=== PATIENT | female | born 2000 | race Caucasian/White ===

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

== ENCOUNTER 2022-03-29 22:10 | Emergency (ER) | payer OTHER, SELFPAY ==
[2022-03-29 22:21] VITALS: BP 120/77; PULSE 93; RESP 15; TEMP 36.4; O2SAT 99; BMI 19.7
[2022-03-29 22:42] LABS: MANUAL DIFF FLAG NO
[2022-03-29 22:44] LABS: Basophils Percent Auto 0.7 % (0-2); Eosinophils Percent Auto 0.5 % (0-4); Hematocrit 30.4 % (37.0-47.0); Hemoglobin 9.6 g/dl (12.0-16.0); Imm Gran Abs Auto 0.02 X10*3/uL (0.00-0.03); Imm Gran Pct Auto 0.3 % (0.0-0.4); Lymphocytes Absolute Auto 2.6 X10*3/uL (1.2-4.9); Lymphocytes Percent Auto 42.8 % (20-40); Mean Corpuscular HGB Conc 31.6 g/dl (31.0-35.0); Mean Corpuscular Hemoglobin 20.6 pg (27.0-33.0); Mean Corpuscular Volume 65.1 fL (80.0-98.0); Mean Platelet Volume 9.9 fL (9.4-12.3); Monocytes Absolute Auto 0.4 X10*3/uL (0.1-1.2); Monocytes Percent Auto 6.9 % (2-11); NRBC Pct Auto 0.7 /100WBC (0.0-0.2); Neutrophils Percent Auto 48.8 % (45-73); Platelet Count 298 X10*3/uL (160-400); Red Blood Count 4.67 X10*6/uL (4.20-5.50); Red Cell Distribution Width 20.7 % (11.0-16.0); White Blood Count 6.1 X10*3/uL (4.8-10.8)
[2022-03-29 22:45] LABS: Appearance Urine CLEAR; Color Urine YELLOW; Glucose Urine UA NEG (NEG); Leukocyte Esterase Urine NEG (NEG); Nitrite Urine NEG (NEG); UACC Culture Trigger NO; Urine Blood TRACE (NEG); Urine Ketones 5 MG/DL (NEG); Urine Protein NEG (NEG-TRACE)
[2022-03-29 22:58] LABS: Bacteria Urine TRACE /LPF; Mucus Urine 2+ /LPF; Squamous Epithelial Cell Urine 3+ /LPF; WBC Urine 0-2 /HPF (0-4)
[2022-03-29 22:59] LABS: Alanine Aminotransferase 9 U/L (0-31); Albumin Level 4.7 g/dL (3.5-5.0); Alkaline Phosphatase 50 U/L (39-117); Anion Gap 11 (12-20); Aspartate Amino Transferase 16 U/L (5-31); Bilirubin Direct 0.5 mg/dL (0.0-0.5); Bilirubin Total 1.5 mg/dL (0.0-1.0); Blood Urea Nitrogen 15 mg/dL (9-16); Calcium 9.7 mg/dL (8.4-10.2); Carbon Dioxide 27 mmol/L (22-29); Chloride 104 mmol/L (96-108); Creatinine Clr Calc Pharmacy 103.4; Estimated Glomerular Filt Rate > 60; Glucose Random 96 mg/dL (60-115); Lipase 21 U/L (8-78); Potassium 4.4 mmol/L (3.3-5.1); Sodium 138 mmol/L (135-145); Total Protein 7.7 g/dL (6.5-8.0)
[2022-03-29 23:05] LABS: HCG Quantitative < 2 mIU/mL
--- NOTE | 2022-03-29 23:43 | ED_ITS ---
HPI - Abdominal Pain General Chief Complaint: Abdominal Pain Stated Complaint: abd pain,back pain Time Seen by Provider: 03/29/22 22:13 Source: patient and family Mode of arrival: ambulatory Limitations: no limitations History of Present Illness HPI narrative: 21-year-old female came in for evaluation of abdominal pain. Abdominal pain started 3 days ago as cramps mostly in the lower abdomen bilaterally, pain described as constant moderate 5/10 as the abdominal crampy pain, pain to lower abdominal area bilaterally radiates to bilateral lower back area, no relieving factor, no worsening factors. Had this pain in the past, patient stated that her menses sees is delayed by 3 weeks, no vaginal discharge, no vaginal bleeding, no urinary frequency, no dysuria. No history of abdominal surgery. Related Data Previous Rx's Medication Instructions Recorded azithromycin 250 mg tablet 250 mg PO DAILY 4 days #4 tabs 08/29/21 (Zithromax Z-Ricardo) benzonatate 100 mg capsule 100 mg PO Q6H PRN cough #20 caps 08/29/21 prednisone 20 mg tablet 40 mg PO DAILY #10 tabs 08/29/21 Allergies Allergy/AdvReac Type Severity Reaction Status Date / Time No Known Allergies Allergy Verified 08/29/21 18:33 Review of Systems Review of Systems All other systems are reviewed and are negative Constitutional: Reports as per HPI and Reports no additional constitutional complaints Eyes: Reports as per HPI and Reports no additional eye complaints Reports system reviewed and no additional complaints, except as documented Cardiovascular: Reports as per HPI and Reports no additional cardiovascular complaints Respiratory: Reports as per HPI and Reports no additional respiratory complaints Gastrointestinal: Reports as per HPI and Reports no additional gastrointestinal complaints Genitourinary: Reports no additional female genitourinary complaints Musculoskeletal: Reports no additional musculoskeletal complaints Skin/Breast: Reports system reviewed and no additional complaints, except as docu Psychiatric: Reports no additional psychiatric complaints Endocrine: Reports no additional endocrine complaints Hematologic/Lymphatic: Reports no additional hematologic/lymphatic complaints Allergic/Immunologic: Reports no additional allergic/immunologic complaints Reports system reviewed and no additional complaints, except as documented and Reports Abnormal speech present COUNT INCLUDES THE [facility] Past Medical History Medical History Patient denies medical problems Social History Social History Alcohol intake: never Patient Tobacco Use Status: Never used Tobacco Use of substances other than those prescribed or required for medical reasons: No Advance Directives: No Advance Directives Information Provided: Yes Patient : No Physical Exam ED Vital Signs: Vital Signs - 24 hr 03/29/22 22:21 Temperature 97.6 F Pulse Rate 93 Respiratory Rate 15 Blood Pressure 120/77 Pulse Oximetry 99 Oxygen Delivery Method Room Air BMI result Body Mass Index 19.7 Vital signs have been reviewed as appeared to be correct. Blood pressure normal. Heart rate normal. Respiration rate normal. Temperature normal. Oxygen saturation normal. Appearance: Alert. Oriented X3. No acute distress. Head: Normal external exam. Normocephalic. Atraumatic. No Kc signs noted. No raccoon eyes noted Eyes: PERRLA. EOMI. Conjunctiva and sclera normal. Eyelids normal. ENT: TM's Normal. Pharynx normal. Uvula midline. Moist mucous membranes. No trismus noted. No drooling noted. No muffled voice noted. Neck: Normal inspection. Neck supple. FROM. No adenopathy. Thyroid Normal. No meningeal signs. No neck mass noted. CVS: Normal heart rate and rhythm. Heart sound normal. No murmurs noted. Pulses normal throughout. Respiratory: No respiratory distress. Painless inspiration. Breath sounds normal. No wheezes/rales/rhonchi noted. Chest nontender. No accessory muscle usage noted or decreased air movement noted. Abdomen: Soft and nontender. Bowel sounds normal in all 4 quadrants. No distention noted. No organomegaly noted. No visible injury noted. Back: No CVA tenderness. Full range of motion noted. Skin: Skin warm and dry. Normal skin color. Normal skin turgor. No rashes/lesions/lacerations noted. Extremities: No lower extremity edema. Extremities exhibit normal range of motion. Extremities nontender. Neuro: Oriented X 3. Cranial nerve exam: II-XII are grossly intact No motor deficit. No sensory deficit. Reflexes normal. Course Course Course Narrative: Assessment and plan. 21-year-old female with 3 days of abdominal pain, patient has unremarkable abdominal exam, no labs are unremarkable. Patient's symptoms improved with ibuprofen. Delayed menses with negative test. Will discharge the patient to follow-up with her PCP, to return to the ED if worsening of symptoms. 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 MDM - Abdominal Pain Lab Data Attestation: I reviewed the patient's lab results. Result diagrams: 03/29/22 22:26 03/29/22 22:26 Labs: Lab Results 03/29/22 03/29/22 03/29/22 Range/Units 22:26 22:26 22:37 WBC 6.1 (4.8-10.8) X10*3/uL RBC 4.67 (4.20-5.50) X10*6/uL Hgb 9.6 L (12.0-16.0) g/dl Hct 30.4 L (37.0-47.0) % MCV 65.1 L (80.0-98.0) fL MCH 20.6 L (27.0-33.0) pg MCHC 31.6 (31.0-35.0) g/dl RDW 20.7 H (11.0-16.0) % Plt Count 298 (160-400) X10*3/uL MPV 9.9 (9.4-12.3) fL Immature Gran % (Auto) 0.3 (0.0-0.4) % Neut % (Auto) 48.8 (45-73) % Lymph % (Auto) 42.8 H (20-40) % [place] % (Auto) 6.9 (2-11) % Eos % (Auto) 0.5 (0-4) % Baso % (Auto) 0.7 (0-2) % Lymph # (Auto) 2.6 (1.2-4.9) X10*3/uL [place] # (Auto) 0.4 (0.1-1.2) X10*3/uL Eos # (Auto) 0.0 (0.0-0.4) X10*3/uL Baso # (Auto) 0.0 (0.0-0.2) X10*3/uL Abs Immat Gran (auto) 0.02 (0.00-0.03) X10*3/uL Absolute Neuts (auto) 3.0 (2.0-8.3) x10*3/uL Absolute Nucleated RBC 0.040 H (0.0-0.012) X10*3/uL Nucleated RBC % (auto) 0.7 H (0.0-0.2) /100WBC Sodium 138 (135-145) mmol/L Potassium 4.4 (3.3-5.1) mmol/L Chloride 104 (96-108) mmol/L Carbon Dioxide 27 (22-29) mmol/L Anion Gap 11 L (12-20) BUN 15 (9-16) mg/dL Creatinine 0.72 (0.5-1.4) mg/dL Estim Creat Clear Calc 103.4 Estimated GFR > 60 Random Glucose 96 (60-115) mg/dL Calcium 9.7 (8.4-10.2) mg/dL Total Bilirubin 1.5 H (0.0-1.0) mg/dL Direct Bilirubin 0.5 (0.0-0.5) mg/dL AST 16 (5-31) U/L ALT 9 (0-31) U/L Alkaline Phosphatase 50 (39-117) U/L Total Protein 7.7 (6.5-8.0) g/dL Albumin 4.7 (3.5-5.0) g/dL Lipase 21 (8-78) U/L Beta HCG, Quant < 2 mIU/mL Urine Color YELLOW Urine Appearance CLEAR Urine pH 7.0 (5.0-8.0) Ur Specific [place] 1.020 (1.005-1.025) Urine Protein NEG (NEG-TRACE) MG/DL Urine Glucose (UA) NEG (NEG) MG/DL Urine Ketones 5 (NEG) MG/DL Urine Blood TRACE (NEG) Urine Nitrite NEG (NEG) Ur Leukocyte Esterase NEG (NEG) Urine RBC 1-4 (0) /HPF Urine WBC 0-2 (0-4) /HPF Ur Squamous Epith Cells 3+ /LPF Urine Bacteria TRACE /LPF Urine Mucus 2+ /LPF Discharge Plan Discharge Clinical Impression: Abdominal pain, Anemia Patient Disposition: Home, Self-Care Instructions: Abdominal Pain (ED) Prescriptions: No Action prednisone 20 mg tablet 40 mg PO DAILY Qty: 10 0RF azithromycin [Zithromax Z-Ricardo] 250 mg tablet 250 mg PO DAILY 4 Days Qty: 4 0RF Rx Instructions: start on day 2 of therapy benzonatate 100 mg capsule 100 mg PO Q6H PRN (Reason: cough) Qty: 20 0RF Referrals: Guero José MD [Primary Care Provider] - Nany Recinos MD [Physician] -
[2022-03-29] MEDS: Ibuprofen 600 MG TABLET PO (23:58)
== END 2022-03-30 00:58 | disposition home or self-care (01) ==
PROVIDERS: Emergency Medicine; Emergency Provider Emergency Medicine; PCP Pediatrics
DX: R10.31 Right lower quadrant pain (principal); R10.32 Left lower quadrant pain; D64.9 Anemia, unspecified; N91.0 Primary amenorrhea
CPT/HCPCS: 36415; 80048; 80076; 81001; 83690; 84702; 85025; 99283; 99284

== ENCOUNTER 2022-07-27 13:47 | Emergency (ER) | payer OTHER, SELFPAY ==
--- NOTE | 2022-07-27 13:49 | ECG_ITS ---
Test Reason : chest pain Blood Pressure : / mmHG Vent. Rate : 087 BPM Atrial Rate : 087 BPM P-R Int : 106 ms QRS Dur : 092 ms QT Int : 350 ms P-R-T Axes : 055 067 025 degrees QTc Int : 421 ms Sinus rhythm with short [place] Low voltage QRS Otherwise normal ECG No previous ECGs available Referred By: Generic ED Physician Electronically Signed By:SIVA EDOUARD MD
[2022-07-27 13:55] VITALS: BP 111/86; PULSE 90; RESP 18; TEMP 37.2; O2SAT 98; BMI 18.3
[2022-07-27 14:27] LABS: MANUAL DIFF FLAG NO
[2022-07-27 14:31] LABS: Appearance Urine Cloudy; Color Urine Dark Yellow; Glucose Urine UA Negative (Negative); Leukocyte Esterase Urine Moderate (2+) (Negative); Nitrite Urine Negative (Negative); Specific Gravity - Urine >= 1.030 (1.005-1.025); UMIC TRIGGER UACC YES; Urine Blood Negative (Negative); Urine Ketones Negative (Negative); Urine Protein 30 (1+) mg/dL (Neg-Trace)
[2022-07-27 14:36] LABS: UPreg QC Valid YES; Urine Pregnancy NEGATIVE (NEGATIVE)
[2022-07-27 14:37] LABS: Basophils Percent Auto 0.6 % (0-2); Eosinophils Absolute Auto 0.1 X10*3/uL (0.0-0.4); Eosinophils Percent Auto 1.3 % (0-4); Hematocrit 31.3 % (37.0-47.0); Hemoglobin 9.7 g/dl (12.0-16.0); Lymphocytes Absolute Auto 1.5 X10*3/uL (1.2-4.9); Lymphocytes Percent Auto 31.8 % (20-40); Mean Platelet Volume 10.1 fL (9.4-12.3); Monocytes Absolute Auto 0.3 X10*3/uL (0.1-1.2); Monocytes Percent Auto 7.2 % (2-11); NRBC Pct Auto 0.4 /100WBC (0.0-0.2); Neutrophils Absolute Auto 2.8 x10*3/uL (2.0-8.3); Neutrophils Percent Auto 59.1 % (45-73); Platelet Count 294 X10*3/uL (160-400); Red Blood Count 4.86 X10*6/uL (4.20-5.50); Red Cell Distribution Width 18.3 % (11.0-16.0); White Blood Count 4.7 X10*3/uL (4.8-10.8)
[2022-07-27 14:38] LABS: Mean Corpuscular Volume 64.4 fL (80.0-98.0)
[2022-07-27 14:43] LABS: Alanine Aminotransferase 6 U/L (0-31); Albumin Level 4.6 g/dL (3.5-5.0); Alkaline Phosphatase 50 U/L (39-117); Anion Gap 13 (12-20); Aspartate Amino Transferase 14 U/L (5-31); Bilirubin Direct 0.4 mg/dL (0.0-0.5); Bilirubin Total 1.2 mg/dL (0.0-1.0); Blood Urea Nitrogen 11 mg/dL (9-16); Calcium 9.6 mg/dL (8.4-10.2); Carbon Dioxide 25 mmol/L (22-29); Chloride 106 mmol/L (96-108); Creatinine Clr Calc Pharmacy 103.4; Estimated Glomerular Filt Rate > 60; Glucose Random 115 mg/dL (60-115); Lipase 29 U/L (8-78); Potassium 4.2 mmol/L (3.3-5.1); Sodium 140 mmol/L (135-145); Total Protein 7.5 g/dL (6.5-8.0)
[2022-07-27 14:49] LABS: Troponin-I High Sensitivity < 3.5 ng/L (<3.5-17.0)
[2022-07-27 15:11] LABS: Bacteria Urine 4+ (None Seen); Hyaline Casts Urine 0-2 /LPF (0-2); Squamous Epithelial Cell Urine >20 /HPF (0-2); UACC Culture Trigger YES; WBC Urine >50 /HPF (0-5)
[2022-07-27 18:10] VITALS: BP 97/65; PULSE 71; RESP 18; TEMP 36.9; O2SAT 100
--- OUTSIDE RECORDS SUMMARY | 2022-07-27 18:34 | XMS_ITS | Continuity of Care Document ---
:2000 Author Organization [facility] Address [address] [place] [address]- Care Team Providers Name Role Phone Not on Staff, PCP Primary Care Physician Unavailable Encounter [facility] Date(s): 10/26/19 - 11/02/[address] [address]- [facility] Attending Physician: Guero Gandhi MD Allergies, Adverse Reactions, Alerts Substance Reaction Severity Status NKA Active Immunizations Given and Recorded Vaccine Date Status Refusal Reason Hepatitis A Pediatric Vaccine1 07/29/15 Given Hepatitis A Pediatric Vaccine2 11/21/11 Given Human Papillomavirus Vaccine3 07/29/15 Given tetanus/diphtheria/pertussis, acel(Tdap)4 07/29/15 Given Meningococcal Conjugate Vaccine5 07/29/15 Given influenza virus vaccine, inactivated6 07/29/15 Given influenza virus vaccine, inactivated 10/14/13 Given influenza virus vaccine, inactivated7 06/29/09 Given influenza virus vaccine, inactivated8 08/21/07 Given influenza virus vaccine, inactivated9 08/22/04 Given influenza virus vaccine, [id number] 07/05/04 Given Varicella Virus [id number] 01/13/09 Given Varicella Virus Vaccine 03/08/04 Given diphtheria/tetanus/pertussis, acel(DTaP)12 07/05/07 Given diphtheria/tetanus/pertussis, acel(DTaP)13 03/12/07 Given diphtheria/tetanus/pertussis, acel(DTaP) 07/05/04 Given diphtheria/tetanus/pertussis, acel(DTaP) 08/17/03 Given diphtheria/tetanus/pertussis, acel(DTaP) 07/02/03 Given diphtheria/tetanus/pertussis, acel(DTaP) 03/04/03 Given Measles/Mumps/Rubella Virus [id number] 03/12/07 Given Measles/Mumps/Rubella Virus Vaccine 03/08/04 Given Poliovirus Vaccine, [id number] 03/12/07 Given Poliovirus Vaccine, Inactivated 03/08/04 Given Poliovirus Vaccine, Inactivated 07/02/03 Given Poliovirus Vaccine, Inactivated 03/04/03 Given pneumococcal 7-valent vaccine 11/06/04 Given pneumococcal 7-valent vaccine 08/17/03 Given pneumococcal 7-valent vaccine 07/02/03 Given pneumococcal 7-valent vaccine 03/04/03 Given Haemophilus B conjugate (HbOC) vaccine 03/08/04 Given Haemophilus B conjugate (HbOC) 08/17/03 Given Haemophilus B conjugate (HbOC) vaccine 07/02/03 Given Haemophilus B conjugate (HbOC) vaccine 03/04/03 Given hepatitis B pediatric vaccine 09/06/03 Given hepatitis B pediatric vaccine 02/12/03 Given hepatitis B pediatric vaccine 01/10/03 Given 1Result Comment: [07/29/2015] ORDERED BY CONRADO BAE MD2Admin Note: VIS 12/25/05 [id number] Comment: [07/29/2015] ORDERED BY CONRADO BAE MD4Result Comment: [07/29/2015] ORDERED BY CONRADO BAE MD5Result Comment: [07/29/2015] ORDERED BY CONRADO BAE MD6Result Comment: [07/29/2015] ORDERED BY CONRADO BAE MD7Admin Note: vis 05/17/09 [id number] Note: GIVEN BY [id number] Note: GIVEN BY [id number] Admin Note: GIVEN BY [id number] Note: VIS 12/18/0712Admin Note: GIVEN BY NURSE 13Admin Note: GIVEN BY [id number] Note: GIVEN BY [id number] Note: GIVEN BY [id number] Note: GIVEN BY NURSE Medications fluoride 1 mg oral tablet 1 tablet = 1 mg, By Mouth, Daily at bedtime, for 30 days, # 30 tablet, 11 Refills, Acute 07/23/16 14:03:31, 07/29/15 14:03:31, 1 tablet By Mouth Daily at bedtime,x30 days Start Date: 07/29/15 Stop Date: 07/23/16 Status: Orderedfluoride 1 mg oral tablet, chewable 1 tablet, By Mouth, Daily at bedtime, # 30 tablet, 11 Refills, Maintenance Start Date: 11/21/11 Stop Date: 11/15/12 Status: OrderedOvide 0.5% topical lotion 1 application, Topically, Once, as directed on package labeling, # 60 mL, 1 Refills, Soft Stop, Lotion Start Date: 08/08/12 Status: OrderedOvide 0.5% topical lotion 1 application, Topically, Once, as directed on package labeling, if lice still present after 7-9 days may repeat, # 60 mL, 1 Refills, Soft Stop, Lotion, 1 application Topically Once,Instr:as directed on package labeling, if lice still present after 7-... Start Date: 10/14/13 Status: Orderedpermethrin topical 1% solution 1 application, Topically, Once, to clean hair and scalp, leave in for 10 minutes then rinse with water, # 120 mL, 0 Refills, Maintenance, Solution Start Date: 04/20/10 Status: Orderedsulfamethoxazole-trimethoprim 200 mg-40 mg/5 ml oral suspension 12.5 mL, By Mouth, 2 times a day, # 250 mL, 0 Refills, Maintenance Start Date: 04/20/10 Stop Date: 04/30/10 Status: Ordered Problem List Condition Effective Dates Status Health Status Informant Asthma(Confirmed) Active Beta thalassemia trait(Confirmed) Active
--- NOTE | 2022-07-27 18:47 | ED.CHESTPAIN ---
HPI - Chest Pain General Chief Complaint: Chest Pain Stated Complaint: chest pains Time Seen by Provider: 07/27/22 18:30 Source: patient Mode of arrival: ambulatory Limitations: no limitations History of Present Illness HPI narrative: Patient is a 21-year-old female who presents emergency department for evaluation of chest pressure and palpitations. Patient reports a history of this for many years. She states that she was seen here in the past for similar complaints. She reports a history of anemia and was concerned that her anemia is worsening. Denies fevers, chills, upper respiratory symptoms dizziness, lightheadedness, chest pain, shortness of breath difficulty breathing, nausea, vomiting, abdominal pain, urinary frequency/urgency/hesitancy, numbness tingling of her extremities, weakness, unsteady gait. Related Data Previous Rx's Medication Instructions Recorded azithromycin 250 mg tablet 250 mg PO DAILY 4 days #4 tabs 08/29/21 (Zithromax Z-Ricardo) benzonatate 100 mg capsule 100 mg PO Q6H PRN cough #20 caps 08/29/21 prednisone 20 mg tablet 40 mg PO DAILY #10 tabs 08/29/21 Allergies Allergy/AdvReac Type Severity Reaction Status Date / Time No Known Allergies Allergy Verified 08/29/21 18:33 Review of Systems Review of Systems: Constitutional : No Weight loss, No Fever, No Chills ENT/Mouth :? No sore throat, No Rhinorrhea Eyes: No Eye Pain, No Swelling Cardiovascular : pos Chest Pain, no SOB, no Dyspnea on Exertion, No Orthopnea, No Edema, positive Palpitations Respiratory : No Cough, No Sputum Gastrointestinal : pos Nausea, No Vomiting, No Diarrhea, No abdominal Pain, No Hematochezia, No Melena Genitourinary : No Dysuria, No Urinary Frequency Musculoskeletal : No joint pain, No Myalgias, No Joint Swelling Skin : No Skin Lesions, No rash Neuro : No Weakness, No Numbness, No Dizziness, No Headache Psych : No Anxiety/Panic, No Depression Heme/Lymph: No Bruising, No Lymphadenopathy Endocrine : No Polyuria, No Polydipsia Yes all other systems are reviewed and are negative [facility] Past Medical History Attestation statement: The following information was validated with the patient. Source: old records reviewed Medical History Patient denies medical problems Social History Social History Alcohol intake: never Patient Tobacco Use Status: Never used Tobacco Advance Directives: No Advance Directives Information Provided: Yes Physical Exam Vital Signs: Vital Signs: Last Vital Signs Temp 98.1 F 07/27/22 19:21 Pulse 72 07/27/22 19:21 Resp 16 07/27/22 19:21 BP 107/61 07/27/22 19:21 Pulse Ox 99 07/27/22 19:21 O2 Del Method 07/27/22 19:21 BMI result Body Mass Index 18.3 Vital signs have been reviewed as normal and appeared to be correct. Blood pressure normal.? Heart rate normal.? Respiration rate normal. Temperature normal.? Oxygen saturation normal. Appearance: Alert.?Oriented to person, place and time. No acute distress.?Normal affect. Eyes: Pupils equal, round and reactive to light.? ENT: Pharynx normal.?? Neck: Normal inspection.? Neck supple.?? CVS: Heart sounds normal. Normal heart rate and rhythm.? Pulses normal.?? Respiratory: No respiratory distress.? Lung sounds clear to auscultation bilaterally?? Abdomen: Soft and non-tender. Normoactive bowel sounds. Skin: Skin warm and dry.? Normal skin color.? ? Extremities: No lower extremity edema.? No calf ttp? Neuro: Moves all extremities spontaneously. Sensation intact bilaterally. CN II-XII intact. No focal neuro deficits. Ambulates with normal steady gait. Course Course Course Narrative: Patient is a 21-year-old female with a past medical history of thalassemia presents emergency department for evaluation of chest pressure and palpitations. She is overall well-appearing, has no infectious symptoms no recent URI symptoms. Vital signs are stable, no tachycardia, tachypnea, hypoxia. She is normotensive and afebrile. Palpitations are intermittent and feel consistent with her baseline. Will obtain CBC to evaluate for leukocytosis/ anemia, CMP to evaluate for abnormal electrolytes /abnormal renal function/ abnormal hepatic/biliary function, EKG and troponin to evaluate for ischemia/ACS, Urinalysis and urine . Reevaluation(s) Reevaluation #1: CBC reveals a normocytic anemia consistent with her baseline no indication for transfusion at this time. CMP is overall normal. Troponin <3.5, EKG reveals sinus rhythm with short MA no evidence of delta wave no prior EKGs for comparison. Not consistent with ACS. Suspect there symptoms are secondary to her chronic anemia. By her report she has been on iron supplementations and past but has not seen Hematology in quite some time, she has a new primary care provider appointment in September of 2022. Urinalysis reveals moderate leukocyte esterase and wbc's with presence of bacteria and squamous epithelial cells. Patient is asymptomatic, urine test is negative. Suspect that this may be urogenital contamination. Would defer treatment at this time again a she is asymptomatic, culture was sent. Patient stable for discharge home. Discussed worrisome signs and symptoms to return back to emergency department for. All questions were answered. Time: 18:53 MDM - Chest Pain Lab Data Result diagrams: 07/27/22 14:20 07/27/22 14:21 Labs: Lab Results 07/27/22 07/27/22 07/27/22 Range/Units 14:16 14:16 14:20 WBC 4.7 L (4.8-10.8) X10*3/uL RBC 4.86 (4.20-5.50) X10*6/uL Hgb 9.7 L (12.0-16.0) g/dl Hct 31.3 L (37.0-47.0) % MCV 64.4 L (80.0-98.0) fL MCH 20.0 L (27.0-33.0) pg MCHC 31.0 (31.0-35.0) g/dl RDW 18.3 H (11.0-16.0) % Plt Count 294 (160-400) X10*3/uL MPV 10.1 (9.4-12.3) fL Immature Gran % (Auto) 0.0 (0.0-0.4) % Neut % (Auto) 59.1 (45-73) % Lymph % (Auto) 31.8 (20-40) % [place] % (Auto) 7.2 (2-11) % Eos % (Auto) 1.3 (0-4) % Baso % (Auto) 0.6 (0-2) % Lymph # (Auto) 1.5 (1.2-4.9) X10*3/uL [place] # (Auto) 0.3 (0.1-1.2) X10*3/uL Eos # (Auto) 0.1 (0.0-0.4) X10*3/uL Baso # (Auto) 0.0 (0.0-0.2) X10*3/uL Abs Immat Gran (auto) 0.00 (0.00-0.03) X10*3/uL Absolute Neuts (auto) 2.8 (2.0-8.3) x10*3/uL Absolute Nucleated RBC 0.020 H (0.0-0.012) X10*3/uL Nucleated RBC % (auto) 0.4 H (0.0-0.2) /100WBC Sodium (135-145) mmol/L Potassium (3.3-5.1) mmol/L Chloride (96-108) mmol/L Carbon Dioxide (22-29) mmol/L Anion Gap (12-20) BUN (9-16) mg/dL Creatinine (0.5-1.4) mg/dL Estim Creat Clear Calc Estimated GFR Random Glucose (60-115) mg/dL Calcium (8.4-10.2) mg/dL Total Bilirubin (0.0-1.0) mg/dL Direct Bilirubin (0.0-0.5) mg/dL AST (5-31) U/L ALT (0-31) U/L Alkaline Phosphatase (39-117) U/L Troponin I High Sens (<3.5-17.0) ng/L Total Protein (6.5-8.0) g/dL Albumin (3.5-5.0) g/dL Lipase (8-78) U/L Urine Color Dark Yellow Urine Appearance Cloudy Urine pH 5.0 (5.0-9.0) Ur Specific [place] >= 1.030 H (1.005-1.025) Urine Protein 30 (1+) H (Neg-Trace) mg/dL Urine Glucose (UA) Negative (Negative) mg/dL Urine Ketones Negative (Negative) mg/dL Urine Blood Negative (Negative) Urine Nitrite Negative (Negative) Ur Leukocyte Esterase Moderate (2+) H (Negative) Urine RBC 3-5 H (0-2) /HPF Urine WBC >50 H (0-5) /HPF Ur Squamous Epith Cells >20 (0-2) /HPF Urine Bacteria 4+ (None Seen) Hyaline Casts 0-2 (0-2) /LPF Urine Test NEGATIVE (NEGATIVE) 07/27/22 07/27/22 Range/Units 14:20 14:21 WBC (4.8-10.8) X10*3/uL RBC (4.20-5.50) X10*6/uL Hgb (12.0-16.0) g/dl Hct (37.0-47.0) % MCV (80.0-98.0) fL MCH (27.0-33.0) pg MCHC (31.0-35.0) g/dl RDW (11.0-16.0) % Plt Count (160-400) X10*3/uL MPV (9.4-12.3) fL Immature Gran % (Auto) (0.0-0.4) % Neut % (Auto) (45-73) % Lymph % (Auto) (20-40) % [place] % (Auto) (2-11) % Eos % (Auto) (0-4) % Baso % (Auto) (0-2) % Lymph # (Auto) (1.2-4.9) X10*3/uL [place] # (Auto) (0.1-1.2) X10*3/uL Eos # (Auto) (0.0-0.4) X10*3/uL Baso # (Auto) (0.0-0.2) X10*3/uL Abs Immat Gran (auto) (0.00-0.03) X10*3/uL Absolute Neuts (auto) (2.0-8.3) x10*3/uL Absolute Nucleated RBC (0.0-0.012) X10*3/uL Nucleated RBC % (auto) (0.0-0.2) /100WBC Sodium 140 (135-145) mmol/L Potassium 4.2 (3.3-5.1) mmol/L Chloride 106 (96-108) mmol/L Carbon Dioxide 25 (22-29) mmol/L Anion Gap 13 (12-20) BUN 11 (9-16) mg/dL Creatinine 0.67 (0.5-1.4) mg/dL Estim Creat Clear Calc 103.4 Estimated GFR > 60 Random Glucose 115 (60-115) mg/dL Calcium 9.6 (8.4-10.2) mg/dL Total Bilirubin 1.2 H (0.0-1.0) mg/dL Direct Bilirubin 0.4 (0.0-0.5) mg/dL AST 14 (5-31) U/L ALT 6 (0-31) U/L Alkaline Phosphatase 50 (39-117) U/L Troponin I High Sens < 3.5 (<3.5-17.0) ng/L Total Protein 7.5 (6.5-8.0) g/dL Albumin 4.6 (3.5-5.0) g/dL Lipase 29 (8-78) U/L Urine Color Urine Appearance Urine pH (5.0-9.0) Ur Specific [place] (1.005-1.025) Urine Protein (Neg-Trace) mg/dL Urine Glucose (UA) (Negative) mg/dL Urine Ketones (Negative) mg/dL Urine Blood (Negative) Urine Nitrite (Negative) Ur Leukocyte Esterase (Negative) Urine RBC (0-2) /HPF Urine WBC (0-5) /HPF Ur Squamous Epith Cells (0-2) /HPF Urine Bacteria (None Seen) Hyaline Casts (0-2) /LPF Urine Test (NEGATIVE) Discharge Plan Discharge Clinical Impression: Palpitations, Microcytic anemia Patient Disposition: Home, Self-Care Instructions: Heart Palpitations (ED), Anemia (ED) Additional Instructions: Please follow-up with your primary care provider. Return to the emergency department any new or worsening symptoms or concerns. Prescriptions: No Action prednisone 20 mg tablet 40 mg PO DAILY Qty: 10 0RF azithromycin [Zithromax Z-Ricardo] 250 mg tablet 250 mg PO DAILY 4 Days Qty: 4 0RF Rx Instructions: start on day 2 of therapy benzonatate 100 mg capsule 100 mg PO Q6H PRN (Reason: cough) Qty: 20 0RF Interventions: ED Discharge Assessment Last Done: 07/27/22 19:49 Discharge Date/Time: 07/27/22 19:50
[2022-07-27 19:21] VITALS: BP 107/61; PULSE 72; RESP 16; TEMP 36.7; O2SAT 99
== END 2022-07-27 19:50 | disposition home or self-care (01) ==
PROVIDERS: Emergency Provider Emergency Medicine; PCP Pediatrics
DX: R00.2 Palpitations (principal); D50.9 Iron deficiency anemia, unspecified
CPT/HCPCS: 36415; 80053; 81001; 81025; 82248; 83690; 84484; 85025; 87086; 93005; 99283; 99284

== ENCOUNTER 2022-07-31 09:27 | Emergency (ER) | payer OTHER, SELFPAY ==
--- NOTE | ~2022-07-31 | XR_ITS ---
EXAMINATION: XR CHEST CLINICAL INFORMATION: Chest pressure. COMPARISON: None TECHNIQUE: 2 views of the chest were obtained. FINDINGS: No significant abnormality is noted involving the heart, lungs, mediastinum, bony thorax or soft tissues. XR/XR chest 2V IMPRESSION: No acute cardiopulmonary process.
[2022-07-31 09:37] VITALS: BP 110/71; PULSE 74; RESP 18; TEMP 36.6; O2SAT 99; BMI 18.3
--- NOTE | 2022-07-31 09:40 | ECG_ITS ---
Test Reason : chest presssure Blood Pressure : / mmHG Vent. Rate : 074 BPM Atrial Rate : 074 BPM P-R Int : 126 ms QRS Dur : 090 ms QT Int : 366 ms P-R-T Axes : 039 049 024 degrees QTc Int : 406 ms Normal sinus rhythm with sinus arrhythmia Normal ECG When compared with ECG of 27-JUL-2022 13:51, No significant change was found Referred By: Generic ED Physician Electronically Signed By:SIVA EDOUARD MD
[2022-07-31 09:53] LABS: MANUAL DIFF FLAG NO
[2022-07-31 09:54] LABS: Basophils Percent Auto 0.5 % (0-2); Eosinophils Absolute Auto 0.1 X10*3/uL (0.0-0.4); Eosinophils Percent Auto 1.6 % (0-4); Hematocrit 27.8 % (37.0-47.0); Hemoglobin 8.7 g/dl (12.0-16.0); Imm Gran Abs Auto 0.01 X10*3/uL (0.00-0.03); Imm Gran Pct Auto 0.2 % (0.0-0.4); Lymphocytes Absolute Auto 1.7 X10*3/uL (1.2-4.9); Lymphocytes Percent Auto 38.9 % (20-40); Mean Corpuscular HGB Conc 31.3 g/dl (31.0-35.0); Mean Corpuscular Hemoglobin 20.2 pg (27.0-33.0); Monocytes Absolute Auto 0.4 X10*3/uL (0.1-1.2); Monocytes Percent Auto 8.9 % (2-11); NRBC Pct Auto 0.5 /100WBC (0.0-0.2); Neutrophils Absolute Auto 2.2 x10*3/uL (2.0-8.3); Neutrophils Percent Auto 49.9 % (45-73); Platelet Count 232 X10*3/uL (160-400); Red Blood Count 4.31 X10*6/uL (4.20-5.50); White Blood Count 4.4 X10*3/uL (4.8-10.8)
[2022-07-31 09:57] LABS: Mean Corpuscular Volume 64.5 fL (80.0-98.0)
[2022-07-31 10:12] LABS: Alanine Aminotransferase 6 U/L (0-31); Albumin Level 4.3 g/dL (3.5-5.0); Alkaline Phosphatase 46 U/L (39-117); Anion Gap 14 (12-20); Aspartate Amino Transferase 13 U/L (5-31); Bilirubin Direct 0.4 mg/dL (0.0-0.5); Bilirubin Total 0.9 mg/dL (0.0-1.0); Blood Urea Nitrogen 10 mg/dL (9-16); Carbon Dioxide 21 mmol/L (22-29); Chloride 109 mmol/L (96-108); Creatinine Clr Calc Pharmacy 113.6; Estimated Glomerular Filt Rate > 60; Glucose Random 103 mg/dL (60-115); Lipase 20 U/L (8-78); Potassium 3.9 mmol/L (3.3-5.1); Sodium 140 mmol/L (135-145); Total Protein 6.9 g/dL (6.5-8.0)
[2022-07-31 10:19] LABS: Troponin-I High Sensitivity < 3.5 ng/L (<3.5-17.0)
[2022-07-31 10:45] LABS: Influenza A PCR NEGATIVE (Negative); Influenza B PCR NEGATIVE (Negative); Resp Syncy Virus RNA Qual PCR NEGATIVE (Negative); SARS COV2 PCR INHOUSE NEGATIVE (Negative)
[2022-07-31 13:56] VITALS: BP 105/60; PULSE 71; RESP 18; TEMP 36.8; O2SAT 100
[2022-07-31 15:25] VITALS: BP 110/76; PULSE 79; RESP 16; TEMP 36.7; O2SAT 100
--- NOTE | 2022-07-31 15:43 | ED.CHESTPAIN ---
HPI - Chest Pain General Chief Complaint: Chest Pain Stated Complaint: Chest Pressure Time Seen by Provider: 07/31/22 15:26 Source: patient Mode of arrival: ambulatory Limitations: no limitations History of Present Illness HPI narrative: Patient is a 21 year old female with a past medical history of thalassemia who presents to the ED today with complaints of chest pain and heaviness. Patient was seen here previously on 07/27/2022 for similar symptoms and was discharged home without any acute findings at that time. Today she states she continues to have pain that originates in the center of her chest that radiates to her back, similar to the episodes she has been experiencing for the last several months. She denies any aggravating or alleviating factors. She reports taking an aspirin prior to her arrival here without any relief of symptoms. She denies fevers, chills, HAs, dizziness, weakness, rhinorrhea, sore throat, cough, SOB, palpitations, abdominal pain, N/V/D, urinary symptoms, leg pain/swelling, numbness/tingling, saddle parenthesias, recent injury/trauma, recent travel, personal/family clotting disorders, and IVDU. Upon chart review she was on control in the form of a patch, however the pt states that she has not used control since September of last year. MD complaint: chest pain and chest heaviness Onset (ago): month(s) (Several months ) Pain radiation: back Severity: moderate Quality: heaviness Relieving factors: nothing Exacerbating factors: nothing Treatment prior to arrival: aspirin Risk Factors Coronary artery disease risk factors: none Thoracic aortic dissection risk factors: none Related Data On Oral Contraceptives: No Previous Rx's Medication Instructions Recorded azithromycin 250 mg tablet 250 mg PO DAILY 4 days #4 tabs 08/29/21 (Zithromax Z-Ricardo) benzonatate 100 mg capsule 100 mg PO Q6H PRN cough #20 caps 08/29/21 prednisone 20 mg tablet 40 mg PO DAILY #10 tabs 08/29/21 cyclobenzaprine 10 mg tablet 10 mg PO Q8H PRN Muscle spasm #14 07/31/22 tabs naproxen 500 mg tablet,delayed 500 mg PO BID 7 days #14 tabs 07/31/22 release Allergies Allergy/AdvReac Type Severity Reaction Status Date / Time No Known Allergies Allergy Verified 08/29/21 18:33 Review of Systems Review of Systems: Constitutional : No trauma, No Weight loss, No Fever, No Chills, ENT/Mouth : No Hearing loss, No Ear Pain, No Nasal Congestion, No Sinus Pain, No Hoarseness, No sore throat, No Rhinorrhea, No Swallowing Difficulty Cardiovascular : + Chest Pain, No SOB Respiratory : No Cough, No Dyspnea Gastrointestinal : No Nausea, No Vomiting, No Diarrhea, No abdominal Pain, No Hematochezia, No Melena Genitourinary : No Dysuria, No Urinary Frequency, No Hematuria, No Urinary or Bowel Incontinence/retention Musculoskeletal : + Back pain, No neck pain, No joint stiffness, No joint swelling Skin : No Skin Lesions, No rash or signs of infection Neuro : No Weakness, No radiation, No Numbness, No Paresthesias, No headache, no loss of bowel or bladder incontinence, no saddle anesthesia, Focal weakness, No radiation Denies history of IV drug usage. Yes all other systems are reviewed and are negative PMFSH Past Medical History Attestation statement: The following information was validated with the patient. Source: old records reviewed, obtained from family and nursing notes reviewed Medical History Patient denies medical problems Social History Social History Alcohol intake: never Patient Tobacco Use Status: Never used Tobacco Advance Directives: No Advance Directives Information Provided: No Physical Exam Vital Signs: Vital Signs: Last Vital Signs Temp 98.1 F 07/31/22 15:25 Pulse 79 07/31/22 15:25 Resp 16 07/31/22 15:25 BP 110/76 07/31/22 15:25 Pulse Ox 100 07/31/22 15:25 O2 Del Method 07/31/22 15:25 BMI result Body Mass Index 18.3 vital signs have been reviewed as normal and appeared to be correct. Blood pressure normal. Heart rate normal. Respiration rate normal. Temperature normal. Oxygen saturation normal. Appearance: Alert. Oriented X3. No acute distress. Head: Normal external exam. Normocephalic. Atraumatic. No Kc signs noted. No raccoon eyes noted Eyes: PERRLA. EOMI. Conjunctiva and sclera normal. Eyelids normal. ENT: EAC normal. TM's Normal. Pharynx normal. Uvula midline. Moist mucous membranes. No trismus noted. No drooling noted. No muffled voice noted. Neck: Normal inspection. Neck supple. Thyroid Normal. No meningeal signs. No neck mass noted. CVS: Normal heart rate and rhythm. Heart sound normal. No murmurs noted. Tenderness to palpation along the intercostal muscles b/l and sternum. Respiratory: No respiratory distress. Painless inspiration. Breath sounds normal. No wheezes/rales/rhonchi noted. Chest nontender. No accessory muscle usage noted or decreased air movement noted. Abdomen: Soft and nontender. Bowel sounds normal in all 4 quadrants. No distention noted. No organomegaly noted. No visible injury noted. Back: No CVA tenderness. Full range of motion noted. No obvious deformities, or edema. Mild para-spinal muscular tenderness in thoracic region. Full ROM in back and lower extremities. Skin: Skin warm and dry. Normal skin color. Normal skin turgor. No rashes/lesions/lacerations noted. Extremities: No lower extremity edema. Extremities exhibit normal range of motion. Extremities nontender. Neuro: Oriented X 3. No motor deficit. No sensory deficit. Reflexes normal. Patient has a normal steady gait. Course Course Course Narrative: 15:30 Patient is a 21 year old female with a past medical history of thalassemia who presents to the ED today with complaints of chest pain and heaviness. Patient was seen here previously on 07/27/2022 for similar symptoms and was discharged home without any acute findings at that time. Today she states she continues to have pain that originates in the center of her chest that radiates to her back, similar to the episodes she has been experiencing for the last several months. She denies any aggravating or alleviating factors. She reports taking an aspirin prior to her arrival here without any relief of symptoms. She denies fevers, chills, HAs, dizziness, weakness, rhinorrhea, sore throat, cough, SOB, palpitations, abdominal pain, N/V/D, urinary symptoms, leg pain/swelling, numbness/tingling, saddle parenthesias, recent injury/trauma, recent travel, personal/family clotting disorders, and IVDU. Upon chart review she was on control in the form of a patch, however the pt states that she has not used control since September of last year. VSS. PE otherwise unremarkable aside from mild TTP along the thoracic paraspinal muscles and b/l ribs. Plan: Labs including D-dimer and PT/INR, CXR, UA and re-evaluate pt. Reevaluation(s) Reevaluation #1: -CXR negative for any acute findings. -D-dimer, PT/INR pending. Time: 15:52 Reevaluation #2: -D-dimer negative. UA and HCG pending. Given hx of symptoms and multiple recent negative work-ups, will advise pt to f/u with PCP and prescribe naproxen and Flexeril for pain control. Time: 16:54 MDM - Chest Pain Medical Records Data Attestation: I reviewed the patient's medical records. Lab Data Attestation: I reviewed the patient's lab results. Result diagrams: 07/31/22 09:48 07/31/22 09:48 Labs: Lab Results 07/31/22 07/31/22 07/31/22 Range/Units 09:48 09:48 09:48 WBC 4.4 L (4.8-10.8) X10*3/uL RBC 4.31 (4.20-5.50) X10*6/uL Hgb 8.7 L (12.0-16.0) g/dl Hct 27.8 L (37.0-47.0) % MCV 64.5 L (80.0-98.0) fL MCH 20.2 L (27.0-33.0) pg MCHC 31.3 (31.0-35.0) g/dl RDW 18.0 H (11.0-16.0) % Plt Count 232 (160-400) X10*3/uL MPV 9.0 L (9.4-12.3) fL Immature Gran % (Auto) 0.2 (0.0-0.4) % Neut % (Auto) 49.9 (45-73) % Lymph % (Auto) 38.9 (20-40) % [place] % (Auto) 8.9 (2-11) % Eos % (Auto) 1.6 (0-4) % Baso % (Auto) 0.5 (0-2) % Lymph # (Auto) 1.7 (1.2-4.9) X10*3/uL [place] # (Auto) 0.4 (0.1-1.2) X10*3/uL Eos # (Auto) 0.1 (0.0-0.4) X10*3/uL Baso # (Auto) 0.0 (0.0-0.2) X10*3/uL Abs Immat Gran (auto) 0.01 (0.00-0.03) X10*3/uL Absolute Neuts (auto) 2.2 (2.0-8.3) x10*3/uL Absolute Nucleated RBC 0.020 H (0.0-0.012) X10*3/uL Nucleated RBC % (auto) 0.5 H (0.0-0.2) /100WBC PT (10.0-13.1) SEC INR (0.9-1.1) D-Dimer High Sensitivty NG/ML Sodium 140 (135-145) mmol/L Potassium 3.9 (3.3-5.1) mmol/L Chloride 109 H (96-108) mmol/L Carbon Dioxide 21 L (22-29) mmol/L Anion Gap 14 (12-20) BUN 10 (9-16) mg/dL Creatinine 0.61 (0.5-1.4) mg/dL Estim Creat Clear Calc 113.6 Estimated GFR > 60 Random Glucose 103 (60-115) mg/dL Calcium 9.0 D (8.4-10.2) mg/dL Total Bilirubin 0.9 (0.0-1.0) mg/dL Direct Bilirubin 0.4 (0.0-0.5) mg/dL AST 13 (5-31) U/L ALT 6 (0-31) U/L Alkaline Phosphatase 46 (39-117) U/L Troponin I High Sens < 3.5 (<3.5-17.0) ng/L Total Protein 6.9 (6.5-8.0) g/dL Albumin 4.3 (3.5-5.0) g/dL Lipase 20 (8-78) U/L Influenza Type A (PCR) (Negative) Influenza Type B (PCR) (Negative) RSV RNA Qual (PCR) (Negative) SARS-CoV-2 RNA (RT-PCR) (Negative) 07/31/22 07/31/22 Range/Units 09:48 16:27 WBC (4.8-10.8) X10*3/uL RBC (4.20-5.50) X10*6/uL Hgb (12.0-16.0) g/dl Hct (37.0-47.0) % MCV (80.0-98.0) fL MCH (27.0-33.0) pg MCHC (31.0-35.0) g/dl RDW (11.0-16.0) % Plt Count (160-400) X10*3/uL MPV (9.4-12.3) fL Immature Gran % (Auto) (0.0-0.4) % Neut % (Auto) (45-73) % Lymph % (Auto) (20-40) % [place] % (Auto) (2-11) % Eos % (Auto) (0-4) % Baso % (Auto) (0-2) % Lymph # (Auto) (1.2-4.9) X10*3/uL [place] # (Auto) (0.1-1.2) X10*3/uL Eos # (Auto) (0.0-0.4) X10*3/uL Baso # (Auto) (0.0-0.2) X10*3/uL Abs Immat Gran (auto) (0.00-0.03) X10*3/uL Absolute Neuts (auto) (2.0-8.3) x10*3/uL Absolute Nucleated RBC (0.0-0.012) X10*3/uL Nucleated RBC % (auto) (0.0-0.2) /100WBC PT 14.2 H (10.0-13.1) SEC INR 1.2 H (0.9-1.1) D-Dimer High Sensitivty < 150 NG/ML Sodium (135-145) mmol/L Potassium (3.3-5.1) mmol/L Chloride (96-108) mmol/L Carbon Dioxide (22-29) mmol/L Anion Gap (12-20) BUN (9-16) mg/dL Creatinine (0.5-1.4) mg/dL Estim Creat Clear Calc Estimated GFR Random Glucose (60-115) mg/dL Calcium (8.4-10.2) mg/dL Total Bilirubin (0.0-1.0) mg/dL Direct Bilirubin (0.0-0.5) mg/dL AST (5-31) U/L ALT (0-31) U/L Alkaline Phosphatase (39-117) U/L Troponin I High Sens (<3.5-17.0) ng/L Total Protein (6.5-8.0) g/dL Albumin (3.5-5.0) g/dL Lipase (8-78) U/L Influenza Type A (PCR) NEGATIVE (Negative) Influenza Type B (PCR) NEGATIVE (Negative) RSV RNA Qual (PCR) NEGATIVE (Negative) SARS-CoV-2 RNA (RT-PCR) NEGATIVE (Negative) Imaging Data Chest x-ray: Attestation: I personally reviewed and interpreted this imaging study as follows: Radiologist's impression: FINDINGS: No significant abnormality is noted involving the heart, lungs, mediastinum, bony thorax or soft tissues. XR/XR chest 2V IMPRESSION: No acute cardiopulmonary process. Discharge Plan Discharge Clinical Impression: Atypical chest pain Patient Disposition: Home, Self-Care Instructions: Noncardiac Chest Pain (ED) Additional Instructions: Follow up with your primary care physician in 2-3 days. Prescriptions: New naproxen 500 mg tablet,delayed release (DR/EC) 500 mg PO BID 7 Days Qty: 14 0RF cyclobenzaprine 10 mg tablet 10 mg PO Q8H PRN (Reason: Muscle spasm) Qty: 14 0RF No Action prednisone 20 mg tablet 40 mg PO DAILY Qty: 10 0RF azithromycin [Zithromax Z-Ricardo] 250 mg tablet 250 mg PO DAILY 4 Days Qty: 4 0RF Rx Instructions: start on day 2 of therapy benzonatate 100 mg capsule 100 mg PO Q6H PRN (Reason: cough) Qty: 20 0RF Interventions: ED Discharge Assessment Last Done: 07/31/22 17:16
[2022-07-31 16:38] LABS: INTERNATIONAL NORM RATIO 1.2 (0.9-1.1); Prothrombin Time 14.2 SEC (10.0-13.1)
[2022-07-31 16:43] LABS: D Dimer High Sensitivity < 150 NG/ML
[2022-07-31 17:15] LABS: Appearance Urine Clear; Color Urine Yellow; Glucose Urine UA Negative (Negative); Leukocyte Esterase Urine Negative (Negative); Nitrite Urine Negative (Negative); PH 6.5 (5.0-9.0); Specific Gravity - Urine 1.015 (1.005-1.025); Urine Blood Negative (Negative); Urine Ketones Negative (Negative); Urine Protein Negative (Neg-Trace)
[2022-07-31 17:16] LABS: UPreg QC Valid YES; Urine Pregnancy NEGATIVE (NEGATIVE)
== END 2022-07-31 17:16 | disposition home or self-care (01) ==
PROVIDERS: Emergency Medicine; Physician Assistant Medical; Emergency Provider Emergency Medicine Emergency Medical Services; PCP Pediatrics
DX: R07.89 Other chest pain (principal); M54.50 Low back pain, unspecified; Z20.822 Contact with and (suspected) exposure to COVID-19; Z79.899 Other long term (current) drug therapy
CPT/HCPCS: 0241U; 36415; 71046; 80048; 80076; 81003; 81025; 83690; 84484; 85025; 85379; 85610; 93005; 99283; 99284

== ENCOUNTER 2022-08-20 10:30 | Emergency (ER) | payer OTHER, SELFPAY ==
--- NOTE | 2022-08-20 | ECG_ITS ---
Test Reason : Chest pain Blood Pressure : / mmHG Vent. Rate : 083 BPM Atrial Rate : 083 BPM P-R Int : 130 ms QRS Dur : 096 ms QT Int : 352 ms P-R-T Axes : 053 063 022 degrees QTc Int : 413 ms Normal sinus rhythm Nonspecific T wave abnormality Inferior leads Abnormal ECG When compared with ECG of 31-JUL-2022 09:39, No significant change was found Referred By: Generic ED Physician Electronically Signed By:SIVA EDOUARD MD
--- NOTE | ~2022-08-20 | XR_ITS ---
EXAMINATION: XR CHEST CLINICAL INFORMATION: Chest pain COMPARISON: Chest x-ray 07/31/2022 TECHNIQUE: 2 views of the chest were obtained. FINDINGS: Cardiac silhouette is normal in size. The lungs are well aerated. There is no lobar consolidation. No pleural effusion or pneumothorax. No acute osseous XR/XR chest 2V IMPRESSION: No acute pulmonary pathology.
[2022-08-20 10:48] VITALS: BP 121/78; PULSE 81; RESP 16; TEMP 36.4; O2SAT 100; BMI 18.3
[2022-08-20 11:10] LABS: MANUAL DIFF FLAG NO
[2022-08-20 11:12] LABS: Basophils Percent Auto 0.4 % (0-2); Eosinophils Percent Auto 0.4 % (0-4); Hematocrit 32.1 % (37.0-47.0); Imm Gran Abs Auto 0.02 X10*3/uL (0.00-0.03); Imm Gran Pct Auto 0.4 % (0.0-0.4); Lymphocytes Absolute Auto 1.8 X10*3/uL (1.2-4.9); Lymphocytes Percent Auto 39.1 % (20-40); Mean Corpuscular HGB Conc 31.2 g/dl (31.0-35.0); Mean Platelet Volume 10.1 fL (9.4-12.3); Monocytes Absolute Auto 0.3 X10*3/uL (0.1-1.2); Monocytes Percent Auto 6.8 % (2-11); NRBC Pct Auto 0.4 /100WBC (0.0-0.2); Neutrophils Absolute Auto 2.4 x10*3/uL (2.0-8.3); Neutrophils Percent Auto 52.9 % (45-73); Platelet Count 318 X10*3/uL (160-400); Red Blood Count 5.01 X10*6/uL (4.20-5.50); Red Cell Distribution Width 18.5 % (11.0-16.0); White Blood Count 4.6 X10*3/uL (4.8-10.8)
[2022-08-20 11:13] LABS: Mean Corpuscular Volume 64.1 fL (80.0-98.0)
[2022-08-20 11:33] LABS: Alanine Aminotransferase 7 U/L (0-31); Albumin Level 4.5 g/dL (3.5-5.0); Alkaline Phosphatase 53 U/L (39-117); Anion Gap 13 (12-20); Aspartate Amino Transferase 15 U/L (5-31); Bilirubin Total 1.2 mg/dL (0.0-1.0); Blood Urea Nitrogen 10 mg/dL (9-16); Calcium 9.6 mg/dL (8.4-10.2); Carbon Dioxide 26 mmol/L (22-29); Chloride 104 mmol/L (96-108); Creatinine Clr Calc Pharmacy 106.6; Estimated Glomerular Filt Rate > 60; Glucose Random 84 mg/dL (60-115); Potassium 3.9 mmol/L (3.3-5.1); Sodium 139 mmol/L (135-145); Total Protein 7.5 g/dL (6.5-8.0)
[2022-08-20 11:34] LABS: Troponin-I High Sensitivity < 3.5 ng/L (<3.5-17.0)
[2022-08-20 12:07] LABS: Influenza A PCR NEGATIVE (Negative); Influenza B PCR NEGATIVE (Negative); Resp Syncy Virus RNA Qual PCR NEGATIVE (Negative); SARS COV2 PCR INHOUSE NEGATIVE (Negative)
--- NOTE | 2022-08-20 16:04 | ED.CHESTPAIN ---
HPI - Chest Pain General Chief Complaint: Chest Pain Stated Complaint: Chest pain Time Seen by Provider: 08/20/22 16:01 Source: patient Mode of arrival: ambulatory Limitations: no limitations History of Present Illness HPI narrative: 21-year-old female with history of thalassemia who presents to the ER for evaluation of intermittent pleuritic chest pains for last several months. She has been seen here in the ER for the same several times. She states for the last several months she intermittently gets chest pressure and tightness when she takes a deep breath. She also reports the pain is present when she moves the wrong way or tries to go from lying to standing. She denies any associated shortness of breath, dizziness, presyncope. No leg swelling. No personal or family history of blood clots. She is not on control pills. She was prescribed naproxen and Flexeril for this same last month with improvement in the pain, pains came back once the meds ran out. MD complaint: chest heaviness Onset (ago): month(s) Timing of current episode: episodic Prior episodes: Yes Onset: during rest Pain location: substernal Pain radiation: none Severity: moderate Quality: tightness and sharp Relieving factors: nothing Exacerbating factors: inspiration Treatment prior to arrival: none Risk Factors Coronary artery disease risk factors: none Thoracic aortic dissection risk factors: none Related Data On Oral Contraceptives: No Previous Rx's Medication Instructions Recorded azithromycin 250 mg tablet 250 mg PO DAILY 4 days #4 tabs 08/29/21 (Zithromax Z-Ricardo) benzonatate 100 mg capsule 100 mg PO Q6H PRN cough #20 caps 08/29/21 prednisone 20 mg tablet 40 mg PO DAILY #10 tabs 08/29/21 cyclobenzaprine 10 mg tablet 10 mg PO Q8H PRN Muscle spasm #14 07/31/22 tabs naproxen 500 mg tablet,delayed 500 mg PO BID 7 days #14 tabs 07/31/22 release cyclobenzaprine 10 mg tablet 10 mg PO TID PRN muscle spasm #10 08/20/22 tabs naproxen 500 mg tablet 500 mg PO BID PRN pain #20 tabs 08/20/22 Allergies Allergy/AdvReac Type Severity Reaction Status Date / Time No Known Allergies Allergy Verified 08/29/21 18:33 Review of Systems Review of Systems: Constitutional: No Fever, No Chills ENT/Mouth: No sore throat, No Rhinorrhea Cardiovascular: + Chest Pain, No SOB, No Orthopnea, No Edema Respiratory: No Cough, No Sputum, No Wheezing, No dyspnea Gastrointestinal: No Nausea, No Vomiting, No Diarrhea, No abdominal Pain Musculoskeletal: No joint pain, No Myalgias Skin: No Skin Lesions, No rash Neuro: No Weakness, No Numbness, No Dizziness, No Headache Psych: No Anxiety/Panic, No Depression Heme/Lymph: No Bruising, No Lymphadenopathy PMFSH Past Medical History Medical History Patient denies medical problems Social History Social History Alcohol intake: never Patient Tobacco Use Status: Never used Tobacco Advance Directives: No Advance Directives Information Provided: Yes Physical Exam Vital Signs: Vital Signs: Last Vital Signs Temp 97.6 F 08/20/22 10:48 Pulse 81 08/20/22 10:48 Resp 16 08/20/22 10:48 BP 121/78 08/20/22 10:48 Pulse Ox 100 08/20/22 10:48 O2 Del Method 08/20/22 10:48 BMI result Body Mass Index 18.3 Appearance: Alert. Oriented X3. No acute distress. Eyes: Pupils equal, round and reactive to light. ENT: Pharynx normal. Neck: Normal inspection. Neck supple. CVS: Normal heart rate and rhythm. Pulses normal. Respiratory: No respiratory distress. Breath sounds normal. Abdomen: Soft and nontender. +BS x4 Skin: Skin warm and dry. Normal skin color. Normal skin turgor. No rashes. Extremities: No lower extremity edema. No calf tenderness Neuro: Oriented X 3. grossly normal, nonfocal Course Course Course Narrative: 21 yo female presents to the ER with intermittent pleuritic chest pains for months. VSS. PERC negative. Workup is again negative with unremarkable EKG, flat troponin, normal chest x-ray and other labs. She reported improvement with previous prescription, upon chart review she was given course of Flexeril and naproxen. Given her response to these medications her pain is most likely muscular in nature. Will repeat treatment. Will have her follow-up with her PCP. She would like to see a mis specialist, will refer. Stable for discharge home. Return precautions were discussed MDM - Chest Pain Medical Records Data Attestation: I reviewed the patient's medical records. Lab Data Attestation: I reviewed the patient's lab results. Result diagrams: 08/20/22 11:04 08/20/22 11:04 Labs: Lab Results 08/20/22 08/20/22 08/20/22 Range/Units 11:04 11:04 11:04 WBC 4.6 L (4.8-10.8) X10*3/uL RBC 5.01 (4.20-5.50) X10*6/uL Hgb 10.0 L (12.0-16.0) g/dl Hct 32.1 L (37.0-47.0) % MCV 64.1 L (80.0-98.0) fL MCH 20.0 L (27.0-33.0) pg MCHC 31.2 (31.0-35.0) g/dl RDW 18.5 H (11.0-16.0) % Plt Count 318 D (160-400) X10*3/uL MPV 10.1 (9.4-12.3) fL Immature Gran % (Auto) 0.4 (0.0-0.4) % Neut % (Auto) 52.9 (45-73) % Lymph % (Auto) 39.1 (20-40) % Thurston % (Auto) 6.8 (2-11) % Eos % (Auto) 0.4 (0-4) % Baso % (Auto) 0.4 (0-2) % Lymph # (Auto) 1.8 (1.2-4.9) X10*3/uL Thurston # (Auto) 0.3 (0.1-1.2) X10*3/uL Eos # (Auto) 0.0 (0.0-0.4) X10*3/uL Baso # (Auto) 0.0 (0.0-0.2) X10*3/uL Abs Immat Gran (auto) 0.02 (0.00-0.03) X10*3/uL Absolute Neuts (auto) 2.4 (2.0-8.3) x10*3/uL Absolute Nucleated RBC 0.020 H (0.0-0.012) X10*3/uL Nucleated RBC % (auto) 0.4 H (0.0-0.2) /100WBC Sodium 139 (135-145) mmol/L Potassium 3.9 (3.3-5.1) mmol/L Chloride 104 (96-108) mmol/L Carbon Dioxide 26 (22-29) mmol/L Anion Gap 13 (12-20) BUN 10 (9-16) mg/dL Creatinine 0.65 (0.5-1.4) mg/dL Estim Creat Clear Calc 106.6 Estimated GFR > 60 Random Glucose 84 (60-115) mg/dL Calcium 9.6 D (8.4-10.2) mg/dL Total Bilirubin 1.2 H (0.0-1.0) mg/dL AST 15 (5-31) U/L ALT 7 (0-31) U/L Alkaline Phosphatase 53 (39-117) U/L Troponin I High Sens < 3.5 (<3.5-17.0) ng/L Total Protein 7.5 (6.5-8.0) g/dL Albumin 4.5 (3.5-5.0) g/dL Influenza Type A (PCR) (Negative) Influenza Type B (PCR) (Negative) RSV RNA Qual (PCR) (Negative) SARS-CoV-2 RNA (RT-PCR) (Negative) 08/20/22 Range/Units 11:04 WBC (4.8-10.8) X10*3/uL RBC (4.20-5.50) X10*6/uL Hgb (12.0-16.0) g/dl Hct (37.0-47.0) % MCV (80.0-98.0) fL MCH (27.0-33.0) pg MCHC (31.0-35.0) g/dl RDW (11.0-16.0) % Plt Count (160-400) X10*3/uL MPV (9.4-12.3) fL Immature Gran % (Auto) (0.0-0.4) % Neut % (Auto) (45-73) % Lymph % (Auto) (20-40) % Thurston % (Auto) (2-11) % Eos % (Auto) (0-4) % Baso % (Auto) (0-2) % Lymph # (Auto) (1.2-4.9) X10*3/uL Thurston # (Auto) (0.1-1.2) X10*3/uL Eos # (Auto) (0.0-0.4) X10*3/uL Baso # (Auto) (0.0-0.2) X10*3/uL Abs Immat Gran (auto) (0.00-0.03) X10*3/uL Absolute Neuts (auto) (2.0-8.3) x10*3/uL Absolute Nucleated RBC (0.0-0.012) X10*3/uL Nucleated RBC % (auto) (0.0-0.2) /100WBC Sodium (135-145) mmol/L Potassium (3.3-5.1) mmol/L Chloride (96-108) mmol/L Carbon Dioxide (22-29) mmol/L Anion Gap (12-20) BUN (9-16) mg/dL Creatinine (0.5-1.4) mg/dL Estim Creat Clear Calc Estimated GFR Random Glucose (60-115) mg/dL Calcium (8.4-10.2) mg/dL Total Bilirubin (0.0-1.0) mg/dL AST (5-31) U/L ALT (0-31) U/L Alkaline Phosphatase (39-117) U/L Troponin I High Sens (<3.5-17.0) ng/L Total Protein (6.5-8.0) g/dL Albumin (3.5-5.0) g/dL Influenza Type A (PCR) NEGATIVE (Negative) Influenza Type B (PCR) NEGATIVE (Negative) RSV RNA Qual (PCR) NEGATIVE (Negative) SARS-CoV-2 RNA (RT-PCR) NEGATIVE (Negative) ECG Data ECG #1: Attestation: I personally reviewed and interpreted this ECG as follows: ECG interpretation date: 08/20/22 ECG interpretation time: 16:40 Prior ECG tracings: available for review Interpretation: Normal sinus rhythm, ventricular rate 83 beats per minute, normal DE interval, no ST segment elevations or depressions. Discharge Plan Discharge Clinical Impression: Atypical chest pain Patient Disposition: Home, Self-Care Instructions: Noncardiac Chest Pain (ED) Additional Instructions: Your lab workup today was normal. Your chest x-ray was normal. Your pain is not thought to be cardiac. It is most likely muscular. Take the prescribed medications as directed. Follow up with Cardiology for further evaluation and workup. If you develop new or worsening symptoms call 911 or come back to the ER for further evaluation. Prescriptions: New naproxen 500 mg tablet 500 mg PO BID PRN (Reason: pain) Qty: 20 0RF cyclobenzaprine 10 mg tablet 10 mg PO TID PRN (Reason: muscle spasm) Qty: 10 0RF No Action prednisone 20 mg tablet 40 mg PO DAILY Qty: 10 0RF azithromycin [Zithromax Z-Ricardo] 250 mg tablet 250 mg PO DAILY 4 Days Qty: 4 0RF Rx Instructions: start on day 2 of therapy benzonatate 100 mg capsule 100 mg PO Q6H PRN (Reason: cough) Qty: 20 0RF naproxen 500 mg tablet,delayed release (DR/EC) 500 mg PO BID 7 Days Qty: 14 0RF cyclobenzaprine 10 mg tablet 10 mg PO Q8H PRN (Reason: Muscle spasm) Qty: 14 0RF Referrals: Guero José MD [Primary Care Provider] - Stand Alone Forms: Work/School Release
== END 2022-08-20 17:09 | disposition home or self-care (01) ==
PROVIDERS: Emergency Provider Internal Medicine; PCP Pediatrics
DX: R07.89 Other chest pain (principal); Z20.822 Contact with and (suspected) exposure to COVID-19
CPT/HCPCS: 0241U; 36415; 71046; 80053; 84484; 85025; 93005; 99283; 99284

== ENCOUNTER 2022-10-05 11:58 | Emergency (ER) | payer OTHER, SELFPAY ==
[2022-10-05 12:06] VITALS: BP 96/60; PULSE 116; RESP 18; TEMP 37; O2SAT 98; BMI 18.3
--- NOTE | 2022-10-05 12:09 | ED_ITS ---
HPI - URI/Sore Throat General Chief Complaint: Upper Respiratory Symptoms Stated Complaint: Flu Symptoms Time Seen by Provider: 10/05/22 13:36 Source: patient Mode of arrival: ambulatory Limitations: no limitations History of Present Illness HPI Narrative: Patient is a 21-year-old female presents to the emergency department complaining of shortness of breath, cough, body aches. Denies fevers or chills. Denies naomi sea, vomiting, abdominal pain. Symptom onset was testerday. Reports her friend she was recently around has tested positive for COVID-19. She will require a return to work note. Related Data Previous Rx's Medication Instructions Recorded azithromycin 250 mg tablet 250 mg PO DAILY 4 days #4 tabs 08/29/21 (Zithromax Z-Ricardo) benzonatate 100 mg capsule 100 mg PO Q6H PRN cough #20 caps 08/29/21 prednisone 20 mg tablet 40 mg PO DAILY #10 tabs 08/29/21 cyclobenzaprine 10 mg tablet 10 mg PO Q8H PRN Muscle spasm #14 07/31/22 tabs naproxen 500 mg tablet,delayed 500 mg PO BID 7 days #14 tabs 07/31/22 release cyclobenzaprine 10 mg tablet 10 mg PO TID PRN muscle spasm #10 08/20/22 tabs naproxen 500 mg tablet 500 mg PO BID PRN pain #20 tabs 08/20/22 nirmatrelvir 300 mg (150 mg See Rx Instructions PO .COMPLEX 10/05/22 x2)-ritonavir 100 mg tablet,dose #30 ea pack(EUA) (Paxlovid) Allergies Allergy/AdvReac Type Severity Reaction Status Date / Time No Known Allergies Allergy Verified 08/29/21 18:33 Review of Systems Review of Systems: Constitutional: no fever. no chills. No weakness. Positive fatigue. Positive body aches ENT/ Mouth: No Ear Pain, no Nasal Congestion, no sore throat, No Rhinorrhea, No Swallowing Difficulty Skin: No rash or itching. Cardiovascular: No chest pain. No palpitations. Respiratory: positive shortness of breath. Positive cough. No sputum production. Gastrointestinal: No nausea. No vomiting. No diarrhea. No abdominal pain. Genitourinary: No burning micturition. No urinary frequency. Neurologic: No headache. No dizziness. No syncope. No numbness or tingling in the extremities. Musculoskeletal: No muscle pain. No back pain. No joint pain or stiffness. Yes all other systems are reviewed and are negative [facility] Past Medical History Attestation statement: The following information was validated with the patient. Source: old records reviewed Medical History Patient denies medical problems Social History Social History Alcohol intake: never Patient Tobacco Use Status: Never used Tobacco Advance Directives: No Advance Directives Information Provided: No Physical Exam Vital Signs: Vital Signs: Last Vital Signs Temp 98.6 F 10/05/22 12:06 Pulse 116 H 10/05/22 12:06 Resp 18 10/05/22 12:06 BP 96/60 10/05/22 12:06 Pulse Ox 98 10/05/22 12:06 O2 Del Method 10/05/22 12:06 BMI result Body Mass Index 18.3 Vital signs have been reviewed as normal and appeared to be correct. Blood pressure normal.? Heart rate normal.? Respiration rate normal. Temperature normal.? Oxygen saturation normal. Appearance: Alert.?Oriented to person, place and time. No acute distress.?Nor mal affect. Eyes: Pupils equal, round and reactive to light.? ENT: TM normal bilaterally. Pharynx normal.?? Neck: Normal inspection.? Neck supple.??No cervical adenopathy CVS: Heart sounds normal. Normal heart rate and rhythm.? Pulses normal.?? Respiratory: No respiratory distress.? Lung sounds clear to auscultation bilaterally?? Abdomen: Soft and non-tender. Normoactive bowel sounds. Skin: Skin warm and dry.? Normal skin color.? ? Extremities: No lower extremity edema.? Neuro: Moves all extremities spontaneously. Sensation intact bilaterally. No motor deficits. Ambulates with normal steady gait. Medical Decision Making Medical Decision Making MDM Narrative: Patient is a 21-year-old female with no reported past medical history, presenting for evaluation of upper respiratory symptoms. COVID-19 testing is positive, we discussed Paxlovid emergency use authorization, potential side effects and complications, patient provided with information handout and would like to pursue treatment with Paxlovid. Influenza testing negative. At this time history and physical exam not consistent with ACS/PE/pneumonia. Well- appearing, nontoxic, afebrile, or tachypnea/hypoxia. Mildly tachycardic which I suspect is due to illness/pain, encouraged to consider acetaminophen/ibuprofen however continues to decline at this time. Speaking clear full sentences, ambulatory with steady gait. Discussed conservative treatment including rest, hydration, Tylenol/ibuprofen as needed for fever and body aches, saline nasal spray, humidifier, [id number] cold medication. Advised to follow-up with primary care provider as needed, discussed reasons to return back to the emergency department. All questions were answered. Patient discharged home in stable condition. Provided with a return to work/school note. Differential Diagnosis Differential Diagnoses: The differential diagnosis associated with the presentation includes (As noted above) Lab Data MDM Lab Attestation statement: I reviewed the patient's lab results. Labs: Lab Results 10/05/22 10/05/22 Range/Units 12:36 12:36 COVID-19 (JAMEY) Positive A (Negative) COVID-19 Clin Com See Note Influenza Type A (MORAIMA) Negative (Negative) Influenza Type B (MORAIMA) Negative (Negative) Influenza A & B Note See Note Prescription Management I considered prescription management with: Antiviral (Sent prescription for Paxlovid to patients pharmacy) Discharge Plan Discharge Clinical Impression: COVID-19 Patient Disposition: Home, Self-Care Instructions: COVID-19 (Coronavirus Disease 2019) (ED) Additional Instructions: We discussed the use of Paxlovid under emergency use authorization, potential side effects, and you were given a patient information handout. A prescription was sent to your pharmacy at your request. Be sure to rest, stay well hydrated drinking plenty of fluids, eat small frequent meals. Tylenol/ibuprofen can be used as needed for fever/pain. [id number] cold medications may be helpful as well for symptoms. Saline nasal spray, humidifier may be helpful for nasal congestion. You may return to the emergency department with any new or worsening symptoms or concerns. Follow-up with your primary care provider as needed. Your soonest end isolation date is 10/10/2021, you should continue to wear a mask after this date for 5 days. Prescriptions: New Paxlovid (EUA) 300 mg (150 mg x 2)-100 mg tablets,dose pack See Rx Instructions .ROUTE .COMPLEX Qty: 30 0RF Rx Instructions: take TWO 150 mg tablets of nirmatrelvir with ONE 100 mg tablet of ritonavir twice daily for 5 days No Action prednisone 20 mg tablet 40 mg PO DAILY Qty: 10 0RF azithromycin [Zithromax Z-Ricardo] 250 mg tablet 250 mg PO DAILY 4 Days Qty: 4 0RF Rx Instructions: start on day 2 of therapy benzonatate 100 mg capsule 100 mg PO Q6H PRN (Reason: cough) Qty: 20 0RF naproxen 500 mg tablet,delayed release (DR/EC) 500 mg PO BID 7 Days Qty: 14 0RF cyclobenzaprine 10 mg tablet 10 mg PO Q8H PRN (Reason: Muscle spasm) Qty: 14 0RF naproxen 500 mg tablet 500 mg PO BID PRN (Reason: pain) Qty: 20 0RF cyclobenzaprine 10 mg tablet 10 mg PO TID PRN (Reason: muscle spasm) Qty: 10 0RF Stand Alone Forms: Work/School Release
[2022-10-05 13:00] LABS: COVID-19 Test Positive (Negative); IDNOW Serial# 08D9AD1C
[2022-10-05 13:12] LABS: IDNOW Serial# 6674DD1D
[2022-10-05 13:13] LABS: Influenza A Negative (Negative); Influenza B2 Negative (Negative)
[2022-10-05 13:40] VITALS: PULSE 112; RESP 17; O2SAT 100
== END 2022-10-05 13:56 | disposition home or self-care (01) ==
PROVIDERS: Nurse Practitioner Family; Emergency Provider Student in an Organized Health Care Education/Training Program; PCP Pediatrics
DX: U07.1 COVID-19 (principal); Z79.899 Other long term (current) drug therapy
CPT/HCPCS: 87502; 87635; 99282; 99283

== ENCOUNTER 2022-11-09 13:01 | Emergency (ER) | payer OTHER, SELFPAY ==
[2022-11-09 13:03] VITALS: BP 115/61; PULSE 87; RESP 16; TEMP 36.6; O2SAT 98; BMI 18.3
--- NOTE | 2022-11-09 13:05 | ED.GENADULT ---
HPI - General Adult General Chief complaint: Urogenital-Female <RONALD Phelps - Last Filed: 11/09/22 13:07> Stated complaint: ? UTI <RONALD Phelps - Last Filed: 11/09/22 13:07> Time Seen by Provider: 11/09/22 13:54 <RONALD Phelps - Last Filed: 11/09/22 13:07> Source: patient <Suhail Guerrero - Last Filed: 11/09/22 14:44> Limitations: no limitations <Suhail Guerrero - Last Filed: 11/09/22 14:44> History of Present Illness HPI narrative: 21-year-old female Presents to the ER complaining of painful urination. Patient states while at work on Saturday symptoms started. At that time she was having her period and thought it was associated. At this time her. Has stopped and symptoms have continued. Patient has had some lower abdominal discomfort. Patient denies any vaginal discharge or concerns for STDs at this time. Patient denies pedal S medical history of UTIs. Symptoms mild to moderate pain sharp in nature <Suhail Guerrero - Last Filed: 11/09/22 14:44> Related Data Home medications: Previous Rx's Medication Instructions Recorded azithromycin 250 mg tablet 250 mg PO DAILY 4 days #4 tabs 08/29/21 (Zithromax Z-Ricardo) benzonatate 100 mg capsule 100 mg PO Q6H PRN cough #20 caps 08/29/21 prednisone 20 mg tablet 40 mg PO DAILY #10 tabs 08/29/21 cyclobenzaprine 10 mg tablet 10 mg PO Q8H PRN Muscle spasm #14 07/31/22 tabs naproxen 500 mg tablet,delayed 500 mg PO BID 7 days #14 tabs 07/31/22 release cyclobenzaprine 10 mg tablet 10 mg PO TID PRN muscle spasm #10 08/20/22 tabs naproxen 500 mg tablet 500 mg PO BID PRN pain #20 tabs 08/20/22 nirmatrelvir 300 mg (150 mg See Rx Instructions PO .COMPLEX 10/05/22 x2)-ritonavir 100 mg tablet,dose #30 ea pack(EUA) (Paxlovid) cephalexin 500 mg capsule 500 mg PO QID #28 caps 11/09/22 doxycycline hyclate 100 mg tablet 100 mg PO BID 7 days #14 tabs 11/09/22 <RONALD Phelps - Last Filed: 11/09/22 13:07> Allergies/adverse reactions: Allergies Allergy/AdvReac Type Severity Reaction Status Date / Time No Known Allergies Allergy Verified 08/29/21 18:33 <RONALD Phelps - Last Filed: 11/09/22 13:07> Review of Systems Review of Systems: Constitutional : No Weight loss, No Fever, No Chills ENT/Mouth : No sore throa Eyes: No Vision Changes Cardiovascular : No Chest Pain, No SOB Respiratory : No Cough, No Sputum, No Wheezing, No Smoke Exposure, No Dyspnea Gastrointestinal : No Nausea, No Vomiting, No Diarrhea, No Constipation, slight suprapubic pain, No Hematochezia, No Melena Genitourinary : positive dysuria positive frequency Musculoskeletal : No joint pain, No Myalgias, No Joint SwellingSkin : No Skin Lesions, No rash Neuro : No Weakness, No Numbness, No Paresthesias, No Loss of Consciousness, No Dizziness, No Headache <Suhail Guerrero - Last Filed: 11/09/22 14:44> [facility] Past Medical History Medical History: Medical History Patient denies medical problems <RONALD Phelps - Last Filed: 11/09/22 13:07> Social History Social History: Social History Alcohol intake: never Patient Tobacco Use Status: Never used Tobacco Advance Directives: No Advance Directives Information Provided: Yes <RONALD Phelps - Last Filed: 11/09/22 13:07> Physical Exam ED Vital Signs: Vital Signs - 24 hr 11/09/22 13:03 11/09/22 14:43 Temperature 97.9 F 98.4 F Pulse Rate 87 89 Respiratory Rate 16 16 Blood Pressure 115/61 111/79 Pulse Oximetry 98 100 Oxygen Delivery Method Room Air Room Air BMI result Body Mass Index 18.3 <RONALD Phelps - Last Filed: 11/09/22 13:07> Vital Signs - 24 hr 11/09/22 13:03 11/09/22 14:43 Temperature 97.9 F 98.4 F Pulse Rate 87 89 Respiratory Rate 16 16 Blood Pressure 115/61 111/79 Pulse Oximetry 98 100 Oxygen Delivery Method Room Air Room Air BMI result Body Mass Index 18.3 vital signs have been reviewed as normal and appeared to be correct. Blood pressure normal. Heart rate normal. Respiration rate normal. Temperature normal. Oxygen saturation normal. <Suhail Guerrero - Last Filed: 11/09/22 14:44> Appearance: Alert. Oriented X3. No acute distress. Head: Normal external exam. Normocephalic. Atraumatic. Eyes: PERRLA. EOMI. Conjunctiva and sclera normal. Eyelids normal. ENT: Pharynx normal. Uvula midline. Moist mucous membranes. Neck: Soft full range of motion, no JVD CVS: Heart regular rate and rhythm no murmurs and rubs Respiratory: Breath sounds are clear to auscultation bilaterally. No accessory muscle use noted. Abdomen: soft no rebound or guarding slight suprapubic tenderness positive bowel sounds Back: No CVA tenderness. Full range of motion noted. Skin: Skin warm and dry. Normal skin color. Normal skin turgor. No rashes/lesions/lacerations noted. Extremities: No lower extremity edema. Extremities exhibit normal range of motion. Extremities nontender. Neuro: Oriented X 3. No motor deficit. No sensory deficit. <Suhail Guerrero - Last Filed: 11/09/22 14:44> Course Course Course Narrative: RME performed by Alecia Lopez PA-C. Patient is a 21 year old female presenting to the emergency department with pain during urination. Patient is sexually active. CT NG, UA, and U preg ordered. Patient placed back in waiting room pending results and room availability. <RONALD Phelps Filed: 11/09/22 13:07> RME performed by Alecia Lopez PA-C. Patient is a 21 year old female presenting to the emergency department with pain during urination. Patient is sexually active. CT NG, UA, and U preg ordered. Patient placed back in waiting room pending results and room availability. UTI Pyelonephritis Dysuria Chlamydia gonorrhea less likely <Suhail Guerrero - Last Filed: 11/09/22 14:44> Medications Administered Discontinued Medications Generic Name Dose Route Start Last Admin Trade Name Freq PRN Reason Stop Dose Admin Ceftriaxone Sodium 500 mg/ 0 mg 11/09/22 13:05 11/09/22 14:09 Lidocaine HCl 1 ml IM 11/09/22 13:06 Not Given ONCE ONE <RONALD Phelps - Last Filed: 11/09/22 13:07> Medications Administered Discontinued Medications Generic Name Dose Route Start Last Admin Trade Name Thu PRN Reason Stop Dose Admin Ceftriaxone Sodium 500 mg/ 0 mg 11/09/22 13:05 11/09/22 14:09 Lidocaine HCl 1 ml IM 11/09/22 13:06 Not Given ONCE ONE <Suhail Guerrero - Last Filed: 11/09/22 14:44> Medical Decision Making Medical Decision Making MDM Narrative: 21-year-old female presents ER with dysuria since Saturday. Symptoms seem consistent with UTI no real sign of a pyelonephritis at this time. UA is pending at this time. Patient is well-appearing nontoxic in appearance no nausea vomiting. symptoms are consistent with a UTI <Suhail Guerrero - Last Filed: 11/09/22 14:44> Lab Data Labs: Lab Results 11/09/22 11/09/22 Range/Units 14:25 14:25 Urine Color Yellow Urine Appearance Cloudy Urine pH 7.0 (5.0-9.0) Ur Specific [place] 1.025 (1.005-1.025) Urine Protein Trace (Neg-Trace) mg/dL Urine Glucose (UA) Negative (Negative) mg/dL Urine Ketones Negative (Negative) mg/dL Urine Blood Trace H (Negative) Urine Nitrite Positive H (Negative) Ur Leukocyte Esterase Moderate (2+) H (Negative) Urine RBC 0-2 (0-2) /HPF Urine WBC >50 H (0-5) /HPF Ur Squamous Epith Cells 6-10 (0-2) /HPF Urine Bacteria 4+ (None Seen) Hyaline Casts 0-2 (0-2) /LPF Urine Test NEGATIVE (NEGATIVE) <RONALD Phelps - Last Filed: 11/09/22 13:07> Lab Results 11/09/22 11/09/22 Range/Units 14:25 14:25 Urine Color Yellow Urine Appearance Cloudy Urine pH 7.0 (5.0-9.0) Ur Specific [place] 1.025 (1.005-1.025) Urine Protein Trace (Neg-Trace) mg/dL Urine Glucose (UA) Negative (Negative) mg/dL Urine Ketones Negative (Negative) mg/dL Urine Blood Trace H (Negative) Urine Nitrite Positive H (Negative) Ur Leukocyte Esterase Moderate (2+) H (Negative) Urine RBC 0-2 (0-2) /HPF Urine WBC >50 H (0-5) /HPF Ur Squamous Epith Cells 6-10 (0-2) /HPF Urine Bacteria 4+ (None Seen) Hyaline Casts 0-2 (0-2) /LPF Urine Test NEGATIVE (NEGATIVE) <Suhail Guerrero - Last Filed: 11/09/22 14:44> Discharge Plan Discharge Clinical Impression: Urinary tract infection <RONALD Phelps - Last Filed: 11/09/22 13:07> Patient Disposition: Home, Self-Care <RONALD Phelps - Last Filed: 11/09/22 13:07> Instructions: Urinary Tract Infection in Women (ED) <RONALD Phelps - Last Filed: 11/09/22 13:07> Additional Instructions: if symptoms in exam in urine is consistent with a UTI will treat with antibiotics at this time if there are any changes to your lab work where we need to change his antibiotics we will call you increase fluids rest <RONALD Phelps - Last Filed: 11/09/22 13:07> Prescriptions: New doxycycline hyclate 100 mg tablet 100 mg PO BID 7 Days Qty: 14 0RF cephalexin 500 mg capsule 500 mg PO QID Qty: 28 0RF No Action prednisone 20 mg tablet 40 mg PO DAILY Qty: 10 0RF azithromycin [Zithromax Z-Ricardo] 250 mg tablet 250 mg PO DAILY 4 Days Qty: 4 0RF Rx Instructions: start on day 2 of therapy benzonatate 100 mg capsule 100 mg PO Q6H PRN (Reason: cough) Qty: 20 0RF naproxen 500 mg tablet,delayed release (DR/EC) 500 mg PO BID 7 Days Qty: 14 0RF cyclobenzaprine 10 mg tablet 10 mg PO Q8H PRN (Reason: Muscle spasm) Qty: 14 0RF naproxen 500 mg tablet 500 mg PO BID PRN (Reason: pain) Qty: 20 0RF cyclobenzaprine 10 mg tablet 10 mg PO TID PRN (Reason: muscle spasm) Qty: 10 0RF Paxlovid (EUA) 300 mg (150 mg x 2)-100 mg tablets,dose pack See Rx Instructions .ROUTE .COMPLEX Qty: 30 0RF Rx Instructions: take TWO 150 mg tablets of nirmatrelvir with ONE 100 mg tablet of ritonavir twice daily for 5 days <RONALD Phelps - Last Filed: 11/09/22 13:07> Stand Alone Forms: Work/School Release <RONALD Phelps - Last Filed: 11/09/22 13:07>
[2022-11-09 14:39] LABS: Appearance Urine Cloudy; Color Urine Yellow; Glucose Urine UA Negative (Negative); Leukocyte Esterase Urine Moderate (2+) (Negative); Nitrite Urine Positive (Negative); Specific Gravity - Urine 1.025 (1.005-1.025); UMIC TRIGGER UACC YES; Urine Blood Trace (Negative); Urine Ketones Negative (Negative); Urine Protein Trace mg/dL (Neg-Trace)
[2022-11-09 14:40] LABS: UPreg QC Valid YES; Urine Pregnancy NEGATIVE (NEGATIVE)
[2022-11-09 14:41] LABS: Bacteria Urine 4+ (None Seen); Hyaline Casts Urine 0-2 /LPF (0-2); RBC Urine 0-2 /HPF (0-2); UACC Culture Trigger YES; WBC Urine >50 /HPF (0-5)
[2022-11-09 14:43] VITALS: BP 111/79; PULSE 89; RESP 16; TEMP 36.9; O2SAT 100
[2022-11-09 16:41] LABS: CT PCR DETECTED (Not Detect.); NG PCR NOT DETECTED (Not Detect.)
== END 2022-11-09 14:52 | disposition home or self-care (01) ==
PROVIDERS: Physician Assistant Medical; Emergency Provider Emergency Medicine; PCP Pediatrics
DX: N39.0 Urinary tract infection, site not specified (principal); R30.0 Dysuria; Z79.899 Other long term (current) drug therapy; Z20.2 Contact with and (suspected) exposure to infections with a predominantly sexual mode of transmission
CPT/HCPCS: 0353U; 81001; 81025; 87086; 87088; 87186; 99283

== ENCOUNTER 2023-03-03 13:32 | Emergency (ER) | payer OTHER, SELFPAY ==
[2023-03-03 13:39] VITALS: BP 101/58; PULSE 100; RESP 17; TEMP 36.8; O2SAT 100; BMI 19.9
[2023-03-03 14:00] LABS: IDNOW Serial# 08D9AD1C; Strep A Nucleic Acid Positive (Negative)
[2023-03-03 14:04] LABS: COVID-19 Test Negative (Negative); IDNOW Serial# BCCEAD1C
--- NOTE | 2023-03-03 16:11 | ED.GENADULT ---
HPI - General Adult General Chief complaint: Upper Respiratory Symptoms Stated complaint: sore throat Time Seen by Provider: 03/03/23 14:18 Source: patient Mode of arrival: ambulatory Limitations: no limitations History of Present Illness HPI narrative: 22 yold female presents to the ED for sore throat, bodyaches, and chills since yesterday. Patient denies any drooling, change in voice, neck swelling, neck pain, or trouble swallowing liquids or eating food. Related Data Previous Rx's Medication Instructions Recorded azithromycin 250 mg tablet 250 mg PO DAILY 4 days #4 tabs 08/29/21 (Zithromax Z-Ricardo) benzonatate 100 mg capsule 100 mg PO Q6H PRN cough #20 caps 08/29/21 prednisone 20 mg tablet 40 mg PO DAILY #10 tabs 08/29/21 cyclobenzaprine 10 mg tablet 10 mg PO Q8H PRN Muscle spasm #14 07/31/22 tabs naproxen 500 mg tablet,delayed 500 mg PO BID 7 days #14 tabs 07/31/22 release cyclobenzaprine 10 mg tablet 10 mg PO TID PRN muscle spasm #10 08/20/22 tabs naproxen 500 mg tablet 500 mg PO BID PRN pain #20 tabs 08/20/22 nirmatrelvir 300 mg (150 mg See Rx Instructions PO .COMPLEX 10/05/22 x2)-ritonavir 100 mg tablet,dose #30 ea pack(EUA) (Paxlovid) cephalexin 500 mg capsule 500 mg PO QID #28 caps 11/09/22 doxycycline hyclate 100 mg tablet 100 mg PO BID 7 days #14 tabs 11/09/22 amoxicillin 875 mg-potassium 1 tab PO Q12H 10 days #20 tabs 03/03/23 clavulanate 125 mg tablet naproxen 500 mg tablet 500 mg PO BID PRN pain 7 days #14 03/03/23 tabs Allergies Allergy/AdvReac Type Severity Reaction Status Date / Time No Known Allergies Allergy Verified 08/29/21 18:33 Review of Systems Review of Systems: Sore throat Yes all other systems are reviewed and are negative PMFSH Past Medical History Medical History Patient denies medical problems Social History Social History Alcohol intake: never Patient Tobacco Use Status: Never used Tobacco Advance Directives: No Advance Directives Information Provided: No Physical Exam ED Vital Signs: Vital Signs - 24 hr 03/03/23 13:39 Temperature 98.3 F Pulse Rate 100 Respiratory Rate 17 Blood Pressure 101/58 L Pulse Oximetry 100 Oxygen Delivery Method Room Air BMI result Body Mass Index 19.9 Const General: cooperative, healthy appearing, comfortable, no acute distress, well developed, alert, awake and Physically active Orientation/consciousness: oriented to person, oriented to place, oriented to time and patient oriented x3 HENMT Head: Yes normal to inspection and Yes atraumatic Throat: Yes posterior oropharynx normal, Yes uvula midline and Yes abnormal tonsil (erythematous. negative for signs of peritonsillar abscess. ) Eyes General: appearance normal, both eyes and all related structures Neck Neck: Yes normal visual inspection, Yes full ROM, Yes no lymphadenopathy, Yes no meningeal signs, Yes trachea midline, Yes supple, No anterior neck swelling and No tender Chest Chest palpation & inspection: normal inspection of the chest and normal palpation of entire chest wall Resp Effort & Inspection: normal respiratory effort and able to speak in complete sentences Auscultation: clear to auscultation bilaterally Cardio Jugular venous distension: no JVD Heart sounds: S1 normal heart sound present and S2 normal heart sound present GI Inspection: Yes normal to inspection and No abdominal wall ecchymosis Palpation (GI): Soft to palpation, not firm, nontender, no guarding and not rigid General: No CVA tenderness and Yes no CVA tenderness Back/Spine/Pelvis Back: no CVA tenderness, No CVA tenderness and No back tenderness Skin General skin exam: no rashes or lesions noted and elasticity normal Neuro General: oriented to person, oriented to place, oriented to time, patient oriented x3, gait normal, tone normal, moves all extremities, Normal light touch and pain sensation, no meningeal signs, no focal motor deficits, CN's II-XI intact bilaterally and normal sensation to monofilament Extrem General: Yes normal to inspection and Yes full ROM Psych Appearance: grossly normal, well kempt and not disheveled Course Course Course Narrative: 22 yold female with sore throat. Strep tests and covid ordere Medical Decision Making Medical Decision Making MDM Narrative: 22-year-old female presented to the ED with sore throat, body aches, and chills. Negative for drooling, neck swelling, change in voice, chest pain, or shortness of breath. Physical exam negative for signs of peritonsillar abscess. Strep test positive. Patient discharged with antibiotics Differential Diagnosis Differential Diagnoses: The differential diagnosis associated with the presentation includes (Peritonsillar abscess, Freddie's angina, retropharyngeal abscess, COVID, influenza) Admission/Observation Consideration of admission/observation: Escalation of care including admission/observation considered Lab Data MDM Lab Attestation statement: I reviewed the patient's lab results. Labs: Lab Results 03/03/23 03/03/23 Range/Units 13:48 13:48 COVID-19 (JAMEY) Negative (Negative) COVID-19 Clin Com See Note S. pyogenes GrpA MORAIMA Positive A (Negative) Tests considered The following testing was considered but not selected: Soft neck CT Prescription Management I considered prescription management with: Pain Medication and Antibiotic Discharge Plan Discharge Clinical Impression: Streptococcal tonsillitis Patient Disposition: Home, Self-Care Instructions: Strep Throat (DC) Additional Instructions: Return to the ED for any Drooling, change in voice, neck pain, SOB, neck swelling, intractable fever, trouble swallowing food/liquid, or any other concerning symptoms. Please follow up with PCP. Prescriptions: New amoxicillin-pot clavulanate 875-125 mg tablet 1 tab PO Q12H 10 Days Qty: 20 0RF naproxen 500 mg tablet 500 mg PO BID PRN (Reason: pain) 7 Days Qty: 14 0RF No Action prednisone 20 mg tablet 40 mg PO DAILY Qty: 10 0RF azithromycin [Zithromax Z-Ricardo] 250 mg tablet 250 mg PO DAILY 4 Days Qty: 4 0RF Rx Instructions: start on day 2 of therapy benzonatate 100 mg capsule 100 mg PO Q6H PRN (Reason: cough) Qty: 20 0RF naproxen 500 mg tablet,delayed release (DR/EC) 500 mg PO BID 7 Days Qty: 14 0RF cyclobenzaprine 10 mg tablet 10 mg PO Q8H PRN (Reason: Muscle spasm) Qty: 14 0RF naproxen 500 mg tablet 500 mg PO BID PRN (Reason: pain) Qty: 20 0RF cyclobenzaprine 10 mg tablet 10 mg PO TID PRN (Reason: muscle spasm) Qty: 10 0RF Paxlovid (EUA) 300 mg (150 mg x 2)-100 mg tablets,dose pack See Rx Instructions .ROUTE .COMPLEX Qty: 30 0RF Rx Instructions: take TWO 150 mg tablets of nirmatrelvir with ONE 100 mg tablet of ritonavir twice daily for 5 days doxycycline hyclate 100 mg tablet 100 mg PO BID 7 Days Qty: 14 0RF cephalexin 500 mg capsule 500 mg PO QID Qty: 28 0RF Stand Alone Forms: Work/School Release Interventions: ED Discharge Assessment Last Done: 03/03/23 16:51 Discharge Date/Time: 03/03/23 16:52 Print Language: Tunisian
== END 2023-03-03 16:52 | disposition home or self-care (01) ==
PROVIDERS: Emergency Provider Internal Medicine; PCP Pediatrics
DX: J03.00 Acute streptococcal tonsillitis, unspecified (principal); Z20.822 Contact with and (suspected) exposure to COVID-19; Z20.828 Contact with and (suspected) exposure to other viral communicable diseases
CPT/HCPCS: 87635; 87651; 99283

== ENCOUNTER 2023-04-28 12:02 | Emergency (ER) | payer OTHER, SELFPAY ==
--- NOTE | ~2023-04-28 | XR_ITS ---
EXAMINATION: XR WRIST, RIGHT XR HAND, RIGHT CLINICAL INFORMATION: Trauma. Pain. COMPARISON: Previous x-ray October 2021 TECHNIQUE: PA, lateral, and oblique views of the right wrist and PA, lateral, and oblique views of the right hand FINDINGS: RIGHT WRIST: The bones and soft tissues are normal. No fracture. Alignment is anatomic. Joint spaces are maintained. No erosions or soft tissue calcifications. RIGHT HAND: The bones and soft tissues are normal. No fracture. Alignment is anatomic. Joint spaces are maintained. No erosions or soft tissue calcifications. XR/XR hand wrist RT IMPRESSION: Normal right hand and wrist.
[2023-04-28 12:23] VITALS: BP 116/65; PULSE 86; RESP 18; TEMP 36.7; O2SAT 100; BMI 18.4
--- NOTE | 2023-04-28 12:24 | ED_ITS ---
HPI - Extremity Injury (Upper) General Chief Complaint: Extremity Injury, Upper Stated Complaint: swollen hand Time Seen by Provider: 04/28/23 14:49 Source: patient Mode of arrival: ambulatory History of Present Illness HPI narrative: 22 yold female presents to the ED for right hand pain after punching the wall out of anger. patient denies any other symtpoms. Patient is not suicidal or homicidal. Related Data Previous Rx's Medication Instructions Recorded azithromycin 250 mg tablet 250 mg PO DAILY 4 days #4 tabs 08/29/21 (Zithromax Z-Ricardo) benzonatate 100 mg capsule 100 mg PO Q6H PRN cough #20 caps 08/29/21 prednisone 20 mg tablet 40 mg PO DAILY #10 tabs 08/29/21 cyclobenzaprine 10 mg tablet 10 mg PO Q8H PRN Muscle spasm #14 07/31/22 tabs naproxen 500 mg tablet,delayed 500 mg PO BID 7 days #14 tabs 07/31/22 release cyclobenzaprine 10 mg tablet 10 mg PO TID PRN muscle spasm #10 08/20/22 tabs naproxen 500 mg tablet 500 mg PO BID PRN pain #20 tabs 08/20/22 nirmatrelvir 300 mg (150 mg See Rx Instructions PO .COMPLEX 10/05/22 x2)-ritonavir 100 mg tablet,dose #30 ea pack (Paxlovid) cephalexin 500 mg capsule 500 mg PO QID #28 caps 11/09/22 doxycycline hyclate 100 mg tablet 100 mg PO BID 7 days #14 tabs 11/09/22 amoxicillin 875 mg-potassium 1 tab PO Q12H 10 days #20 tabs 03/03/23 clavulanate 125 mg tablet naproxen 500 mg tablet 500 mg PO BID PRN pain 7 days #14 03/03/23 tabs naproxen 500 mg tablet 500 mg PO BID PRN pain 7 days #14 04/28/23 tabs Allergies Allergy/AdvReac Type Severity Reaction Status Date / Time No Known Allergies Allergy Verified 08/29/21 18:33 Review of Systems Review of Systems: RIght midllde finger knucke pain Yes all other systems are reviewed and are negative PMFSH Past Medical History Medical History Patient denies medical problems Social History Social History Alcohol intake: never Patient Tobacco Use Status: Never used Tobacco Smoked in Last 30 Days: No Use of substances other than those prescribed or required for medical reasons: No Advance Directives: No Advance Directives Information Provided: No Physical Exam Vital Signs: Vital Signs: Last Vital Signs Temp 98.1 F 04/28/23 12:23 Pulse 72 04/28/23 15:33 Resp 15 04/28/23 15:33 BP 104/69 04/28/23 15:33 Pulse Ox 100 04/28/23 15:33 O2 Del Method Room Air 04/28/23 15:33 BMI result Body Mass Index 18.4 Const: General: cooperative, healthy appearing, comfortable, no acute distress, well developed, alert, awake and Physically active Orientation/consciousness: oriented to person, oriented to place, oriented to time and patient oriented x3 HEENT: Head: Yes normal to inspection, Yes No palpable skull fracture present, Yes normocephalic, Yes atraumatic and No abrasion Ears: hearing grossly normal bilaterally, external ears normal, TM's normal bilaterally, TM normal on the right, TM normal on the left, EAC's normal, mastoids normal and no periauricular adenopathy Eyes: General: appearance normal, both eyes and all related structures Neck: Neck: Yes normal visual inspection, Yes full ROM, Yes no lymphadenopathy, Yes no meningeal signs, Yes trachea midline, Yes supple, No anterior neck swelling and No tender Chest: Chest palpation & inspection: normal inspection of the chest and normal palpation of entire chest wall Resp: Effort & Inspection: normal respiratory effort and able to speak in complete sentences Auscultation: clear to auscultation bilaterally Cardio: Jugular venous distension: no JVD GI: Inspection: Yes normal to inspection and No abdominal wall ecchymosis Palpation (GI): Soft to palpation, not firm, nontender, no guarding and not rigid : General: No CVA tenderness and Yes no CVA tenderness Back/Spine/Pelvis: Back: no CVA tenderness, No CVA tenderness and No back tenderness Skin: General skin exam: no rashes or lesions noted, elasticity normal and turgor normal Neuro: General: oriented to person, oriented to place, oriented to time, pa tient oriented x3, gait normal, tone normal, moves all extremities, Normal light touch and pain sensation, no meningeal signs, no focal motor deficits, CN's II- XI intact bilaterally and normal sensation to monofilament Extrem: General: Yes normal to inspection and Yes full ROM Hand/finger images: 1. Positive for ecchymosis and tenderness on palpation. negative for deformity or crepitus. Negative for erythema. Capillary refills intact. rest of extremity normal. Motor/ neuro/vascular exam intact Psych: Appearance: grossly normal, well kempt and not disheveled Course Course Course Narrative: This is an RME: Additional HPI, ROS, PE not included below will be deferred to primary provider. Patient is a 22-year-old female, right hand dominant, who presents emergency department for evaluation traumatic right hand/wrist pain s/p punching a wall. Plan: XR hand/ wrist Medical Decision Making Medical Decision Making MDM Narrative: 3-year-old female presents to ED for right hand pain after punching a wall. Patient denies any other complaints. Motor/ neuro/vascular exam of extremity intact. X-ray negative for fracture. Patient discharged with pain medication Differential Diagnosis Differential Diagnoses: The differential diagnosis associated with the presentation includes ( fracture, dislocation, cellulitis, compartment syndrome, contusion) Admission/Observation Consideration of admission/observation: Escalation of care including admission /observation considered Independent Interpretation I performed an independent interpretation of an: Plain X-Ray Radiology Impression Discussion of test interpretation with radiology: I have reviewed the radiologist's reading. Prescription Management I considered prescription management with: Pain Medication Discharge Plan Discharge Clinical Impression: Contusion of hand Patient Disposition: Home, Self-Care Instructions: Contusion in Adults (ED), Cold Compress or Soak (ED) Additional Instructions: return to the ED immediately for worsening pain, swelling, bluish black discoloration, hardness, corns, inability to move extremity, fever, chills, or any other concerning symptoms. Please follow up with primary care provider. Prescriptions: New naproxen 500 mg tablet 500 mg PO BID PRN (Reason: pain) 7 Days Qty: 14 0RF No Action prednisone 20 mg tablet 40 mg PO DAILY Qty: 10 0RF azithromycin [Zithromax Z-Ricardo] 250 mg tablet 250 mg PO DAILY 4 Days Qty: 4 0RF Rx Instructions: start on day 2 of therapy benzonatate 100 mg capsule 100 mg PO Q6H PRN (Reason: cough) Qty: 20 0RF naproxen 500 mg tablet,delayed release (DR/EC) 500 mg PO BID 7 Days Qty: 14 0RF cyclobenzaprine 10 mg tablet 10 mg PO Q8H PRN (Reason: Muscle spasm) Qty: 14 0RF naproxen 500 mg tablet 500 mg PO BID PRN (Reason: pain) Qty: 20 0RF cyclobenzaprine 10 mg tablet 10 mg PO TID PRN (Reason: muscle spasm) Qty: 10 0RF Paxlovid 300 mg (150 mg x 2)-100 mg tablets,dose pack See Rx Instructions .ROUTE .COMPLEX Qty: 30 0RF Rx Instructions: take TWO 150 mg tablets of nirmatrelvir with ONE 100 mg tablet of ritonavir twice daily for 5 days doxycycline hyclate 100 mg tablet 100 mg PO BID 7 Days Qty: 14 0RF cephalexin 500 mg capsule 500 mg PO QID Qty: 28 0RF amoxicillin-pot clavulanate 875-125 mg tablet 1 tab PO Q12H 10 Days Qty: 20 0RF naproxen 500 mg tablet 500 mg PO BID PRN (Reason: pain) 7 Days Qty: 14 0RF Stand Alone Forms: Work/School Release Interventions: ED Discharge Assessment Last Done: 04/28/23 15:35 Discharge Date/Time: 04/28/23 15:36 Print Language: Lebanese
[2023-04-28 15:33] VITALS: BP 104/69; PULSE 72; RESP 15; O2SAT 100
== END 2023-04-28 15:36 | disposition home or self-care (01) ==
PROVIDERS: Emergency Provider Emergency Medicine Emergency Medical Services; PCP Pediatrics
DX: S60.221A Contusion of right hand, initial encounter (principal); W22.09XA Striking against other stationary object, initial encounter; Y93.9 Activity, unspecified; Y92.9 Unspecified place or not applicable; Y99.9 Unspecified external cause status
CPT/HCPCS: 73110; 73130; 99283; 99284

== ENCOUNTER 2023-07-12 07:42 | Emergency (ER) | payer OTHER, SELFPAY ==
[2023-07-12 07:46] VITALS: BP 93/60; PULSE 74; RESP 16; TEMP 37.4; O2SAT 100; BMI 19.7
--- NOTE | 2023-07-12 07:54 | ED.GENADULT ---
HPI - General Adult General Chief complaint: Back Pain/Injury Stated complaint: Low Back Pain No Injury Time Seen by Provider: 07/12/23 07:54 Source: patient Mode of arrival: ambulatory Limitations: no limitations History of Present Illness HPI narrative: 22yo female w PMH of thalessemia presents with a 1 year hx of intermittent chest pain and low back pain that kept her from sleeping last night. She reports the chest pain comes and goes, lasting but 10 minutes in which she gets SOB and has to sit down. Sometimes she'll go months without having the pain. Chest pain does not radiate. She reports starting college 1 year ago and thinks it may be stress related. She was evaluated for similar chest pain here at [facility] 1 year ago. Workup was normal. She was instructed to follow up with cardiology but that never happened. In regards to back pain, the left paraspinal muscles are sore but she denies LE tingling, numbness, loss of sensation, or shooting pains into the glute or LE. Patient additionally has concerns that she has worsening anemia because she has felt increasingly fatigued and cloudy over the past few weeks. Onset (ago): year(s) Location: chest and back Severity: mild Severity scale (1-10): 3 Quality: aching Pain Consistency: intermittent Relieving factors: none Exacerbating factors: none Associated symptoms: denies other symptoms Treatments prior to arrival: none Related Data Previous Rx's Medication Instructions Recorded azithromycin 250 mg tablet 250 mg PO DAILY 4 days #4 tabs 08/29/21 (Zithromax Z-Ricardo) benzonatate 100 mg capsule 100 mg PO Q6H PRN cough #20 caps 08/29/21 prednisone 20 mg tablet 40 mg (2 x 20 mg) PO DAILY #10 tabs 08/29/21 cyclobenzaprine 10 mg tablet 10 mg PO Q8H PRN Muscle spasm #14 07/31/22 tabs naproxen 500 mg tablet,delayed 500 mg PO BID 7 days #14 tabs 07/31/22 release cyclobenzaprine 10 mg tablet 10 mg PO TID PRN muscle spasm #10 08/20/22 tabs naproxen 500 mg tablet 500 mg PO BID PRN pain #20 tabs 08/20/22 nirmatrelvir 300 mg (150 mg See Rx Instructions PO .COMPLEX 10/05/22 x2)-ritonavir 100 mg tablet,dose #30 ea pack (Paxlovid) cephalexin 500 mg capsule 500 mg PO QID #28 caps 11/09/22 doxycycline hyclate 100 mg tablet 100 mg PO BID 7 days #14 tabs 11/09/22 amoxicillin 875 mg-potassium 1 tab PO Q12H 10 days #20 tabs 03/03/23 clavulanate 125 mg tablet naproxen 500 mg tablet 500 mg PO BID PRN pain 7 days #14 03/03/23 tabs naproxen 500 mg tablet 500 mg PO BID PRN pain 7 days #14 04/28/23 tabs Allergies Allergy/AdvReac Type Severity Reaction Status Date / Time No Known Allergies Allergy Verified 08/29/21 18:33 Review of Systems Constitutional: Constitutional: Reports no additional constitutional complaints, Denies chills, Denies fever(s) and Denies night sweats Eyes: Eyes: Reports no additional eye complaints, Denies blurry vision, Denies change in vision, Denies diplopia, Denies eye discharge, Denies loss of vision and Denies eye pain ENT: Denies dizziness Cardiovascular: Cardiovascular: Reports no additional cardiovascular complaints, Reports lightheadedness and Denies Loss of Consciousness Comments: Reports intermittent tightening midline chest pain with concurrent SOB. Denies palpitations, pain radiation, or lightheadness. Respiratory: Respiratory: Reports no additional respiratory complaints Gastrointestinal: Gastrointestinal: Reports no additional gastrointestinal complaints, Denies abdominal pain, Denies melena, Denies hematochezia, Denies change in bowel habits and Denies change in stool character Genitourinary: Genitourinary: Denies hematuria, Denies urinary frequency, Denies dysuria, Denies urinary incontinence, Denies urinary hesitancy and Denies urinary urgency Musculoskeletal: Musculoskeletal: Denies muscle weakness, Denies numbness and Denies tingling Comments: reports constant left lower back pain not exacerbated by specific positions. No radiating pain into the LEs and denies loss of LE sensation. Neurologic: Denies dizziness, Denies loss of vision, Denies numbness and Denies tingling Psychiatric: Psychiatric: Reports no additional psychiatric complaints Endocrine: Endocrine: Reports no additional endocrine complaints Hematologic/Lymphatic: Hematologic/Lymphatic: Reports no additional hematologic/lymphatic complaints Allergic/Immunologic: Allergic/Immunologic: Reports no additional allergic/immunologic complaints PMFSH Past Medical History Attestation statement: The following information was validated with the patient. Source: old records reviewed and nursing notes reviewed Medical History Patient denies medical problems Social History Social History Alcohol intake: never Patient Tobacco Use Status: Never used Tobacco Smoked in Last 30 Days: No Use of substances other than those prescribed or required for medical reasons: No Advance Directives: No Advance Directives Information Provided: Yes Patient : No Physical Exam ED Vital Signs: Vital Signs - 24 hr 07/12/23 07:46 07/12/23 10:31 Temperature 99.3 F 98.0 F Pulse Rate 74 83 Respiratory Rate 16 16 Blood Pressure 93/60 103/55 L Pulse Oximetry 100 99 Oxygen Delivery Method Room Air Room Air BMI result Body Mass Index 19.7 Const General: cooperative, no acute distress, alert and awake Nutritional Appearance: well nourished Orientation/consciousness: patient oriented x3 Limitations: no limitations HENMT Head: Yes normal to inspection and Yes atraumatic Ears: hearing grossly normal bilaterally and external ears normal General nose exam: Normal external nose present, no nasal discharge noted and no epistaxis Face and sinus: Yes normal facial exam, No abrasion and No laceration Mouth: Normal oral and palatal mucosa present, no drooling and no muffled voice Eyes General: appearance normal, both eyes and all related structures Periorbital: periorbital findings normal Eyelids: Yes eyelids normal Conjunctivae: conjunctivae normal Pupils: Equal, round and reactive pupils present EOM: EOMs intact bilaterally Neck Neck: Yes normal visual inspection, Yes full ROM and Yes no lymphadenopathy Chest Chest palpation & inspection: normal inspection of the chest and normal palpation of entire chest wall Resp Effort & Inspection: normal respiratory effort and able to speak in complete sentences Auscultation: clear to auscultation bilaterally Cardio Jugular venous distension: no JVD Palpation: normal PMI Rate: regular rate Rhythm: regular rhythm GI Inspection: Yes normal to inspection General: Yes no CVA tenderness Back/Spine/Pelvis Other: Left lower paraspinal muscles tender to palpation. No pain w chandler palpation. Normal lumbar ROM and LE strength 5/5. LE sensation intact and equal on both sides. Back: no CVA tenderness Cervical Spine: cervical ROM normal Thoracic/Lumbar Spine: thoracic and lumbar spine normal to inspection Neuro General: patient oriented x3 and moves all extremities Cranial nerves: Yes Equal, round and reactive pupils present Cognition (Neuro): normal cognition Motor exam (neuro): 5/5 motor strength present throughout Sensory Exam: Normal double simultaneous stimulation for sensation Coordination: [id number] test normal Extrem General: Yes normal to inspection, Yes full ROM and Yes capillary refill normal Psych Appearance: grossly normal Mental Status: mental status grossly normal Affect: normal affect Attitude: cooperative Thought process: Normal thought process present Thought content: Normal thought content present Insight: Good insight present (Psych) Medications Administered Discontinued Medications Generic Name Dose Route Start Last Admin Trade Name Freq PRN Reason Stop Dose Admin Naproxen 500 mg 07/12/23 08:07 07/12/23 09:54 Naproxen 500 Mg Tablet PO 07/12/23 08:08 500 mg ONCE ONE Administration Medical Decision Making Medical Decision Making [facility] Narrative: Patient is a 22 year old assigned female at with a history of thalassemia presenting to the emergency department today with chest pain and back pain. Patient's physical exam was unremarkable. Patient's blood work showed chronic anemia but was otherwise unremarkable. Patient's urine showed no acute process. I explained my physical exam findings as well as all test results to the patient. I answered all questions asked by the patient. Patient received PO Naproxen which she stated helped her symptoms significantly. I stressed the importance of the patient taking her medication as prescribed. I stressed the importance of the patient following up with her primary care provider. I stressed the importance of the patient returning to the emergency department immediately if her symptoms were to worsen or if she were to develop any dizziness, shortness of breath, difficulty breathing, chest pain, blurry vision, loss of vision, nausea, vomiting, abdominal pain, fever, chills, back pain, or any other complaints. Patient verbalized agreement and understanding with this treatment plan and discharge. Differential Diagnosis Differential Diagnoses: The differential diagnosis associated with the presentation includes UTI Back pain Chest pain Chronic anemia Admission/Observation Consideration of admission/observation: Escalation of care including admission/observation considered Patient would have been admitted to the hospital had her work up had any findings where hospital admission was appropriate and her clinical presentation warranted hospital admission. Lab Data [facility] Lab Attestation statement: I reviewed the patient's lab results. My interpretation of these studies and their corresponding values is that they are grossly normal, including the patient's chronic anemia. 07/12/23 08:17 07/12/23 08:17 Labs: Lab Results 07/12/23 07/12/23 Range/Units 08:17 09:57 WBC 4.4 L (4.8-10.8) X10*3/uL RBC 4.33 (4.20-5.50) X10*6/uL Hgb 9.0 L (12.0-16.0) g/dl Hct 27.7 L (37.0-47.0) % MCV 64.0 L (80.0-98.0) fL MCH 20.8 L (27.0-33.0) pg MCHC 32.5 (31.0-35.0) g/dl RDW 18.8 H (11.0-16.0) % Plt Count 232 D (160-400) X10*3/uL MPV 10.1 (9.4-12.3) fL Immature Gran % (Auto) 0.2 (0.0-0.4) % Neut % (Auto) 57.0 (45-73) % Lymph % (Auto) 33.9 (20-40) % [place] % (Auto) 7.7 (2-11) % Eos % (Auto) 0.5 (0-4) % Baso % (Auto) 0.7 (0-2) % Lymph # (Auto) 1.5 (1.2-4.9) X10*3/uL [place] # (Auto) 0.3 (0.1-1.2) X10*3/uL Eos # (Auto) 0.0 (0.0-0.4) X10*3/uL Baso # (Auto) 0.0 (0.0-0.2) X10*3/uL Abs Immat Gran (auto) 0.01 (0.00-0.03) X10*3/uL Absolute Neuts (auto) 2.5 (2.0-8.3) x10*3/uL Absolute Nucleated RBC 0.020 H (0.0-0.012) X10*3/uL Nucleated RBC % (auto) 0.5 H (0.0-0.2) /100WBC Sodium 139 (135-145) mmol/L Potassium 4.2 (3.3-5.1) mmol/L Chloride 109 H (96-108) mmol/L Carbon Dioxide 20 L (22-29) mmol/L Anion Gap 14 (12-20) BUN 14 (9-16) mg/dL Creatinine 0.57 (0.5-1.4) mg/dL Estim Creat Clear Calc 129.6 Estimated GFR > 60 Random Glucose 105 (60-115) mg/dL Calcium 9.3 (8.4-10.2) mg/dL Magnesium 2.2 (1.6-2.6) mg/dL Total Bilirubin 1.1 H (0.0-1.0) mg/dL AST 16 (5-31) U/L ALT 6 (0-31) U/L Alkaline Phosphatase 33 L (39-117) U/L Total Protein 7.0 (6.5-8.0) g/dL Albumin 4.2 (3.5-5.0) g/dL Beta HCG, Quant < 2 mIU/mL Urine Color Yellow Urine Appearance Clear Urine pH 7.5 (5.0-9.0) Ur Specific [place] 1.020 (1.005-1.025) Urine Protein Negative (Neg-Trace) mg/dL Urine Glucose (UA) Negative (Negative) mg/dL Urine Ketones Negative (Negative) mg/dL Urine Blood Negative (Negative) Urine Nitrite Negative (Negative) Ur Leukocyte Esterase Trace H (Negative) Urine RBC 0-2 (0-2) /HPF Urine WBC 0-5 (0-5) /HPF Ur Squamous Epith Cells 0-2 (0-2) /HPF Urine Bacteria None Seen (None Seen) Hyaline Casts 0-2 (0-2) /LPF Discharge Plan Discharge Clinical Impression: Back pain, Chest pain, Thalassemia Patient Disposition: Home, Self-Care Instructions: Chest Pain (DC), Back Pain (ED) Additional Instructions: Follow up with your primary care provider. Return to the emergency department immediately if your symptoms worsen or if you develop any dizziness, shortness of breath, difficulty breathing, chest pain, blurry vision, loss of vision, nausea, vomiting, abdominal pain, fever, chills, back pain, or any other complaints. Prescriptions: No Action prednisone 20 mg tablet 40 mg PO DAILY Qty: 10 0RF azithromycin [Zithromax Z-Ricardo] 250 mg tablet 250 mg PO DAILY 4 Days Qty: 4 0RF Rx Instructions: start on day 2 of therapy benzonatate 100 mg capsule 100 mg PO Q6H PRN (Reason: cough) Qty: 20 0RF naproxen 500 mg tablet,delayed release (DR/EC) 500 mg PO BID 7 Days Qty: 14 0RF cyclobenzaprine 10 mg tablet 10 mg PO Q8H PRN (Reason: Muscle spasm) Qty: 14 0RF naproxen 500 mg tablet 500 mg PO BID PRN (Reason: pain) Qty: 20 0RF cyclobenzaprine 10 mg tablet 10 mg PO TID PRN (Reason: muscle spasm) Qty: 10 0RF Paxlovid 300 mg (150 mg x 2)-100 mg tablets,dose pack See Rx Instructions .ROUTE .COMPLEX Qty: 30 0RF Rx Instructions: take TWO 150 mg tablets of nirmatrelvir with ONE 100 mg tablet of ritonavir twice daily for 5 days doxycycline hyclate 100 mg tablet 100 mg PO BID 7 Days Qty: 14 0RF cephalexin 500 mg capsule 500 mg PO QID Qty: 28 0RF amoxicillin-pot clavulanate 875-125 mg tablet 1 tab PO Q12H 10 Days Qty: 20 0RF naproxen 500 mg tablet 500 mg PO BID PRN (Reason: pain) 7 Days Qty: 14 0RF naproxen 500 mg tablet 500 mg PO BID PRN (Reason: pain) 7 Days Qty: 14 0RF Referrals: [facility] [place] Family Medicine [Provider Group] (Call to establish and follow up with a primary care provider. If you already have a primary care provider, please follow up with them.) [facility] [place] [facility] [Provider Group] (Call to establish and follow up with a primary care provider. If you already have a primary care provider, please follow up with them.) [facility] [place] [facility] [Provider Group] (Call to establish and follow up with a primary care provider. If you already have a primary care provider, please follow up with them.) Stand Alone Forms: Work/School Release Interventions: ED Discharge Assessment Last Done: 07/12/23 10:45 Discharge Date/Time: 07/12/23 10:46 Print Language: Vietnamese
[2023-07-12 08:40] LABS: Alanine Aminotransferase 6 U/L (0-31); Albumin Level 4.2 g/dL (3.5-5.0); Alkaline Phosphatase 33 U/L (39-117); Anion Gap 14 (12-20); Aspartate Amino Transferase 16 U/L (5-31); Bilirubin Total 1.1 mg/dL (0.0-1.0); Blood Urea Nitrogen 14 mg/dL (9-16); Calcium 9.3 mg/dL (8.4-10.2); Carbon Dioxide 20 mmol/L (22-29); Chloride 109 mmol/L (96-108); Creatinine Clr Calc Pharmacy 129.6; Estimated Glomerular Filt Rate > 60; Glucose Random 105 mg/dL (60-115); Magnesium 2.2 mg/dL (1.6-2.6); Potassium 4.2 mmol/L (3.3-5.1); Sodium 139 mmol/L (135-145)
[2023-07-12 10:31] VITALS: BP 103/55; PULSE 83; RESP 16; TEMP 36.7; O2SAT 99
== END 2023-07-12 10:46 | disposition home or self-care (01) ==
PROVIDERS: Physician Assistant Medical; Emergency Provider Emergency Medicine; PCP Pediatrics
DX: M54.50 Low back pain, unspecified (principal); R07.9 Chest pain, unspecified; D56.9 Thalassemia, unspecified; Z79.899 Other long term (current) drug therapy
CPT/HCPCS: 36415; 80053; 81001; 81003; 83735; 84702; 85025; 99283; 99284

== ENCOUNTER 2023-08-02 12:38 | Emergency (ER) | payer OTHER, SELFPAY ==
--- NOTE | ~2023-08-02 | XR_ITS ---
EXAMINATION: XR CHEST CLINICAL INFORMATION: Chest pain. COMPARISON: 08/20/2022 TECHNIQUE: 2 views of the chest were obtained. FINDINGS: The lungs are well expanded. No focal consolidation. No pleural effusion. Cardiac silhouette is unchanged. XR/XR chest 2V IMPRESSION: No acute abnormality.
[2023-08-02 12:40] VITALS: BP 112/62; PULSE 110; O2SAT 100
--- NOTE | 2023-08-02 12:41 | ECG_ITS ---
Test Reason : pain Blood Pressure : / mmHG Vent. Rate : 093 BPM Atrial Rate : 093 BPM P-R Int : 146 ms QRS Dur : 084 ms QT Int : 326 ms P-R-T Axes : 072 056 045 degrees QTc Int : 405 ms Normal sinus rhythm with sinus arrhythmia Low voltage QRS Nonspecific T wave abnormality Abnormal ECG When compared with ECG of 20-AUG-2022 10:53, T wave amplitude has decreased in Anterior leads Referred By: Sushant Barros Electronically Signed By:SIVA EDOUARD MD
[2023-08-02 12:53] VITALS: BP 106/66; PULSE 115; RESP 22; TEMP 36.2; O2SAT 100; BMI 20.3
--- NOTE | 2023-08-02 12:55 | ED.GENADULT ---
HPI - General Adult General Chief complaint: Chest Pain Stated complaint: CHEST PAIN Time Seen by Provider: 08/02/23 13:28 Source: patient and EMS Mode of arrival: EMS Limitations: no limitations History of Present Illness HPI narrative: 22 yo female with history of thalassemia presents to the ER from home via EMS for evaluation of chest pain that started at 11am today when she was at work. She states she just got her COVID booster and meningitis vaccine yesterday. She woke up today with arm soreness and some body aches. She denies fever, cough, SOB. She states the pain came on suddenly at work. It is severe, sharp central chest pain that travels to her head. It is worse with palpation and thinking of stress. She has a 7 yo sister in a coma. She admits to history of similar episodes of chest pain. No LE edema. Not on OCP. Reports anxiety on arrival to the ER MD complaint: chest pain, anxiety Onset (ago): hour(s) Location: chest Radiation: other (head) Severity: severe Severity scale (1-10): 10 Quality: sharp Pain Consistency: constant Relieving factors: none Exacerbating factors: other (palpation and thinking of stress) Associated symptoms: other (body aches) Treatments prior to arrival: none Related Data Previous Rx's Medication Instructions Recorded azithromycin 250 mg tablet 250 mg PO DAILY 4 days #4 tabs 08/29/21 (Zithromax Z-Ricardo) benzonatate 100 mg capsule 100 mg PO Q6H PRN cough #20 caps 08/29/21 prednisone 20 mg tablet 40 mg (2 x 20 mg) PO DAILY #10 tabs 08/29/21 cyclobenzaprine 10 mg tablet 10 mg PO Q8H PRN Muscle spasm #14 07/31/22 tabs naproxen 500 mg tablet,delayed 500 mg PO BID 7 days #14 tabs 07/31/22 release cyclobenzaprine 10 mg tablet 10 mg PO TID PRN muscle spasm #10 08/20/22 tabs naproxen 500 mg tablet 500 mg PO BID PRN pain #20 tabs 08/20/22 nirmatrelvir 300 mg (150 mg See Rx Instructions PO .COMPLEX 10/05/22 x2)-ritonavir 100 mg tablet,dose #30 ea pack (Paxlovid) cephalexin 500 mg capsule 500 mg PO QID #28 caps 11/09/22 doxycycline hyclate 100 mg tablet 100 mg PO BID 7 days #14 tabs 11/09/22 amoxicillin 875 mg-potassium 1 tab PO Q12H 10 days #20 tabs 03/03/23 clavulanate 125 mg tablet naproxen 500 mg tablet 500 mg PO BID PRN pain 7 days #14 03/03/23 tabs naproxen 500 mg tablet 500 mg PO BID PRN pain 7 days #14 04/28/23 tabs hydroxyzine HCl 25 mg tablet 25 mg PO BID PRN anxiety #14 tabs 08/02/23 Allergies Allergy/AdvReac Type Severity Reaction Status Date / Time No Known Allergies Allergy Verified 08/02/23 12:55 Review of Systems Review of Systems: Yes all other systems are reviewed and are negative [facility] Past Medical History Medical History Patient denies medical problems Social History Social History Alcohol intake: never Patient Tobacco Use Status: Never used Tobacco Advance Directives: No Advance Directives Information Provided: No Physical Exam ED Vital Signs: Vital Signs - 24 hr 08/02/23 12:53 08/02/23 14:51 Temperature 97.2 F 98.5 F Pulse Rate 115 H 100 Respiratory Rate 22 H 18 Blood Pressure 106/66 112/67 Pulse Oximetry 100 100 Oxygen Delivery Method Room Air Room Air BMI result Body Mass Index 20.3 Appearance: Alert. Oriented X3. No acute distress. Head: normocephalic, atraumatic. Eyes: Pupils equal, round and reactive to light. ENT: Pharynx normal. No tonsillar swelling or exudate. Neck: Normal inspection. Neck supple. CVS: Normal heart rate and rhythm. Pulses normal. central sternal tenderness, no ecchymosis, crepitus. Respiratory: No respiratory distress. Breath sounds normal. Abdomen: Soft and nontender. +BS x4 Skin: Skin warm and dry. Normal skin color. Normal skin turgor. No rashes. Extremities: No lower extremity edema. No joint swelling. no calf swelling or tenderness Neuro/psych: Oriented X 3. No motor deficit. No sensory deficit. CN II-XII intact. Normal speech and cognition. Course Course Course Narrative: RME- 22-year-old female presents for evaluation of stabbing chest pain that started 1-1/2 hours ago. She also has upper respiratory symptoms. EKG is nonischemic. Plan for labs, viral swab, chest x-ray. Medications Administered Discontinued Medications Generic Name Dose Route Start Last Admin Trade Name Thu PRN Reason Stop Dose Admin Acetaminophen 975 mg 08/02/23 14:07 08/02/23 14:21 Acetaminophen 325 Mg Tablet PO 08/02/23 14:08 975 mg ONCE ONE Administration Ibuprofen 600 mg 08/02/23 14:07 08/02/23 14:21 Ibuprofen 600 Mg Tablet PO 08/02/23 14:08 600 mg ONCE ONE Administration Lorazepam 1 mg 08/02/23 14:07 08/02/23 14:21 Lorazepam 1 Mg Tablet PO 08/02/23 14:08 1 mg ONCE ONE Administration Medical Decision Making Medical Decision Making [facility] Narrative: 22 yo female presenting with sharp central chest pain and anxiety. Tachycardic on arrival, likely due to anxiety Labs are reassuring with negative troponin and normal EKG Given ativan, motrin and tylenol with improvement in her symptoms. Comfortable with discharge home. Differential Diagnosis Differential Diagnoses: The differential diagnosis associated with the presentation includes anxiety, costochondritis, bronchitis, PNA, less likely ACS, PE, dissection Admission/Observation Consideration of admission/observation: Escalation of care including admission/observation considered chest pain + tachycardia, considered admit on arrival Lab Data [facility] Lab Attestation statement: I reviewed the patient's lab results. 08/02/23 13:32 Labs: Lab Results 08/02/23 Range/Units 13:32 WBC 6.8 (4.8-10.8) X10*3/uL RBC 4.73 (4.20-5.50) X10*6/uL Hgb 9.8 L (12.0-16.0) g/dl Hct 31.0 L (37.0-47.0) % MCV 65.5 L (80.0-98.0) fL MCH 20.7 L (27.0-33.0) pg MCHC 31.6 (31.0-35.0) g/dl RDW 18.8 H (11.0-16.0) % Plt Count 274 (160-400) X10*3/uL MPV 10.1 (9.4-12.3) fL Immature Gran % (Auto) 0.4 (0.0-0.4) % Neut % (Auto) 80.8 H (45-73) % Lymph % (Auto) 11.7 L (20-40) % [place] % (Auto) 6.4 (2-11) % Eos % (Auto) 0.4 (0-4) % Baso % (Auto) 0.3 (0-2) % Lymph # (Auto) 0.8 L (1.2-4.9) X10*3/uL [place] # (Auto) 0.4 (0.1-1.2) X10*3/uL Eos # (Auto) 0.0 (0.0-0.4) X10*3/uL Baso # (Auto) 0.0 (0.0-0.2) X10*3/uL Abs Immat Gran (auto) 0.03 (0.00-0.03) X10*3/uL Absolute Neuts (auto) 5.5 (2.0-8.3) x10*3/uL Absolute Nucleated RBC 0.020 H (0.0-0.012) X10*3/uL Nucleated RBC % (auto) 0.3 H (0.0-0.2) /100WBC PT 15.7 H (11.1-13.3) SEC INR 1.3 H (0.9-1.1) Troponin I High Sens < 2.7 (<3.5-17.0) ng/L COVID-19 (JAMEY) Negative (Negative) COVID-19 Clin Com See Note Influenza Type A (MORAIMA) Negative (Negative) Influenza Type B (MORAIMA) Negative (Negative) Influenza A & B Note See Note Independent Interpretation I performed an independent interpretation of an: EKG and Plain X-Ray Interpretation: cxr clear, no PNA or effusion EKG w/ normal sinus rhythm, sinus arrythmia, HR 93 bpm, no ST segment elevations or depressions, no change from 1 year ago Radiology Impression Discussion of test interpretation with radiology: I have reviewed the radiologist's reading. Radiologist Impression: EXAMINATION: XR CHEST CLINICAL INFORMATION: Chest pain. COMPARISON: 08/20/2022 TECHNIQUE: 2 views of the chest were obtained. FINDINGS: The lungs are well expanded. No focal consolidation. No pleural effusion. Cardiac silhouette is unchanged. XR/XR chest 2V IMPRESSION: No acute abnormality. External Record Review External record reviewed: Outpatient record, Prior outpatient labs and Prior outpatient radiology Prescription Management I considered prescription management with: Other (anxiolytic) Chronic Conditions Patient?s care impacted by: Other (anxiety) Critical Care Time Critical Care Time Critical Care Time: No Discharge Plan Discharge Clinical Impression: Atypical chest pain, Anxiety Patient Disposition: Home, Self-Care Instructions: Noncardiac Chest Pain (ED), Anxiety (ED) Additional Instructions: your workup today was normal take the prescribed medication as needed for chest pain follow up with your doctor If you develop new or worsening symptoms call 911 or come back to the ER for further evaluation. Prescriptions: New hydroxyzine HCl 25 mg tablet 25 mg PO BID PRN (Reason: anxiety) Qty: 14 0RF No Action prednisone 20 mg tablet 40 mg PO DAILY Qty: 10 0RF azithromycin [Zithromax Z-Ricardo] 250 mg tablet 250 mg PO DAILY 4 Days Qty: 4 0RF Rx Instructions: start on day 2 of therapy benzonatate 100 mg capsule 100 mg PO Q6H PRN (Reason: cough) Qty: 20 0RF naproxen 500 mg tablet,delayed release (DR/EC) 500 mg PO BID 7 Days Qty: 14 0RF cyclobenzaprine 10 mg tablet 10 mg PO Q8H PRN (Reason: Muscle spasm) Qty: 14 0RF naproxen 500 mg tablet 500 mg PO BID PRN (Reason: pain) Qty: 20 0RF cyclobenzaprine 10 mg tablet 10 mg PO TID PRN (Reason: muscle spasm) Qty: 10 0RF Paxlovid 300 mg (150 mg x 2)-100 mg tablets,dose pack See Rx Instructions .ROUTE .COMPLEX Qty: 30 0RF Rx Instructions: take TWO 150 mg tablets of nirmatrelvir with ONE 100 mg tablet of ritonavir twice daily for 5 days doxycycline hyclate 100 mg tablet 100 mg PO BID 7 Days Qty: 14 0RF cephalexin 500 mg capsule 500 mg PO QID Qty: 28 0RF amoxicillin-pot clavulanate 875-125 mg tablet 1 tab PO Q12H 10 Days Qty: 20 0RF naproxen 500 mg tablet 500 mg PO BID PRN (Reason: pain) 7 Days Qty: 14 0RF naproxen 500 mg tablet 500 mg PO BID PRN (Reason: pain) 7 Days Qty: 14 0RF
[2023-08-02 13:41] LABS: MANUAL DIFF FLAG NO
[2023-08-02 13:44] LABS: Basophils Percent Auto 0.3 % (0-2); Eosinophils Percent Auto 0.4 % (0-4); Hemoglobin 9.8 g/dl (12.0-16.0); Imm Gran Abs Auto 0.03 X10*3/uL (0.00-0.03); Imm Gran Pct Auto 0.4 % (0.0-0.4); Lymphocytes Absolute Auto 0.8 X10*3/uL (1.2-4.9); Lymphocytes Percent Auto 11.7 % (20-40); Mean Corpuscular HGB Conc 31.6 g/dl (31.0-35.0); Mean Corpuscular Hemoglobin 20.7 pg (27.0-33.0); Mean Corpuscular Volume 65.5 fL (80.0-98.0); Mean Platelet Volume 10.1 fL (9.4-12.3); Monocytes Absolute Auto 0.4 X10*3/uL (0.1-1.2); Monocytes Percent Auto 6.4 % (2-11); NRBC Pct Auto 0.3 /100WBC (0.0-0.2); Neutrophils Absolute Auto 5.5 x10*3/uL (2.0-8.3); Neutrophils Percent Auto 80.8 % (45-73); Platelet Count 274 X10*3/uL (160-400); Red Blood Count 4.73 X10*6/uL (4.20-5.50); Red Cell Distribution Width 18.8 % (11.0-16.0); White Blood Count 6.8 X10*3/uL (4.8-10.8)
[2023-08-02 13:48] LABS: INTERNATIONAL NORM RATIO 1.3 (0.9-1.1); Prothrombin Time 15.7 SEC (11.1-13.3)
[2023-08-02 14:08] LABS: Troponin-I High Sensitivity < 2.7 ng/L (<3.5-17.0)
[2023-08-02] MEDS: Acetaminophen 325 MG TABLET 975 MG PO (14:21)
[2023-08-02] MEDS: LORazepam 1 MG TABLET PO (14:21)
[2023-08-02] MEDS: Ibuprofen 600 MG TABLET PO (14:21)
[2023-08-02 14:30] LABS: COVID-19 Test Negative (Negative); IDNOW Serial# BCCEAD1C
[2023-08-02 14:51] VITALS: BP 112/67; PULSE 100; RESP 18; TEMP 36.9; O2SAT 100
[2023-08-02 14:52] LABS: IDNOW Serial# 9DB6401D; Influenza A Negative (Negative); Influenza B2 Negative (Negative)
== END 2023-08-02 15:23 | disposition home or self-care (01) ==
PROVIDERS: Physician Assistant; Emergency Provider Emergency Medicine Emergency Medical Services; PCP Pediatrics
DX: R07.89 Other chest pain (principal); F41.9 Anxiety disorder, unspecified; R00.0 Tachycardia, unspecified; Z11.52 Encounter for screening for COVID-19; D56.9 Thalassemia, unspecified; Z79.899 Other long term (current) drug therapy
CPT/HCPCS: 71046; 84484; 85025; 85610; 87502; 87635; 93005; 99283; 99284

== ENCOUNTER 2023-10-21 17:02 | Emergency (ER) | payer OTHER, SELFPAY ==
--- NOTE | ~2023-10-21 | XR_ITS ---
EXAMINATION: XR FOOT, LEFT CLINICAL INFORMATION: Pain. COMPARISON: None available. TECHNIQUE: AP, lateral, and oblique views of the left foot. FINDINGS: The bones and soft tissues are normal. No fracture. Alignment is anatomic. Joint spaces are maintained. XR/XR foot LT 2V IMPRESSION: Unremarkable left foot.
[2023-10-21 18:19] VITALS: BP 101/67; PULSE 84; RESP 16; TEMP 36.6; O2SAT 99; BMI 19.7
--- NOTE | 2023-10-21 18:19 | ED_ITS ---
HPI - General Adult General Chief complaint: Extremity Injury, Lower Stated complaint: lump on left foot Time Seen by Provider: 10/21/23 18:27 Related Data Previous Rx's Medication Instructions Recorded azithromycin 250 mg tablet 250 mg PO DAILY 4 days #4 tabs 08/29/21 (Zithromax Z-Ricardo) benzonatate 100 mg capsule 100 mg PO Q6H PRN cough #20 caps 08/29/21 prednisone 20 mg tablet 40 mg (2 x 20 mg) PO DAILY #10 tabs 08/29/21 cyclobenzaprine 10 mg tablet 10 mg PO Q8H PRN Muscle spasm #14 07/31/22 tabs naproxen 500 mg tablet,delayed 500 mg PO BID 7 days #14 tabs 07/31/22 release cyclobenzaprine 10 mg tablet 10 mg PO TID PRN muscle spasm #10 08/20/22 tabs naproxen 500 mg tablet 500 mg PO BID PRN pain #20 tabs 08/20/22 nirmatrelvir 300 mg (150 mg See Rx Instructions PO .COMPLEX 10/05/22 x2)-ritonavir 100 mg tablet,dose #30 ea pack (Paxlovid) cephalexin 500 mg capsule 500 mg PO QID #28 caps 11/09/22 doxycycline hyclate 100 mg tablet 100 mg PO BID 7 days #14 tabs 11/09/22 amoxicillin 875 mg-potassium 1 tab PO Q12H 10 days #20 tabs 03/03/23 clavulanate 125 mg tablet naproxen 500 mg tablet 500 mg PO BID PRN pain 7 days #14 03/03/23 tabs naproxen 500 mg tablet 500 mg PO BID PRN pain 7 days #14 04/28/23 tabs hydroxyzine HCl 25 mg tablet 25 mg PO BID PRN anxiety #14 tabs 08/02/23 salicylic acid 27.5 % topical 1 appl topical DAILY #10 mL 10/21/23 film-forming liquid Allergies Allergy/AdvReac Type Severity Reaction Status Date / Time No Known Allergies Allergy Verified 10/21/23 18:19 [facility] Past Medical History Onset Date is defined in the Problem List Problems that require an onset date and time if occurred within 24 hrs of arrival to the ED Aortic Dissection and Rupture; Neurologic impairment; Cardiopulmonary Arrest; Endotracheal Intubation; Insertion or Replacement of Mechanical Circulatory Assist Device Medical History Patient denies medical problems Social History Social History Alcohol intake: never Patient Tobacco Use Status: Never used Tobacco Advance Directives: No Advance Directives Information Provided: No Physical Exam ED Vital Signs: Vital Signs - 24 hr 10/21/23 18:19 Temperature 97.9 F Pulse Rate 84 Respiratory Rate 16 Blood Pressure 101/67 Pulse Oximetry 99 Oxygen Delivery Method Room Air BMI result Body Mass Index 19.7 Course Course Course Narrative: RME:? 22 yo female here with bump to the bottom of left great toe x weeks. states the bump is enlarging and painful. worse with bearing weight. reports attempting to remove it nail clipper and trying to file it down with a nail file. no discharge from the area. on feet a lot for work. + callus to bottom of left great toe. TTP. full ROM to great toe intact. Full HPI, ROS and PE to be performed by the primary ED provider. Discharge Plan Discharge Clinical Impression: Plantar wart, left foot Patient Disposition: Home, Self-Care Instructions: Plantar Wart (ED) Additional Instructions: Your physical exam is consistent with plantar wart For pain you can use Tylenol and ibuprofen Liquid, solution: Salicylic acid 27%: Adults: Soak wart in warm water for 5 minutes. Dry area thoroughly. Apply to entire wart surface, allow to dry, and then apply a second time. Avoid contact with surrounding skin. Continue therapy once or twice daily. Resolution may be expected after 4 to 6 weeks; some warts may take longer to remove. Follow-up with your primary care physician if medication prescribed does not resolve the problem. Prescriptions: New salicylic acid 27.5 % film forming liquid w/appl 1 appl topical DAILY Qty: 10 0RF Rx Instructions: apply to entire wart site; allow to dry; repeat application No Action prednisone 20 mg tablet 40 mg PO DAILY Qty: 10 0RF azithromycin [Zithromax Z-Ricardo] 250 mg tablet 250 mg PO DAILY 4 Days Qty: 4 0RF Rx Instructions: start on day 2 of therapy benzonatate 100 mg capsule 100 mg PO Q6H PRN (Reason: cough) Qty: 20 0RF naproxen 500 mg tablet,delayed release (DR/EC) 500 mg PO BID 7 Days Qty: 14 0RF cyclobenzaprine 10 mg tablet 10 mg PO Q8H PRN (Reason: Muscle spasm) Qty: 14 0RF naproxen 500 mg tablet 500 mg PO BID PRN (Reason: pain) Qty: 20 0RF cyclobenzaprine 10 mg tablet 10 mg PO TID PRN (Reason: muscle spasm) Qty: 10 0RF Paxlovid 300 mg (150 mg x 2)-100 mg tablets,dose pack See Rx Instructions .ROUTE .COMPLEX Qty: 30 0RF Rx Instructions: take TWO 150 mg tablets of nirmatrelvir with ONE 100 mg tablet of ritonavir twice daily for 5 days doxycycline hyclate 100 mg tablet 100 mg PO BID 7 Days Qty: 14 0RF cephalexin 500 mg capsule 500 mg PO QID Qty: 28 0RF amoxicillin-pot clavulanate 875-125 mg tablet 1 tab PO Q12H 10 Days Qty: 20 0RF naproxen 500 mg tablet 500 mg PO BID PRN (Reason: pain) 7 Days Qty: 14 0RF naproxen 500 mg tablet 500 mg PO BID PRN (Reason: pain) 7 Days Qty: 14 0RF hydroxyzine HCl 25 mg tablet 25 mg PO BID PRN (Reason: anxiety) Qty: 14 0RF Interventions: ED Discharge Assessment Last Done: 10/21/23 19:33 Discharge Date/Time: 10/21/23 19:34
--- NOTE | 2023-10-21 18:36 | ED_ITS ---
HPI - General Adult General Chief complaint: Extremity Injury, Lower Stated complaint: lump on left foot Time Seen by Provider: 10/21/23 18:27 History of Present Illness HPI narrative: 22 years old with no significant past medical history, presents emergency room for left great toe pain. Patient reports that she noticed a round lesion on her toe few weeks ago and that since then she has been experiencing pain which is interfering with her work. Patient denies trauma of the foot. Denies fever or chills. Denies abdominal pain, nausea or vomiting. Related Data Previous Rx's Medication Instructions Recorded azithromycin 250 mg tablet 250 mg PO DAILY 4 days #4 tabs 08/29/21 (Zithromax Z-Ricardo) benzonatate 100 mg capsule 100 mg PO Q6H PRN cough #20 caps 08/29/21 prednisone 20 mg tablet 40 mg (2 x 20 mg) PO DAILY #10 tabs 08/29/21 cyclobenzaprine 10 mg tablet 10 mg PO Q8H PRN Muscle spasm #14 07/31/22 tabs naproxen 500 mg tablet,delayed 500 mg PO BID 7 days #14 tabs 07/31/22 release cyclobenzaprine 10 mg tablet 10 mg PO TID PRN muscle spasm #10 08/20/22 tabs naproxen 500 mg tablet 500 mg PO BID PRN pain #20 tabs 08/20/22 nirmatrelvir 300 mg (150 mg See Rx Instructions PO .COMPLEX 10/05/22 x2)-ritonavir 100 mg tablet,dose #30 ea pack (Paxlovid) cephalexin 500 mg capsule 500 mg PO QID #28 caps 11/09/22 doxycycline hyclate 100 mg tablet 100 mg PO BID 7 days #14 tabs 11/09/22 amoxicillin 875 mg-potassium 1 tab PO Q12H 10 days #20 tabs 03/03/23 clavulanate 125 mg tablet naproxen 500 mg tablet 500 mg PO BID PRN pain 7 days #14 03/03/23 tabs naproxen 500 mg tablet 500 mg PO BID PRN pain 7 days #14 04/28/23 tabs hydroxyzine HCl 25 mg tablet 25 mg PO BID PRN anxiety #14 tabs 08/02/23 salicylic acid 27.5 % topical 1 appl topical DAILY #10 mL 10/21/23 film-forming liquid Allergies Allergy/AdvReac Type Severity Reaction Status Date / Time No Known Allergies Allergy Verified 10/21/23 18:19 Review of Systems Review of Systems: Yes all other systems are reviewed and are negative PMFSH Past Medical History Onset Date is defined in the Problem List Problems that require an onset date and time if occurred within 24 hrs of arrival to the ED Aortic Dissection and Rupture; Neurologic impairment; Cardiopulmonary Arrest; Endotracheal Intubation; Insertion or Replacement of Mechanical Circulatory Assist Device Medical History Patient denies medical problems Social History Social History Alcohol intake: never Patient Tobacco Use Status: Never used Tobacco Advance Directives: No Advance Directives Information Provided: No Physical Exam ED Vital Signs: Vital Signs - 24 hr 10/21/23 18:19 Temperature 97.9 F Pulse Rate 84 Respiratory Rate 16 Blood Pressure 101/67 Pulse Oximetry 99 Oxygen Delivery Method Room Air BMI result Body Mass Index 19.7 General: Alert, Not in Distress Skin: 5mm round lesion on sole of L great toe HEENT: Atraumatic, No Exudate or Pharyngeal Erythema Resp: Normal Breath sounds bilaterally Cardio: Regular rate and Rhythm, Normal S1, S2 ABD: Abd soft, non tender, no guarding or rebound. Normal Bowel sounds. : No cva tenderness Neuro: Alert, oriented x4, PERRL Strenght 5/5 on all extremities Sensation is preserved in both lower and upper extremities Index to nose: normal Cranial Nerves II-XII grossly intact No dysarthria, or aphasia No neglet. Visual rose are normal bilaterally Psych: Cooperative, NO SI Course Reevaluation(s) Reevaluation #1: I personally reviewed patient x-ray foot. No foreign body seen. Physical exam consistent with wart. Will discharge on topical salicylate. Time: 19:27 Medical Decision Making Medical Decision Making MDM Narrative: Presented to the emergency room for left foot pain. Will get EKG to make sure patient does not have foreign body in her left great toe. Physical exam is however consistent with plantar wart. If x-ray is negative plan to discharge home with topical salicylic acid Admission/Observation Consideration of admission/observation: Escalation of care including admiss ion/observation considered Independent Interpretation I performed an independent interpretation of an: Plain X-Ray Discharge Plan Discharge Clinical Impression: Plantar wart, left foot Patient Disposition: Home, Self-Care Instructions: Plantar Wart (ED) Additional Instructions: Your physical exam is consistent with plantar wart For pain you can use Tylenol and ibuprofen Liquid, solution: Salicylic acid 27%: Adults: Soak wart in warm water for 5 minutes. Dry area thoroughly. Apply to entire wart surface, allow to dry, and then apply a second time. Avoid contact with surrounding skin. Continue therapy once or twice daily. Resolution may be expected after 4 to 6 weeks; some warts may take longer to remove. Follow-up with your primary care physician if medication prescribed does not resolve the problem. Prescriptions: New salicylic acid 27.5 % film forming liquid w/appl 1 appl topical DAILY Qty: 10 0RF Rx Instructions: apply to entire wart site; allow to dry; repeat application No Action prednisone 20 mg tablet 40 mg PO DAILY Qty: 10 0RF azithromycin [Zithromax Z-Ricardo] 250 mg tablet 250 mg PO DAILY 4 Days Qty: 4 0RF Rx Instructions: start on day 2 of therapy benzonatate 100 mg capsule 100 mg PO Q6H PRN (Reason: cough) Qty: 20 0RF naproxen 500 mg tablet,delayed release (DR/EC) 500 mg PO BID 7 Days Qty: 14 0RF cyclobenzaprine 10 mg tablet 10 mg PO Q8H PRN (Reason: Muscle spasm) Qty: 14 0RF naproxen 500 mg tablet 500 mg PO BID PRN (Reason: pain) Qty: 20 0RF cyclobenzaprine 10 mg tablet 10 mg PO TID PRN (Reason: muscle spasm) Qty: 10 0RF Paxlovid 300 mg (150 mg x 2)-100 mg tablets,dose pack See Rx Instructions .ROUTE .COMPLEX Qty: 30 0RF Rx Instructions: take TWO 150 mg tablets of nirmatrelvir with ONE 100 mg tablet of ritonavir twice daily for 5 days doxycycline hyclate 100 mg tablet 100 mg PO BID 7 Days Qty: 14 0RF cephalexin 500 mg capsule 500 mg PO QID Qty: 28 0RF amoxicillin-pot clavulanate 875-125 mg tablet 1 tab PO Q12H 10 Days Qty: 20 0RF naproxen 500 mg tablet 500 mg PO BID PRN (Reason: pain) 7 Days Qty: 14 0RF naproxen 500 mg tablet 500 mg PO BID PRN (Reason: pain) 7 Days Qty: 14 0RF hydroxyzine HCl 25 mg tablet 25 mg PO BID PRN (Reason: anxiety) Qty: 14 0RF
--- OUTSIDE RECORDS SUMMARY | 2023-10-21 19:01 | XMS_ITS | Continuity of Care Document ---
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 Name Role Phone Guero José MD Primary Care Physician Encounter [facility] Date(s): 08/05/23 - 09/04/23 [facility] [address] [place] [id number]- Allergies, Adverse Reactions, Alerts No Known Allergies Immunizations Given and Recorded Vaccine Date Status Refusal Reason Hepatitis A Pediatric Vaccine 1 07/29/15 Given Hepatitis A Pediatric Vaccine 2 11/21/11 Given Human Papillomavirus Vaccine 3 07/29/15 Given tetanus/diphtheria/pertussis, acel(Tdap) 4 07/29/15 Given Meningococcal Conjugate Vaccine 5 07/29/15 Given influenza virus vaccine, inactivated 6 07/29/15 Gi kumar influenza virus vaccine, inactivated 10/14/13 Give n influenza virus vaccine, inactivated 7 06/29/09 Gi kumar influenza virus vaccine, inactivated 8 08/21/07 Gi kumar influenza virus vaccine, inactivated 9 08/22/04 Gi kumar influenza virus vaccine, inactivated 10 07/05/04 G iven Varicella Virus Vaccine 11 01/13/09 Given Varicella Virus Vaccine 03/08/04 Given diphtheria/tetanus/pertussis, acel(DTaP) 12 07/05/07 Given diphtheria/tetanus/pertussis, acel(DTaP) 13 03/12/07 Given diphtheria/tetanus/pertussis, acel(DTaP) 07/05/04 Given diphtheria/tetanus/pertussis, acel(DTaP) 08/17/03 Given diphtheria/tetanus/pertussis, acel(DTaP) 07/02/03 Given diphtheria/tetanus/pertussis, acel(DTaP) 03/04/03 Given Measles/Mumps/Rubella Virus Vaccine 14 03/12/07 Gi kumar Measles/Mumps/Rubella Virus Vaccine 03/08/04 Given Poliovirus Vaccine, Inactivated 15 03/12/07 Given Poliovirus Vaccine, Inactivated 03/08/04 Given Poliovirus Vaccine, Inactivated 07/02/03 Given Poliovirus Vaccine, Inactivated 03/04/03 Given pneumococcal 7-valent vaccine 11/06/04 Given pneumococcal 7-valent vaccine 08/17/03 Given pneumococcal 7-valent vaccine 07/02/03 Given pneumococcal 7-valent vaccine 03/04/03 Given Haemophilus B conjugate (HbOC) vaccine 03/08/04 Gi kumar Haemophilus B conjugate (HbOC) vaccine 16 08/17/03 Given Haemophilus B conjugate (HbOC) vaccine 07/02/03 Gi kumar Haemophilus B conjugate (HbOC) vaccine 03/04/03 Gi kumar hepatitis B pediatric vaccine 09/06/03 Given hepatitis B pediatric vaccine 02/12/03 Given hepatitis B pediatric vaccine 01/10/03 Given 1Result Comment: [07/29/2015] ORDERED BY CONRADO BAE MD 2Admin Note: VIS 12/25/05 GIVEN 3Result Comment: [07/29/2015] ORDERED BY CONRADO BAE MD 4Result Comment: [07/29/2015] ORDERED BY CONRADO BAE MD 5Result Comment: [07/29/2015] ORDERED BY CONRADO BEA MD 6Result Comment: [07/29/2015] ORDERED BY CONRADO BAE MD 7Admin Note: vis 05/17/09 given 8Admin Note: GIVEN BY NURSE 9Admin Note: GIVEN BY NURSE 10Admin Note: GIVEN BY NURSE 11Admin Note: VIS 12/18/07 12Admin Note: GIVEN BY NURSE 13Admin Note: GIVEN BY NURSE 14Admin Note: GIVEN BY NURSE 15Admin Note: GIVEN BY NURSE 16Admin Note: GIVEN BY NURSE Medications fluoride 1 mg oral tablet 1 tablet = 1 mg, By Mouth, Daily at bedtime, for 30 days, # 30 tablet, 11 Refills, Acute 07/23/16 14:03:31, 07/29/15 14:03:31, 1 tablet By Mouth Daily at bedtime,x30 days Start Date: 07/29/15 Stop Date: 07/23/16 Status: Ordered fluoride 1 mg oral tablet, chewable 1 tablet, By Mouth, Daily at bedtime, # 30 tablet, 11 Refills, Maintenance Start Date: 11/21/11 Stop Date: 11/15/12 Status: Ordered Ovide 0.5% topical lotion 1 application, Topically, Once, as directed on package labeling, # 60 mL, 1 Refills, Soft Stop, Lotion Start Date: 08/08/12 Status: Ordered Ovide 0.5% topical lotion 1 application, Topically, Once, as directed on package labeling, if lice still present after 7-9 days may repeat, # 60 mL, 1 Refills, Soft Stop, Lotion, 1 application Topically Once,Instr:as directedon package labeling, if lice still present after 7-... Start Date: 10/14/13 Status: Ordered permethrin topical 1% solution 1 application, Topically, Once, to clean hair and scalp, leave in for 10 minutes then rinse with water, # 120 mL, 0 Refills, Maintenance, Solution Start Date: 04/20/10 Status: Ordered sulfamethoxazole-trimethoprim 200 mg-40 mg/5 ml oral suspension 12.5 mL, By Mouth, 2 times a day, # 250 mL, 0 Refills, Maintenance Start Date: 04/20/10 Stop Date: 04/30/10 Status: Ordered Problem List Condition Confirmation Course Effective Dates Status Health St atus Informant Asthma Confirmed Active Beta thalassemia trait Confirmed Active Patient Care team information Care Team Personnel Name: Guero José MD Position: [facility] General Pediatrics MD Member Role: PCP Address: Address: [address] [place] [address] [place] [address]- Care Team Related Persons Name: STEFANY CONDE Address: home [address] [place] [id number] Name: ADDIS HINOJOSA Address: [address] [address]
== END 2023-10-21 19:34 | disposition home or self-care (01) ==
PROVIDERS: Emergency Provider Student in an Organized Health Care Education/Training Program; PCP Pediatrics
DX: B07.0 Plantar wart (principal); Z79.899 Other long term (current) drug therapy
CPT/HCPCS: 73620; 99282; 99283

== ENCOUNTER 2024-04-01 15:45 | Emergency (ER) | payer SELFPAY ==
[2024-04-01 16:42] VITALS: BP 116/74; PULSE 79; RESP 18; TEMP 36.8; O2SAT 100; BMI 21.0
--- NOTE | 2024-04-01 16:43 | ED_ITS ---
HPI - General Adult General Chief complaint: GI Bleed Stated complaint: rectal bleeding and nausea Time Seen by Provider: 04/01/24 19:30 History of Present Illness ED Provider: Michael ETIENNE narrative: The patient is a 23-year-old female who says that she has a history of thalassemia. She is otherwise generally healthy. She has no surgical history. She says that for the last 4 days she has been having blood with passage of stool. She says that there is red blood in the toilet with her stool. She is quite certain that she has not had any hematuria and she is quite certain that she has not had any vaginal bleeding. She says that she normally has bowel movement after every meal. She therefore estimates that she has 3 bowel movements per day on average. She says that she has had no increase in her frequency of bowel movements since noting the blood with passage of stool. She says that she does not think she has been particularly constipated recently. She has some mild left lower abdominal discomfort she says. Related Data Previous Rx's ?Medication ?Instructions ?Recorded azithromycin 250 mg tablet 250 mg PO DAILY 4 days #4 tabs 08/29/21 (Zithromax Z-Ricardo) benzonatate 100 mg capsule 100 mg PO Q6H PRN cough #20 caps 08/29/21 prednisone 20 mg tablet 40 mg (2 x 20 mg) PO DAILY #10 tabs 08/29/21 cyclobenzaprine 10 mg tablet 10 mg PO Q8H PRN Muscle spasm #14 07/31/22 tabs naproxen 500 mg tablet,delayed 500 mg PO BID 7 days #14 tabs 07/31/22 release cyclobenzaprine 10 mg tablet 10 mg PO TID PRN muscle spasm #10 08/20/22 tabs naproxen 500 mg tablet 500 mg PO BID PRN pain #20 tabs 08/20/22 nirmatrelvir 300 mg (150 mg See Rx Instructions PO .COMPLEX 10/05/22 x2)-ritonavir 100 mg tablet,dose #30 ea pack (Paxlovid) cephalexin 500 mg capsule 500 mg PO QID #28 caps 11/09/22 doxycycline hyclate 100 mg tablet 100 mg PO BID 7 days #14 tabs 11/09/22 amoxicillin 875 mg-potassium 1 tab PO Q12H 10 days #20 tabs 03/03/23 clavulanate 125 mg tablet naproxen 500 mg tablet 500 mg PO BID PRN pain 7 days #14 03/03/23 tabs naproxen 500 mg tablet 500 mg PO BID PRN pain 7 days #14 04/28/23 tabs hydroxyzine HCl 25 mg tablet 25 mg PO BID PRN anxiety #14 tabs 08/02/23 salicylic acid 27.5 % topical 1 appl topical DAILY #10 mL 10/21/23 film-forming liquid hydrocortisone acetate 25 mg 25 mg [place] DAILY #12 ea 04/01/24 rectal suppository (Anusol-HC) Allergies Allergy/AdvReac Type Severity Reaction Status Date / Time No Known Allergies Allergy Verified 04/01/24 16:47 Review of Systems 2 Review of Systems: Yes all other systems are reviewed and are negative [facility] Past Medical History Medical History Patient denies medical problems Social History Social History Alcohol intake: never Patient Tobacco Use Status: Never used Tobacco Physical Exam ED Vital Signs: Vital Signs - 24 hr 04/01/24 16:42 Temperature 98.2 F Pulse Rate 79 Respiratory Rate 18 Blood Pressure 116/74 Pulse Oximetry 100 Oxygen Delivery Method Room Air BMI result Body Mass Index 21.0 Const Other: The patient is awake, alert, pleasant, cooperative. She does not appear in any distress. HENMT Other: Face is symmetrical. Mucous membranes are moist. Eyes Other: Pupils are round equal, extraocular movements are intact Resp Effort & Inspection: normal respiratory effort Auscultation: clear to auscultation bilaterally Cardio Rate: regular rate Rhythm: regular rhythm Heart sounds: S1 normal heart sound present and S2 normal heart sound present GI Other: The abdomen is flat and soft. There is some mild left lower quadrant tenderness. Rectal exam revealed no external hemorrhoids. On digital exam there were no masses. There was no blood in the rectum. No stool in the rectum. Skin Other: Skin is dry and unremarkable Neuro Other: The patient is awake and alert with a normal mental status. She is grossly neurologically intact. Extrem Other: No peripheral edema. Course Course Course Narrative: This is a Rapid Medical Examination (RME) performed by Adarsh Sierra PA-C in triage. Full HPI, ROS, assessment and treatment plan per primary provider in the Main ED. 23 yo female here for eval of BRBPR x4 days. reports blood on toilet paper and in toilet bowl with every BM. denies constipation or straining. no pain w/ BM. now feeling dizzy, prompting her to come to the ED. admits to abdominal pain yesterday which has since resolved. denies hx of hemorrhoids. admits to hx of anemia. PE limited in triage d/t sensitive exam. Plan: basic labs ordered Medical Decision Making Medical Decision Making [facility] Narrative: The patient is a generally healthy 23-year-old who reports a history of thalassemia who presents with 3-4 days of passage of blood with stooling. No fever, sweats, chills. She looks well. Blood counts are stable. No external hemorrhoids visible on exam. On digital rectal exam no masses or other abnormalities. There was no stool in the rectum. There was no blood in the rectum. My assumption is that she has an internal hemorrhoid. She will be given a prescription for Anusol HC suppositories. She is also advised to take polyethylene glycol (MiraLax) to help keep stools soft. She should follow up with her regular fruit grader. Lab Data 04/01/24 17:52 04/01/24 17:52 Labs: Lab Results 04/01/24 Range/Units 17:52 WBC 5.2 (4.8-10.8) X10*3/uL RBC 4.83 (4.20-5.50) X10*6/uL Hgb 10.0 L (12.0-16.0) g/dl Hct 30.9 L (37.0-47.0) % MCV 64.0 L (80.0-98.0) fL MCH 20.7 L (27.0-33.0) pg MCHC 32.4 (31.0-35.0) g/dl RDW 18.6 H (11.0-16.0) % Plt Count 307 (160-400) X10*3/uL MPV 9.8 (9.4-12.3) fL Immature Gran % (Auto) 0.2 (0.0-0.4) % Neut % (Auto) 54.3 (45-73) % Lymph % (Auto) 37.3 (20-40) % [place] % (Auto) 6.8 (2-11) % Eos % (Auto) 1.0 (0-4) % Baso % (Auto) 0.4 (0-2) % Lymph # (Auto) 1.9 (1.2-4.9) X10*3/uL [place] # (Auto) 0.4 (0.1-1.2) X10*3/uL Eos # (Auto) 0.1 (0.0-0.4) X10*3/uL Baso # (Auto) 0.0 (0.0-0.2) X10*3/uL Abs Immat Gran (auto) 0.01 (0.00-0.03) X10*3/uL Absolute Neuts (auto) 2.8 (2.0-8.3) x10*3/uL Absolute Nucleated RBC 0.020 H (0.0-0.012) X10*3/uL Nucleated RBC % (auto) 0.4 H (0.0-0.2) /100WBC Sodium 138 (135-145) mmol/L Potassium 4.1 (3.3-5.1) mmol/L Chloride 105 (96-108) mmol/L Carbon Dioxide 25 (22-29) mmol/L Anion Gap 12 (12-20) BUN 10 (9-16) mg/dL Creatinine 0.56 (0.5-1.4) mg/dL Estim Creat Clear Calc 137.2 Estimated GFR > 60 Random Glucose 89 (60-115) mg/dL Calcium 9.3 (8.4-10.2) mg/dL Total Bilirubin 0.8 (0.0-1.0) mg/dL AST 17 (5-31) U/L ALT 11 (0-31) U/L Alkaline Phosphatase 49 (39-117) U/L Total Protein 7.7 (6.5-8.0) g/dL Albumin 4.4 (3.5-5.0) g/dL Discharge Plan Discharge Clinical Impression: Bleeding per rectum Patient Disposition: Home, Self-Care Instructions: Hemorrhoids (ED) Additional Instructions: I think the most likely cause of the bleeding you have been experiencing is an internal hemorrhoid. Your blood testing is very good and reassuring. You do not seem to have lost any significant amount of blood. I would recommend that you start using polyethylene glycol (brand name MiraLax) to help soften your stools. You may purchase this [id number] at a pharmacy. There are store brands that should be near MiraLax in the pharmacy. Take a capsule (17 grams) of the powder mixed in a large glass of water every day. This should help soften your stools over the next couple of days. Additionally I have prescribed some suppositories that you may use on a daily basis. The suppositories are intended to reduce the inflammation associated with internal hemorrhoids. Although you are 23 I think you could still likely get a follow up appointment at [facility]. Please call the office in the morning to try to schedule a prompt follow up appointment in the next week or 2. It would be good for you to talk with a primary care doctor about this problem and possibly get a referral to a toe stripper. Return to the emergency room if you feel significantly worse. Prescriptions: New hydrocortisone acetate [Anusol-HC] 25 mg suppository 25 mg [place] DAILY Qty: 12 0RF No Action prednisone 20 mg tablet 40 mg PO DAILY Qty: 10 0RF azithromycin [Zithromax Z-Ricardo] 250 mg tablet 250 mg PO DAILY 4 Days Qty: 4 0RF Rx Instructions: start on day 2 of therapy benzonatate 100 mg capsule 100 mg PO Q6H PRN (Reason: cough) Qty: 20 0RF naproxen 500 mg tablet,delayed release (DR/EC) 500 mg PO BID 7 Days Qty: 14 0RF cyclobenzaprine 10 mg tablet 10 mg PO Q8H PRN (Reason: Muscle spasm) Qty: 14 0RF naproxen 500 mg tablet 500 mg PO BID PRN (Reason: pain) Qty: 20 0RF cyclobenzaprine 10 mg tablet 10 mg PO TID PRN (Reason: muscle spasm) Qty: 10 0RF Paxlovid 300 mg (150 mg x 2)-100 mg tablets,dose pack See Rx Instructions .ROUTE .COMPLEX Qty: 30 0RF Rx Instructions: take TWO 150 mg tablets of nirmatrelvir with ONE 100 mg tablet of ritonavir twice daily for 5 days doxycycline hyclate 100 mg tablet 100 mg PO BID 7 Days Qty: 14 0RF cephalexin 500 mg capsule 500 mg PO QID Qty: 28 0RF amoxicillin-pot clavulanate 875-125 mg tablet 1 tab PO Q12H 10 Days Qty: 20 0RF naproxen 500 mg tablet 500 mg PO BID PRN (Reason: pain) 7 Days Qty: 14 0RF naproxen 500 mg tablet 500 mg PO BID PRN (Reason: pain) 7 Days Qty: 14 0RF hydroxyzine HCl 25 mg tablet 25 mg PO BID PRN (Reason: anxiety) Qty: 14 0RF salicylic acid 27.5 % film forming liquid w/appl 1 appl topical DAILY Qty: 10 0RF Rx Instructions: apply to entire wart site; allow to dry; repeat application Referrals: Guero José MD [Primary Care Provider] - (Blood with stools, presumably internal hemorrhoids) Print Language: [place]
[2024-04-01 17:57] LABS: MANUAL DIFF FLAG NO
[2024-04-01 17:59] LABS: Basophils Percent Auto 0.4 % (0-2); Eosinophils Absolute Auto 0.1 X10*3/uL (0.0-0.4); Hematocrit 30.9 % (37.0-47.0); Imm Gran Abs Auto 0.01 X10*3/uL (0.00-0.03); Imm Gran Pct Auto 0.2 % (0.0-0.4); Lymphocytes Absolute Auto 1.9 X10*3/uL (1.2-4.9); Lymphocytes Percent Auto 37.3 % (20-40); Mean Corpuscular HGB Conc 32.4 g/dl (31.0-35.0); Mean Corpuscular Hemoglobin 20.7 pg (27.0-33.0); Mean Platelet Volume 9.8 fL (9.4-12.3); Monocytes Absolute Auto 0.4 X10*3/uL (0.1-1.2); Monocytes Percent Auto 6.8 % (2-11); NRBC Pct Auto 0.4 /100WBC (0.0-0.2); Neutrophils Absolute Auto 2.8 x10*3/uL (2.0-8.3); Neutrophils Percent Auto 54.3 % (45-73); Platelet Count 307 X10*3/uL (160-400); Red Blood Count 4.83 X10*6/uL (4.20-5.50); Red Cell Distribution Width 18.6 % (11.0-16.0); White Blood Count 5.2 X10*3/uL (4.8-10.8)
[2024-04-01 18:13] LABS: Alanine Aminotransferase 11 U/L (0-31); Albumin Level 4.4 g/dL (3.5-5.0); Alkaline Phosphatase 49 U/L (39-117); Anion Gap 12 (12-20); Aspartate Amino Transferase 17 U/L (5-31); Bilirubin Total 0.8 mg/dL (0.0-1.0); Blood Urea Nitrogen 10 mg/dL (9-16); Calcium 9.3 mg/dL (8.4-10.2); Carbon Dioxide 25 mmol/L (22-29); Chloride 105 mmol/L (96-108); Creatinine Clr Calc Pharmacy 137.2; Estimated Glomerular Filt Rate > 60; Glucose Random 89 mg/dL (60-115); Potassium 4.1 mmol/L (3.3-5.1); Sodium 138 mmol/L (135-145); Total Protein 7.7 g/dL (6.5-8.0)
--- NOTE | 2024-04-01 19:48 | PC.NURSE ---
This RN at bedside with MD to perform a rectal exam at this time. Pt tolerated well
[2024-04-01 20:04] LABS: HCG Quantitative < 2 mIU/mL
[2024-04-01 20:08] VITALS: BP 120/65; PULSE 85; RESP 18; TEMP 37.2; O2SAT 100
== END 2024-04-01 20:09 | disposition home or self-care (01) ==
PROVIDERS: Physician Assistant Medical; Emergency Provider Emergency Medicine; PCP Pediatrics
DX: K62.5 Hemorrhage of anus and rectum (principal)
CPT/HCPCS: 36415; 80053; 84702; 85025; 99283; 99284

== ENCOUNTER 2024-05-19 16:12 | Emergency (ER) | payer SELFPAY ==
[2024-05-19 16:29] VITALS: BP 113/70; PULSE 84; RESP 16; TEMP 36.8; O2SAT 100; BMI 20.9
--- NOTE | 2024-05-19 16:29 | ED_ITS ---
HPI - Extremity Problem General Chief complaint: Extremity Injury, Lower Stated complaint: cant put pressure on L leg Time Seen by Provider: 05/19/24 16:35 Source: patient Mode of arrival: ambulatory Limitations: no limitations History of Present Illness ED Provider: Matias Galvez PA-C HPI Narrative: 23 yo female presents to the ER for evaluation of left sided Achilles tendon pain that started this morning at 6am. She works nights at [employer] and she is walking a lot. She states the pain came on gradually and has gotten worse. It is worse with palpation and ambulation. No swelling or redness to the area. No ankle or knee pain. No calf pain or swelling. No chest pain or SOB. MD Complaint: extremity pain Onset (ago): hour(s) Pain Consistency: constant Location: right Severity scale (1-10): 7 Quality: aching Radiation: proximal Relieving factors: rest Exacerbating factors: weight bearing and palpation Associated symptoms: denies other symptoms Related Data Previous Rx's ?Medication ?Instructions ?Recorded azithromycin 250 mg tablet 250 mg PO DAILY 4 days #4 tabs 08/29/21 (Zithromax Z-Ricardo) benzonatate 100 mg capsule 100 mg PO Q6H PRN cough #20 caps 08/29/21 prednisone 20 mg tablet 40 mg (2 x 20 mg) PO DAILY #10 tabs 08/29/21 cyclobenzaprine 10 mg tablet 10 mg PO Q8H PRN Muscle spasm #14 07/31/22 tabs naproxen 500 mg tablet,delayed 500 mg PO BID 7 days #14 tabs 07/31/22 release cyclobenzaprine 10 mg tablet 10 mg PO TID PRN muscle spasm #10 08/20/22 tabs naproxen 500 mg tablet 500 mg PO BID PRN pain #20 tabs 08/20/22 nirmatrelvir 300 mg (150 mg See Rx Instructions PO .COMPLEX 10/05/22 x2)-ritonavir 100 mg tablet,dose #30 ea pack (Paxlovid) cephalexin 500 mg capsule 500 mg PO QID #28 caps 11/09/22 doxycycline hyclate 100 mg tablet 100 mg PO BID 7 days #14 tabs 11/09/22 amoxicillin 875 mg-potassium 1 tab PO Q12H 10 days #20 tabs 03/03/23 clavulanate 125 mg tablet naproxen 500 mg tablet 500 mg PO BID PRN pain 7 days #14 03/03/23 tabs naproxen 500 mg tablet 500 mg PO BID PRN pain 7 days #14 04/28/23 tabs hydroxyzine HCl 25 mg tablet 25 mg PO BID PRN anxiety #14 tabs 08/02/23 salicylic acid 27.5 % topical 1 appl topical DAILY #10 mL 10/21/23 film-forming liquid hydrocortisone acetate 25 mg 25 mg [place] DAILY #12 ea 04/01/24 rectal suppository (Anusol-HC) ibuprofen 600 mg tablet 600 mg PO Q8H PRN pain #14 tabs 05/19/24 Allergies Allergy/AdvReac Type Severity Reaction Status Date / Time No Known Allergies Allergy Verified 05/19/24 16:31 Review of Systems Review of Systems: Yes all other systems are reviewed and are negative [facility] Past Medical History Medical History Patient denies medical problems Social History Social History Alcohol intake: never Patient Tobacco Use Status: Never used Tobacco Do you have a plan to hurt others: No Plan Physical Exam Vital Signs: Vital Signs: Last Vital Signs Temp 98.2 F 05/19/24 16:29 Pulse 84 05/19/24 16:29 Resp 16 05/19/24 16:29 BP 113/70 05/19/24 16:29 Pulse Ox 100 05/19/24 16:29 O2 Del Method Room Air 05/19/24 16:29 BMI result Body Mass Index 20.9 Appearance: Alert. Oriented X3. No acute distress. HEENT: normal inspection CVS: Normal heart rate and rhythm. Pulses normal. Respiratory: No respiratory distress. Skin: Skin warm and dry. Normal skin color. Normal skin turgor. No rashes. Extremities: normal inspection of RLE, no swelling or ankle deformity. achilles tendon palpated and is intact. proximal tendon is tender to palpation. no calf tenderness, erythema or swelling. FROM of the foot and ankle. pain with dorsiflexion and plantar flexion. Neuro: Oriented X 3. antalgic gait. strength is equal and symmetrical throughout. Course Course Course Narrative: This is a Rapid Medical Examination (RME) performed by Matias Galvez PA-C in [facility]. Full HPI, ROS, assessment and treatment plan per primary provider in the Main ED. 23 yo female presents to the ER for evaluation of left Achilles tendon pain that started this morning Plan: Medical Decision Making Medical Decision Making MDM Narrative: 23 yo female presenting to the ER for evaluation of left sided Achilles pain that started this morning after walking in her feet for several hours at work last night. she has intact achilles on examination with tenderness and pain with plantar and dorsiflexion. no calf pain or swelling to suggest DVT. no ankle pain or swelling. no trauma. no need for XR foot today. foot is warm and well perfused. will treat with RICE, NSAIDs, crutches and outpatient follow up. stable for d/c home. Differential Diagnosis Differential Diagnoses: The differential diagnosis associated with the presentation includes achilles tendonitis, ankle sprain, partial achilles tear, doubt achilles rupture or DVT External Record Review External record reviewed: Prior outpatient labs and Prior outpatient radiology Tests considered The following testing was considered but not selected: considered LE dopplers however low suspicion for DVT Prescription Management I considered prescription management with: Pain Medication Critical Care Time Critical Care Time Critical Care Time: No Discharge Plan Discharge Clinical Impression: Achilles tendinitis Qualifiers: Laterality: left Qualified Code(s): M76.62 - Achilles tendinitis, left leg Patient Disposition: Home, Self-Care Instructions: Achilles Tendinitis (ED) Additional Instructions: Rest and elevate your foot when possible. Recommend LORETO wrap for support and compression. Use ice several times per day for the next 48 hours. You may bear weight as tolerated. If pain is too severe, use crutches until better. Take the prescribed anti-inflammatory pain medication and/or Tylenol as needed for pain. Follow up with your doctor as needed. Prescriptions: New ibuprofen 600 mg tablet 600 mg PO Q8H PRN (Reason: pain) Qty: 14 0RF No Action prednisone 20 mg tablet 40 mg PO DAILY Qty: 10 0RF azithromycin [Zithromax Z-Ricardo] 250 mg tablet 250 mg PO DAILY 4 Days Qty: 4 0RF Rx Instructions: start on day 2 of therapy benzonatate 100 mg capsule 100 mg PO Q6H PRN (Reason: cough) Qty: 20 0RF naproxen 500 mg tablet,delayed release (DR/EC) 500 mg PO BID 7 Days Qty: 14 0RF cyclobenzaprine 10 mg tablet 10 mg PO Q8H PRN (Reason: Muscle spasm) Qty: 14 0RF naproxen 500 mg tablet 500 mg PO BID PRN (Reason: pain) Qty: 20 0RF cyclobenzaprine 10 mg tablet 10 mg PO TID PRN (Reason: muscle spasm) Qty: 10 0RF Paxlovid 300 mg (150 mg x 2)-100 mg tablets,dose pack See Rx Instructions .ROUTE .COMPLEX Qty: 30 0RF Rx Instructions: take TWO 150 mg tablets of nirmatrelvir with ONE 100 mg tablet of ritonavir twice daily for 5 days doxycycline hyclate 100 mg tablet 100 mg PO BID 7 Days Qty: 14 0RF cephalexin 500 mg capsule 500 mg PO QID Qty: 28 0RF amoxicillin-pot clavulanate 875-125 mg tablet 1 tab PO Q12H 10 Days Qty: 20 0RF naproxen 500 mg tablet 500 mg PO BID PRN (Reason: pain) 7 Days Qty: 14 0RF naproxen 500 mg tablet 500 mg PO BID PRN (Reason: pain) 7 Days Qty: 14 0RF hydroxyzine HCl 25 mg tablet 25 mg PO BID PRN (Reason: anxiety) Qty: 14 0RF salicylic acid 27.5 % film forming liquid w/appl 1 appl topical DAILY Qty: 10 0RF Rx Instructions: apply to entire wart site; allow to dry; repeat application hydrocortisone acetate [Anusol-HC] 25 mg suppository 25 mg [place] DAILY Qty: 12 0RF Stand Alone Forms: Work/School Release Print Language: [place] Citizen
[2024-05-19 17:07] VITALS: BP 113/70; PULSE 84; RESP 16; TEMP 36.8; O2SAT 100
== END 2024-05-19 17:07 | disposition home or self-care (01) ==
LOC: HO.ED 17:04
PROVIDERS: Emergency Provider Emergency Medicine; PCP Pediatrics
DX: M76.62 Achilles tendinitis, left leg (principal)
CPT/HCPCS: 99282; 99283

== ENCOUNTER 2024-11-06 11:47 | Emergency (ER) | payer OTHER, SELFPAY ==
--- NOTE | ~2024-11-06 | XR_ITS ---
EXAMINATION: XR CHEST CLINICAL INFORMATION: Pain COMPARISON: 08/02/2023. TECHNIQUE: 2 views of the chest were obtained. FINDINGS: The cardiac, hilar, and mediastinal contours are normal. The lungs are clear bilaterally. There is no pneumothorax or pleural effusion. There is no focal osseous or soft tissue abnormality. XR/XR chest 2V IMPRESSION: Normal chest. Electronically signed by: Milad Avila MD 11/06/2024 01:17 PM [facility]
--- NOTE | ~2024-11-06 | XR_ITS ---
CLINICAL HISTORY: consitpation 1 view abdomen Comparison: None Findings: No pneumoperitoneum or pneumatosis. Large stool burden of the sigmoid colon and rectum. No abnormal calcifications. No acute fractures. IMPRESSION: The bowel gas pattern is normal This document has been electronically signed by: Kiera Lopez MD on 11/06/2024 18:01:21
--- NOTE | 2024-11-06 11:51 | ECG_ITS ---
Test Reason : chest pain Blood Pressure : */* mmHG Vent. Rate : 77 BPM Atrial Rate : 77 BPM P-R Int : 124 ms QRS Dur : 88 ms QT Int : 368 ms P-R-T Axes : -8 61 -5 degrees QTcB Int : 416 ms Sinus rhythm with marked sinus arrhythmia Nonspecific ST and T wave abnormality Borderline ECG When compared with ECG of 02-Aug-2023 12:46, Inverted T waves have replaced nonspecific T wave abnormality in Inferior leads Referred By: Generic ED Physician Electronically Signed By: NIKOLAY VANG
[2024-11-06 11:53] VITALS: BP 93/50; PULSE 78; RESP 20; TEMP 36.4; O2SAT 100; BMI 20.7
--- NOTE | 2024-11-06 11:55 | ED.GENADULT ---
HPI - General Adult General Chief complaint: General Medical Stated complaint: Chest pain Low back pain L side Time Seen by Provider: 11/06/24 16:18 Source: patient Mode of arrival: ambulatory Limitations: no limitations History of Present Illness ED Provider: RONALD Shah HPI narrative: This is a 23-year-old female history of anxiety presenting to the emergency department with chest pain earlier today substernal in nature, nonradiating. It started this morning however it went away and no longer present. She reports this is typically how her anxiety presents in it is no different she reports she is under a good amount of stress. Not suicidal or homicidal. She also reports she is having left lower back pain with no radiation of symptoms no symptoms into the legs. She tells me that the back pain is an achey pain. She also reports that she has been passing little stool, and has been feeling more constipated than usual. No bowel/bladder incontinence/retention, saddle anesthesias, fevers, chills, cp, sob, nausea, vomiting, abd pain. Related Data Previous Rx's ?Medication ?Instructions ?Recorded azithromycin 250 mg tablet 250 mg PO DAILY 4 days #4 tabs 08/29/21 (Zithromax Z-Ricardo) benzonatate 100 mg capsule 100 mg PO Q6H PRN cough #20 caps 08/29/21 prednisone 20 mg tablet 40 mg (2 x 20 mg) PO DAILY #10 tabs 08/29/21 cyclobenzaprine 10 mg tablet 10 mg PO Q8H PRN Muscle spasm #14 07/31/22 tabs naproxen 500 mg tablet,delayed 500 mg PO BID 7 days #14 tabs 07/31/22 release cyclobenzaprine 10 mg tablet 10 mg PO TID PRN muscle spasm #10 08/20/22 tabs naproxen 500 mg tablet 500 mg PO BID PRN pain #20 tabs 08/20/22 nirmatrelvir 300 mg (150 mg See Rx Instructions PO .COMPLEX 10/05/22 x2)-ritonavir 100 mg tablet,dose #30 ea pack (Paxlovid) cephalexin 500 mg capsule 500 mg PO QID #28 caps 11/09/22 doxycycline hyclate 100 mg tablet 100 mg PO BID 7 days #14 tabs 11/09/22 amoxicillin 875 mg-potassium 1 tab PO Q12H 10 days #20 tabs 03/03/23 clavulanate 125 mg tablet naproxen 500 mg tablet 500 mg PO BID PRN pain 7 days #14 03/03/23 tabs naproxen 500 mg tablet 500 mg PO BID PRN pain 7 days #14 04/28/23 tabs hydroxyzine HCl 25 mg tablet 25 mg PO BID PRN anxiety #14 tabs 08/02/23 salicylic acid 27.5 % topical 1 appl topical DAILY #10 mL 10/21/23 film-forming liquid hydrocortisone acetate 25 mg 25 mg OK DAILY #12 ea 04/01/24 rectal suppository (Anusol-HC) ibuprofen 600 mg tablet 600 mg PO Q8H PRN pain #14 tabs 05/19/24 hydroxyzine HCl 25 mg tablet 25 mg PO BID PRN anxiety #14 tabs 11/06/24 ketorolac 10 mg tablet 10 mg PO TID PRN pain 5 days #15 11/06/24 tabs Allergies Allergy/AdvReac Type Severity Reaction Status Date / Time No Known Allergies Allergy Verified 11/06/24 11:56 Review of Systems Review of Systems: Yes all other systems are reviewed and are negative [facility] Past Medical History Attestation statement: The following information was validated with the patient. Source: old records reviewed and nursing notes reviewed Medical History Patient denies medical problems Social History Social History Alcohol intake: never Patient Tobacco Use Status: Never used Tobacco Smoked in Last 30 Days: No Use of substances other than those prescribed or required for medical reasons: No Substance Use Type: Marijuana Advance Directives: No Advance Directives Information Provided: No Physical Exam ED Vital Signs: Vital Signs - 24 hr 11/06/24 11:53 11/06/24 16:18 Temperature 97.6 F 98.3 F Pulse Rate 78 83 Respiratory Rate 20 16 Blood Pressure 93/50 L 101/63 Pulse Oximetry 100 99 Oxygen Delivery Method Room Air Room Air BMI result Body Mass Index 20.7 vss Appearance: Alert.? Oriented X3.? No acute distress.? Head: Normocephalic, atraumatic, no step-offs or deformities Eyes: Pupils equal, round and reactive to light.? CVS: Normal heart rate and rhythm.? Pulses normal.? Respiratory: No respiratory distress.? Breath sounds normal.? Abdomen: Soft and nontender.?Negative murphys, mcburneys Skin: Skin warm and dry.? Normal skin color.? Normal skin turgor.? Extremities: No lower extremity edema.? No calf ttp. 5/5 strength to bilateral upper and lower extremities Back: No midline tenderness, no C-spine tenderness, full range of motion, no CVA tenderness bilaterally + left sided lumbosacral pain on palpation Neuro: Oriented X 3.? No motor deficit.? No sensory deficit. CN 2-12 intact . No saddle anesthesias Course Course Course Narrative: Patient complains of chest pain abdominal pain and left-sided flank pain going on for several days EKG chest x-ray labs and urine ordered This rapid medical exam done in triage pending full exam evaluation and disposition by ER provider Reevaluation(s) Reevaluation #1: cbc unremarkable. chemistry unremarkable. Trop negative X2 non ischemic EKG. UA clean. urine preg negative. CXR normal. KUB bowel gas is normal. Time: 18:04 Reevaluation #2: Patient feeling better. Toradol not yet given. Patient will go home w/ atarax. Advised to return w/ new and worsening sx. Patient verbalizes understanding of all this. Time: 18:09 Medical Decision Making Medical Decision Making [facility] Narrative: 23 yo f presents w/ cp that has now resolved and aching back pain PE- lumbosacral L sided pain. No neuro sx. History and physical exam concerning for musculoskeletal back pain no signs of cauda equina, cord compression, unlikely kidney stone or pyelonephritis. Chest pain likely anxiety induced. Unlikely ACS, PE, dissection, acute respiratory distress. Plan labs, imaging, viral testing, troponin, EKG. Will give Atarax for anxiety Differential Diagnosis Differential Diagnoses: The differential diagnosis associated with the presentation includes (History and physical exam concerning for musculoskeletal back pain no signs of cauda equina, cord compression, unlikely kidney stone or pyelonephritis. Chest pain likely anxiety induced. Unlikely ACS, PE, dissection, acute respiratory distress.) Admission/Observation Consideration of admission/observation: Escalation of care including admission/observation considered Lab Data [facility] Lab Attestation statement: I reviewed the patient's lab results. 11/06/24 12:05 11/06/24 12:05 Labs: Lab Results 11/06/24 11/06/24 Range/Units 12:05 17:21 WBC 5.1 (4.8-10.8) X10*3/uL RBC 4.98 (4.20-5.50) X10*6/uL Hgb 10.3 L (12.0-16.0) g/dl Hct 32.3 L (37.0-47.0) % MCV 64.9 L (80.0-98.0) fL MCH 20.7 L (27.0-33.0) pg MCHC 31.9 (31.0-35.0) g/dl RDW 19.2 H (11.0-16.0) % Plt Count 292 (160-400) X10*3/uL MPV 9.6 (9.4-12.3) fL Immature Gran % (Auto) 0.4 (0.0-0.4) % Neut % (Auto) 58.7 (45-73) % Lymph % (Auto) 31.3 (20-40) % [place] % (Auto) 7.8 (2-11) % Eos % (Auto) 1.4 (0-4) % Baso % (Auto) 0.4 (0-2) % Lymph # (Auto) 1.6 (1.2-4.9) X10*3/uL [place] # (Auto) 0.4 (0.1-1.2) X10*3/uL Eos # (Auto) 0.1 (0.0-0.4) X10*3/uL Baso # (Auto) 0.0 (0.0-0.2) X10*3/uL Abs Immat Gran (auto) 0.02 (0.00-0.03) X10*3/uL Absolute Neuts (auto) 3.0 (2.0-8.3) x10*3/uL Absolute Nucleated RBC 0.020 H (0.0-0.012) X10*3/uL Nucleated RBC % (auto) 0.4 H (0.0-0.2) /100WBC Sodium 138 (135-145) mmol/L Potassium 4.5 (3.3-5.1) mmol/L Chloride 108 (96-108) mmol/L Carbon Dioxide 25 (22-29) mmol/L Anion Gap 10 L (12-20) BUN 11 (9-16) mg/dL Creatinine 0.66 (0.5-1.4) mg/dL Estim Creat Clear Calc 106.6 Estimated GFR > 60 Random Glucose 97 (60-115) mg/dL Calcium 9.9 D (8.4-10.2) mg/dL Total Bilirubin 0.9 (0.0-1.0) mg/dL Direct Bilirubin 0.3 (0.0-0.5) mg/dL AST 17 (5-31) U/L ALT 6 (0-31) U/L Alkaline Phosphatase 52 (39-117) U/L Troponin I High Sens < 2.7 < 2.7 (<3.5-17.0) ng/L Total Protein 8.0 (6.5-8.0) g/dL Albumin 4.7 (3.5-5.0) g/dL Lipase 15 (8-78) U/L Beta HCG, Quant < 2 mIU/mL Urine Color Yellow Urine Appearance Cloudy Urine pH 6.5 (5.0-9.0) Ur Specific [place] 1.025 (1.005-1.025) Urine Protein Negative (Neg-Trace) mg/dL Urine Glucose (UA) Negative (Negative) mg/dL Urine Ketones Negative (Negative) mg/dL Urine Blood Negative (Negative) Urine Nitrite Negative (Negative) Ur Leukocyte Esterase Negative (Negative) Urine Test NEGATIVE (NEGATIVE) Independent Interpretation I performed an independent interpretation of an: EKG (Sinus rhythm with marked sinus arrhythmia Abnormal QRS-T angle, consider primary T wave abnormality Abnormal ECG When compared with ECG of 02-Aug-2023 12:46, Inverted T waves have replaced nonspecific T wave abnormality in Inferior leads), Plain X-Ray (XR/XR chest 2V IMPRESSION: Normal chest. ) and Ultrasound (Sinus rhythm with marked sinus arrhythmia Abnormal QRS-T angle, consider primary T wave abnormality Abnormal ECG When compared with ECG of 02-Aug-2023 12:46, Inverted T waves have replaced nonspecific T wave abnormality in Inferior leads) Radiology Impression Discussion of test interpretation with radiology: I have reviewed the radiologist's reading. External Record Review External record reviewed: Inpatient record, Office record, Outpatient record, Prior outpatient labs, Prior outpatient radiology and Primary care record Chronic Conditions Patient?s care impacted by: Other (see hpi ) Discharge Plan Discharge Clinical Impression: Anxiety, Back pain, Chest pain not due to acute coronary syndrome Patient Disposition: Home, Self-Care Instructions: Chest Pain (ED), Acute Low Back Pain (ED), Back Pain (ED), Anxiety (ED) Additional Instructions: Take your medications as prescribed. If you were prescribed antibiotics today, it is important that you take your medication to their entirety, do not skip any doses, do not finish them early. Follow-up with your primary care provider this week. Return to the emergency department with new or worsening symptoms. Such as fevers, chills, chest pain, shortness of breath, nausea, vomiting, dizziness, headache, vision changes, lethargy In case of emergency call 911 Follow-up with PCP. Atarax has been sent for anxiety. Toradol has been sent to your pharmacy, you tolerated this well in the department. Please take this as prescribed do not take this with ibuprofen, or other NSAIDs, do not mix this with alcohol. Side effects of this medication including increased risk for bleeding and possible kidney injury. Prescriptions: New hydroxyzine HCl 25 mg tablet 25 mg PO BID PRN (Reason: anxiety) Qty: 14 0RF ketorolac 10 mg tablet 10 mg PO TID PRN (Reason: pain) 5 Days Qty: 15 0RF Rx Instructions: Tolerated IM or IV in department No Action prednisone 20 mg tablet 40 mg PO DAILY Qty: 10 0RF azithromycin [Zithromax Z-Ricardo] 250 mg tablet 250 mg PO DAILY 4 Days Qty: 4 0RF Rx Instructions: start on day 2 of therapy benzonatate 100 mg capsule 100 mg PO Q6H PRN (Reason: cough) Qty: 20 0RF naproxen 500 mg tablet,delayed release (DR/EC) 500 mg PO BID 7 Days Qty: 14 0RF cyclobenzaprine 10 mg tablet 10 mg PO Q8H PRN (Reason: Muscle spasm) Qty: 14 0RF naproxen 500 mg tablet 500 mg PO BID PRN (Reason: pain) Qty: 20 0RF cyclobenzaprine 10 mg tablet 10 mg PO TID PRN (Reason: muscle spasm) Qty: 10 0RF Paxlovid 300 mg (150 mg x 2)-100 mg tablets,dose pack See Rx Instructions .ROUTE .COMPLEX Qty: 30 0RF Rx Instructions: take TWO 150 mg tablets of nirmatrelvir with ONE 100 mg tablet of ritonavir twice daily for 5 days doxycycline hyclate 100 mg tablet 100 mg PO BID 7 Days Qty: 14 0RF cephalexin 500 mg capsule 500 mg PO QID Qty: 28 0RF amoxicillin-pot clavulanate 875-125 mg tablet 1 tab PO Q12H 10 Days Qty: 20 0RF naproxen 500 mg tablet 500 mg PO BID PRN (Reason: pain) 7 Days Qty: 14 0RF naproxen 500 mg tablet 500 mg PO BID PRN (Reason: pain) 7 Days Qty: 14 0RF hydroxyzine HCl 25 mg tablet 25 mg PO BID PRN (Reason: anxiety) Qty: 14 0RF salicylic acid 27.5 % film forming liquid w/appl 1 appl topical DAILY Qty: 10 0RF Rx Instructions: apply to entire wart site; allow to dry; repeat application hydrocortisone acetate [Anusol-HC] 25 mg suppository 25 mg OK DAILY Qty: 12 0RF ibuprofen 600 mg tablet 600 mg PO Q8H PRN (Reason: pain) Qty: 14 0RF Referrals: Guero José MD [Primary Care Provider] - 2 days Print Language: Lithuanian
[2024-11-06 12:10] LABS: MANUAL DIFF FLAG NO
[2024-11-06 12:12] LABS: Basophils Percent Auto 0.4 % (0-2); Eosinophils Absolute Auto 0.1 X10*3/uL (0.0-0.4); Eosinophils Percent Auto 1.4 % (0-4); Hematocrit 32.3 % (37.0-47.0); Hemoglobin 10.3 g/dl (12.0-16.0); Imm Gran Abs Auto 0.02 X10*3/uL (0.00-0.03); Imm Gran Pct Auto 0.4 % (0.0-0.4); Lymphocytes Absolute Auto 1.6 X10*3/uL (1.2-4.9); Lymphocytes Percent Auto 31.3 % (20-40); Mean Corpuscular HGB Conc 31.9 g/dl (31.0-35.0); Mean Corpuscular Hemoglobin 20.7 pg (27.0-33.0); Mean Corpuscular Volume 64.9 fL (80.0-98.0); Mean Platelet Volume 9.6 fL (9.4-12.3); Monocytes Absolute Auto 0.4 X10*3/uL (0.1-1.2); Monocytes Percent Auto 7.8 % (2-11); NRBC Pct Auto 0.4 /100WBC (0.0-0.2); Neutrophils Percent Auto 58.7 % (45-73); Platelet Count 292 X10*3/uL (160-400); Red Blood Count 4.98 X10*6/uL (4.20-5.50); Red Cell Distribution Width 19.2 % (11.0-16.0); White Blood Count 5.1 X10*3/uL (4.8-10.8)
[2024-11-06 12:13] LABS: Appearance Urine Cloudy; Color Urine Yellow; Glucose Urine UA Negative (Negative); Leukocyte Esterase Urine Negative (Negative); Nitrite Urine Negative (Negative); PH 6.5 (5.0-9.0); Specific Gravity - Urine 1.025 (1.005-1.025); Urine Blood Negative (Negative); Urine Ketones Negative (Negative); Urine Protein Negative (Neg-Trace)
[2024-11-06 12:17] LABS: UPreg QC Valid YES; Urine Pregnancy NEGATIVE (NEGATIVE)
[2024-11-06 12:35] LABS: Alanine Aminotransferase 6 U/L (0-31); Albumin Level 4.7 g/dL (3.5-5.0); Alkaline Phosphatase 52 U/L (39-117); Anion Gap 10 (12-20); Aspartate Amino Transferase 17 U/L (5-31); Bilirubin Direct 0.3 mg/dL (0.0-0.5); Bilirubin Total 0.9 mg/dL (0.0-1.0); Blood Urea Nitrogen 11 mg/dL (9-16); Calcium 9.9 mg/dL (8.4-10.2); Carbon Dioxide 25 mmol/L (22-29); Chloride 108 mmol/L (96-108); Creatinine Clr Calc Pharmacy 106.6; Estimated Glomerular Filt Rate > 60; Glucose Random 97 mg/dL (60-115); HCG Quantitative < 2 mIU/mL; Lipase 15 U/L (8-78); Potassium 4.5 mmol/L (3.3-5.1); Sodium 138 mmol/L (135-145)
[2024-11-06 16:18] VITALS: BP 101/63; PULSE 83; RESP 16; TEMP 36.8; O2SAT 99
--- OUTSIDE RECORDS SUMMARY | 2024-11-06 16:26 | XMS_ITS | Encounter Summary ---
Author Organization [facility] Address [address] [place] [id number] Phone Care Team Providers Care Manager Cardiac Name Role Phone Guero José MD Primary Care Provider [phone] Encounter Details Date Type Department Care Team (Late st Contact Info) Description 12/04/2016 Documentation [facility] Family Medicine [address] [place] [address] Family Medicine, Physician [address], [place] [id number] Social History Tobacco Use Types Packs/Day Years Used Date Smoking Tobacco: Never Assessed Comments Unknown Sex and Gender Information Value Date Recorded Sex Assigned at Female 04/06/2021 11:01 AM EDT Legal Sex Female 5:17 PM EDT Gender Identity Female 04/06/2021 11:01 AM EDT Sexual Orientation Straight 04/15/2020 10 :03 AM EDT documented as of this encounter Plan of Treatment Not on file documented as of this encounter Visit Diagnoses Not on filedocumented in this encounter Care Teams Manager Cardiac Relationship Specialty Start Date End Date Guero José MD [address] [place], [place] [address] [address] PCP - General 05/17/17 01/30/24 documented as of this encounter
--- OUTSIDE RECORDS SUMMARY | 2024-11-06 16:26 | XMS_ITS | Encounter Summary ---
Author Organization [facility] Address [address] [place] [address] Phone Care Team Providers Care Electronic Sensing Equipment Assembler Name Role Phone Guero José MD Primary Care Provider [phone] Reason for Visit * Reason Comments Med Refill Encounter Details Date Type Department Care Team ([facility] Contact Info) Description 2019 Refill [facility] [address] [place] [address] Francesco Keenan MD [address] [place] [address] Skin infection Social History Tobacco Use Types Packs/Day Years Used Date Smoking Tobacco: Never Smokeless Tobacco: Never Alcohol Use Standard Drinks/Week Comments Never 0 (1 standard drink = 0.6 oz pur e alcohol) Hunger/Food Answer Date Recorded No 03/05/2019 Stable Housing Answer Date Recorded No 10/10/2019 Transportation Concerns Answer Date Rec orded No 03/05/2019 Hazards in Home Answer Date Recorded No 03/05/2019 Financing Utilities Answer Date Recorde d No 03/05/2019 Safety at Home Answer Date Recorded No 03/05/2019 Outside Support Answer Date Recorded No 03/05/2019 Understanding Health Concerns Answer Da te Recorded No 03/05/2019 Financing Health Concerns Answer Date R ecorded No 03/05/2019 Missing School or Work Answer Date Igor rded No 03/05/2019 Comments No Sex and Gender Information Value Date Recorded Sex Assigned at Female 04/06/2021 11:01 AM EDT Legal Sex Female 5:17 PM EDT Gender Identity Female 04/06/2021 11:01 AM EDT Sexual Orientation Straight 04/15/2020 10 :03 AM EDT documented as of this encounter Miscellaneous Notes * Telephone Encounter - Sina Camara LPN - 12/22/2019 11:23 AM EDT [facility] is requesting a refill on mupirocin. This was last prescribed 01/23. Tried calling pt's parent to see if they requested this and no answer. documented in this encounter Plan of Treatment Not on file documented as of this encounter Visit Diagnoses Diagnosis Skin infection Unspecified local infection of skin and subcutaneous tissue documented in this encounter Care Teams Electronic Sensing Equipment Assembler Relationship Specialty Start Date End Date Guero José MD [address] [place] [address] [place] [id number] PCP - General 05/17/17 01/30/24 documented as of this encounter
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
--- OUTSIDE RECORDS SUMMARY | 2024-11-06 16:26 | XMS_ITS | Encounter Summary ---
Author Organization [facility] Address [address] [place] [address] Phone Care Team Providers Care Divider Operator Name Role Phone Guero José MD Primary Care Provider [phone] Reason for Visit * Reason Comments Med Refill Encounter Details Date Type Department Care Team ([facility] Contact Info) Description 06/11/2019 Refill [facility] [place] [address] [place] [address] Francesco Keenan MD [address] [place] [address] Skin infection Social History Tobacco Use Types Packs/Day Years Used Date Smoking Tobacco: Never Smokeless Tobacco: Never Alcohol Use Standard Drinks/Week Comments Never 0 (1 standard drink = 0.6 oz pur e alcohol) Hunger/Food Answer Date Recorded No 03/05/2019 Stable Housing Answer Date Recorded 0 03/05/2019 Transportation Concerns Answer Date Rec orded No [...] encounter Miscellaneous Notes * Telephone Encounter - Portia Parker LPN - 06/11/2019 10:17 AM EDT Was last ordered for skin infection and to be used for 7 days only documented in this encounter Plan of Treatment Not on file documented as of this encounter Visit Diagnoses Diagnosis Skin infection Unspecified local infection of skin and subcutaneous tissue documented in this encounter Care Teams Divider Operator Relationship Specialty Start Date End Date Guero José MD [address] [facility] [place] [address] PCP - General 05/17/17 01/30/24 documented as of this encounter
--- OUTSIDE RECORDS SUMMARY | 2024-11-06 16:26 | XMS_ITS | Encounter Summary ---
Author Organization [facility] Address [address] [place] [address] Phone Care Team Providers Care Research Associate Molecular Biology Name Role Phone Guero José MD Primary Care Provider Encounter Details Date Type Department Care Team (Late st Contact Info) Description 10/18/2016 Documentation [facility] [place] [address] [place] [address] Family Medicine, Physician [address] [place] [id number] Social History Tobacco Use Types Packs/Day Years [...] on filedocumented in this encounter Care Teams Research Associate Molecular Biology Relationship Specialty Start Date End Date Guero José MD [address] [place], [place] [address] [address] PCP - General 05/17/17 01/30/24 documented as of this encounter
--- OUTSIDE RECORDS SUMMARY | 2024-11-06 16:26 | XMS_ITS | Encounter Summary ---
Author Organization [facility] Address [address] [place] [address] Phone Care Team Providers Care Lines Tender Name Role Phone Guero José MD Primary Care Provider [phone] Encounter Details Date Type Department Care Team (Late st Contact Info) Description 10/18/[address] [facility] [place] [address] [place] [address] Family Medicine, Physician [address] [place] [phone] Social History Tobacco Use Types Packs/Day Years [...] on filedocumented in this encounter Care Teams Lines Tender Relationship Specialty Start Date End Date Guero José MD [address] [place], [place] [address] [address] PCP - General 05/17/17 01/30/24 documented as of this encounter
--- OUTSIDE RECORDS SUMMARY | 2024-11-06 16:26 | XMS_ITS | Encounter Summary ---
Author Organization [facility] Address [address] [place] [address] Phone Care Team Providers Care Director Regulatory Compliance Name Role Phone Guero José MD Primary Care Provider [phone] Encounter Details Date Type Department Care Team (Late st Contact Info) Description 11/09/2016 Documentation [facility] [place] Family Medicine [address] [place] [address] Family Medicine, Physician [address] [place] [phone] Social History Tobacco Use Types Packs/Day Years [...] on filedocumented in this encounter Care Teams Director Regulatory Compliance Relationship Specialty Start Date End Date Guero José MD [address] [place], [place] [address] [address] PCP - General 05/17/17 01/30/24 documented as of this encounter
--- OUTSIDE RECORDS SUMMARY | 2024-11-06 16:26 | XMS_ITS | Encounter Summary ---
Author Organization [facility] Address [address] [place] [address] Phone Care Team Providers Care Ict Quality Assurance Engineer Name Role Phone Guero José MD Primary Care Provider [phone] Encounter Details Date Type Department Care Team (Late st Contact Info) Description 10/18/2016 [place]ation [facility] [place] [address] [place] [address] Family Medicine, Physician [address] [place] [phone] Social History Tobacco Use Types Packs/Day Years [...] on filedocumented in this encounter Care Teams Ict Quality Assurance Engineer Relationship Specialty Start Date End Date Guero José MD [address] [place], [place] [address] [address] PCP - General 05/17/17 01/30/24 documented as of this encounter
--- OUTSIDE RECORDS SUMMARY | 2024-11-06 16:26 | XMS_ITS | Encounter Summary ---
Author Organization [facility] Address [address] [place] [address] Phone Care Team Providers Care Distribution Lineman Name Role Phone Guero José MD Primary Care Provider [phone] Encounter Details Date Type Department Care Team (Late st Contact Info) Description 10/18/2016 [place]ation [facility] [place] [address] [place] [address] Family Medicine, Physician [address] [place] [phone] Social History Tobacco Use Types Packs/Day Years [...] on filedocumented in this encounter Care Teams Distribution Lineman Relationship Specialty Start Date End Date Guero José MD [address] [place], [place] [address] [address] PCP - General 05/17/17 01/30/24 documented as of this encounter
--- OUTSIDE RECORDS SUMMARY | 2024-11-06 16:27 | XMS_ITS | Encounter Summary ---
Author Organization [facility] Address [address] [place] [address] Phone Care Team Providers Care Parking Manager Name Role Phone Guero José MD Primary Care Provider [phone] Encounter Details Date Type Department Care Team (Late st Contact Info) Description 05/23/2017 Conversion Encounter [facility] [place] [address] [place] [address] Social History Tobacco Use Types Packs/Day Years [...] on filedocumented in this encounter Care Teams Parking Manager Relationship Specialty Start Date End Date Guero José MD [address] [place] [address] PCP - General 05/17/17 01/30/24 documented as of this encounter
[2024-11-06 17:10] LABS: Troponin-I High Sensitivity < 2.7 ng/L (<3.5-17.0)
[2024-11-06 17:49] LABS: Troponin-I High Sensitivity < 2.7 ng/L (<3.5-17.0)
[2024-11-06 18:04] LABS: Influenza A PCR NEGATIVE (Negative); Influenza B PCR NEGATIVE (Negative); Resp Syncy Virus RNA Qual PCR NEGATIVE (Negative); SARS COV2 PCR INHOUSE NEGATIVE (Negative)
[2024-11-06 18:12] VITALS: BP 108/61; PULSE 76; RESP 16; TEMP 37.4; O2SAT 100
[2024-11-06] MEDS: hydrOXYzine HCL 25 MG TABLET PO (18:27)
[2024-11-06] MEDS: Ketorolac Tromethamine 15 MG/ML VIAL 30 MG IM (18:27)
[2024-11-06 18:47] VITALS: BP 108/61; PULSE 76; RESP 16; TEMP 37.4; O2SAT 100
== END 2024-11-06 18:47 | disposition home or self-care (01) ==
PROVIDERS: Nurse Practitioner Family; Physician Assistant; Physician Assistant Medical; Emergency Provider Emergency Medicine; PCP Pediatrics
DX: R07.89 Other chest pain (principal); F41.9 Anxiety disorder, unspecified; I49.8 Other specified cardiac arrhythmias; M54.50 Low back pain, unspecified; M79.605 Pain in left leg; M79.604 Pain in right leg; R10.2 Pelvic and perineal pain; Z79.899 Other long term (current) drug therapy; Z03.818 Encounter for observation for suspected exposure to other biological agents ruled out
CPT/HCPCS: 0241U; 36415; 71046; 74018; 80048; 80076; 81003; 81025; 83690; 84484; 84702; 85025; 93005; 96372; 99284; 99285; J1885

== ENCOUNTER → 2024-11-06 11:51 | Outpatient (BNV) | payer OTHER, SELFPAY | PROVIDERS: Emergency Provider Emergency Medicine; PCP Pediatrics; Visit Provider Internal Medicine | DX: I49.9 Cardiac arrhythmia, unspecified (principal) | CPT/HCPCS: 93010 ==

== ENCOUNTER → 2024-11-06 11:53 | Outpatient (BNV) | payer OTHER, SELFPAY | PROVIDERS: PCP Pediatrics; Visit Provider Radiology Diagnostic Radiology | DX: R52 Pain, unspecified (principal); K59.00 Constipation, unspecified | CPT/HCPCS: 71046; 74018 ==

== ENCOUNTER 2024-11-16 14:24 | Emergency (ER) | payer OTHER, SELFPAY ==
[2024-11-16 15:24] VITALS: BP 117/75; PULSE 96; RESP 16; TEMP 37.1; O2SAT 98; BMI 20.9
--- OUTSIDE RECORDS SUMMARY | 2024-11-16 19:40 | XMS_ITS | Encounter Summary ---
Author Organization [facility] Address [address] [place] [address] Phone Care Team Providers Care Production Quality Analyst Name Role Phone Guero José MD Primary Care Provider [phone] Encounter Details Date Type Department Care Team (Late st Contact Info) Description 05/23/2017 Conversion Encounter [facility] [place] [address] [place] [address] Social History Tobacco Use Types Packs/Day Years [...] on filedocumented in this encounter Care Teams Production Quality Analyst Relationship Specialty Start Date End Date Guero José MD [address] [place] [address] PCP - General 05/17/17 01/30/24 documented as of this encounter
--- OUTSIDE RECORDS SUMMARY | 2024-11-16 19:40 | XMS_ITS | Encounter Summary ---
Author Organization [facility] Address [address] [place] [address] Phone Care Team Providers Care Forest Ranger Name Role Phone Guero José MD Primary Care Provider [phone] Encounter Details Date Type Department Care Team (Late st Contact Info) Description 10/18/2016 Documentation [facility] [place] [address] [place] [address] Family Medicine, Physician [address] [place] [phone] Social History Tobacco Use Types Packs/Day Years [...] on filedocumented in this encounter Care Teams Forest Ranger Relationship Specialty Start Date End Date Guero José MD [address] [place], [place] [address] [address] PCP - General 05/17/17 01/30/24 documented as of this encounter
--- OUTSIDE RECORDS SUMMARY | 2024-11-16 19:40 | XMS_ITS | Encounter Summary ---
Author Organization [facility] Address [address] [place] [address] Phone Care Team Providers Care Hotel Guest Service Agent Name Role Phone Guero José MD Primary Care Provider [phone] Encounter Details Date Type Department Care Team (Late st Contact Info) Description 10/18/2016 Documentation [facility] [place] [address] [place] [address] Family Medicine, Physician [address] [place] [phone] Social History Tobacco Use Types Packs/Day Years [...] on filedocumented in this encounter Care Teams Hotel Guest Service Agent Relationship Specialty Start Date End Date Guero José MD [address] [place], [place] [address] [address] PCP - General 05/17/17 01/30/24 documented as of this encounter
--- OUTSIDE RECORDS SUMMARY | 2024-11-16 19:40 | XMS_ITS | Encounter Summary ---
Author Organization [facility] Address [address] [place] [address] Phone Care Team Providers Care Director Reactor Projects Name Role Phone Guero José MD Primary Care Provider [phone] Reason for Visit * Reason Comments Med Refill Encounter Details Date Type Department Care Team ([facility] Contact Info) Description 06/11/2019 Refill [facility] [place] [address] [place] [address] Francesco Keenan MD [address] [place] [address] Skin infection Social History Tobacco Use Types [...] tissue documented in this encounter Care Teams Director Reactor Projects Relationship Specialty Start Date End Date Guero José MD 150 [facility] [place] [address] PCP - General 05/17/17 01/30/24 documented as of this encounter
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
--- OUTSIDE RECORDS SUMMARY | 2024-11-16 19:40 | XMS_ITS | Encounter Summary ---
Author Organization [facility] Address [address] [place] [address] Phone Care Team Providers Care Manufacturing Clerk Name Role Phone Guero José MD Primary Care Provider Encounter Details Date Type Department Care Team (Late st Contact Info) Description 12/04/2016 Documentation [facility] [place] Family Medicine [address] [place] [address] Family Medicine, Physician [address], [place] [phone] Social History Tobacco Use Types Packs/Day Years [...] on filedocumented in this encounter Care Teams Manufacturing Clerk Relationship Specialty Start Date End Date Guero José MD [address] [place], [place] [address] [address] PCP - General 05/17/17 01/30/24 documented as of this encounter
--- OUTSIDE RECORDS SUMMARY | 2024-11-16 19:40 | XMS_ITS | Encounter Summary ---
Author Organization [facility] Address [address] [place] [address] Phone Care Team Providers Care Data Processing Systems Project Planner Name Role Phone Guero José MD Primary Care Provider [phone] Encounter Details Date Type Department Care Team (Late st Contact Info) Description 10/18/2016 Documentation [facility] [place] Family Medicine [address] [place] [address] Family Medicine, Physician [address], [place] [phone] Social History Tobacco Use Types Packs/Day Years [...] on filedocumented in this encounter Care Teams Data Processing Systems Project Planner Relationship Specialty Start Date End Date Guero José MD [address] [place], [place] [address] [address] PCP - General 05/17/17 01/30/24 documented as of this encounter
--- OUTSIDE RECORDS SUMMARY | 2024-11-16 19:40 | XMS_ITS | Encounter Summary ---
Author Organization [facility] Address [address] [place] [address] Phone Care Team Providers Care Director Software Name Role Phone Guero José MD Primary Care Provider Encounter Details Date Type Department Care Team (Late st Contact Info) Description 11/09/2016 Documentation [facility] [place] Medicine [address] [place] [address] Family Medicine, Physician [address], [place] [phone] Social History Tobacco Use Types Packs/Day Years [...] filedocumented in this encounter Care Teams Director Software Relationship Specialty Start Date End Date Guero José MD [address] [place], [place] [address] [address] PCP - General 05/17/17 01/30/24 documented as of this encounter
--- OUTSIDE RECORDS SUMMARY | 2024-11-16 19:40 | XMS_ITS | Encounter Summary ---
Author Organization [facility] Address [address] [place] [address] Phone Care Team Providers Care Independent Producer Name Role Phone Guero José MD Primary Care Provider [phone] Encounter Details Date Type Department Care Team (Late st Contact Info) Description 10/18/2016 Documentation [facility] [place] Family Medicine [address] [place] [address] Family Medicine, Physician [address] [phone] Social History Tobacco Use Types Packs/Day Years [...] on filedocumented in this encounter Care Teams Independent Producer Relationship Specialty Start Date End Date Guero José MD [address] [place], [place] [address] [address] PCP - General 05/17/17 01/30/24 documented as of this encounter
--- OUTSIDE RECORDS SUMMARY | 2024-11-16 19:40 | XMS_ITS | Encounter Summary ---
Author Organization [facility] Address [address] [place] [address] Phone Care Team Providers Care Datastage Developer Name Role Phone Guero José MD Primary Care Provider [phone] Reason for Visit * Reason Comments Med Refill Encounter Details Date Type Department Care Team ([facility] Contact Info) Description 2019 Refill [facility] [place] [address] [place] [address] Francesco Keenan MD [address] [place] [address] Skin infection Social History Tobacco Use Types [...] tissue documented in this encounter Care Teams Datastage Developer Relationship Specialty Start Date End Date Guero José MD [address] [place] [address] YAMIL [place]oud [address] PCP - General 05/17/17 01/30/24 documented as of this encounter
[2024-11-16 19:48] LABS: MANUAL DIFF FLAG NO
[2024-11-16 19:49] LABS: Basophils Percent Auto 0.4 % (0-2); Eosinophils Percent Auto 0.4 % (0-4); Hematocrit 29.8 % (37.0-47.0); Hemoglobin 9.6 g/dl (12.0-16.0); Imm Gran Abs Auto 0.02 X10*3/uL (0.00-0.03); Imm Gran Pct Auto 0.2 % (0.0-0.4); Lymphocytes Absolute Auto 2.6 X10*3/uL (1.2-4.9); Lymphocytes Percent Auto 25.8 % (20-40); Mean Corpuscular HGB Conc 32.2 g/dl (31.0-35.0); Mean Corpuscular Hemoglobin 20.9 pg (27.0-33.0); Mean Platelet Volume 9.6 fL (9.4-12.3); Monocytes Absolute Auto 0.6 X10*3/uL (0.1-1.2); Monocytes Percent Auto 6.3 % (2-11); NRBC Pct Auto 0.3 /100WBC (0.0-0.2); Neutrophils Absolute Auto 6.7 x10*3/uL (2.0-8.3); Neutrophils Percent Auto 66.9 % (45-73); Platelet Count 270 X10*3/uL (160-400)
[2024-11-16 19:53] LABS: Mean Corpuscular Volume 64.8 fL (80.0-98.0)
[2024-11-16 20:11] LABS: Alanine Aminotransferase 9 U/L (0-31); Albumin Level 4.5 g/dL (3.5-5.0); Alkaline Phosphatase 49 U/L (39-117); Anion Gap 13 (12-20); Aspartate Amino Transferase 17 U/L (5-31); Bilirubin Total 0.9 mg/dL (0.0-1.0); Blood Urea Nitrogen 6 mg/dL (9-16); Calcium 9.2 mg/dL (8.4-10.2); Carbon Dioxide 24 mmol/L (22-29); Chloride 107 mmol/L (96-108); Creatinine Clr Calc Pharmacy 130.2; Estimated Glomerular Filt Rate > 60; Glucose Random 97 mg/dL (60-115); Potassium 3.9 mmol/L (3.3-5.1); Sodium 140 mmol/L (135-145); Total Protein 7.6 g/dL (6.5-8.0)
[2024-11-16 20:13] LABS: HCG Quantitative < 2 mIU/mL
[2024-11-16 21:12] VITALS: BP 101/66; PULSE 74; RESP 16; TEMP 36.8; O2SAT 100
[2024-11-16 21:24] LABS: Appearance Urine Clear; Color Urine Yellow; Glucose Urine UA Negative (Negative); Leukocyte Esterase Urine Negative (Negative); Nitrite Urine Negative (Negative); Urine Blood Negative (Negative); Urine Ketones Negative (Negative); Urine Protein Negative (Neg-Trace)
--- NOTE | 2024-11-16 23:10 | ED.GENADULT ---
HPI - General Adult General Chief complaint: General Medical Stated complaint: lump vaginal area Time Seen by Provider: 11/16/24 20:49 Source: patient Limitations: no limitations History of Present Illness ED Provider: Ashlee Link PA-C HPI narrative: 23-year-old female presents with multiple complaints. Patient states she developed a painful lump adjacent to her clitoris over the past day. Denies risk for STD, other lesions over her external genitalia, vaginal discharge or pelvic pain. Patient also states she began secreting note from both breasts, her last menstrual period was November 01. Related Data Previous Rx's ?Medication ?Instructions ?Recorded azithromycin 250 mg tablet 250 mg PO DAILY 4 days #4 tabs 08/29/21 (Zithromax Z-Ricardo) benzonatate 100 mg capsule 100 mg PO Q6H PRN cough #20 caps 08/29/21 prednisone 20 mg tablet 40 mg (2 x 20 mg) PO DAILY #10 tabs 08/29/21 cyclobenzaprine 10 mg tablet 10 mg PO Q8H PRN Muscle spasm #14 07/31/22 tabs naproxen 500 mg tablet,delayed 500 mg PO BID 7 days #14 tabs 07/31/22 release cyclobenzaprine 10 mg tablet 10 mg PO TID PRN muscle spasm #10 08/20/22 tabs naproxen 500 mg tablet 500 mg PO BID PRN pain #20 tabs 08/20/22 nirmatrelvir 300 mg (150 mg See Rx Instructions PO .COMPLEX 10/05/22 x2)-ritonavir 100 mg tablet,dose #30 ea pack (Paxlovid) cephalexin 500 mg capsule 500 mg PO QID #28 caps 11/09/22 doxycycline hyclate 100 mg tablet 100 mg PO BID 7 days #14 tabs 11/09/22 amoxicillin 875 mg-potassium 1 tab PO Q12H 10 days #20 tabs 03/03/23 clavulanate 125 mg tablet naproxen 500 mg tablet 500 mg PO BID PRN pain 7 days #14 03/03/23 tabs naproxen 500 mg tablet 500 mg PO BID PRN pain 7 days #14 04/28/23 tabs hydroxyzine HCl 25 mg tablet 25 mg PO BID PRN anxiety #14 tabs 08/02/23 salicylic acid 27.5 % topical 1 appl topical DAILY #10 mL 10/21/23 film-forming liquid hydrocortisone acetate 25 mg 25 mg [place] DAILY #12 ea 04/01/24 rectal suppository (Anusol-HC) ibuprofen 600 mg tablet 600 mg PO Q8H PRN pain #14 tabs 05/19/24 hydroxyzine HCl 25 mg tablet 25 mg PO BID PRN anxiety #14 tabs 11/06/24 ketorolac 10 mg tablet 10 mg PO TID PRN pain 5 days #15 11/06/24 tabs doxycycline hyclate 100 mg capsule 100 mg PO BID #19 caps 11/16/24 Allergies Allergy/AdvReac Type Severity Reaction Status Date / Time No Known Allergies Allergy Verified 11/16/24 15:26 Review of Systems Review of Systems: Yes all other systems are reviewed and are negative Constitutional: Constitutional: Denies fatigue and Denies fever(s) Cardiovascular: Cardiovascular: Denies chest pain and Denies dyspnea Respiratory: Respiratory: Denies dyspnea Gastrointestinal: Gastrointestinal: Denies abdominal pain, Denies nausea and Denies vomiting Genitourinary: Genitourinary: Reports nipple discharge, Denies pelvic pain and Denies vaginal discharge Musculoskeletal: Musculoskeletal: Denies back pain Integumentary/Breasts: Skin/Breast: Reports nipple discharge Endocrine: Endocrine: Denies fatigue PMFSH Past Medical History Attestation statement: The following information was validated with the patient. Medical History Patient denies medical problems Social History Social History Alcohol intake: never Patient Tobacco Use Status: Never used Tobacco Substance Use Type: Marijuana Advance Directives: No Advance Directives Information Provided: Yes Do you have a plan to hurt others: No Plan Physical Exam ED Vital Signs: Vital Signs - 24 hr 11/16/24 15:24 11/16/24 21:12 Temperature 98.8 F 98.2 F Pulse Rate 96 74 Respiratory Rate 16 16 Blood Pressure 117/75 101/66 Pulse Oximetry 98 100 Oxygen Delivery Method Room Air Room Air BMI result Body Mass Index 20.9 Const Other: Alert Orientation/consciousness: patient oriented x3 Resp Other: Nonlabored respiratory Cardio Other: Normal peripheral perfusion GI Other: Abdomen is soft nontender no guarding no distention Other: Tender swelling over right inner labial fold without overlying erythema no active discharge from the site, there are no other lesions over the external genitalia, there was no vaginal discharge noted Skin Other: Warm dry no rash Neuro General: patient oriented x3, gait normal, no focal motor deficits and CN's II-XI intact bilaterally Psych Other: Cooperative Medical Decision Making Medical Decision Making MDM Narrative: 23-year-old female presents with multiple complaints. Patient states she developed a painful lump adjacent to her clitoris over the past day. Denies risk for STD, other lesions over her external genitalia, vaginal discharge or pelvic pain. Patient also states she began secreting note from both breasts, her last menstrual period was November 01. No relevant chronic issues History: Per patient I have considered the following differential diagnoses: Pregnancies, hormonal imbalance, pituitary tumor, Bartholin gland cyst, STD Plan: In regard to the nipple discharge, the patient is not , she needs to follow up with her digital printer operator for testing. It appears the patient has a Bartholin gland cyst, I have viewed with bedside ultrasound, there is no fluid collection to drain, we will place on doxy and have her place warm compresses over the site with return precautions for progression of the swelling. Sending her with topical lidocaine I have independently reviewed the following tests: Labs: No leukocytosis, stable anemia, no electrolyte abnormalities, not , urine not infected Lab Data 11/16/24 19:42 11/16/24 19:42 Labs: Lab Results 11/16/24 11/16/24 Range/Units 19:42 21:14 WBC 10.0 (4.8-10.8) X10*3/uL RBC 4.60 (4.20-5.50) X10*6/uL Hgb 9.6 L (12.0-16.0) g/dl Hct 29.8 L (37.0-47.0) % MCV 64.8 L (80.0-98.0) fL MCH 20.9 L (27.0-33.0) pg MCHC 32.2 (31.0-35.0) g/dl RDW 19.0 H (11.0-16.0) % Plt Count 270 (160-400) X10*3/uL MPV 9.6 (9.4-12.3) fL Immature Gran % (Auto) 0.2 (0.0-0.4) % Neut % (Auto) 66.9 (45-73) % Lymph % (Auto) 25.8 (20-40) % [place] % (Auto) 6.3 (2-11) % Eos % (Auto) 0.4 (0-4) % Baso % (Auto) 0.4 (0-2) % Lymph # (Auto) 2.6 (1.2-4.9) X10*3/uL [place] # (Auto) 0.6 (0.1-1.2) X10*3/uL Eos # (Auto) 0.0 (0.0-0.4) X10*3/uL Baso # (Auto) 0.0 (0.0-0.2) X10*3/uL Abs Immat Gran (auto) 0.02 (0.00-0.03) X10*3/uL Absolute Neuts (auto) 6.7 (2.0-8.3) x10*3/uL Absolute Nucleated RBC 0.030 H (0.0-0.012) X10*3/uL Nucleated RBC % (auto) 0.3 H (0.0-0.2) /100WBC Sodium 140 (135-145) mmol/L Potassium 3.9 (3.3-5.1) mmol/L Chloride 107 (96-108) mmol/L Carbon Dioxide 24 (22-29) mmol/L Anion Gap 13 (12-20) BUN 6 L (9-16) mg/dL Creatinine 0.59 (0.5-1.4) mg/dL Estim Creat Clear Calc 130.2 Estimated GFR > 60 Random Glucose 97 (60-115) mg/dL Calcium 9.2 D (8.4-10.2) mg/dL Total Bilirubin 0.9 (0.0-1.0) mg/dL AST 17 (5-31) U/L ALT 9 (0-31) U/L Alkaline Phosphatase 49 (39-117) U/L Total Protein 7.6 (6.5-8.0) g/dL Albumin 4.5 (3.5-5.0) g/dL Beta HCG, Quant < 2 mIU/mL Urine Color Yellow Urine Appearance Clear Urine pH 6.0 (5.0-9.0) Ur Specific [place] 1.020 (1.005-1.025) Urine Protein Negative (Neg-Trace) mg/dL Urine Glucose (UA) Negative (Negative) mg/dL Urine Ketones Negative (Negative) mg/dL Urine Blood Negative (Negative) Urine Nitrite Negative (Negative) Ur Leukocyte Esterase Negative (Negative) Discharge Plan Discharge Clinical Impression: Galactorrhea, Bartholin gland cyst Patient Disposition: Home, Self-Care Instructions: Bartholin Cyst (ED), Galactorrhea (ED) Additional Instructions: All of your labs were normal your urine is not infected you were not . You have a Bartholin gland cyst that is inflamed. See home care instructions. Apply warm compresses to the site several times a day. Complete the course of doxycycline as directed. Use the topical lidocaine for pain relief. In regard to your milky breast discharge, this is called galactorrhea, you need to follow up with a digital printer operator for hormonal studies to determine the reason why you are having these symptoms. In regard to the Bartholin gland cyst, seek medical attention if the area becomes more swollen, more tender, more red more painful or if you develop a fever. Prescriptions: New doxycycline hyclate 100 mg capsule 100 mg PO BID Qty: 19 0RF No Action prednisone 20 mg tablet 40 mg PO DAILY Qty: 10 0RF azithromycin [Zithromax Z-Ricardo] 250 mg tablet 250 mg PO DAILY 4 Days Qty: 4 0RF Rx Instructions: start on day 2 of therapy benzonatate 100 mg capsule 100 mg PO Q6H PRN (Reason: cough) Qty: 20 0RF naproxen 500 mg tablet,delayed release (DR/EC) 500 mg PO BID 7 Days Qty: 14 0RF cyclobenzaprine 10 mg tablet 10 mg PO Q8H PRN (Reason: Muscle spasm) Qty: 14 0RF naproxen 500 mg tablet 500 mg PO BID PRN (Reason: pain) Qty: 20 0RF cyclobenzaprine 10 mg tablet 10 mg PO TID PRN (Reason: muscle spasm) Qty: 10 0RF Paxlovid 300 mg (150 mg x 2)-100 mg tablets,dose pack See Rx Instructions .ROUTE .COMPLEX Qty: 30 0RF Rx Instructions: take TWO 150 mg tablets of nirmatrelvir with ONE 100 mg tablet of ritonavir twice daily for 5 days doxycycline hyclate 100 mg tablet 100 mg PO BID 7 Days Qty: 14 0RF cephalexin 500 mg capsule 500 mg PO QID Qty: 28 0RF amoxicillin-pot clavulanate 875-125 mg tablet 1 tab PO Q12H 10 Days Qty: 20 0RF naproxen 500 mg tablet 500 mg PO BID PRN (Reason: pain) 7 Days Qty: 14 0RF naproxen 500 mg tablet 500 mg PO BID PRN (Reason: pain) 7 Days Qty: 14 0RF hydroxyzine HCl 25 mg tablet 25 mg PO BID PRN (Reason: anxiety) Qty: 14 0RF salicylic acid 27.5 % film forming liquid w/appl 1 appl topical DAILY Qty: 10 0RF Rx Instructions: apply to entire wart site; allow to dry; repeat application hydroxyzine HCl 25 mg tablet 25 mg PO BID PRN (Reason: anxiety) Qty: 14 0RF ketorolac 10 mg tablet 10 mg PO TID PRN (Reason: pain) 5 Days Qty: 15 0RF Rx Instructions: Tolerated IM or IV in department hydrocortisone acetate [Anusol-HC] 25 mg suppository 25 mg [place] DAILY Qty: 12 0RF ibuprofen 600 mg tablet 600 mg PO Q8H PRN (Reason: pain) Qty: 14 0RF Print Language: Yoruba
[2024-11-16 23:39] VITALS: BP 106/61; PULSE 67; RESP 16; TEMP 36.4; O2SAT 99
[2024-11-16] MEDS: Doxycycline Monohydrate 100 MG CAPSULE PO (23:39)
[2024-11-16] MEDS: Lidocaine 4 % Cream KIT 1 APPL TOPICAL (23:39)
[2024-11-16 23:42] VITALS: BP 106/61; PULSE 67; RESP 16; TEMP 36.4; O2SAT 99
== END 2024-11-16 23:42 | disposition home or self-care (01) ==
PROVIDERS: Emergency Provider Emergency Medicine; PCP Pediatrics
DX: N75.8 Other diseases of Bartholin's gland (principal); N64.52 Nipple discharge; R22.9 Localized swelling, mass and lump, unspecified
CPT/HCPCS: 36415; 80053; 81003; 84702; 85025; 99283

== ENCOUNTER 2025-01-20 11:08 | Emergency (ER) | payer OTHER, SELFPAY ==
--- NOTE | ~2025-01-20 | XR_ITS ---
EXAMINATION: XR CHEST CLINICAL INFORMATION: CP COMPARISON: 11/06/2024, 08/02/2023. TECHNIQUE: 2 views of the chest were obtained. FINDINGS: The cardiac, hilar, and mediastinal contours are normal. The lungs are clear bilaterally. There is no pneumothorax or pleural effusion. There is no focal osseous or soft tissue abnormality. XR/XR chest 2V IMPRESSION: Normal chest. Electronically signed by: Milad Avila MD 01/20/2025 01:08 PM EDT
[2025-01-20 11:34] VITALS: BP 116/77; PULSE 75; RESP 18; TEMP 37; O2SAT 100; BMI 18.3
--- NOTE | 2025-01-20 11:37 | ED_ITS ---
HPI - General Adult General Chief complaint: General Medical Stated complaint: Thyroid Levels Low-Headache,Blur Vision,Chest Pain Time Seen by Provider: 01/20/25 11:48 History of Present Illness ED Provider: Jaime De Los Santos MD HPI narrative: HPI: Patient tells me she is primarily concerned about headaches she has had frontal headaches nearly daily. She denies photophobia neck pain stiffness rash. She does not have an existing diagnosis of migraine or chronic headaches this is ongoing for many months. She also notes that she is more anxious in the morning with rapid palpitations that resolved. She complains of change in bowel habits including constipation intermittent hard or soft stool. No abdominal pain at this time. 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 Low thyroid levels Related Data Previous Rx's ?Medication ?Instructions ?Recorded azithromycin 250 mg tablet 250 mg PO DAILY 4 days #4 tabs 08/29/21 (Zithromax Z-Ricardo) benzonatate 100 mg capsule 100 mg PO Q6H PRN cough #20 caps 08/29/21 prednisone 20 mg tablet 40 mg (2 x 20 mg) PO DAILY #10 tabs 08/29/21 cyclobenzaprine 10 mg tablet 10 mg PO Q8H PRN Muscle spasm #14 07/31/22 tabs naproxen 500 mg tablet,delayed 500 mg PO BID 7 days #14 tabs 07/31/22 release cyclobenzaprine 10 mg tablet 10 mg PO TID PRN muscle spasm #10 08/20/22 tabs naproxen 500 mg tablet 500 mg PO BID PRN pain #20 tabs 08/20/22 nirmatrelvir 300 mg (150 mg See Rx Instructions PO .COMPLEX 10/05/22 x2)-ritonavir 100 mg tablet,dose #30 ea pack (Paxlovid) cephalexin 500 mg capsule 500 mg PO QID #28 caps 11/09/22 doxycycline hyclate 100 mg tablet 100 mg PO BID 7 days #14 tabs 11/09/22 amoxicillin 875 mg-potassium 1 tab PO Q12H 10 days #20 tabs 03/03/23 clavulanate 125 mg tablet naproxen 500 mg tablet 500 mg PO BID PRN pain 7 days #14 03/03/23 tabs naproxen 500 mg tablet 500 mg PO BID PRN pain 7 days #14 04/28/23 tabs hydroxyzine HCl 25 mg tablet 25 mg PO BID PRN anxiety #14 tabs 08/02/23 salicylic acid 27.5 % topical 1 appl topical DAILY #10 mL 10/21/23 film-forming liquid hydrocortisone acetate 25 mg 25 mg [place] DAILY #12 ea 04/01/24 rectal suppository (Anusol-HC) ibuprofen 600 mg tablet 600 mg PO Q8H PRN pain #14 tabs 05/19/24 hydroxyzine HCl 25 mg tablet 25 mg PO BID PRN anxiety #14 tabs 11/06/24 ketorolac 10 mg tablet 10 mg PO TID PRN pain 5 days #15 11/06/24 tabs doxycycline hyclate 100 mg capsule 100 mg PO BID #19 caps 11/16/24 docusate sodium 100 mg capsule 100 mg PO DAILY #14 caps 01/20/25 (Colace) hydroxyzine HCl 10 mg tablet 10 mg PO TID PRN dizzy #7 tabs 01/20/25 naproxen 500 mg tablet 500 mg PO BID PRN headache 7 days 01/20/25 #14 tabs sennosides 8.6 mg capsule (senna) 8.6 mg PO DAILY #14 caps 01/20/25 Allergies Allergy/AdvReac Type Severity Reaction Status Date / Time No Known Allergies Allergy Verified 01/20/25 11:40 [facility] Past Medical History Medical History Patient denies medical problems Social History Social History Alcohol intake: never Patient Tobacco Use Status: Never used Tobacco Smoked in Last 30 Days: No Use of substances other than those prescribed or required for medical reasons: Yes Substance Use Type: Marijuana Advance Directives: No Advance Directives Information Provided: Yes Patient : No Physical Exam ED Vital Signs: Vital Signs - 24 hr 01/20/25 11:34 01/20/25 14:14 Temperature 98.6 F 98.6 F Pulse Rate 75 75 Respiratory Rate 18 18 Blood Pressure 116/77 116/77 Pulse Oximetry 100 100 Oxygen Delivery Method Room Air Room Air BMI result Body Mass Index 18.3 Const Other: EXAM: Gen: Alert, awake, well appearing, well hydrated. Slightly anxious Head: Atraumatic Eyes: Anicteric, Normal conjunctiva. ENT: Moist mucosa, no pallor. ? Neck: Supple. Respiratory: Breathing comfortably, No distress.Clear to auscultation bilaterally, symmetric chest expansion, No wheeze, rales, ronchi. Cardiovascular: Regular rate and rhythm. No murmurs or rub. Well perfused periphery, warm extremities. No edema. ? Abdominal: Soft, no objective distension. No palpable masses or obvious organomegaly. No focal tenderness, no guarding, no rebound tenderness or other peritoneal findings. : No flank tenderness. Neuro: Alert. Gross movement of all extremities intact. ? Vital signs: See flowsheet Course Course Course Narrative: This is an RME: Additional HPI, ROS, PE not included below will be deferred to primary provider. RME assessment and note performed by: Rosalia Herman PA-C This is a 17-xmvs-tip-female, with a hx of anemia, anxiety, who presents to the ER with complaints of multiple complaints. Reports that she is having numbness in right leg. Reports that she has constipation > reports that she moves her bowels every 3 days. Reporting headache, blurry vision, dizziness, poor appetite, constipation, left-sided chest discomfort, anxiety attacks, and weight loss for the last 4-5 months. Patient reports that she moved to [place] and was told that her ?thyroid levels were low?, but was not started on any medications. She states that she he was attempting to follow-up with the primary care physician however they are unable to see her until August. She is not on control. Plan: Labs, EKG, chest x-ray, further ER evaluation needed. Medications Administered Discontinued Medications Generic Name Dose Route Start Last Admin Trade Name Freq PRN Reason Stop Dose Admin Naproxen 500 mg 01/20/25 12:36 01/20/25 12:43 Naproxen 500 Mg Tablet PO 01/20/25 12:37 500 mg ONCE ONE Administration Medical Decision Making Medical Decision Making MDM Narrative: 24-year-old female with various complaints as above. She was told previously that her thyroid was abnormal but she has a normal TSH here. She looks anxious and has multitude of symptoms most of which are chronic including headache and constipation. I will start her on a bowel regimen with stool softeners and advised her on dietary changes she understands this. Regarding her headaches she is young has no recent head trauma and has no significant risk factors for serious acute neurologic pathology this is ongoing for many months and she has reassuring neurologic exam. I think these are likely tension, stress or dehydration related and we did discussed medication she can take including naproxen. She is trying to get a PCP in the outpatient setting which I agreed with. Lab Data MDM Lab Attestation statement: I reviewed the patient's lab results. 01/20/25 11:59 01/20/25 11:59 Labs: Lab Results 01/20/25 Range/Units 11:59 WBC 4.9 (4.8-10.8) X10*3/uL RBC 4.55 (4.20-5.50) X10*6/uL Hgb 9.5 L (12.0-16.0) g/dl Hct 29.5 L (37.0-47.0) % MCV 64.8 L (80.0-98.0) fL MCH 20.9 L (27.0-33.0) pg MCHC 32.2 (31.0-35.0) g/dl RDW 19.1 H (11.0-16.0) % Plt Count 209 (160-400) X10*3/uL MPV 10.2 (9.4-12.3) fL Immature Gran % (Auto) 0.2 (0.0-0.4) % Neut % (Auto) 50.4 (45-73) % Lymph % (Auto) 40.3 H (20-40) % Nobles % (Auto) 7.9 (2-11) % Eos % (Auto) 0.6 (0-4) % Baso % (Auto) 0.6 (0-2) % Lymph # (Auto) 2.0 (1.2-4.9) X10*3/uL Nobles # (Auto) 0.4 (0.1-1.2) X10*3/uL Eos # (Auto) 0.0 (0.0-0.4) X10*3/uL Baso # (Auto) 0.0 (0.0-0.2) X10*3/uL Abs Immat Gran (auto) 0.01 (0.00-0.03) X10*3/uL Absolute Neuts (auto) 2.5 (2.0-8.3) x10*3/uL Absolute Nucleated RBC 0.030 H (0.0-0.012) X10*3/uL Nucleated RBC % (auto) 0.6 H (0.0-0.2) /100WBC Sodium 139 (135-145) mmol/L Potassium 4.5 (3.3-5.1) mmol/L Chloride 110 H (96-108) mmol/L Carbon Dioxide 25 (22-29) mmol/L Anion Gap 9 L (12-20) BUN 11 (9-16) mg/dL Creatinine 0.63 (0.5-1.4) mg/dL Estim Creat Clear Calc 110.1 Estimated GFR > 60 Random Glucose 87 (60-115) mg/dL Calcium 9.4 (8.4-10.2) mg/dL Magnesium 2.1 (1.6-2.6) mg/dL Total Bilirubin 0.9 (0.0-1.0) mg/dL Direct Bilirubin 0.3 (0.0-0.5) mg/dL AST 19 (5-31) U/L ALT 9 (0-31) U/L Alkaline Phosphatase 45 (39-117) U/L Troponin I High Sens < 2.7 (<3.5-17.0) ng/L Total Protein 7.0 (6.5-8.0) g/dL Albumin 4.4 (3.5-5.0) g/dL Lipase 12 (8-78) U/L TSH 0.58 (0.32-4.0) uIU/mL Beta HCG, Quant < 2 mIU/mL Influenza Type A (PCR) NEGATIVE (Negative) Influenza Type B (PCR) NEGATIVE (Negative) RSV RNA Qual (PCR) NEGATIVE (Negative) SARS-CoV-2 RNA (RT-PCR) NEGATIVE (Negative) Independent Interpretation I performed an independent interpretation of an: EKG Interpretation: Sinus rhythm rate 101, frequent monomorphic PVCs. No ischemic changes normal intervals and axis. Discharge Plan Discharge Clinical Impression: Constipation, Anxiety, Headache Patient Disposition: Home, Self-Care Instructions: Constipation (DC), Anxiety (ED), General Headache (ED) Additional Instructions: _ DISCHARGE DIAGNOSES: Headache, unclear cause likely chronic or tension or stress Constipation, chronic Anxiety HISTORY OF PRESENTATION: Constipation, headache, anxiety in the morning, you were told that you had thyroid abnormality EMERGENCY DEPARTMENT COURSE,TESTS, TREATMENTS: While in the ED today You had normal thyroid, normal blood chemistry and blood counts. You do have chronic stable anemia this is not changed from previous tests. Your thyroid test was normal and reassuring and I am not sure what you were told previously but you do not need to be on any thyroid medication. He had an EKG that had PVCs this can sometimes cause palpitations or skipped beat sensation but is not dangerous. Continue trying to establish a primary physician as an outpatient DISCHARGE MEDICATIONS: We are prescribing you to different stool softeners to be taken as prescribed, we have prescribed you Atarax a very mild non addictive anxiety medication that you can take if you develop severe persistent anxiety symptoms but recommend you continue with your therapist. Your headache can be treated with naproxen 500 mg as needed FOLLOW-UP: ?Call your primary or general physician soon as possible to discuss your symptoms, your ED visit and to discuss follow up plans INSTRUCTIONS ?& RETURN PRECAUTIONS: If any symptoms change first call your primary physician, if it is after-hours your primary doctors office should have a provider internal control manager you can speak with. If the symptoms are severe or very concerning to you then call 911 or return to the ED. [07] Jaime De Los Santos MD Emergency Physician [facility] Prescriptions: New hydroxyzine HCl 10 mg tablet 10 mg PO TID PRN (Reason: dizzy) Qty: 7 0RF senna 8.6 mg capsule 8.6 mg PO DAILY Qty: 14 0RF docusate sodium [Colace] 100 mg capsule 100 mg PO DAILY Qty: 14 0RF naproxen 500 mg tablet 500 mg PO BID PRN (Reason: headache) 7 Days Qty: 14 0RF No Action prednisone 20 mg tablet 40 mg PO DAILY Qty: 10 0RF azithromycin [Zithromax Z-Ricardo] 250 mg tablet 250 mg PO DAILY 4 Days Qty: 4 0RF Rx Instructions: start on day 2 of therapy benzonatate 100 mg capsule 100 mg PO Q6H PRN (Reason: cough) Qty: 20 0RF naproxen 500 mg tablet,delayed release (DR/EC) 500 mg PO BID 7 Days Qty: 14 0RF cyclobenzaprine 10 mg tablet 10 mg PO Q8H PRN (Reason: Muscle spasm) Qty: 14 0RF naproxen 500 mg tablet 500 mg PO BID PRN (Reason: pain) Qty: 20 0RF cyclobenzaprine 10 mg tablet 10 mg PO TID PRN (Reason: muscle spasm) Qty: 10 0RF Paxlovid 300 mg (150 mg x 2)-100 mg tablets,dose pack See Rx Instructions .ROUTE .COMPLEX Qty: 30 0RF Rx Instructions: take TWO 150 mg tablets of nirmatrelvir with ONE 100 mg tablet of ritonavir twice daily for 5 days doxycycline hyclate 100 mg tablet 100 mg PO BID 7 Days Qty: 14 0RF cephalexin 500 mg capsule 500 mg PO QID Qty: 28 0RF amoxicillin-pot clavulanate 875-125 mg tablet 1 tab PO Q12H 10 Days Qty: 20 0RF naproxen 500 mg tablet 500 mg PO BID PRN (Reason: pain) 7 Days Qty: 14 0RF naproxen 500 mg tablet 500 mg PO BID PRN (Reason: pain) 7 Days Qty: 14 0RF hydroxyzine HCl 25 mg tablet 25 mg PO BID PRN (Reason: anxiety) Qty: 14 0RF salicylic acid 27.5 % film forming liquid w/appl 1 appl topical DAILY Qty: 10 0RF Rx Instructions: apply to entire wart site; allow to dry; repeat application hydroxyzine HCl 25 mg tablet 25 mg PO BID PRN (Reason: anxiety) Qty: 14 0RF ketorolac 10 mg tablet 10 mg PO TID PRN (Reason: pain) 5 Days Qty: 15 0RF Rx Instructions: Tolerated IM or IV in department hydrocortisone acetate [Anusol-HC] 25 mg suppository 25 mg [place] DAILY Qty: 12 0RF ibuprofen 600 mg tablet 600 mg PO Q8H PRN (Reason: pain) Qty: 14 0RF doxycycline hyclate 100 mg capsule 100 mg PO BID Qty: 19 0RF Interventions: ED Discharge Assessment Last Done: 01/20/25 14:14 Discharge Date/Time: 01/20/25 14:15 Print Language: [place]
--- NOTE | 2025-01-20 11:40 | ECG_ITS ---
Test Reason : CP Blood Pressure : */* mmHG Vent. Rate : 101 BPM Atrial Rate : 101 BPM P-R Int : 122 ms QRS Dur : 88 ms QT Int : 344 ms P-R-T Axes : 61 56 26 degrees QTcB Int : 446 ms Sinus tachycardia with frequent Premature ventricular complexes Otherwise normal ECG When compared with ECG of 06-Nov-2024 12:11, Premature ventricular complexes are now Present Referred By: Rosalia Cowart Electronically Signed By: ANNIKA ROCK MD
[2025-01-20 12:06] LABS: MANUAL DIFF FLAG NO
[2025-01-20 12:11] LABS: Basophils Percent Auto 0.6 % (0-2); Eosinophils Percent Auto 0.6 % (0-4); Hematocrit 29.5 % (37.0-47.0); Hemoglobin 9.5 g/dl (12.0-16.0); Imm Gran Abs Auto 0.01 X10*3/uL (0.00-0.03); Imm Gran Pct Auto 0.2 % (0.0-0.4); Lymphocytes Percent Auto 40.3 % (20-40); Mean Corpuscular HGB Conc 32.2 g/dl (31.0-35.0); Mean Corpuscular Hemoglobin 20.9 pg (27.0-33.0); Mean Platelet Volume 10.2 fL (9.4-12.3); Monocytes Absolute Auto 0.4 X10*3/uL (0.1-1.2); Monocytes Percent Auto 7.9 % (2-11); NRBC Pct Auto 0.6 /100WBC (0.0-0.2); Neutrophils Absolute Auto 2.5 x10*3/uL (2.0-8.3); Neutrophils Percent Auto 50.4 % (45-73); Platelet Count 209 X10*3/uL (160-400); Red Blood Count 4.55 X10*6/uL (4.20-5.50); Red Cell Distribution Width 19.1 % (11.0-16.0); White Blood Count 4.9 X10*3/uL (4.8-10.8)
[2025-01-20 12:12] LABS: Mean Corpuscular Volume 64.8 fL (80.0-98.0)
[2025-01-20 12:35] LABS: Alanine Aminotransferase 9 U/L (0-31); Albumin Level 4.4 g/dL (3.5-5.0); Alkaline Phosphatase 45 U/L (39-117); Anion Gap 9 (12-20); Aspartate Amino Transferase 19 U/L (5-31); Bilirubin Direct 0.3 mg/dL (0.0-0.5); Bilirubin Total 0.9 mg/dL (0.0-1.0); Blood Urea Nitrogen 11 mg/dL (9-16); Calcium 9.4 mg/dL (8.4-10.2); Carbon Dioxide 25 mmol/L (22-29); Chloride 110 mmol/L (96-108); Creatinine Clr Calc Pharmacy 110.1; Estimated Glomerular Filt Rate > 60; Glucose Random 87 mg/dL (60-115); Lipase 12 U/L (8-78); Magnesium 2.1 mg/dL (1.6-2.6); Potassium 4.5 mmol/L (3.3-5.1); Sodium 139 mmol/L (135-145)
[2025-01-20] MEDS: NaPROXEN 500 MG TABLET PO (12:43)
[2025-01-20 12:44] LABS: Troponin-I High Sensitivity < 2.7 ng/L (<3.5-17.0)
[2025-01-20 12:50] LABS: Influenza A PCR NEGATIVE (Negative); Influenza B PCR NEGATIVE (Negative); Resp Syncy Virus RNA Qual PCR NEGATIVE (Negative); SARS COV2 PCR INHOUSE NEGATIVE (Negative)
[2025-01-20 12:51] LABS: HCG Quantitative < 2 mIU/mL; TSH reflex Free T4 0.58 uIU/mL (0.32-4.0)
[2025-01-20 14:14] VITALS: BP 116/77; PULSE 75; RESP 18; TEMP 37; O2SAT 100
--- OUTSIDE RECORDS SUMMARY | 2025-01-20 14:34 | XMS_ITS | Encounter Summary ---
Author Organization [facility] Address [address] [place] [address] Phone Care Team Providers Care Novelty Maker Name Role Phone Geuro José MD Primary Care Provider [phone] Reason for Visit * Reason Comments Med Refill Encounter Details Date Type Department Care Team ([facility] Contact Info) Description 06/11/2019 Refill [facility] [address] [place] [address] Francesco Keenan MD [address] [place] [address] Skin infection Social History Tobacco Use Types [...] tissue documented in this encounter Care Teams Novelty Maker Relationship Specialty Start Date End Date Guero José MD [address] [facility] [place] [address] PCP - General 05/17/17 01/30/24 documented as of this encounter
--- OUTSIDE RECORDS SUMMARY | 2025-01-20 14:34 | XMS_ITS | Encounter Summary ---
Author Organization [facility] Address [address] [place] [address] Phone Care Team Providers Care Assistant Grocery Name Role Phone Guero José MD Primary Care Provider [phone] Encounter Details Date Type Department Care Team (Late st Contact Info) Description 10/18/2016 Documentation [facility] [place] [facility] [address] [place] [address] Family Medicine, Physician [address] [place], [place] [id number] Social History Tobacco Use Types Packs/Day Years [...] on filedocumented in this encounter Care Teams Assistant Grocery Relationship Specialty Start Date End Date Guero José MD [address] [place] [address] [place] [address] PCP - General 05/17/17 01/30/24 documented as of this encounter
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
--- OUTSIDE RECORDS SUMMARY | 2025-01-20 14:34 | XMS_ITS | Encounter Summary ---
Author Organization [facility] Address [address] [place] [address] Phone Care Team Providers Care Ginner Name Role Phone Guero José MD Primary Care Provider [phone] Encounter Details Date Type Department Care Team (Late st Contact Info) Description 10/18/2016 Documentation [facility] [place] [address] [place] [address] Family Medicine, Physician [address] [place] [phone] Social History Tobacco Use Types Packs/Day Years [...] on filedocumented in this encounter Care Teams Ginner Relationship Specialty Start Date End Date Guero José MD [address] [place] [address] [place] [address] PCP - General 05/17/17 01/30/24 documented as of this encounter
--- OUTSIDE RECORDS SUMMARY | 2025-01-20 14:34 | XMS_ITS | Encounter Summary ---
Author Organization [facility] Address [address] [place] [address] Phone Care Team Providers Care Linen Clerk Name Role Phone Guero José MD Primary Care Provider [phone] Encounter Details Date Type Department Care Team (Late st Contact Info) Description 11/09/2016 [place]ation [facility] [place] [address] [place] [address] Family Medicine, Physician [address] [place], [place] [phone] Social History Tobacco Use Types Packs/Day Years [...] on filedocumented in this encounter Care Teams Linen Clerk Relationship Specialty Start Date End Date Guero José MD [address] [place], [place] [address] [place] [address] PCP - General 05/17/17 01/30/24 documented as of this encounter
--- OUTSIDE RECORDS SUMMARY | 2025-01-20 14:34 | XMS_ITS | Encounter Summary ---
Author Organization [facility] Address [address] [place] [address] Phone Care Team Providers Care Residential Property Manager Name Role Phone Guero José MD Primary Care Provider [phone] Encounter Details Date Type Department Care Team (Late st Contact Info) Description 10/18/2016 Documentation [facility] [place] [address] [place] [address] Family Medicine, Physician [address] [place] [phone] Social History Tobacco Use Types Packs/Day Years [...] on filedocumented in this encounter Care Teams Residential Property Manager Relationship Specialty Start Date End Date Guero José MD [address] [place] [address] [place] [address] PCP - General 05/17/17 01/30/24 documented as of this encounter
--- OUTSIDE RECORDS SUMMARY | 2025-01-20 14:34 | XMS_ITS | Encounter Summary ---
Author Organization [facility] Address [address] [place] [address] Phone Care Team Providers Care Stock Manager Name Role Phone Guero José MD Primary Care Provider [phone] Encounter Details Date Type Department Care Team (Late st Contact Info) Description 10/18/2016 Documentation [facility] [place] [address] [place] [address] Family Medicine, Physician [address] [phone] Social History Tobacco Use Types Packs/Day Years [...] on filedocumented in this encounter Care Teams Stock Manager Relationship Specialty Start Date End Date Guero José MD [address] [place] [address] [place] [id number] PCP - General 05/17/17 01/30/24 documented as of this encounter
--- OUTSIDE RECORDS SUMMARY | 2025-01-20 14:34 | XMS_ITS | Encounter Summary ---
Author Organization [facility] Address [address] [place] [address] Phone Care Team Providers Care Sales Planning Coordinator Name Role Phone Guero José MD Primary Care Provider [phone] Encounter Details Date Type Department Care Team (Late st Contact Info) Description 05/23/2017 Conversion Encounter [facility] [place] [address] [place] [address] Social History Tobacco Use Types Packs/Day Years [...] on filedocumented in this encounter Care Teams Sales Planning Coordinator Relationship Specialty Start Date End Date Guero José MD [address] [place] [address] PCP - General 05/17/17 01/30/24 documented as of this encounter
--- OUTSIDE RECORDS SUMMARY | 2025-01-20 14:34 | XMS_ITS | Encounter Summary ---
Author Organization [facility] Address [address] [place] [address] Phone Care Team Providers Care Tree Feller Operator Name Role Phone Guero José MD Primary Care Provider [phone] Reason for Visit * Reason Comments Med Refill Encounter Details Date Type Department Care Team ([facility] Contact Info) Description 2019 Refill [facility] [place] [address] [place] [address] Francesco Keenan MD [address] [place] [address] Skin infection Social History Tobacco Use Types [...] tissue documented in this encounter Care Teams Tree Feller Operator Relationship Specialty Start Date End Date Guero José MD [address] [place] [address] [place] [address] PCP - General 05/17/17 01/30/24 documented as of this encounter
--- OUTSIDE RECORDS SUMMARY | 2025-01-20 14:34 | XMS_ITS | Encounter Summary ---
Author Organization [facility] Address [address] [place] [address] Phone Care Team Providers Care Goldsmith Apprentice Name Role Phone Guero José MD Primary Care Provider [phone] Encounter Details Date Type Department Care Team (Late st Contact Info) Description 10/18/2016 Documentation [facility] [place] [address] [place] [address] Family Medicine, Physician [address] [place] [phone] Social History Tobacco Use Types Packs/Day Years [...] on filedocumented in this encounter Care Teams Goldsmith Apprentice Relationship Specialty Start Date End Date Guero José MD [address] [place] [address] [place] [address] PCP - General 05/17/17 01/30/24 documented as of this encounter
--- OUTSIDE RECORDS SUMMARY | 2025-01-20 14:34 | XMS_ITS | Encounter Summary ---
Author Organization [facility] Address [address] [place] [id number] Phone Care Team Providers Care Him Tech Name Role Phone Guero José MD Primary Care Provider [phone] Encounter Details Date Type Department Care Team (Late st Contact Info) Description 12/04/2016 Documentation [facility] [place] Family Medicine [address] [place] [address] Family Medicine, Physician [address] [place] [place], [place] [id number] Social History Tobacco Use Types Packs/Day Years [...] on filedocumented in this encounter Care Teams Him Tech Relationship Specialty Start Date End Date Guero José MD [address] [place], [place] [address] [place] [address] PCP - General 05/17/17 01/30/24 documented as of this encounter
== END 2025-01-20 14:15 | disposition home or self-care (01) ==
PROVIDERS: Physician Assistant Medical; Emergency Provider Emergency Medicine; PCP Pediatrics
DX: K59.00 Constipation, unspecified (principal); F41.9 Anxiety disorder, unspecified; R51.9 Headache, unspecified; Z03.818 Encounter for observation for suspected exposure to other biological agents ruled out; Z79.899 Other long term (current) drug therapy
CPT/HCPCS: 0241U; 36415; 71046; 80048; 80076; 83690; 83735; 84443; 84484; 84702; 85025; 93005; 99283; 99284

== ENCOUNTER → 2025-01-20 11:40 | Outpatient (BNV) | payer OTHER, SELFPAY | PROVIDERS: Emergency Provider Emergency Medicine; PCP Pediatrics; Visit Provider Radiology Diagnostic Radiology | DX: R07.9 Chest pain, unspecified (principal) | CPT/HCPCS: 71046 ==

== ENCOUNTER → 2025-01-20 11:40 | Outpatient (BNV) | payer OTHER, SELFPAY | PROVIDERS: Emergency Provider Emergency Medicine; PCP Pediatrics; Visit Provider Internal Medicine Cardiovascular Disease | DX: I49.3 Ventricular premature depolarization (principal); R00.0 Tachycardia, unspecified | CPT/HCPCS: 93010 ==

== ENCOUNTER 2025-03-22 02:10 | Emergency (ER) | payer OTHER, SELFPAY ==
[2025-03-22 02:19] VITALS: BP 123/81; PULSE 95; RESP 20; TEMP 36.6; O2SAT 100; BMI 18.0
--- OUTSIDE RECORDS SUMMARY | 2025-03-22 02:51 | XMS_ITS | Encounter Summary ---
Author Organization [facility] Address [address] [place] [address] Phone Care Team Providers Care Welding Manager Name Role Phone Guero José MD Primary Care Provider [phone] Encounter Details Date Type Department Care Team (Late st Contact Info) Description 10/18/2016 Documentation [facility] [place] [address] [place] [address] Family Medicine, Physician [address] [place], [place] [id number] Social History Tobacco Use Types Packs/Day Years [...] on filedocumented in this encounter Care Teams Welding Manager Relationship Specialty Start Date End Date Guero José MD [address] [place] [address] [place] [address] PCP - General 05/17/17 01/30/24 documented as of this encounter
--- NOTE | 2025-03-22 03:15 | ED_ITS ---
HPI - General Adult General Chief complaint: Headache Stated complaint: anxiety attack, migraine Time Seen by Provider: 03/22/25 03:15 History of Present Illness ED Provider: Michael ETIENNE narrative: The patient is a 24-year-old female who says that she has been having problems with frequent headaches over the last several months. She says that she has headaches that bother her several times a day, almost every day. Says that she usually takes ibuprofen or simply goes to sleep to try to deal with a headache. She says that when she gets a headache she sometimes gets a rapid heartbeat that turns into a panic attack. She had an episode like that today and came to the emergency room. She is no longer feeling like she is having a panic attack. She is also complaining of some epigastric pain that seems to radiate into her left lower quadrant. She is also having some whitish vaginal discharge. No fever, sweats, chills. She says that she had STD testing at [facility] a month ago and that all the testing was negative. She is not on control pill. Related Data Previous Rx's ?Medication ?Instructions ?Recorded azithromycin 250 mg tablet 250 mg PO DAILY 4 days #4 tabs 08/29/21 (Zithromax Z-Ricardo) benzonatate 100 mg capsule 100 mg PO Q6H PRN cough #20 caps 08/29/21 prednisone 20 mg tablet 40 mg (2 x 20 mg) PO DAILY #10 tabs 08/29/21 cyclobenzaprine 10 mg tablet 10 mg PO Q8H PRN Muscle spasm #14 07/31/22 tabs naproxen 500 mg tablet,delayed 500 mg PO BID 7 days #14 tabs 07/31/22 release cyclobenzaprine 10 mg tablet 10 mg PO TID PRN muscle spasm #10 08/20/22 tabs naproxen 500 mg tablet 500 mg PO BID PRN pain #20 tabs 08/20/22 nirmatrelvir 300 mg (150 mg See Rx Instructions PO .COMPLEX 10/05/22 x2)-ritonavir 100 mg tablet,dose #30 ea pack (Paxlovid) cephalexin 500 mg capsule 500 mg PO QID #28 caps 11/09/22 doxycycline hyclate 100 mg tablet 100 mg PO BID 7 days #14 tabs 11/09/22 amoxicillin 875 mg-potassium 1 tab PO Q12H 10 days #20 tabs 03/03/23 clavulanate 125 mg tablet naproxen 500 mg tablet 500 mg PO BID PRN pain 7 days #14 03/03/23 tabs naproxen 500 mg tablet 500 mg PO BID PRN pain 7 days #14 04/28/23 tabs hydroxyzine HCl 25 mg tablet 25 mg PO BID PRN anxiety #14 tabs 08/02/23 salicylic acid 27.5 % topical 1 appl topical DAILY #10 mL 10/21/23 film-forming liquid hydrocortisone acetate 25 mg 25 mg [place] DAILY #12 ea 04/01/24 rectal suppository (Anusol-HC) ibuprofen 600 mg tablet 600 mg PO Q8H PRN pain #14 tabs 05/19/24 hydroxyzine HCl 25 mg tablet 25 mg PO BID PRN anxiety #14 tabs 11/06/24 ketorolac 10 mg tablet 10 mg PO TID PRN pain 5 days #15 11/06/24 tabs doxycycline hyclate 100 mg capsule 100 mg PO BID #19 caps 11/16/24 docusate sodium 100 mg capsule 100 mg PO DAILY #14 caps 01/20/25 (Colace) hydroxyzine HCl 10 mg tablet 10 mg PO TID PRN dizzy #7 tabs 01/20/25 naproxen 500 mg tablet 500 mg PO BID PRN headache 7 days 01/20/25 #14 tabs sennosides 8.6 mg capsule (senna) 8.6 mg PO DAILY #14 caps 01/20/25 doxycycline monohydrate 100 mg 100 mg PO BID #14 caps 03/22/25 capsule ibuprofen 400 mg tablet 400 mg PO Q6H PRN pain #14 tabs 03/22/25 metronidazole 500 mg tablet 500 mg PO BID #14 tabs 03/22/25 ondansetron 4 mg disintegrating 4 mg PO Q6H PRN nausea and 03/22/25 tablet vomiting #10 tabs Allergies Allergy/AdvReac Type Severity Reaction Status Date / Time No Known Allergies Allergy Verified 03/22/25 02:22 Review of Systems Review of Systems: Yes all other systems are reviewed and are negative PMFSH Past Medical History Medical History Patient denies medical problems Social History Social History Alcohol intake: never Patient Tobacco Use Status: Never used Tobacco Smoked in Last 30 Days: Yes Substance Use Type: Marijuana Substance Use Frequency: Daily Advance Directives: No Advance Directives Information Provided: No Physical Exam ED Vital Signs: Vital Signs - 24 hr 03/22/25 02:19 03/22/25 05:29 Temperature 97.8 F 98.1 F Pulse Rate 95 80 Respiratory Rate 20 16 Blood Pressure 123/81 92/56 L Pulse Oximetry 100 99 Oxygen Delivery Method Room Air Room Air BMI result Body Mass Index 18.0 Const Other: The patient is a very thin 24-year-old female who was awake and alert. She seems tired but not toxic. She does not seem in acute distress. HENMT Other: The face is symmetrical, mucous membranes moist, the posterior pharynx appears normal. Eyes Other: Pupils are round, equal, and reactive to light, extraocular movements are intact. Neck Other: No cervical adenopathy. The neck is supple. She can touch her chin to her chest easily. Resp Effort & Inspection: normal respiratory effort Auscultation: clear to auscultation bilaterally Cardio Rate: regular rate Rhythm: regular rhythm Heart sounds: S1 normal heart sound present and S2 normal heart sound present GI Other: The abdomen was flat soft and did not seem significantly tender. Skin Other: Skin is dry and unremarkable. No rash. Neuro Other: The patient seemed tired but nontoxic. She was awake and alert with a normal mental status. She had a supple neck. Cranial nerves 2-12 are intact. She moves her extremities symmetrically and normally. Extrem Other: No peripheral edema Medications Administered Discontinued Medications Generic Name Dose Route Start Last Admin Trade Name Freq PRN Reason Stop Dose Admin Acetaminophen 650 mg 03/22/25 03:31 03/22/25 04:01 Acetaminophen 325 Mg Tablet PO 03/22/25 03:32 650 mg ONCE ONE Administration Ceftriaxone Sodium 500 mg 03/22/25 05:13 03/22/25 05:35 Ceftriaxone Sodium 500 Mg Vial IM 03/22/25 05:14 500 mg ONCE ONE Administration Doxycycline Monohydrate 100 mg 03/22/25 05:13 03/22/25 05:33 Doxycycline Monohydrate 100 Mg Capsule PO 03/22/25 05:14 100 mg ONCE ONE Administration Ibuprofen 400 mg 03/22/25 03:31 03/22/25 04:05 Ibuprofen 400 Mg Tablet PO 03/22/25 03:32 400 mg ONCE ONE Administration Metronidazole 500 mg 03/22/25 05:13 03/22/25 05:33 Metronidazole 500 Mg Tablet PO 03/22/25 05:14 500 mg ONCE ONE Administration Ondansetron HCl 4 mg 03/22/25 03:31 03/22/25 04:02 Ondansetron Odt 4 Mg Tab.Donaldodis SENAITINGU 03/22/25 03:32 4 mg ONCE ONE Administration Medical Decision Making Medical Decision Making [facility] Narrative: The patient is a 24-year-old female who complained at triage of headaches that she you has been having a lot recently and she also complained of intermittent episodes of a rapid heartbeat that she found alarming and which seemed to trigger panic attacks. At the time that I saw her she initially was only speaking of the headache. She did not seem to have any focal neurological deficit and she does not seem febrile or toxic. However on further questioning she admitted some whitish vaginal discharge and some mild lower abdominal discomfort. On physical exam I thought her abdomen seemed quite benign. She clearly had some concern about the possibility of a sexually transmitted disease. She said she has been checked for STIs at [facility] a month ago and had negative testing. She says that she has had a pelvic examined the past and did not wish to have a pelvic exam tonight but was willing to self swab and provide a urinary specimen. In the meantime she was given ibuprofen, acetaminophen, and ondansetron for her headache. Her urine test was negative. Eight Trichomonas prep was sent via self swab. This was negative for trichomonads and yeast. A swab for bacterial vaginosis was also sent via self swab. This was positive for bacterial vaginosis but negative for T vaginalis and candidate. At that point it did not seem as if the GC and chlamydia would result for many hours. I explained to the patient that since she had tested positive for b acterial vaginosis that it would probably be reasonable to also treat her for possible gonorrhea and chlamydia. She was therefore given 500 mg of IM ceftriaxone and an initial dose of oral doxycycline. She was discharged with 7 days' worth of oral doxycycline and metronidazole. She is advised to follow up with [facility]. She was also given contact information for local PCP offices so she can try to establish a new PCP. Addendum: At 09:00 the following morning I reviewed the patient's results. She has tested positive for gonorrhea in addition to bacterial vaginosis. Her chlamydia by urine testing was negative. I attempted to reach the patient by phone at the number we have in the computer, . Unfortunately this phone was not receiving any messages. I could not leave a voicemail. We will try to reach her by other means. The patient had been advised to follow up with [facility] where she has been seen before. Lab Data Labs: Lab Results 03/22/25 Range/Units 03:53 Urine Test NEGATIVE (NEGATIVE) Chlam trachomat DNA PCR NOT DETECTED (Not Detect.) N.gonorrhoeae DNA (PCR) DETECTED A (Not Detect.) T. vaginalis (PCR) NOT DETECTED (Not Detect) Bact vaginosis (PCR) POSITIVE A (Negative) C. krusei/glabrata (PCR) NOT DETECTED (Not Detect) Nela group (PCR) NOT DETECTED (Not Detect) Discharge Plan Discharge Clinical Impression: Headache, Bacterial vaginosis Patient Disposition: Home, Self-Care Instructions: Bacterial Vaginosis (ED) Additional Instructions: You tested positive today for a condition called bacterial vaginosis. Since bacterial vaginosis is sometimes associated with sexually transmitted infections you have also been put on a course of a medication called doxycycline in case you might have chlamydia as well. Additionally you received a dose of an injectable antibiotic called ceftriaxone to cover any possibility of gonorrhea. Your test is negative. You have also tested negative for yeast infection. I have sent prescriptions for additional doxycycline and metronidazole. Please take these each 2 times a day for a week. Please complete the entire course of each medication. In the short run I would recommend following up with [facility] at around the time you finish these medications for a recheck. Also continue efforts to get a new primary care doctor. Your discharge instructions have some contact information for local primary care offices that may be taking new patients. Please call these offices later today. For your headache I have sent a prescription for ibuprofen and also for a nausea medication ondansetron (Zofran). Return to the emergency room if you feel significantly worse. Prescriptions: New ibuprofen 400 mg tablet 400 mg PO Q6H PRN (Reason: pain) Qty: 14 0RF ondansetron 4 mg tablet,disintegrating 4 mg PO Q6H PRN (Reason: nausea and vomiting) Qty: 10 0RF metronidazole 500 mg tablet 500 mg PO BID Qty: 14 0RF doxycycline monohydrate 100 mg capsule 100 mg PO BID Qty: 14 0RF No Action prednisone 20 mg tablet 40 mg PO DAILY Qty: 10 0RF azithromycin [Zithromax Z-Ricardo] 250 mg tablet 250 mg PO DAILY 4 Days Qty: 4 0RF Rx Instructions: start on day 2 of therapy benzonatate 100 mg capsule 100 mg PO Q6H PRN (Reason: cough) Qty: 20 0RF naproxen 500 mg tablet,delayed release (DR/EC) 500 mg PO BID 7 Days Qty: 14 0RF cyclobenzaprine 10 mg tablet 10 mg PO Q8H PRN (Reason: Muscle spasm) Qty: 14 0RF naproxen 500 mg tablet 500 mg PO BID PRN (Reason: pain) Qty: 20 0RF cyclobenzaprine 10 mg tablet 10 mg PO TID PRN (Reason: muscle spasm) Qty: 10 0RF Paxlovid 300 mg (150 mg x 2)-100 mg tablets,dose pack See Rx Instructions .ROUTE .COMPLEX Qty: 30 0RF Rx Instructions: take TWO 150 mg tablets of nirmatrelvir with ONE 100 mg tablet of ritonavir twice daily for 5 days doxycycline hyclate 100 mg tablet 100 mg PO BID 7 Days Qty: 14 0RF cephalexin 500 mg capsule 500 mg PO QID Qty: 28 0RF amoxicillin-pot clavulanate 875-125 mg tablet 1 tab PO Q12H 10 Days Qty: 20 0RF naproxen 500 mg tablet 500 mg PO BID PRN (Reason: pain) 7 Days Qty: 14 0RF naproxen 500 mg tablet 500 mg PO BID PRN (Reason: pain) 7 Days Qty: 14 0RF hydroxyzine HCl 25 mg tablet 25 mg PO BID PRN (Reason: anxiety) Qty: 14 0RF salicylic acid 27.5 % film forming liquid w/appl 1 appl topical DAILY Qty: 10 0RF Rx Instructions: apply to entire wart site; allow to dry; repeat application hydroxyzine HCl 25 mg tablet 25 mg PO BID PRN (Reason: anxiety) Qty: 14 0RF ketorolac 10 mg tablet 10 mg PO TID PRN (Reason: pain) 5 Days Qty: 15 0RF Rx Instructions: Tolerated IM or IV in department hydrocortisone acetate [Anusol-HC] 25 mg suppository 25 mg [place] DAILY Qty: 12 0RF ibuprofen 600 mg tablet 600 mg PO Q8H PRN (Reason: pain) Qty: 14 0RF doxycycline hyclate 100 mg capsule 100 mg PO BID Qty: 19 0RF hydroxyzine HCl 10 mg tablet 10 mg PO TID PRN (Reason: dizzy) Qty: 7 0RF senna 8.6 mg capsule 8.6 mg PO DAILY Qty: 14 0RF docusate sodium [Colace] 100 mg capsule 100 mg PO DAILY Qty: 14 0RF naproxen 500 mg tablet 500 mg PO BID PRN (Reason: headache) 7 Days Qty: 14 0RF Referrals: [facility] Primary Care, [place] [Provider Group] [facility] Primary Care, [facility] [Provider Group] [facility] [Outside] Tricia Cuadra MD [Physician] - Interventions: ED Discharge Assessment Last Done: 03/22/25 05:29 Discharge Date/Time: 03/22/25 05:43 Print Language: Greenlandic
[2025-03-22] MEDS: Acetaminophen 325 MG TABLET 650 MG PO (04:01)
[2025-03-22] MEDS: Ondansetron ODT 4 MG TAB.RAPDIS TRANSLINGU (04:02)
[2025-03-22 04:03] LABS: UPreg QC Valid YES; Urine Pregnancy NEGATIVE (NEGATIVE)
[2025-03-22] MEDS: Ibuprofen 400 MG TABLET PO (04:05)
[2025-03-22 05:03] LABS: Bacterial Vaginosis PCR POSITIVE (Negative); Candida Group PCR NOT DETECTED (Not Detect); Candida glab krusei PCR NOT DETECTED (Not Detect); Trichomonas vaginalis PCR NOT DETECTED (Not Detect)
[2025-03-22 05:29] VITALS: BP 92/56; PULSE 80; RESP 16; TEMP 36.7; O2SAT 99
[2025-03-22] MEDS: metroNIDAZOLE 500 MG TABLET PO (05:33)
[2025-03-22] MEDS: Doxycycline Monohydrate 100 MG CAPSULE PO (05:33)
[2025-03-22] MEDS: cefTRIAXone sodium 500 MG VIAL IM (05:35)
[2025-03-22 06:13] LABS: CT PCR NOT DETECTED (Not Detect.); NG PCR DETECTED (Not Detect.)
== END 2025-03-22 05:43 | disposition home or self-care (01) ==
PROVIDERS: Emergency Provider Emergency Medicine; PCP Pediatrics
DX: R51.9 Headache, unspecified (principal); N76.0 Acute vaginitis; A54.02 Gonococcal vulvovaginitis, unspecified
CPT/HCPCS: 81025; 81515; 87491; 87591; 96372; 99284; J0696

== ENCOUNTER 2025-05-13 16:54 | Emergency (ER) | payer OTHER, SELFPAY ==
--- NOTE | 2025-05-13 17:23 | ED_ITS ---
HPI - General Adult General Chief complaint: Syncope Stated complaint: syncopal episode Time Seen by Provider: 05/13/25 20:25 History of Present Illness ED Provider: JAIME DE LOS SANTOS MD HPI narrative: 24-year-old female daily marijuana smoker no medical history with lightheadedness prodrome and a syncopal/presyncopal event just prior to arrival after walking a few steps into a store. Is a warm day out she has however been eating and drinking she felt subjectively she has been hydrating. Mild vaginal bleeding several days after her cycle ended. Non . No abdominal pain denies dysuria or fever Related Data Previous Rx's ?Medication ?Instructions ?Recorded azithromycin 250 mg tablet 250 mg PO DAILY 4 days #4 t abs 08/29/21 (Zithromax Z-Ricardo) benzonatate 100 mg capsule 100 mg PO Q6H PRN cough #20 caps 08/29/21 prednisone 20 mg tablet 40 mg (2 x 20 mg) PO DAILY # 10 tabs 08/29/21 cyclobenzaprine 10 mg tablet 10 mg PO Q8H PRN Muscle s pasm #14 07/31/22 tabs naproxen 500 mg tablet,delayed 500 mg PO BID 7 days #1 4 tabs 07/31/22 release cyclobenzaprine 10 mg tablet 10 mg PO TID PRN muscle s pasm #10 08/20/22 tabs naproxen 500 mg tablet 500 mg PO BID PRN pain #20 t abs 08/20/22 nirmatrelvir 300 mg (150 mg See Rx Instructions PO .CO MPLEX 10/05/22 x2)-ritonavir 100 mg tablet,dose #30 ea pack (Paxlovid) cephalexin 500 mg capsule 500 mg PO QID #28 caps 11/09 doxycycline hyclate 100 mg tablet 100 mg PO BID 7 days #14 tabs 11/09/22 amoxicillin 875 mg-potassium 1 tab PO Q12H 10 days #20 tabs 03/03/23 clavulanate 125 mg tablet naproxen 500 mg tablet 500 mg PO BID PRN pain 7 day s #14 03/03/23 tabs naproxen 500 mg tablet 500 mg PO BID PRN pain 7 day s #14 04/28/23 tabs hydroxyzine HCl 25 mg tablet 25 mg PO BID PRN anxiety #14 tabs 08/02/23 salicylic acid 27.5 % topical 1 appl topical DAILY #10 mL 10/21/23 film-forming liquid hydrocortisone acetate 25 mg 25 mg MT DAILY #12 ea rectal suppository (Anusol-HC) ibuprofen 600 mg tablet 600 mg PO Q8H PRN pain #14 t abs 05/19/24 hydroxyzine HCl 25 mg tablet 25 mg PO BID PRN anxiety #14 tabs 11/06/24 ketorolac 10 mg tablet 10 mg PO TID PRN pain 5 days #15 11/06/24 tabs doxycycline hyclate 100 mg capsule 100 mg PO BID #19 c aps 11/16/24 docusate sodium 100 mg capsule 100 mg PO DAILY #14 cap s 01/20/25 (Colace) hydroxyzine HCl 10 mg tablet 10 mg PO TID PRN dizzy #7 tabs 01/20/25 naproxen 500 mg tablet 500 mg PO BID PRN headache 7 days 01/20/25 #14 tabs sennosides 8.6 mg capsule (senna) 8.6 mg PO DAILY #14 caps 01/20/25 doxycycline monohydrate 100 mg 100 mg PO BID #14 caps 03/22/25 capsule ibuprofen 400 mg tablet 400 mg PO Q6H PRN pain #14 t abs 03/22/25 metronidazole 500 mg tablet 500 mg PO BID #14 tabs ondansetron 4 mg disintegrating 4 mg PO Q6H PRN nausea and 03/22/25 tablet vomiting #10 tabs nitrofurantoin 100 mg PO BID 5 days #10 cap s 05/13/25 monohydrate/macrocrystals 100 mg capsule (Macrobid) Allergies Allergy/AdvReac Type Severity Reaction Status Date / Time No Known Allergies Allergy Verified 05/13/25 17:26 [facility] Past Medical History Medical History Patient denies medical problems Social History Social History Alcohol intake: never Patient Tobacco Use Status: Never used Tobacco Smoked in Last 30 Days: No Use of substances other than those prescribed or required for medical reasons: Yes Substance Use Type: Marijuana Substance Use Frequency: Daily Advance Directives: No Advance Directives Information Provided: No Physical Exam ED Exam Exam: EXAM: Gen: Alert, awake, well appearing, well hydrated. Head: Atraumatic Eyes: Anicteric, Normal conjunctiva. ENT: Moist mucosa, no pallor. ? Neck: Supple. Skin: ?No observable rash or bruising on exposed or examined skin Respiratory: Breathing comfortably, No distress.Clear to auscultation bilaterally, symmetric chest expansion, No wheeze, rales, ronchi. Cardiovascular: Regular rate and rhythm. No murmurs or rub. Well perfused periphery, warm extremities. No edema. ? Abdominal: No focal tenderness. Soft, no objective distension. No palpable masses or obvious organomegaly. ?No guarding, no rebound tenderness or other peritoneal findings. : No flank tenderness. Neuro: Alert. Gross movement of all extremities intact. ? Psych: Calm. Cooperative. MSK: No grossly visible deformity. Vital signs: See flowsheet Vital Signs: Vital Signs - 24 hr 05/13/25 17:24 05/13/25 19:51 05/13/25 20:48 Temperature 98.1 F 98 F 98 F Pulse Rate 94 76 78 Respiratory Rate 16 20 16 Blood Pressure 102/63 115/95 H 110/88 Pulse Oximetry 98 98 99 Oxygen Delivery Method Room Air Room Air Room Air BMI result Body Mass Index 17.7 Course Course Course Narrative: This is a rapid medical exam performed by Jayson [place] NP: Additional HPI, ROS, PE not included below will be deferred to primary provider. 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 Vomiting afterwards, feels dizzy now, has lower abd cramps and back pain. LMP was last week but has been having heavy vaginal bleeding since yesterday. Plan: EKG, labs, UA Medical Decision Making Medical Decision Making MDM Narrative: Medical Decision Making: [age] female with near versus syncopal event prior to arrival no traumatic injuries or falls sounds like she was caught. No convulsive activity witnessed. Vaginal bleeding. Non . No anemia does not appear anemic or pale clinically. Likely vasovagal or dehydration. Patient is young thin with a petite body habitus. I see no signs of injury and she has got a reassuring cardiovascular exam low risk syncope discharged home Preliminary Favored Differential Diagnosis: Orthostasis, dehydration, vasovagal, transient arrhythmia less likely among additional considered etiologies Testing Interpreted Independently:ECG: Sinus rhythm rate 92 QTC 435 normal intervals and axis no ischemic changes no RV strain Radiology or Lab testing Results Reviewed: Not Applicable Consults: Not Applicable Independent Historians/External Chart Reviews: Not Applicable Social Determinants of Health Impacting MDM/Planning: Not Applicable Lab Data 05/13/25 17:40 05/13/25 17:40 Labs: Lab Results 05/13/25 05/13/25 Range/Units 17:40 20:04 WBC 7.2 (4.8-10.8) X10*3/uL RBC 4.69 (4.20-5.50) X10*6/uL Hgb 10.0 L (12.0-16.0) g/dl Hct 30.7 L (37.0-47.0) % MCV 65.5 L (80.0-98.0) fL MCH 21.3 L (27.0-33.0) pg MCHC 32.6 (31.0-35.0) g/dl RDW 19.4 H (11.0-16.0) % Plt Count 266 D (160-400) X10*3/uL MPV 9.8 (9.4-12.3) fL Immature Gran % (Auto) 0.6 H (0.0-0.4) % Neut % (Auto) 60.1 (45-73) % Lymph % (Auto) 31.4 (20-40) % [place] % (Auto) 6.4 (2-11) % Eos % (Auto) 1.1 (0-4) % Baso % (Auto) 0.4 (0-2) % Lymph # (Auto) 2.3 (1.2-4.9) X10*3/uL [place] # (Auto) 0.5 (0.1-1.2) X10*3/uL Eos # (Auto) 0.1 (0.0-0.4) X10*3/uL Baso # (Auto) 0.0 (0.0-0.2) X10*3/uL Abs Immat Gran (auto) 0.04 H (0.00-0.03) X10*3/uL Absolute Neuts (auto) 4.3 (2.0-8.3) x10*3/uL Absolute Nucleated RBC 0.070 H (0.0-0.012) X10*3/uL Nucleated RBC % (auto) 1.0 H (0.0-0.2) /100WBC Sodium 140 (135-145) mmol/L Potassium 3.9 (3.3-5.1) mmol/L Chloride 103 (96-108) mmol/L Carbon Dioxide 29 (22-29) mmol/L Anion Gap 12 (12-20) BUN 9 (9-16) mg/dL Creatinine 0.62 (0.5-1.4) mg/dL Estim Creat Clear Calc 104.9 Estimated GFR > 60 Random Glucose 76 (60-115) mg/dL Calcium 9.2 (8.4-10.2) mg/dL Total Bilirubin 1.1 H (0.0-1.0) mg/dL AST 19 (5-31) U/L ALT 10 (0-31) U/L Alkaline Phosphatase 48 (39-117) U/L Total Protein 7.4 (6.5-8.0) g/dL Albumin 4.6 (3.5-5.0) g/dL Beta HCG, Quant < 2 mIU/mL Urine Color Dark Yellow Urine Appearance Cloudy Urine pH 6.5 (5.0-9.0) Ur Specific [place] 1.025 (1.005-1.025) Urine Protein 30 (1+) H (Neg-Trace) mg/dL Urine Glucose (UA) Negative (Negative) mg/dL Urine Ketones 15 (Negative) mg/dL Urine Blood Large (3+) H (Negative) Urine Nitrite Positive H (Negative) Ur Leukocyte Esterase Small (1+) H (Negative) Urine RBC >20 H (0-2) /HPF Urine WBC 6-10 H (0-5) /HPF Ur Squamous Epith Cells 11-20 (0-2) /HPF Urine Bacteria 4+ (None Seen) Hyaline Casts 6-10 (0-2) /LPF Influenza Type A (PCR) NEGATIVE (Negative) Influenza Type B (PCR) NEGATIVE (Negative) RSV RNA Qual (PCR) NEGATIVE (Negative) SARS-CoV-2 RNA (RT-PCR) NEGATIVE (Negative) Discharge Plan Discharge Clinical Impression: Vasovagal syncope, UTI (urinary tract infection), DUB (dysfunctional uterine bleeding) Patient Disposition: Home, Self-Care Instructions: Abnormal (Dysfunctional) Uterine Bleeding (ED), Urinary Tract Infection in Women (DC), Syncope (ED) Additional Instructions: _ DISCHARGE DIAGNOSES: Non abnormal uterine bleeding no anemia UTI incidentally found treatment started Syncope or passing out episode unclear cause possibly vasovagal which is a benign cause HISTORY OF PRESENTATION: ?Syncope mild vaginal bleeding post cycle EMERGENCY DEPARTMENT COURSE,TESTS, TREATMENTS: While in the ED today your test was negative. You had normal lab chemistry and blood counts. You had no signs of trauma it was not felt that you had seizure. We felt your passing out episode was from vasovagal episode. You were incidentally found to have urine test that is suggests urinary tract infection. DISCHARGE MEDICATIONS: ?Antibiotics take as prescribed FOLLOW-UP: ?Call your primary or general physician soon as possible to discuss your symptoms, your ED visit and to discuss follow up plans PCP OBGYN INSTRUCTIONS ?& RETURN PRECAUTIONS: If any symptoms change first call your primary physician, if it is after-hours your primary doctors office should have a provider fellmongering machine operator you can speak with. If the symptoms are severe or very concerning to you then call 911 or return to the ED. [07] Jaime De Los Santos MD Emergency Physician [facility] Prescriptions: New nitrofurantoin monohyd/m-cryst [Macrobid] 100 mg capsule 100 mg PO BID 5 Days Qty: 10 0RF Rx Instructions: must administer with a meal/food No Action prednisone 20 mg tablet 40 mg PO DAILY Qty: 10 0RF azithromycin [Zithromax Z-Ricardo] 250 mg tablet 250 mg PO DAILY 4 Days Qty: 4 0RF Rx Instructions: start on day 2 of therapy benzonatate 100 mg capsule 100 mg PO Q6H PRN (Reason: cough) Qty: 20 0RF naproxen 500 mg tablet,delayed release (DR/EC) 500 mg PO BID 7 Days Qty: 14 0RF cyclobenzaprine 10 mg tablet 10 mg PO Q8H PRN (Reason: Muscle spasm) Qty: 14 0RF naproxen 500 mg tablet 500 mg PO BID PRN (Reason: pain) Qty: 20 0RF cyclobenzaprine 10 mg tablet 10 mg PO TID PRN (Reason: muscle spasm) Qty: 10 0RF Paxlovid 300 mg (150 mg x 2)-100 mg tablets,dose pack See Rx Instructions .ROUTE .COMPLEX Qty: 30 0RF Rx Instructions: take TWO 150 mg tablets of nirmatrelvir with ONE 100 mg tablet of ritonavir twice daily for 5 days doxycycline hyclate 100 mg tablet 100 mg PO BID 7 Days Qty: 14 0RF cephalexin 500 mg capsule 500 mg PO QID Qty: 28 0RF amoxicillin-pot clavulanate 875-125 mg tablet 1 tab PO Q12H 10 Days Qty: 20 0RF naproxen 500 mg tablet 500 mg PO BID PRN (Reason: pain) 7 Days Qty: 14 0RF naproxen 500 mg tablet 500 mg PO BID PRN (Reason: pain) 7 Days Qty: 14 0RF hydroxyzine HCl 25 mg tablet 25 mg PO BID PRN (Reason: anxiety) Qty: 14 0RF salicylic acid 27.5 % film forming liquid w/appl 1 appl topical DAILY Qty: 10 0RF Rx Instructions: apply to entire wart site; allow to dry; repeat application hydroxyzine HCl 25 mg tablet 25 mg PO BID PRN (Reason: anxiety) Qty: 14 0RF ketorolac 10 mg tablet 10 mg PO TID PRN (Reason: pain) 5 Days Qty: 15 0RF Rx Instructions: Tolerated IM or IV in department ibuprofen 400 mg tablet 400 mg PO Q6H PRN (Reason: pain) Qty: 14 0RF ondansetron 4 mg tablet,disintegrating 4 mg PO Q6H PRN (Reason: nausea and vomiting) Qty: 10 0RF metronidazole 500 mg tablet 500 mg PO BID Qty: 14 0RF doxycycline monohydrate 100 mg capsule 100 mg PO BID Qty: 14 0RF hydrocortisone acetate [Anusol-HC] 25 mg suppository 25 mg MT DAILY Qty: 12 0RF ibuprofen 600 mg tablet 600 mg PO Q8H PRN (Reason: pain) Qty: 14 0RF doxycycline hyclate 100 mg capsule 100 mg PO BID Qty: 19 0RF hydroxyzine HCl 10 mg tablet 10 mg PO TID PRN (Reason: dizzy) Qty: 7 0RF senna 8.6 mg capsule 8.6 mg PO DAILY Qty: 14 0RF docusate sodium [Colace] 100 mg capsule 100 mg PO DAILY Qty: 14 0RF naproxen 500 mg tablet 500 mg PO BID PRN (Reason: headache) 7 Days Qty: 14 0RF Referrals: [facility] [Provider Group] [facility] Women[facility] Services [Provider Group] Interventions: ED Discharge Assessment Last Done: 05/13/25 20:48 Discharge Date/Time: 05/13/25 20:53 Print Language: Wolof
[2025-05-13 17:24] VITALS: BP 102/63; PULSE 94; RESP 16; TEMP 36.7; O2SAT 98; BMI 17.7
--- NOTE | 2025-05-13 17:26 | ECG_ITS ---
Test Reason : SYNCOPE Blood Pressure : */* mmHG Vent. Rate : 92 BPM Atrial Rate : 96 BPM P-R Int : 112 ms QRS Dur : 84 ms QT Int : 352 ms P-R-T Axes : 53 48 18 degrees QTcB Int : 435 ms Normal sinus rhythm with sinus arrhythmia Normal ECG When compared with ECG of 20-Jan-2025 11:51, Premature ventricular complexes are no longer Present Referred By: Joie [place] Electronically Signed By: NIKOLAY VANG
[2025-05-13 18:00] LABS: MANUAL DIFF FLAG NO
[2025-05-13 18:02] LABS: Hematocrit 30.7 % (37.0-47.0); Hemoglobin 10.0 g/dl (12.0-16.0); Imm Gran Abs Auto 0.04 X10*3/uL (0.00-0.03); Imm Gran Pct Auto 0.6 % (0.0-0.4); Lymphocytes Absolute Auto 2.3 X10*3/uL (1.2-4.9); Mean Corpuscular HGB Conc 32.6 g/dl (31.0-35.0); Mean Corpuscular Hemoglobin 21.3 pg (27.0-33.0); Mean Corpuscular Volume 65.5 fL (80.0-98.0); NRBC Abs Auto 0.070 X10*3/uL (0.0-0.012); Platelet Count 266 X10*3/uL (160-400); Red Blood Count 4.69 X10*6/uL (4.20-5.50); White Blood Count 7.2 X10*3/uL (4.8-10.8)
[2025-05-13 18:08] LABS: NRBC Pct Auto 1.0 /100WBC (0.0-0.2)
[2025-05-13 18:24] LABS: Alanine Aminotransferase 10 U/L (0-31); Albumin Level 4.6 g/dL (3.5-5.0); Alkaline Phosphatase 48 U/L (39-117); Anion Gap 12 (12-20); Aspartate Amino Transferase 19 U/L (5-31); Blood Urea Nitrogen 9 mg/dL (9-16); Calcium 9.2 mg/dL (8.4-10.2); Carbon Dioxide 29 mmol/L (22-29); Chloride 103 mmol/L (96-108); Creatinine Clr Calc Pharmacy 104.9; Estimated Glomerular Filt Rate > 60; Potassium 3.9 mmol/L (3.3-5.1); Sodium 140 mmol/L (135-145); Total Protein 7.4 g/dL (6.5-8.0)
[2025-05-13 18:37] LABS: Resp Syncy Virus RNA Qual PCR NEGATIVE (Negative); SARS COV2 PCR INHOUSE NEGATIVE (Negative)
[2025-05-13 19:51] VITALS: BP 115/95; PULSE 76; RESP 20; TEMP 36.6; O2SAT 98
--- OUTSIDE RECORDS SUMMARY | 2025-05-13 20:01 | XMS_ITS | Encounter Summary ---
Author Organization [facility] Address [address] [place] [id number] Phone Care Team Providers Care Information Systems Technician Name Role Phone Guero José MD Primary Care Provider [phone] Encounter Details Date Type Department Care Team (Late st Contact Info) Description 10/18/2016 Documentation [facility] Family Medicine [address] [place] [address] Family Medicine, Physician [address], [place] [id number] Social History Tobacco Use Types Packs/Day Years [...] on filedocumented in this encounter Care Teams Information Systems Technician Relationship Specialty Start Date End Date Guero José MD [address] [place], [place] [id number] [place] [id number] PCP - General 05/17/17 01/30/24 documented as of this encounter
[2025-05-13 20:13] LABS: Appearance Urine Cloudy; Glucose Urine UA Negative (Negative); PH 6.5 (5.0-9.0); Specific Gravity - Urine 1.025 (1.005-1.025); UMIC TRIGGER UACC YES
[2025-05-13 20:29] LABS: UACC Culture Trigger YES
[2025-05-13 20:48] VITALS: BP 110/88; PULSE 78; RESP 16; TEMP 36.6; O2SAT 99
== END 2025-05-13 20:53 | disposition home or self-care (01) ==
PROVIDERS: Registered Nurse Emergency; Emergency Provider Emergency Medicine
DX: R55 Syncope and collapse (principal); N93.8 Other specified abnormal uterine and vaginal bleeding; N39.0 Urinary tract infection, site not specified; M54.9 Dorsalgia, unspecified
CPT/HCPCS: 80053; 81001; 84702; 85025; 87086; 87088; 87186; 87637; 93005; 99283; 99284

== ENCOUNTER → 2025-05-13 17:26 | Outpatient (BNV) | payer OTHER, SELFPAY | PROVIDERS: Emergency Provider Emergency Medicine; Visit Provider Internal Medicine | DX: R55 Syncope and collapse (principal) | CPT/HCPCS: 93010 ==

== ENCOUNTER 2025-06-01 11:14 | Outpatient (AMB) | payer OTHER, SELFPAY ==
--- NOTE | 2025-06-01 11:16 | A.OFFVIS_ITS ---
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 ([place]) Accompanied by: Self / Same As Patient Allergies No Known Allergies Allergy (Verified 06/01/25 11:22) Is last menstrual period known: Yes Last menstrual period: 04/30/25 Patient : No HPI Comments Details: Presenting complaining of heavy menstrual cycles associated with passage of blood clots 05/13/2025 H&H =/30.7, hCG less than 2, the patient gives a history of beta thalassemia she is unsure of what type 03/31 GC was positive, the patient was treated with her partner but no test of cure done yet, no STD screen done 05/13 urine cultures positive for E coli, the patient was treat with antibiotics [facility] Medical History Patient denies medical problems Family History Maternal Grandmother Diabetes Mother Cervical cancer Sister Hypertension Social History Housing: Apartment Alcohol intake: never Patient Tobacco Use Status: Never used Tobacco Substance Use Type: Marijuana Patient : No service: No Current occupational status: unemployed Sexually active: Yes Sexual orientation: Straight/Heterosexual Gender identity: Female Female Reproductive History Menstrual Age of Menarche: 15 Duration of menses: 6-7 days Date of last menstrual period: 04/30/25 control method: none Total pregnancies: 0 History of abnormal pap smear: No Review of Systems Const All systems reviewed & are unremarkable except as noted in HPI and below Physical Exam Vital Signs: Last Vital Signs BP 110/66 06/01/25 11:20 BMI result Body Mass Index 17.8 General: Yes no CVA tenderness External Female Exam: normal external appearance and normal appearance of the urethra Speculum Exam - Vagina: normal appearance of the vagina, normal palpation, no lesions and no masses Speculum Exam - Cervix: normal appearance of the cervix, normal palpation, no lesions, no masses and nontender Bimanual exam- vagina & uterus: normal bimanual exam, normal palpation, uterine size normal, normal palpation, uterine shape normal, No Cervical tenderness present and non-tender Bimanual Exam- Adnexa, other: normal adnexae Back/Spine/Pelvis Back: no CVA tenderness Assessment & Plan Assessment & Plan (1) Abnormal uterine bleeding (AUB): Comment: History of thalassemia Code(s): N93.9 - Abnormal uterine and vaginal bleeding, unspecified Category: Medical Plan: Pap smear taken, CBC, TSH, HCG, and pelvic ultrasound ordered. Discussed with the patient the different causes of abnormal bleeding including thyroid disorders, uterine and ovarian pathology and other potential causes. Discussed with the patient the work up including CBC (to r/o anemia), TSH, pelvic Ultrasound. All questions answered and the patient verbalized understanding. Instructed the patient to schedule an appointment for an endometrial biopsy in 2 weeks. (2) Gonorrhea contact, treated: Code(s): Z20.2 - Contact with and (suspected) exposure to infections with a predominantly sexual mode of transmission Category: Medical Plan: Urine culture repeated. STD screening tests done includes: BV panel for trichomonas, GC/CT will send patient for serology std screening for HIV, RPR, Hep b s Ag, HepC Ab. Instructions given the patient to schedule a follow-up appointment for repeat serology screen in 6 months for possible false negatives. (3) Beta thalassemia: Code(s): D56.1 - Beta thalassemia Category: Medical Plan: Will refer to [facility] for further management Orders: Orders Hepatitis B Surface Antigen Today Z20.2 - Contact with and (suspected) exposure to infections with a predominantly sexual mode of transmission Syphilis Screen Today Z20.2 - Contact with and (suspected) exposure to infections with a predominantly sexual mode of transmission Pap Smear Today N93.9 - Abnormal uterine and vaginal bleeding, unspecified Bacterial Vaginosis Panel Today N93.9 - Abnormal uterine and vaginal bleeding, unspecified TSH reflex Free T4 Today N93.9 - Abnormal uterine and vaginal bleeding, unspecified HCG Quantitative Today N93.9 - Abnormal uterine and vaginal bleeding, unspecif ied Complete Blood Count no Diff Today N93.9 - Abnormal uterine and vaginal bleeding, unspecified US pelvic and transvaginal Today N93.9 - Abnormal uterine and vaginal bleeding, unspecified Hepatitis C Antibody Today Z20.2 - Contact with and (suspected) exposure to infections with a predominantly sexual mode of transmission HIV Ab/Ag Today Z20.2 - Contact with and (suspected) exposure to infections with a predominantly sexual mode of transmission CT NG by PCR Vag/Cerv Today N93.9 - Abnormal uterine and vaginal bleeding, unspecified Referrals Hematology & Oncology Referral D56.1 - Beta thalassemia Medications: Discontinued cyclobenzaprine Discontinued Reason: Patient no longer taking 10 mg PO TID PRN 10 tabs 0RF muscle spasm naproxen Discontinued Reason: Patient no longer taking 500 mg PO BID PRN 20 tabs 0RF pain doxycycline hyclate Discontinued Reason: Patient no longer taking 100 mg PO BID 7 days 14 tabs 0RF cephalexin Discontinued Reason: Patient no longer taking 500 mg PO QID 28 caps 0RF azithromycin (Zithromax Z-Ricardo) start on day 2 of therapy Discontinued Reason: Patient Completed Course 250 mg PO DAILY 4 days 4 tabs 0RF benzonatate Discontinued Reason: Patient no longer taking 100 mg PO Q6H PRN 20 caps 0RF cough prednisone Discontinued Reason: Patient no longer taking 40 mg (2 x 20 mg) PO DAILY 10 tabs 0RF cyclobenzaprine Discontinued Reason: Patient no longer taking 10 mg PO Q8H PRN 14 tabs 0RF Muscle spasm naproxen Discontinued Reason: Patient no longer taking 500 mg PO BID 7 days 14 tabs 0RF nirmatrelvir-ritonavir 300 mg (150 mg x 2)-100 mg (Paxlovid) Discontinued Reason: Patient no longer taking take TWO 150 mg tablets of nirmatrelvir with ONE 100 mg tablet of ritonavir twice daily for 5 days 30 ea 0RF naproxen Discontinued Reason: Patient no longer taking 500 mg PO BID 7 days PRN 14 tabs 0RF pain hydroxyzine HCl Discontinued Reason: Patient no longer taking 25 mg PO BID PRN 14 tabs 0RF anxiety hydrocortisone acetate (Anusol-HC) Discontinued Reason: Patient no longer taking 25 mg DC DAILY 12 ea 0RF doxycycline hyclate Discontinued Reason: Patient no longer taking 100 mg PO BID 19 caps 0RF docusate sodium (Colace) Discontinued Reason: Patient no longer taking 100 mg PO DAILY 14 caps 0RF ibuprofen Discontinued Reason: Patient no longer taking 400 mg PO Q6H PRN 14 tabs 0RF pain metronidazole Discontinued Reason: Patient no longer taking 500 mg PO BID 14 tabs 0RF ondansetron Discontinued Reason: Patient no longer taking 4 mg PO Q6H PRN 10 tabs 0RF nausea and vomiting nitrofurantoin monohyd/m-cryst 100 mg (Macrobid) must administer with a meal/food Discontinued Reason: Patient no longer taking 100 mg PO BID 5 days 10 caps 0RF amoxicillin-pot clavulanate 875-125 mg Discontinued Reason: Patient Completed Course 1 tab PO Q12H 10 days 20 tabs 0RF naproxen Discontinued Reason: Patient no longer taking 500 mg PO BID 7 days PRN 14 tabs 0RF pain salicylic acid 27.5% apply to entire wart site; allow to dry; repeat application Discontinued Reason: Patient no longer taking 1 appl topical DAILY 10 mL 0RF hydroxyzine HCl Discontinued Reason: Patient no longer taking 25 mg PO BID PRN 14 tabs 0RF anxiety ketorolac Tolerated IM or IV in department Discontinued Reason: Patient no longer taking 10 mg PO TID 5 days PRN 15 tabs 0RF pain naproxen Discontinued Reason: Patient no longer taking 500 mg PO BID 7 days PRN 14 tabs 0RF headache sennosides (senna) Discontinued Reason: Patient no longer taking 8.6 mg PO DAILY 14 caps 0RF Coding Level of Care Code New Pt Level 3 (17899) Diagnoses Abnormal uterine bleeding (AUB) N93.9 Gonorrhea contact, treated Z20.2 Beta thalassemia D56.1
[2025-06-01 11:20] VITALS: BP 110/66; BMI 17.8
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
--- OUTSIDE RECORDS SUMMARY | 2025-06-01 12:09 | XMS_ITS | Encounter Summary ---
Author Organization [facility] Address [address] [place] [address] Phone Care Team Providers Care Machine Chain Maker Name Role Phone Guero José MD Primary Care Provider [phone] Encounter Details Date Type Department Care Team (Late st Contact Info) Description 11/09/2016 Documentation [facility] [address] [place] [address] Family Medicine, Physician [address] [place], [place] [id number] Social History Tobacco Use Types Packs/Day Years [...] on filedocumented in this encounter Care Teams Machine Chain Maker Relationship Specialty Start Date End Date Guero José MD [address] [place], [place] [address] [address] PCP - General 05/17/17 01/30/24 documented as of this encounter
--- OUTSIDE RECORDS SUMMARY | 2025-06-01 12:09 | XMS_ITS | Encounter Summary ---
Author Organization [employer] Address [address] [facility] [address] [place] [address] Care Team Providers Care Day Worker Name Role Phone Unavailable Primary Care Provider Unavailabl e Encounter Details Date Type Department Care Team (Late st Contact Info) Description 05/14/2025 Telephone [facility] [address] [place] [address] Terry Cook MD [address] [place] [address] Social History Tobacco Use Types Packs/Day Years Used Date Smoking Tobacco: Never Assessed Comments Unknown Sex and Gender Information Value Date Recorded Sex Assigned at Female 05/14/2025 9:47 AM EDT Legal Sex Female 9:46 AM EDT Gender Identity Female 05/14/2025 9:47 AM EDT Sexual Orientation Not on file documented as of this encounter Plan of Treatment Not on file documented as of this encounter Visit Diagnoses Not on filedocumented in this encounter
--- OUTSIDE RECORDS SUMMARY | 2025-06-01 12:09 | XMS_ITS | Encounter Summary ---
Author Organization [facility] Address [address] [place] [address] Phone Care Team Providers Care Cold Press Loader Name Role Phone Guero José MD Primary Care Provider [phone] Encounter Details Date Type Department Care Team (Late st Contact Info) Description 10/18/2016 Documentation [facility] [place] [facility] [address] [place] [address] Family Medicine, Physician [address] [place] [phone] Social History Tobacco Use Types Packs/Day Years [...] on filedocumented in this encounter Care Teams Cold Press Loader Relationship Specialty Start Date End Date Guero José MD [address] [place], [place] [address] [address] PCP - General 05/17/17 01/30/24 documented as of this encounter
--- OUTSIDE RECORDS SUMMARY | 2025-06-01 12:09 | XMS_ITS | Encounter Summary ---
Author Organization [facility] Address [address] [place] [address] Phone Care Team Providers Care Instrumentation Supervisor Name Role Phone Guero José MD Primary Care Provider [phone] Encounter Details Date Type Department Care Team (Late st Contact Info) Description 10/18/2016 Documentation [facility] [place] Medicine [address] [place] [address] Family Medicine, Physician [address] [place] [phone] Social History Tobacco Use Types Packs/Day Years [...] on filedocumented in this encounter Care Teams Instrumentation Supervisor Relationship Specialty Start Date End Date Guero José MD [address] [place], [place] [address] [address] PCP - General 05/17/17 01/30/24 documented as of this encounter
--- OUTSIDE RECORDS SUMMARY | 2025-06-01 12:09 | XMS_ITS | Encounter Summary ---
Author Organization [facility] Address [address] [place] [address] Phone Care Team Providers Care Environmental Health Safety Manager Name Role Phone Guero José MD Primary Care Provider [phone] Encounter Details Date Type Department Care Team (Late st Contact Info) Description 10/18/2016 Documentation [facility] [place] [address] [place] [address] Family Medicine, Physician [address] [place] [phone] Social History Tobacco Use Types Packs/Day Years [...] on filedocumented in this encounter Care Teams Environmental Health Safety Manager Relationship Specialty Start Date End Date Guero José MD [address] [place], [place] [address] [address] PCP - General 05/17/17 01/30/24 documented as of this encounter
--- OUTSIDE RECORDS SUMMARY | 2025-06-01 12:09 | XMS_ITS | Encounter Summary ---
Author Organization [facility] Address [address] [place] [address] Phone Care Team Providers Care Knit Tubing Dyer Name Role Phone Guero José MD Primary Care Provider [phone] Reason for Visit * Reason Comments Med Refill Encounter Details Date Type Department Care Team ([facility] Contact Info) Description 2019 Refill [facility] [place] [address] [place] [address] Francesco Keenan MD [address] [place] [address] Skin infection Social History Tobacco Use Types [...] tissue documented in this encounter Care Teams Knit Tubing Dyer Relationship Specialty Start Date End Date Guero José MD [address] [place] [address] [place] [address] PCP - General 05/17/17 01/30/24 documented as of this encounter
--- OUTSIDE RECORDS SUMMARY | 2025-06-01 12:09 | XMS_ITS | Encounter Summary ---
Author Organization [facility] Address [address] [place] [phone] Phone Care Team Providers Care Project Construction Assistant Manager Name Role Phone Guero José MD Primary Care Provider [phone] Reason for Visit * Reason Comments Med Refill Encounter Details Date Type Department Care Team ([facility] Contact Info) Description 06/11/2019 Refill [facility] [place] [address] [place] [address] Francesco Keenan MD [address] [place] [address] Skin infection Social History Tobacco Use Types [...] tissue documented in this encounter Care Teams Project Construction Assistant Manager Relationship Specialty Start Date End Date Guero José MD [address] [facility] [place] [address] PCP - General 05/17/17 01/30/24 documented as of this encounter
--- OUTSIDE RECORDS SUMMARY | 2025-06-01 12:09 | XMS_ITS | Encounter Summary ---
Author Organization [facility] Address [address] [place] [phone] Phone Care Team Providers Care Management Internship Name Role Phone Guero José MD Primary Care Provider [phone] Encounter Details Date Type Department Care Team (Late st Contact Info) Description 10/18/2016 Documentation [facility] [place] Family Medicine [address] [place] [address] Family Medicine, Physician [address] [place] [phone] Social History Tobacco Use Types Packs/Day Years [...] on filedocumented in this encounter Care Teams Management Internship Relationship Specialty Start Date End Date Guero José MD [address] [place], [place] [address] [address] PCP - General 05/17/17 01/30/24 documented as of this encounter
--- OUTSIDE RECORDS SUMMARY | 2025-06-01 12:09 | XMS_ITS | Encounter Summary ---
Author Organization [facility] Address [address] [place] [address] Phone Care Team Providers Care Microchip Specialist Name Role Phone Guero José MD Primary Care Provider [phone] Encounter Details Date Type Department Care Team (Late st Contact Info) Description 10/18/2016 Documentation [facility] [place] [address] [place] [address] Family Medicine, Physician [address] [place] [phone] Social History Tobacco Use Types Packs/Day Years [...] on filedocumented in this encounter Care Teams Microchip Specialist Relationship Specialty Start Date End Date Guero José MD [address] [place], [place] [address] [address] PCP - General 05/17/17 01/30/24 documented as of this encounter
--- OUTSIDE RECORDS SUMMARY | 2025-06-01 12:09 | XMS_ITS | Clinical Summary ---
Author Organization [employer] Address [address] [facility] [address] [place] [address] Care Team Providers Care Music Engineer Name Role Phone Unavailable Primary Care Provider Unavailabl e Encounters Date Type Department Care Team Description 05/14/2025 Telephone [facility] [address] [place] [address] Terry Cook MD from Last 3 Months Social History Tobacco Use Types Packs/Day Years Used Date Smoking Tobacco: Never Assessed Comments Unknown Sex and Gender Information Value Date Recorded Sex Assigned at Female 05/14/2025 9:47 AM EDT Legal Sex Female 9:46 AM EDT Gender Identity Female 05/14/2025 9:47 AM EDT Sexual Orientation Not on file Plan of Treatment Health Maintenance Due Date Last Done Comments Chlamydia and Gonorrhea Screening 2002 Depression Screening 2002 HIV Screening 2002 SDOH Screening 2002 Disability Screening 2002 Alcohol/Substance Use Screening 2014 Tobacco Screening 2014 Family Planning (PISQ) 2017 HPV Vaccines (1 - 3-dose series) 2017 Meningococcal B Vaccine (1 o f 2 - Standard) 2018 Hepatitis C Screening 2020 DTaP/Tdap/Td Vaccines (1 - Tdap) 2021 Hepatitis B Vaccines (1 of 3 - 19+ 3-dose series) 2021 Pap Smear 12/22/2023 COVID-19 Vaccine (1 - 2023-2 5 season) 2024 Influenza Vaccine (#1) 2025 Zoster Vaccines (1 of 2) 2052 RSV Patients and Pa tients Aged 60 years or older (1 - 1-dose 75+ series) 2077 HIB Vaccines Aged Out No longer eligi ble based on patient's age to complete this topic Hepatitis A Vaccines Aged Out No long er eligible based on patient's age to complete this topic IPV Vaccines Aged Out No longer eligi ble based on patient's age to complete this topic Meningococcal Vaccine Aged Out No gay [place] eligible based on patient's age to complete this topic Pneumococcal Vaccine: Pediat rics (0 to 5 Years) and At-Risk Patients (6 to 49) Years Aged Out No longer eligible b ased on patient's age to complete this topic RSV under 20 months Aged Out No longe r eligible based on patient's age to complete this topic Rotavirus Vaccines Aged Out No longer eligible based on patient's age to complete this topic
--- OUTSIDE RECORDS SUMMARY | 2025-06-01 12:10 | XMS_ITS | Encounter Summary ---
Author Organization [facility] Address [address] [place] [address] Phone Care Team Providers Care Primer Inserting Machine Operator Name Role Phone Guero José MD Primary Care Provider [phone] Encounter Details Date Type Department Care Team (Late st Contact Info) Description 05/23/2017 Conversion Encounter [facility] [place] [address] [place] [address] Social History Tobacco Use Types Packs/Day Years [...] on filedocumented in this encounter Care Teams Primer Inserting Machine Operator Relationship Specialty Start Date End Date Guero José MD [address] [place] [address] PCP - General 05/17/17 01/30/24 documented as of this encounter
--- OUTSIDE RECORDS SUMMARY | 2025-06-01 12:10 | XMS_ITS | Encounter Summary ---
Author Organization [facility] Address [address] [place] [address] Phone Care Team Providers Care Tools And Parts Attendant Name Role Phone Guero José MD Primary Care Provider [phone] Encounter Details Date Type Department Care Team (Late st Contact Info) Description 12/04/2016 Documentation [facility] [place] Family Medicine [address] [place] [address] Family Medicine, Physician [address] [place] [phone] Social History Tobacco Use Types Packs/Day Years [...] on filedocumented in this encounter Care Teams Tools And Parts Attendant Relationship Specialty Start Date End Date Guero José MD [address] [place], [place] [address] [address] PCP - General 05/17/17 01/30/24 documented as of this encounter
--- OUTSIDE RECORDS SUMMARY | 2025-06-01 12:10 | XMS_ITS | Clinical Summary ---
Author Organization [facility] Address [address] [place] [address] Phone Care Team Providers Care Excel Expert Name Role Phone Physician, No Pcp Primary Care Provider Unavaila ble Allergies No known active allergies Medications 21-iron fu-folic acid 14 mg iron- 400 mcg tablet Take 0.4 mg by mouth 1 (one) time each day. 30 each 5 06/19/20 25 Active cefpodoxime (VANTIN) 200 mg tablet Take 1 tablet (200 mg total) by mouth 2 (two) times a day for 10 days. 20 each 5 05/30/20 25 ketorolac (TORADOL) 10 mg tablet Take 1 tablet (10 mg total) by mouth every 6 (six) hours if needed for moderate pain for up to 5 days. 20 tablet 5 05/25/20 25 Encounters Date Type Department Care Team Description 05/20/2025 12:43 AM EDT - 05/20/2025 1:24 AM EDT Emergency [facility] Emergency [address] [place] [address] Abnormal vaginal bleeding (Primary Dx); Lower abdominal pain Discharge Disposition: Home or Self Care from Last 3 Months Social History Tobacco Use Types Packs/Day Years Used Date Smoking Tobacco: Never Assessed Comments No Sex and Gender Information Value Date Recorded Sex Assigned at Not on file Legal Sex Female 5:00 PM EDT Gender Identity Not on file Sexual Orientation Not on file Last Filed Vital Signs Vital Sign Reading Time Taken Comments Blood Pressure 94/69 05/20/2025 12:07 AM EDT Pulse 81 05/20/2025 12:07 AM EDT Temperature 36.6 C (97.9 F) 05/20/2025 12:07 AM EDT Respiratory Rate 16 05/20/2025 12:07 AM EDT Oxygen Saturation 100% 05/20/2025 12:07 AM EDT Inhaled Oxygen Concentration - - Weight 46.7 kg (103 lb) 05/19/2025 5:13 PM EDT Height 162.6 cm (5' 4 ) 05/19/2025 5:13 PM EDT Body Mass Index 17.68 05/19/2025 5:13 PM EDT Plan of Treatment Health Maintenance Due Date Last Done Comments Gonorrhea/Chlamydia Screening 2002 Pneumococcal Vaccine: Pediatrics (0 to 5 Years) and At-Risk Patients (6 to 49 Years) (1 of 2 - PPSV23) 01/01/2005 11/06/2004, 08/17/2003, 07/02/2003, Additional history exists Cervical Cancer Screening: Pap Smear 12/22/2023 COVID-19 Vaccine ( season) 2024 08/01/2023 Depression Screening 10/07/2024 HIV Screening 05/20/2025 Hepatitis C Screening 05/20/2025 Social Influencers of Health Screening 05/20/2025 Influenza Vaccine (#1) 2025 , 10/03/2020, 08/14/2018, Additional history exists DTaP,Tdap,and Td Vaccines (7 - Td or Tdap) 07/29/2025 07/29/2015, 07/05/2007, 03/12/2007, Additional history exists Hepatitis B Vaccines Completed 09/06/2003, 02/12/2003, 01/10/2003 HIB Vaccines Completed 03/08/2004, 08/07, 07/02/2003, Additional history exists IPV Vaccines Completed 03/12/2007, 11/2003, 07/02/2003, Additional history exists MMR Vaccines Completed 03/12/2007, 03/2007, 03/08/2004 Varicella Vaccines Completed 01/13/2009, 0 03/12/2007, 03/08/2004 Hepatitis A Vaccines Completed 07/29/2015, 11/21/19 12 HPV Vaccines Completed 10/17/2016, 07/29/2015 Meningococcal ACWY Vaccine Completed 03/05/2019, Meningococcal B Vaccine Completed 08/01/2023, 04/06 RSV Immunization Patients Under 20 months Aged Out No longer eligible based on patient's age to complete this topic Procedures Procedure Name Priority Date/Time Associated Diagnosis Comments ECG ANNOTATED 05/24/2025 [place]ON URINE CULTURE TUBE STAT 05/19/2025 7:37 PM EDT URINALYSIS WITH REFLEX MICROSCOPIC AND CULTURE STAT 05/19/2025 7:37 PM EDT URINALYSIS WITH REFLEX MICROSCOPIC AND CULTURE STAT 05/19/2025 7:37 PM EDT CULTURE URINE STAT 05/19/2025 7:37 PM EDT ECG 12-LEAD STAT 05/19/2025 7:30 PM EDT CBC WITH AUTO DIFFERENTIAL STAT 05/19/2025 5:26 PM EDT TYPE AND SCREEN STAT 05/19/2025 5:26 PM EDT BASIC METABOLIC PANEL STAT 05/19/2025 5:26 PM EDT CBC AND DIFFERENTIAL STAT 05/19/2025 5:26 PM EDT from Last 3 Months Results * ECG-Annotated (05/24/2025) us Provider Onbase MD ECG ORDERABLES Final Result * (ABNORMAL) Urinalysis with reflex microscopic and culture (05/19/2025 7:37 PM EDT) Specific Baldwin Urine 1.033(H) 1.003 - 1.030 LAB URINALYSIS - AUTOMATED METHOD 05/19/2025 8:29 PM EDT [facility] pH, Urine 5.5 5.0 - 8.0 pH LAB URINALYSIS - AUTOMATED METHOD 05/19/2025 8:29 PM [facility] Leukocytes, Urine Small(A) Negative LAB URINALYSIS - AUTOMATED METHOD 05/19/2025 8:29 PM [facility] Nitrite, Urine Negative Negative LAB URINALYSIS - AUTOMATED METHOD 05/19/2025 8:29 PM [facility] Protein, Urine 100(A) <=Trace mg/dL LAB URINALYSIS - AUTOMATED METHOD 05/19/2025 8:29 PM [facility] Glucose, Urine Negative Negative mg/dL LAB URINALYSIS - AUTOMATED METHOD 05/19/2025 8:29 PM [facility] Ketones, Urine Trace(A) Negative mg/dL LAB URINALYSIS - AUTOMATED METHOD 05/19/2025 8:29 PM [facility] Urobilinogen , Urine 1.0 0.2 - 1.0 mg/dL LAB URINALYSIS - AUTOMATED METHOD 05/19/2025 8:29 PM [facility] Bilirubin, Urine Negative Negative LAB URINALYSIS - AUTOMATED METHOD 05/19/2025 8:29 PM [facility] Blood, Urine Large(A) Negative LAB URINALYSIS - AUTOMATED METHOD 05/19/2025 8:29 PM [facility] RBC, Urine >100.0(H) 0 - 4 /HPF LAB URINALYSIS - AUTOMATED METHOD 05/19/2025 8:29 PM [facility] WBC, Urine 16.2(H) 0 - 4 /HPF LAB URINALYSIS - AUTOMATED METHOD 05/19/2025 8:29 PM [facility] Squamous Epithelial, Urine 91(H) 0 - 60 /LPF LAB URINALYSIS - AUTOMATED METHOD 05/19/2025 8:29 PM [facility] Bacteria, Urine Negative Negative /HPF LAB URINALYSIS - AUTOMATED METHOD 05/19/2025 8:29 PM EDT [facility] Hyaline Casts, Urine 10.0(H) 0 - 3 /LPF LAB URINALYSIS - AUTOMATED METHOD 05/19/2025 8:29 PM EDT [facility] Mucus, Urine Trace(A) None /HPF LAB URINALYSIS - AUTOMATED METHOD 05/19/2025 8:29 PM EDT [facility] Urine Urine specimen obtained by clean catch procedure / Unknown Non-blood Collection / Unknown 05/19/2025 7:37 PM EDT 05/19/2025 7:44 PM EDT [facility] LAB URINE ORDERABLES Final Re sult Performing Organization Address City/[facility]/ZIP Co de Phone Number [facility] [address] [place] [address], [place] [phone] * Thompson urine culture tube (05/19/2025 7:37 PM EDT) Extra Tube Hold for add-ons. 05/19/2025 9:01 PM EDT [facility] Comment:Auto resulted. Urine Urine specimen obtained by clean catch procedure / Unknown Non-blood Collection / Unknown 05/19/2025 7:37 PM EDT 05/19/2025 7:44 PM EDT [facility] LAB URINE ORDERABLES Final Re sult [facility] [address] [place] [address], [place] [phone] * Culture urine (05/19/2025 7:37 PM EDT) Culture, Urine No growth 05/20/2025 2:15 PM EDT [facility] Urine Urine specimen obtained by clean catch procedure / Unknown Non-blood Collection / Unknown 05/19/2025 7:37 PM EDT 05/19/2025 8:29 PM EDT us Blanca Soriano DO LAB MICROBIOLOGY - GENERAL OR DERABLES Final Result [facility] [address] [place] [address], [place] [phone] * 12-Lead ECG (05/19/2025 7:30 PM EDT) Ventricular Rate ECG 76 BPM GEMUSE Atrial Rate 76 BPM GEMUSE P-R Interval 142 ms GEMUSE QRS Duration 90 ms GEMUSE Q-T Interval 366 ms GEMUSE QTc 411 ms GEMUSE P Wave Bradner 67 degrees GEMUSE R Bradner 53 degrees GEMUSE T Bradner 33 degrees GEMUSE ECG Interpretation Normal sinus rhythm with sinus arrhythmia No previous ECGs available Confirmed by CHEO DIETRICH ([id number]) on 05/20/2025 7:41:34 PM GEMUSE 05/19/2025 7:30 PM EDT 05/20/2025 7:41 PM EDT Katt CARDENAS ECG ORDERABLES Final Re sult GEMUSE * (ABNORMAL) CBC auto differential (05/19/2025 5:26 PM EDT) WBC 8.8 4.8 - 10.8 K/mcL LAB HEMETOLOGY METHOD 05/19/2025 5:57 PM EDT [facility] RBC 4.60 3.80 - 4.80 M/[facility] LAB HEMETOLOGY METHOD 05/19/2025 5:57 PM EDT [facility] Hemoglobin 9.7(L) 11.5 - 16.0 g/dL LAB HEMETOLOGY METHOD 05/19/2025 5:57 PM EDT [facility] Hematocrit 30.0(L) 35.0 - 47.0 % LAB HEMETOLOGY METHOD 05/19/2025 5:57 PM EDT [facility] MCV 65.1(L) 79.0 - 98.0 FL LAB HEMETOLOGY METHOD 05/19/2025 5:57 PM EDT [facility] MCH 21.0(L) 27.0 - 32.0 pcg LAB HEMETOLOGY METHOD 05/19/2025 5:57 PM EDT [facility] MCHC 32.3 32.0 - 37.0 g/dL LAB HEMETOLOGY METHOD 05/19/2025 5:57 PM EDT [facility] RDW 18.9(H) 11.0 - 15.0 % LAB HEMETOLOGY METHOD 05/19/2025 5:57 PM EDT [facility] Platelets 268 130 - 400 K/mcL LAB [facility]EMETOLOGY [facility] 05/19[facility]2025 5:[facility] MPV 9.9 7.0 - 11.0 FL LAB HEMETOLOGY METHOD 05/19/2025 5:57 PM EDT [facility] NRBC 0.3 <1.0 % LAB HEMETOLOGY METHOD 05/19/2025 5:57 [facility] NRBC Absolute 0.03 <0.10 K/mcL LAB HEMETOLOGY METHOD 05/19/2025 5:57 [facility] Neutrophils Relative 68.5 % LAB HEMETOLOGY METHOD 05/19/2025 5:57 PM EDT [facility] Lymphocytes Relative 24.0 % LAB HEMETOLOGY METHOD 05/19/2025 5:57 [facility] Monocytes Relative 6.2 % LAB HEMETOLOGY METHOD 05/19/2025 5:57 [facility] Eosinophils Relative 0.2 % LAB HEMETOLOGY METHOD 05/19/2025 5:57 [facility] Basophils Relative 0.3 % LAB HEMETOLOGY METHOD 05/19/2025 5:57 PM EDT [facility] Immature Granulocytes Relative 0.8 % LAB HEMETOLOGY METHOD 05/19/2025 5:57 PM EDT [facility] Neutrophils Absolute 6.03 1.50 - 7.00 K/mcL LAB HEMETOLOGY METHOD 05/19/2025 5:57 PM EDT [facility] Lymphocytes Absolute 2.12 1.00 - 5.00 K/mcL LAB HEMETOLOGY METHOD 05/19/2025 5:57 PM EDT [facility] Monocytes Absolute 0.55 0.20 - 1.00 K/mcL LAB HEMETOLOGY METHOD 05/19/2025 5:57 PM EDT [facility] Eosinophils Absolute 0.02 0.00 - 0.50 K/mcL LAB HEMETOLOGY METHOD 05/19/2025 5:57 PM EDT [facility] Basophils Absolute 0.03 0.00 - 0.20 K/mcL LAB HEMETOLOGY METHOD 05/19/2025 5:57 PM EDT [facility] Immature Granulocytes Absolute 0.07(H) 0.00 - 0.03 K/mcL LAB HEMETOLOGY METHOD 05/19/2025 5:57 PM EDT [facility] Blood Venous blood specimen / Unknown Venipuncture / Unknown 05/19/2025 5:26 PM EDT 05/19/2025 5:42 PM EDT us Blanca Soriano DO LAB BLOOD ORDERABLES Final Re sult [facility] [address] [place] [address], * Type and screen (05/19/2025 5:26 PM EDT) ABO Group A 05/19/2025 7:11 PM EDT [facility] Rh Type Positive 05/19/2025 7:11 PM EDT [facility] Antibody Screen Negative 05/19/2025 7:11 PM [facility] Blood Venous blood specimen / Unknown Venipuncture / Unknown 05/19/2025 5:26 PM EDT 05/19/2025 5:44 PM EDT Blanca Soriano LAB BLOOD BANK TEST ORDERABLE S Final Result [facility] [address] [place] [address], [place] [phone] * (ABNORMAL) Basic metabolic panel (05/19/2025 5:26 PM EDT) Sodium 137 133 - 145 mmol/L LAB CHEMISTRY METHOD 05/19/2025 6:13 PM [facility] Potassium 4.1 3.5 - 5.5 mmol/L LAB CHEMISTRY METHOD 05/19/2025 6:13 PM [facility] Chloride 106 96 - 110 mmol/L LAB CHEMISTRY METHOD 05/19/2025 6:13 PM [facility] CO2 29 21 - 32 mmol/L LAB CHEMISTRY METHOD 05/19/2025 6:13 PM [facility] Anion Gap 2(L) 3 - 11 LAB CHEMISTRY METHOD 05/19/2025 6:13 PM [facility] Glucose 90 70 - 100 mg/dL LAB CHEMISTRY METHOD 05/19/2025 6:13 PM [facility] BUN 14 5 - 25 mg/dL LAB CHEMISTRY METHOD 05/19/2025 6:13 PM [facility] Creatinine 0.64 0.50 - 1.10 mg/dL LAB CHEMISTRY METHOD 05/19/2025 6:13 PM [facility] eGFR 128 >=60 mL/min/1. 73m2 LAB CHEMISTRY METHOD 05/19/2025 6:13 PM EDT [facility] Comment:Calculation based on the Chronic Kidney Disease Epidemiology Collaboration (CKD-EPI) equation refit without adjustment for race. BUN/Creatinine Ratio 21.9 LAB CHEMISTRY METHOD 05/19/2025 6:13 PM EDT [facility] Calcium 9.6 8.5 - 10.5 mg/dL LAB CHEMISTRY METHOD 05/19/2025 6:13 PM EDT [facility] Blood Venous blood specimen / Unknown Venipuncture / Unknown 05/19/2025 5:26 PM EDT 05/19/2025 5:42 PM EDT us Blanca Soriano DO LAB BLOOD ORDERABLES Final Re sult [facility] [address] [place] [address], from Last 3 Months Insurance [facility] [employer] Care Teams Excel Expert Relationship Specialty Start Date End Date Physician, No Pcp PCP - General 05/20/25
== END 2025-06-01 11:57 | disposition home or self-care (01) ==
LOC: HO.HWS 11:15
PROVIDERS: Visit Provider Obstetrics & Gynecology
DX: N93.9 Abnormal uterine and vaginal bleeding, unspecified (principal); Z20.2 Contact with and (suspected) exposure to infections with a predominantly sexual mode of transmission; D56.1 Beta thalassemia; Z32.02 Encounter for pregnancy test, result negative
CPT/HCPCS: 99203

== ENCOUNTER 2025-06-01 11:14 | Outpatient (REF) | payer OTHER, SELFPAY ==
[2025-06-01 12:43] LABS: Hematocrit 27.6 % (37.0-47.0); Hemoglobin 8.6 g/dl (12.0-16.0); Mean Corpuscular HGB Conc 31.2 g/dl (31.0-35.0); Mean Corpuscular Hemoglobin 20.6 pg (27.0-33.0); Mean Corpuscular Volume 66.2 fL (80.0-98.0); NRBC Abs Auto 0.000 X10*3/uL (0.0-0.012); NRBC Pct Auto 0.0 /100WBC (0.0-0.2); Platelet Count 337 X10*3/uL (160-400); Red Blood Count 4.17 X10*6/uL (4.20-5.50); White Blood Count 7.6 X10*3/uL (4.8-10.8)
[2025-06-01 13:27] LABS: Syphilis Screen Nonreactive (Nonreactive)
[2025-06-01 13:28] LABS: HBsAGNum1 0.38 S/CO (0.00-0.99); HIV Num 1 0.07 S/CO (0.00-0.99); Hepatitis B Surface Antigen Negative (Negative); ~HepC Num1 0.20 S/CO (0.00-0.79); ~Hepatitis C Antibody Nonreactive (Nonreactive)
[2025-06-01 14:59] LABS: Bacterial Vaginosis PCR POSITIVE (Negative); Candida Group PCR NOT DETECTED (Not Detect); Candida glab krusei PCR NOT DETECTED (Not Detect); Trichomonas vaginalis PCR NOT DETECTED (Not Detect)
[2025-06-01 15:30] LABS: CT PCR DETECTED (Not Detect.); NG PCR NOT DETECTED (Not Detect.)
== END 2025-06-01 11:15 | disposition home or self-care (01) ==
LOC: HO.LAB 11:14
PROVIDERS: Visit Provider Obstetrics & Gynecology
DX: D56.1 Beta thalassemia (principal); N93.9 Abnormal uterine and vaginal bleeding, unspecified; Z20.2 Contact with and (suspected) exposure to infections with a predominantly sexual mode of transmission; Z11.59 Encounter for screening for other viral diseases
CPT/HCPCS: 36415; 81002; 81025; 81515; 84443; 84702; 85027; 86780; 86803; 87340; 87389; 87491; 87591; 87626; 88175; 99202

== ENCOUNTER 2025-06-01 12:14 | Outpatient (REF) | payer OTHER, SELFPAY | END 2025-06-01 12:15 | disposition home or self-care (01) | LOC: HO.LNP 12:14 | PROVIDERS: Visit Provider Obstetrics & Gynecology | DX: N93.9 Abnormal uterine and vaginal bleeding, unspecified (principal); Z32.02 Encounter for pregnancy test, result negative | CPT/HCPCS: 87086 ==

== ENCOUNTER → 2025-06-03 13:36 | Outpatient (BNV) | payer OTHER, SELFPAY | PROVIDERS: Visit Provider Internal Medicine | DX: D56.1 Beta thalassemia (principal) | CPT/HCPCS: 99204 ==

== ENCOUNTER 2025-06-10 13:09 | Outpatient (REF) | payer OTHER, SELFPAY ==
--- NOTE | ~2025-06-10 | US_ITS ---
EXAMINATION: US PELVIS CLINICAL INFORMATION: Abnormal uterine and vaginal leading, unspecified. COMPARISON: None available. TECHNIQUE: Ultrasound of the pelvis is performed using both transabdominal and transvaginal transducers along with Doppler. Transvaginal imaging is performed due to inadequate visualization transabdominally. FINDINGS: Uterus: The uterus is anteversion flexion and measures 8 x 4 x 5 cm. Volume: 69 cc. The double wall endometrial thickness is 10 mm. The uterus is smooth in contour and has normal myometrial echogenicity. No visible fibroid. Adnexa: The ovaries are identified with flow on color Doppler interrogation. No free fluid in the cul-de-sac. Right ovary measures 4 x 2 x 3 cm. Volume: 11 cc. There is a 2 cm dominant follicle. Left ovary measures 5 x 3 x 5 cm. Volume: 34 cc. There is a 4 x 3 cm isoechoic lesion without flow on color Doppler interrogation. There is a 1.7 cm isoechoic lesion without flow on color Doppler interrogation. US/US pelvic and transvaginal IMPRESSION: Complex cystic lesions, left ovary. Consider hemorrhagic cyst versus endometrioma. No ovarian torsion. No uterine fibroids. Endometrial stripe: 10 mm. Electronically signed by: Juan Pace MD 06/10/2025 02:27 PM EDT
--- OUTSIDE RECORDS SUMMARY | 2025-06-10 14:23 | XMS_ITS | Encounter Summary ---
Author Organization [facility] Address [address] [place] [address] Phone Care Team Providers Care Environmental Research Scientist Name Role Phone Guero José MD Primary Care Provider [phone] Encounter Details Date Type Department Care Team (Late st Contact Info) Description 10/18/2016 Documentation [facility] [place] [address] [place] [address] Family Medicine, Physician [address] [id number] Social History Tobacco Use Types Packs/Day Years [...] filedocumented in this encounter Care Teams Environmental Research Scientist Relationship Specialty Start Date End Date Guero José MD [address] [place] [address] [place] [address] PCP - General 05/17/17 01/30/24 documented as of this encounter
--- OUTSIDE RECORDS SUMMARY | 2025-06-10 14:23 | XMS_ITS | Encounter Summary ---
Author Organization [facility] Address [address] [place] [address] Phone Care Team Providers Care Consumer Electronic Retail Specialist Name Role Phone Guero José MD Primary Care Provider [phone] Encounter Details Date Type Department Care Team (Late st Contact Info) Description 10/18/[address] [facility] [place] Medicine [address] [place] [address] Family Medicine, Physician [address] [place] [phone] Social History Tobacco Use Types Packs/Day Years [...] on filedocumented in this encounter Care Teams Consumer Electronic Retail Specialist Relationship Specialty Start Date End Date Guero José MD [address] [place] [address] [place] [address] PCP - General 05/17/17 01/30/24 documented as of this encounter
--- OUTSIDE RECORDS SUMMARY | 2025-06-10 14:23 | XMS_ITS | Encounter Summary ---
Author Organization [facility] Address [address] [place] [address] Phone Care Team Providers Care Delivery Associate Name Role Phone Guero José MD Primary Care Provider [phone] Encounter Details Date Type Department Care Team (Late st Contact Info) Description 10/18/2016 Documentation [facility] [place] [address] [place] [address] Family Medicine, Physician [address] [place] [phone] Social History Tobacco Use Types Packs/Day Years [...] on filedocumented in this encounter Care Teams Delivery Associate Relationship Specialty Start Date End Date Guero José MD [address] [place] [address] [place] [address] PCP - General 05/17/17 01/30/24 documented as of this encounter
--- OUTSIDE RECORDS SUMMARY | 2025-06-10 14:23 | XMS_ITS | Encounter Summary ---
Author Organization [facility] Address [address] [place] [address] Phone Care Team Providers Care Group Therapy Counselor Name Role Phone Guero José MD Primary Care Provider [phone] Encounter Details Date Type Department Care Team (Late st Contact Info) Description 12/04/2016 Documentation [facility] [place] [address] [place] [address] Family Medicine, Physician [address] [place] [phone] Social History Tobacco Use Types Packs/Day Years [...] on filedocumented in this encounter Care Teams Group Therapy Counselor Relationship Specialty Start Date End Date Guero José MD [address] [place], [place] [address] [place] [address] PCP - General 05/17/17 01/30/24 documented as of this encounter
--- OUTSIDE RECORDS SUMMARY | 2025-06-10 14:23 | XMS_ITS | Encounter Summary ---
Author Organization [facility] Address [address] [place] [address] Phone Care Team Providers Care Area Captain Name Role Phone Guero José MD Primary Care Provider [phone] Reason for Visit * Reason Comments Med Refill Encounter Details Date Type Department Care Team ([facility] Contact Info) Description 06/11/2019 Refill [facility] [place] [address] [place] [address] Francesco Keenan MD [address] [place] [address] Skin infection Social History Tobacco Use Types [...] tissue documented in this encounter Care Teams Area Captain Relationship Specialty Start Date End Date Guero José MD [address] [facility] [place] [address] PCP - General 05/17/17 01/30/24 documented as of this encounter
--- OUTSIDE RECORDS SUMMARY | 2025-06-10 14:23 | XMS_ITS | Encounter Summary ---
Author Organization [facility] Address [address] [place] [address] Phone Care Team Providers Care Recruitment And Outreach Assistant Name Role Phone Guero José MD Primary Care Provider [phone] Encounter Details Date Type Department Care Team (Late st Contact Info) Description 10/18/2016 Documentation [facility] [place] Medicine [address] [place] [address] Family Medicine, Physician [address], [place] [phone] Social History Tobacco Use Types Packs/Day Years [...] on filedocumented in this encounter Care Teams Recruitment And Outreach Assistant Relationship Specialty Start Date End Date Guero José MD [address] [place] [address] [place] [address] PCP - General 05/17/17 01/30/24 documented as of this encounter
--- OUTSIDE RECORDS SUMMARY | 2025-06-10 14:23 | XMS_ITS | Encounter Summary ---
Author Organization [facility] Address [address] [place] [address] Phone Care Team Providers Care Pantry Goods Maker Name Role Phone Guero José MD Primary Care Provider [phone] Encounter Details Date Type Department Care Team (Late st Contact Info) Description 10/18/2016 Documentation [facility] [place] [address] [place] [address] Family Medicine, Physician [address] [place] [phone] Social History Tobacco Use Types Packs/Day Years [...] on filedocumented in this encounter Care Teams Pantry Goods Maker Relationship Specialty Start Date End Date Guero José MD [address] [place] [address] [place] [address] PCP - General 05/17/17 01/30/24 documented as of this encounter
--- OUTSIDE RECORDS SUMMARY | 2025-06-10 14:23 | XMS_ITS | Encounter Summary ---
Author Organization [facility] Address [address] [place] [address] Phone Care Team Providers Care Pressure Tester Name Role Phone Guero José MD Primary Care Provider [phone] Reason for Visit * Reason Comments Med Refill Encounter Details Date Type Department Care Team ([facility] Contact Info) Description 2019 Refill [facility] [place] [address] [place] [address] Francesco Keenan MD [address] [place] [address] Skin infection Social History Tobacco Use Types [...] tissue documented in this encounter Care Teams Pressure Tester Relationship Specialty Start Date End Date Guero José MD [address] [place] [address] [place] [address] PCP - General 05/17/17 01/30/24 documented as of this encounter
--- OUTSIDE RECORDS SUMMARY | 2025-06-10 14:23 | XMS_ITS | Encounter Summary ---
Author Organization [facility] Address [address] [place] [address] Phone Care Team Providers Care Global Technical Writer Name Role Phone Guero José MD Primary Care Provider [phone] Encounter Details Date Type Department Care Team (Late st Contact Info) Description 11/09/2016 Documentation [facility] [place] [address] [place] [address] Family Medicine, Physician [address], [place] [phone] Social History Tobacco Use Types Packs/Day Years [...] on filedocumented in this encounter Care Teams Global Technical Writer Relationship Specialty Start Date End Date Guero José MD [address] [place], [place] [address] [place] [address] PCP - General 05/17/17 01/30/24 documented as of this encounter
--- OUTSIDE RECORDS SUMMARY | 2025-06-10 14:23 | XMS_ITS | Encounter Summary ---
Author Organization [facility] Address [address] [place] [address] Phone Care Team Providers Care Production Service Manager Name Role Phone Guero José MD Primary Care Provider [phone] Encounter Details Date Type Department Care Team (Late st Contact Info) Description 05/23/2017 Conversion Encounter [facility] [place] [address] [place] [address] Social History Tobacco Use Types Packs/Day Years [...] filedocumented in this encounter Care Teams Production Service Manager Relationship Specialty Start Date End Date Guero José MD [address] [place] [address] PCP - General 05/17/17 01/30/24 documented as of this encounter
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
--- OUTSIDE RECORDS SUMMARY | 2025-06-10 14:23 | XMS_ITS | Encounter Summary ---
Author Organization [employer] Address [address] [place] [address] Care Team Providers Care Storm Door Maker Name Role Phone Unavailable Primary Care Provider Unavailabl e Encounter Details Date Type Department Care Team (Late st Contact Info) Description 05/14/2025 Telephone [facility] [address] [place] [address] Terry Cook MD [address] [place] [address] Social History Tobacco Use Types Packs/Day Years [...]
--- OUTSIDE RECORDS SUMMARY | 2025-06-10 14:23 | XMS_ITS | Clinical Summary ---
Author Organization [employer] Address [address] [place] [address] Care Team Providers Care Network Security Engineer Name Role Phone Unavailable Primary Care Provider Unavailabl e Encounters Date Type Department Care Team Description 05/14/2025 Telephone [facility] [address] [place] [address] Terry Cook MD from Last 3 Months [...] COVID-19 Vaccine (1 - 2023-2 5 season) 2025 Influenza Vaccine (#1) 2025 Zoster Vaccines (1 [...]
--- OUTSIDE RECORDS SUMMARY | 2025-06-10 14:23 | XMS_ITS | Clinical Summary ---
Author Organization [facility] Address [address] [place] [address] Phone Care Team Providers Care Women'S Studies Professor Name Role Phone Physician, No Pcp Primary [...] EDT - 05/20/2025 1:24 AM EDT Emergency [facility] Emergency [address] [place] [address] Abnormal vaginal bleeding (Primary Dx); [...] exists Cervical Cancer Screening: Pap Smear 12/22/2023 Depression Screening 10/07/2024 HIV Screening 05/20/2025 Hepatitis C Screening 05/20/2025 Social Influencers of Health Screening 05/20/2025 COVID-19 Vaccine ( season) 2025 08/01/2023 Influenza Vaccine (#1) 2025 , 10/03/2020, 08/14/2018, [...] and culture (05/19/2025 7:37 PM EDT) Specific Burna Urine 1.033(H) 1.003 - 1.030 LAB URINALYSIS - AUTOMATED METHOD 05/19/2025 8:29 PM EDT [facility] pH, Urine 5.5 5.0 - 8.0 pH LAB URINALYSIS - AUTOMATED METHOD 05/19/2025 8:29 PM [facility] Leukocytes, Urine Small(A) Negative LAB URINALYSIS - AUTOMATED METHOD 05/19/2025 8:29 PM [facility] Nitrite, Urine Negative Negative LAB URINALYSIS - AUTOMATED METHOD 05/19/2025 8:29 PM [facility] Protein, Urine 100(A) <=Trace mg/dL LAB URINALYSIS - AUTOMATED METHOD 05/19/2025 8:29 PM [facility] Glucose, Urine Negative Negative mg/dL LAB URINALYSIS - AUTOMATED METHOD 05/19/2025 8:29 PM [facility] Ketones, Urine Trace(A) Negative mg/dL LAB URINALYSIS - AUTOMATED METHOD 05/19/2025 8:29 PM [facility] Urobilinogen , Urine 1.0 0.2 - 1.0 mg/dL LAB URINALYSIS - AUTOMATED METHOD 05/19/2025 8:29 PM [facility] Bilirubin, Urine Negative Negative LAB URINALYSIS - AUTOMATED METHOD 05/19/2025 8:29 PM [facility] Blood, Urine Large(A) Negative LAB URINALYSIS - AUTOMATED METHOD 05/19/2025 8:29 PM [facility] RBC, Urine >100.0(H) 0 - 4 /HPF LAB URINALYSIS - AUTOMATED METHOD 05/19/2025 8:29 PM [facility] WBC, Urine 16.2(H) 0 - 4 /HPF LAB URINALYSIS - AUTOMATED METHOD 05/19/2025 8:29 PM [facility] Squamous Epithelial, Urine 91(H) 0 - 60 /LPF LAB URINALYSIS - AUTOMATED METHOD 05/19/2025 8:29 PM [facility] Bacteria, Urine Negative Negative /HPF LAB URINALYSIS - AUTOMATED METHOD 05/19/2025 8:29 PM EDT [facility] Hyaline Casts, Urine 10.0(H) 0 - 3 /LPF LAB URINALYSIS - AUTOMATED METHOD 05/19/2025 8:29 PM EDT [facility] Mucus, Urine Trace(A) None /HPF LAB URINALYSIS - AUTOMATED METHOD 05/19/2025 8:29 PM EDT [facility] Urine Urine specimen obtained by clean catch procedure / Unknown Non-blood Collection / Unknown 05/19/2025 7:37 PM EDT 05/19/2025 7:44 PM EDT [facility] LAB URINE ORDERABLES Final Re sult Performing Organization Address City/[facility]/ZIP Co de Phone Number [facility] [address] [place] [address], [place] [phone] * Thompson urine culture tube (05/19/2025 7:37 PM EDT) Extra Tube Hold for add-ons. 05/19/2025 9:01 PM EDT [facility] Comment:Auto resulted. Urine Urine specimen obtained by clean catch procedure / Unknown Non-blood Collection / Unknown 05/19/2025 7:37 PM EDT 05/19/2025 7:44 PM EDT [facility] LAB URINE ORDERABLES Final Re sult [facility] [address] [place] [address], [place] [phone] * Culture urine (05/19/2025 7:37 PM EDT) Culture, Urine No growth 05/20/2025 2:15 PM EDT [facility] Urine Urine specimen obtained by clean catch procedure / Unknown Non-blood Collection / Unknown 05/19/2025 7:37 PM EDT 05/19/2025 8:29 PM EDT us Blanca Soriano DO LAB MICROBIOLOGY - GENERAL OR DERABLES Final Result [facility] [address] [place] [address], [place] [phone] * 12-Lead ECG (05/19/2025 7:30 PM EDT) Ventricular Rate ECG 76 BPM GEMUSE Atrial Rate 76 BPM GEMUSE P-R Interval 142 ms GEMUSE QRS Duration 90 ms GEMUSE Q-T Interval 366 ms GEMUSE QTc 411 ms GEMUSE P Wave [place] 67 degrees GEMUSE R [place] 53 degrees GEMUSE T [place] 33 degrees GEMUSE ECG Interpretation Normal sinus rhythm with sinus arrhythmia No previous ECGs available Confirmed by CHEO DIETRICH ([id number]) on 05/20/2025 7:41:34 PM GEMUSE 05/19/2025 7:30 PM EDT 05/20/2025 7:41 PM EDT Katt CARDENAS ECG ORDERABLES Final Re sult GEMUSE * (ABNORMAL) CBC auto differential (05/19/2025 5:26 PM EDT) WBC 8.8 4.8 - 10.8 K/mcL LAB HEMETOLOGY METHOD 05/19/2025 5:57 PM EDT [facility] RBC 4.60 3.80 - 4.80 [facility] LAB HEMETOLOGY METHOD 05/19/2025 5:57 PM EDT [facility] Hemoglobin 9.7(L) 11.5 - 16.0 g/dL LAB HEMETOLOGY METHOD 05/19/2025 5:57 PM EDT [facility] Hematocrit 30.0(L) 35.0 - 47.0 % LAB HEMETOLOGY METHOD 05/19/2025 5:57 PM EDT [facility] MCV 65.1(L) 79.0 - 98.0 FL LAB HEMETOLOGY METHOD 05/19/2025 5:57 PM EDT [facility] MCH 21.0(L) 27.0 - 32.0 pcg LAB HEMETOLOGY METHOD 05/19/2025 5:57 PM EDT [facility] MCHC 32.3 32.0 - 37.0 g/dL LAB HEMETOLOGY METHOD 05/19/2025 5:57 PM EDT [facility] RDW 18.9(H) 11.0 - 15.0 % LAB HEMETOLOGY METHOD 05/19/2025 5:57 PM EDT [facility] Platelets 268 130 - 400 K/mcL LAB HEMETOLOGY METHOD [facility]/19[facility]2025 [facility] MPV 9.9 7.0 - 11.0 FL LAB HEMETOLOGY METHOD 05/19/2025 5:57 PM EDT [facility] NRBC 0.3 <1.0 % LAB HEMETOLOGY METHOD 05/19/2025 5:57 [facility] NRBC Absolute 0.03 <0.10 K/mcL LAB HEMETOLOGY METHOD 05/19/2025 5:57 [facility] Neutrophils Relative 68.5 % LAB HEMETOLOGY METHOD 05/19/2025 5:57 PM EDT [facility] Lymphocytes Relative 24.0 % LAB HEMETOLOGY METHOD 05/19/2025 5:57 [facility] Monocytes Relative 6.2 % LAB HEMETOLOGY METHOD 05/19/2025 5:57 [facility] Eosinophils Relative 0.2 % LAB HEMETOLOGY METHOD 05/19/2025 5:57 [facility] Basophils Relative 0.3 % LAB HEMETOLOGY METHOD 05/19/2025 5:57 PM EDT [facility] Immature Granulocytes Relative 0.8 % LAB HEMETOLOGY METHOD 05/19/2025 5:57 PM EDT [facility] Neutrophils Absolute 6.03 1.50 - 7.00 K/mcL LAB HEMETOLOGY METHOD 05/19/2025 5:57 PM EDT [facility] Lymphocytes Absolute 2.12 1.00 - 5.00 K/mcL LAB HEMETOLOGY METHOD 05/19/2025 5:57 PM EDT [facility] Monocytes Absolute 0.55 0.20 - 1.00 K/mcL LAB HEMETOLOGY METHOD 05/19/2025 5:57 PM EDT [facility] Eosinophils Absolute 0.02 0.00 - 0.50 K/mcL LAB HEMETOLOGY METHOD 05/19/2025 5:57 PM EDT [facility] Basophils Absolute 0.03 0.00 - 0.20 K/mcL LAB HEMETOLOGY METHOD 05/19/2025 5:57 PM EDT [facility] Immature Granulocytes Absolute 0.07(H) 0.00 - 0.03 K/mcL LAB HEMETOLOGY METHOD 05/19/2025 5:57 PM EDT [facility] Blood Venous blood specimen / Unknown Venipuncture / Unknown 05/19/2025 5:26 PM EDT 05/19/2025 5:42 PM EDT us Blanca Soriano DO LAB BLOOD ORDERABLES Final Re sult [facility] [address] [place] [address], * Type and screen (05/19/2025 5:26 PM EDT) ABO Group A 05/19/2025 7:11 PM EDT [facility] Rh Type Positive 05/19/2025 7:11 PM EDT [facility] Antibody Screen Negative 05/19/2025 7:11 PM [facility] Blood Venous blood specimen / Unknown Venipuncture / Unknown 05/19/2025 5:26 PM EDT 05/19/2025 5:44 PM EDT Blanca Soriano LAB BLOOD BANK TEST ORDERABLE S Final Result [facility] [address] [place] [address], [place] [phone] * (ABNORMAL) Basic metabolic panel (05/19/2025 5:26 PM EDT) Sodium 137 133 - 145 mmol/L LAB CHEMISTRY METHOD 05/19/2025 6:13 PM [facility] Potassium 4.1 3.5 - 5.5 mmol/L LAB CHEMISTRY METHOD 05/19/2025 6:13 PM [facility] Chloride 106 96 - 110 mmol/L LAB CHEMISTRY METHOD 05/19/2025 6:13 PM [facility] CO2 29 21 - 32 mmol/L LAB CHEMISTRY METHOD 05/19/2025 6:13 PM [facility] Anion Gap 2(L) 3 - 11 LAB CHEMISTRY METHOD 05/19/2025 6:13 PM [facility] Glucose 90 70 - 100 mg/dL LAB CHEMISTRY METHOD 05/19/2025 6:13 PM [facility] BUN 14 5 - 25 mg/dL LAB CHEMISTRY METHOD 05/19/2025 6:13 PM [facility] Creatinine 0.64 0.50 - 1.10 mg/dL LAB CHEMISTRY METHOD 05/19/2025 6:13 PM [facility] eGFR 128 >=60 mL/min/1. 73m2 LAB CHEMISTRY METHOD 05/19/2025 6:13 PM EDT [facility] Comment:Calculation based on the Chronic Kidney Disease Epidemiology Collaboration (CKD-EPI) equation refit without adjustment for race. BUN/Creatinine Ratio 21.9 LAB CHEMISTRY METHOD 05/19/2025 6:13 PM EDT [facility] Calcium 9.6 8.5 - 10.5 mg/dL LAB CHEMISTRY METHOD 05/19/2025 6:13 PM EDT [facility] Blood Venous blood specimen / Unknown Venipuncture / Unknown 05/19/2025 5:26 PM EDT 05/19/2025 5:42 PM EDT us Blanca Soriano DO LAB BLOOD ORDERABLES Final Re sult [facility] [address] [place] [address], from Last 3 Months Insurance [facility] [employer] Care Teams Women'S Studies Professor Relationship Specialty Start Date End Date Physician, No Pcp PCP - General 05/20/25
== END 2025-06-10 13:10 | disposition home or self-care (01) ==
LOC: HO.US 13:09
PROVIDERS: Visit Provider Obstetrics & Gynecology
DX: N93.9 Abnormal uterine and vaginal bleeding, unspecified (principal)
CPT/HCPCS: 76830; 76856

== ENCOUNTER → 2025-06-10 13:11 | Outpatient (BNV) | payer OTHER, SELFPAY | PROVIDERS: Visit Provider Radiology Diagnostic Radiology | DX: N83.202 Unspecified ovarian cyst, left side (principal) | CPT/HCPCS: 76830; 76856 ==

== ENCOUNTER 2025-06-15 09:19 | Outpatient (AMB) | payer OTHER, SELFPAY ==
--- NOTE | 2025-06-15 09:28 | A.OFFVIS_ITS ---
Vital Signs 06/15/25 09:31 Height 5 ft 4 in Weight 105 lb BMI 18.0 Intake Visit Reasons: BASIM/ultrasound results Product Operations Associate Required: No Information Interpreted: non-clinical & clinical Sterilization Tech: Sterilization Tech Present (Viktoria WILLIS) Accompanied by: Self / Same As Patient Allergies No Known Allergies Allergy (Verified 06/15/25 09:32) HPI Comments Details: The patient is presenting for a test of cure. The patient took the antibiotics course; she informed her partner who was treated too. The patient reports no intercourse since then. All serology STD screening including hepatitis-B surface antigen, hepatitis-C antibody, HIV and syphilis are negative. In addition the patient is a pelvic ultrasound done recently showed the following: Uterus: The uterus is anteversion flexion and measures 8 x 4 x 5 cm. Volume: 69 cc. The double wall endometrial thickness is 10 mm. The uterus is smooth in contour and has normal myometrial echogenicity. No visible fibroid. Adnexa: The ovaries are identified with flow on color Doppler interrogation. No free fluid in the cul-de-sac. Right ovary measures 4 x 2 x 3 cm. Volume: 11 cc. There is a 2 cm dominant follicle. Left ovary measures 5 x 3 x 5 cm. Volume: 34 cc. There is a 4 x 3 cm isoechoic lesion without flow on color Doppler interrogation. There is a 1.7 cm isoechoic lesion without flow on color Doppler interrogation. COUNTS INCLUDE 234 BEDS AT THE [facility] Medical History Patient denies medical problems Family History Maternal Grandmother Diabetes Mother Cervical cancer Sister Hypertension Social History (Updated 06/03/25 @ 13:42 by Charline Perez) Household Members: Significant Other Housing: Apartment Alcohol intake: never Patient Tobacco Use Status: Never used Tobacco Substance Use Type: Marijuana service: No Current occupational status: unemployed Sexual orientation: Straight/Heterosexual Gender identity: Female Female Reproductive History Menstrual Age of Menarche: 15 Review of Systems Const All systems reviewed & are unremarkable except as noted in HPI and below Reports as per HPI and Reports no additional complaints GI Reports no additional complaints Reports no additional complaints Physical Exam Vital Signs: BMI result Body Mass Index 18.0 General: Yes no CVA tenderness External Female Exam: normal external appearance and normal appearance of the urethra Speculum Exam - Vagina: normal appearance of the vagina, normal palpation, no lesions and no masses Speculum Exam - Cervix: normal appearance of the cervix, normal palpation, no lesions, no masses and nontender Bimanual exam- vagina & uterus: normal bimanual exam, normal palpation, uterine size normal, normal palpation, uterine shape normal, No Cervical tenderness present and non-tender Bimanual Exam- Adnexa, other: normal adnexae Back/Spine/Pelvis Back: no CVA tenderness Assessment & Plan Assessment & Plan (1) Chlamydia test positive: Comment: Treated for test of cure Code(s): A74.9 - Chlamydial infection, unspecified Category: Medical Plan: BASIM done, instructions given the patient to schedule a three-month BASIM appointment (2) Complex ovarian cyst: Code(s): N83.299 - Other ovarian cyst, unspecified side Category: Medical Plan: Discussed with the patient the complex ovarian cyst by ultrasound. Discussed with the patient the Ultrasound findings, the main limitation of transvaginal ultrasonography alone as a diagnostic tool to distinguish benign from malignant masses relates to its lack of specificity and low positive predictive value for cancer. The differential diagnosis discussed with the patient includes the following but not limited to: benign and malignant gynecological and non-gynecological causes. Will order pelvic MRI , instructions given to the patient to schedule MRI and a follow-up appointment within 2 weeks. All questions answered, the the patient verbalized understanding (3) Abnormal uterine bleeding (AUB): Comment: History of thalassemia Code(s): N93.9 - Abnormal uterine and vaginal bleeding, unspecified Category: Medical Plan: Discussed with the patient the results of the work up done and options of treatment including progesterone, Mirena IUD (given the history of thalassemia there is a contraindication for hormonal contraception that increase the risk of thrombosis). All pros, cons, risks and benefits if each option was discussed with the patient and the patient decided to go ahead with Mirena IUD so a more detailed discussion about it was conducted including mechanism of action, risks (uterine perforation, infection, injury to bladder, bowel, displacement, and others) benefits (hypo menorrhea, amenorrhea, ...). GC/CT with BV panel were taken and the patient was instructed to schedule Mirena IUD insertion on day 1-5 of next cycle . All questions answered, the patient verbalized understanding Orders: Orders US pelvic and transvaginal 3 Months N83.299 - Other ovarian cyst, unspecified side MR pelvis wo/w con Today N83.299 - Other ovarian cyst, unspecified side Medications: Discontinued doxycycline monohydrate Discontinued Reason: Patient Completed Course 100 mg PO BID 14 caps 0RF metronidazole Take with food, Avoid alcohol and vinegar products Discontinued Reason: Patient Completed Course 500 mg PO BID 7 days 14 tabs 0RF doxycycline hyclate Discontinued Reason: Patient Completed Course 100 mg PO BID 7 days 14 tabs 0RF Coding Level of Care Code Est Pt Level 3 (54533) Diagnoses Chlamydia test positive A74.9 Complex ovarian cyst N83.299 Abnormal uterine bleeding (AUB) N93.9
[2025-06-15 09:31] VITALS: BMI 18.0
--- OUTSIDE RECORDS SUMMARY | 2025-06-15 10:44 | XMS_ITS | Encounter Summary ---
Author Organization [facility] Address [address] [place] [address] Phone Care Team Providers Care Web Administrator Name Role Phone Guero José MD Primary Care Provider [phone] Encounter Details Date Type Department Care Team (Late st Contact Info) Description 10/18/2016 Documentation [facility] [address] [place] [address] Family Medicine, Physician [address] [place] [id number] Social History Tobacco Use Types Packs/Day Years [...] on filedocumented in this encounter Care Teams Web Administrator Relationship Specialty Start Date End Date Guero José MD [address] [place], [place] [address] [address] PCP - General 05/17/17 01/30/24 documented as of this encounter
--- OUTSIDE RECORDS SUMMARY | 2025-06-15 10:44 | XMS_ITS | Encounter Summary ---
Author Organization [facility] Address [address] [place] [address] Phone Care Team Providers Care Java Mobile Developer Name Role Phone Guero José MD Primary Care Provider [phone] Encounter Details Date Type Department Care Team (Late st Contact Info) Description 10/18/2016 Documentation [facility] [place] [address] [place] [address] Family Medicine, Physician [address] [place] [id number] Social History Tobacco Use Types Packs/Day Years [...] on filedocumented in this encounter Care Teams Java Mobile Developer Relationship Specialty Start Date End Date Guero José MD [address] [place], [place] [address] [address] PCP - General 05/17/17 01/30/24 documented as of this encounter
--- OUTSIDE RECORDS SUMMARY | 2025-06-15 10:44 | XMS_ITS | Encounter Summary ---
Author Organization [facility] Address [address] [place] [phone] Phone Care Team Providers Care Tipple Mechanic Name Role Phone Guero José MD Primary Care Provider [phone] Reason for Visit * Reason Comments Med Refill Encounter Details Date Type Department Care Team ([facility] Contact Info) Description 2019 Refill [facility] [address] [place] [address] Francesco Keenan MD [address] [place] [address] Skin infection Social History Tobacco Use Types [...] tissue documented in this encounter Care Teams Tipple Mechanic Relationship Specialty Start Date End Date Guero José MD [address] [place] [address] [place] [address] PCP - General 05/17/17 01/30/24 documented as of this encounter
--- OUTSIDE RECORDS SUMMARY | 2025-06-15 10:44 | XMS_ITS | Encounter Summary ---
Author Organization [facility] Address [address] [place] [address] Phone Care Team Providers Care Journal Clerk Name Role Phone Guero José MD Primary Care Provider [phone] Reason for Visit * Reason Comments Med Refill Encounter Details Date Type Department Care Team ([facility] Contact Info) Description 06/11/2019 Refill [facility] [address] [place] [address] Francesco Keenan MD [address] [place] [address] Skin infection Social History Tobacco Use Types [...] tissue documented in this encounter Care Teams Journal Clerk Relationship Specialty Start Date End Date Guero José MD [address] [facility] [place] [address] PCP - General 05/17/17 01/30/24 documented as of this encounter
--- OUTSIDE RECORDS SUMMARY | 2025-06-15 10:45 | XMS_ITS | Encounter Summary ---
Author Organization [facility] Address [address] [place] [address] Phone Care Team Providers Care Poured Concrete Wall Technician Name Role Phone Guero José MD Primary Care Provider [phone] Encounter Details Date Type Department Care Team (Late st Contact Info) Description 10/18/2016 Documentation [facility] Family Medicine [address] [place] [address] Family Medicine, Physician [address], [place] [phone] Social History Tobacco Use Types Packs/Day Years [...] on filedocumented in this encounter Care Teams Poured Concrete Wall Technician Relationship Specialty Start Date End Date Guero José MD [address] [place], [place] [address] [address] PCP - General 05/17/17 01/30/24 documented as of this encounter
--- OUTSIDE RECORDS SUMMARY | 2025-06-15 10:45 | XMS_ITS | Encounter Summary ---
Author Organization [facility] Address [address] [place] [address] Phone Care Team Providers Care Associate Music Professor Name Role Phone Guero José MD Primary Care Provider [phone] Encounter Details Date Type Department Care Team (Late st Contact Info) Description 05/23/2017 Conversion Encounter [facility] [place] [address] [place] [address] Social History Tobacco Use Types Packs/Day Years [...] on filedocumented in this encounter Care Teams Associate Music Professor Relationship Specialty Start Date End Date Guero José MD [address] [place] [address] PCP - General 05/17/17 01/30/24 documented as of this encounter
--- OUTSIDE RECORDS SUMMARY | 2025-06-15 10:45 | XMS_ITS | Clinical Summary ---
Author Organization [facility] Address [address] [place] [address] Phone Care Team Providers Care Glove Sewer Name Role Phone Physician, No Pcp Primary [...] EDT - 05/20/2025 1:24 AM EDT Emergency [facility] Emergency [address] [place] [address] Abnormal vaginal bleeding (Primary Dx); [...] and culture (05/19/2025 7:37 PM EDT) Specific [place] Urine 1.033(H) 1.003 - 1.030 LAB URINALYSIS - AUTOMATED METHOD 05/19/2025 8:29 PM EDT [facility] pH, Urine 5.5 5.0 - 8.0 pH LAB URINALYSIS - AUTOMATED METHOD 05/19/2025 8:29 PM [facility] Leukocytes, Urine Small(A) Negative LAB URINALYSIS - AUTOMATED METHOD 05/19/2025 8:29 PM [facility] Nitrite, Urine Negative Negative LAB URINALYSIS - AUTOMATED METHOD 05/19/2025 8:29 PM [facility] Protein, Urine 100(A) <=Trace mg/dL LAB URINALYSIS - AUTOMATED METHOD 05/19/2025 8:29 PM [facility] Glucose, Urine Negative Negative mg/dL LAB URINALYSIS - AUTOMATED METHOD 05/19/2025 8:29 PM [facility] Ketones, Urine Trace(A) Negative mg/dL LAB URINALYSIS - AUTOMATED METHOD 05/19/2025 8:29 PM [facility] Urobilinogen , Urine 1.0 0.2 - 1.0 mg/dL LAB URINALYSIS - AUTOMATED METHOD 05/19/2025 8:29 PM [facility] Bilirubin, Urine Negative Negative LAB URINALYSIS - AUTOMATED METHOD 05/19/2025 8:29 PM [facility] Blood, Urine Large(A) Negative LAB URINALYSIS - AUTOMATED METHOD 05/19/2025 8:29 PM [facility] RBC, Urine >100.0(H) 0 - 4 /HPF LAB URINALYSIS - AUTOMATED METHOD 05/19/2025 8:29 PM [facility] WBC, Urine 16.2(H) 0 - 4 /HPF LAB URINALYSIS - AUTOMATED METHOD 05/19/2025 8:29 PM [facility] Squamous Epithelial, Urine 91(H) 0 - 60 /LPF LAB URINALYSIS - AUTOMATED METHOD 05/19/2025 8:29 PM [facility] Bacteria, Urine Negative Negative /HPF LAB URINALYSIS - AUTOMATED METHOD 05/19/2025 8:29 PM EDT [facility] Hyaline Casts, Urine 10.0(H) 0 - 3 /LPF LAB URINALYSIS - AUTOMATED METHOD 05/19/2025 8:29 PM EDT [facility] Mucus, Urine Trace(A) None /HPF LAB URINALYSIS - AUTOMATED METHOD 05/19/2025 8:29 PM EDT [facility] Urine Urine specimen obtained by clean catch procedure / Unknown Non-blood Collection / Unknown 05/19/2025 7:37 PM EDT 05/19/2025 7:[address] [facility] LAB URINE ORDERABLES Final Re sult Performing Organization Address City/[facility]/ZIP Co de Phone Number [facility] [address] [place] [address], [place] [phone] * Thompson urine culture tube (05/19/2025 7:37 PM EDT) Extra Tube Hold for add-ons. 05/19/2025 9:01 PM EDT [facility] Comment:Auto resulted. Urine Urine specimen obtained by clean catch procedure / Unknown Non-blood Collection / Unknown 05/19/2025 7:37 PM EDT 05/19/2025 7:[address] [facility] LAB URINE ORDERABLES Final Re sult [facility] [address] [place] [address], [place] [phone] * Culture urine (05/19/2025 7:37 PM EDT) Culture, Urine No growth 05/20/2025 2:15 PM EDT [facility] Urine Urine specimen obtained by clean catch procedure / Unknown Non-blood Collection / Unknown 05/19/2025 7:37 PM EDT 05/19/2025 8:29 PM EDT us Blanca Soriano DO LAB MICROBIOLOGY - GENERAL OR DERABLES Final Result [facility] [address] [place] [address], [place] [phone] * 12-Lead ECG (05/19/2025 7:30 PM EDT) Ventricular Rate ECG 76 BPM GEMUSE Atrial Rate 76 BPM GEMUSE P-R Interval 142 ms GEMUSE QRS Duration 90 ms GEMUSE Q-T Interval 366 ms GEMUSE QTc 411 ms GEMUSE P Wave Redding 67 degrees GEMUSE R Redding 53 degrees GEMUSE T Redding 33 degrees GEMUSE ECG Interpretation Normal sinus rhythm with sinus arrhythmia No previous ECGs available Confirmed by CHOE DIETRICH ([id number]) on 05/20/2025 7:41:34 PM GEMUSE 05/19/2025 7:30 PM EDT 05/20/2025 7:41 PM EDT Katt CARDENAS ECG ORDERABLES Final Re sult GEMUSE * (ABNORMAL) CBC auto differential (05/19/2025 5:26 PM EDT) WBC 8.8 4.8 - 10.8 K/mcL LAB HEMETOLOGY METHOD 05/19/2025 5:57 PM EDT [facility] RBC 4.60 3.80 - 4.80 [facility] LAB HEMETOLOGY METHOD 05/19/2025 5:57 PM EDT [facility] Hemoglobin 9.7(L) 11.5 - 16.0 g/dL LAB HEMETOLOGY METHOD 05/19/2025 5:57 PM EDT [facility] Hematocrit 30.0(L) 35.0 - 47.0 % LAB HEMETOLOGY METHOD 05/19/2025 5:57 PM EDT [facility] MCV 65.1(L) 79.0 - 98.0 FL LAB HEMETOLOGY METHOD 05/19/2025 5:57 PM EDT [facility] MCH 21.0(L) 27.0 - 32.0 pcg LAB HEMETOLOGY METHOD 05/19/2025 5:57 PM EDT [facility] MCHC 32.3 32.0 - 37.0 g/dL LAB HEMETOLOGY METHOD 05/19/2025 5:57 PM EDT [facility] RDW 18.9(H) 11.0 - 15.0 % LAB HEMETOLOGY METHOD 05/19/2025 5:57 PM EDT [facility] Platelets 268 130 - 400 K/mcL LAB HEMETOLOGY METHOD 05/19[facility]2025 5:[facility] MPV 9.9 7.0 - 11.0 FL LAB HEMETOLOGY METHOD 05/19/2025 5:57 PM EDT [facility] NRBC 0.3 <1.0 % LAB HEMETOLOGY METHOD 05/19/2025 5:57 [facility] NRBC Absolute 0.03 <0.10 K/mcL LAB HEMETOLOGY METHOD 05/19/2025 5:57 [facility] Neutrophils Relative 68.5 % LAB HEMETOLOGY METHOD 05/19/2025 5:57 PM EDT [facility] Lymphocytes Relative 24.0 % LAB HEMETOLOGY METHOD 05/19/2025 5:57 [facility] Monocytes Relative 6.2 % LAB HEMETOLOGY METHOD 05/19/2025 5:57 [facility] Eosinophils Relative 0.2 % LAB HEMETOLOGY METHOD 05/19/2025 5:57 [facility] Basophils Relative 0.3 % LAB HEMETOLOGY METHOD 05/19/2025 5:57 PM EDT [facility] Immature Granulocytes Relative 0.8 % LAB HEMETOLOGY METHOD 05/19/2025 5:57 PM EDT [facility] Neutrophils Absolute 6.03 1.50 - 7.00 K/mcL LAB HEMETOLOGY METHOD 05/19/2025 5:57 PM EDT [facility] Lymphocytes Absolute 2.12 1.00 - 5.00 K/mcL LAB HEMETOLOGY METHOD 05/19/2025 5:57 PM EDT [facility] Monocytes Absolute 0.55 0.20 - 1.00 K/mcL LAB HEMETOLOGY METHOD 05/19/2025 5:57 PM EDT [facility] Eosinophils Absolute 0.02 0.00 - 0.50 K/mcL LAB HEMETOLOGY METHOD 05/19/2025 5:57 PM EDT [facility] Basophils Absolute 0.03 0.00 - 0.20 K/mcL LAB HEMETOLOGY METHOD 05/19/2025 5:57 PM EDT [facility] Immature Granulocytes Absolute 0.07(H) 0.00 - 0.03 K/mcL LAB HEMETOLOGY METHOD 05/19/2025 5:57 PM EDT [facility] Blood Venous blood specimen / Unknown Venipuncture / Unknown 05/19/2025 5:26 PM EDT 05/19/2025 5:42 PM EDT us Blanca Soriano DO LAB BLOOD ORDERABLES Final Re sult [facility] [address] [place] [address], * Type and screen (05/19/2025 5:26 PM EDT) ABO Group A 05/19/2025 7:11 PM EDT [facility] Rh Type Positive 05/19/2025 7:11 PM EDT [facility] Antibody Screen Negative 05/19/2025 7:11 PM [facility] Blood Venous blood specimen / Unknown Venipuncture / Unknown 05/19/2025 5:26 PM EDT 05/19/2025 5:44 PM EDT Blanca Soriano LAB BLOOD BANK TEST ORDERABLE S Final Result [facility] [address] [place] [address], [place] [phone] * (ABNORMAL) Basic metabolic panel (05/19/2025 5:26 PM EDT) Sodium 137 133 - 145 mmol/L LAB CHEMISTRY METHOD 05/19/2025 6:13 PM [facility] Potassium 4.1 3.5 - 5.5 mmol/L LAB CHEMISTRY METHOD 05/19/2025 6:13 PM [facility] Chloride 106 96 - 110 mmol/L LAB CHEMISTRY METHOD 05/19/2025 6:13 PM [facility] CO2 29 21 - 32 mmol/L LAB CHEMISTRY METHOD 05/19/2025 6:13 PM [facility] Anion Gap 2(L) 3 - 11 LAB CHEMISTRY METHOD 05/19/2025 6:13 PM [facility] Glucose 90 70 - 100 mg/dL LAB CHEMISTRY METHOD 05/19/2025 6:13 PM [facility] BUN 14 5 - 25 mg/dL LAB CHEMISTRY METHOD 05/19/2025 6:13 PM [facility] Creatinine 0.64 0.50 - 1.10 mg/dL LAB CHEMISTRY METHOD 05/19/2025 6:13 PM [facility] eGFR 128 >=60 mL/min/1. 73m2 LAB CHEMISTRY METHOD 05/19/2025 6:13 PM EDT [facility] Comment:Calculation based on the Chronic Kidney Disease Epidemiology Collaboration (CKD-EPI) equation refit without adjustment for race. BUN/Creatinine Ratio 21.9 LAB CHEMISTRY METHOD 05/19/2025 6:13 PM EDT [facility] Calcium 9.6 8.5 - 10.5 mg/dL LAB CHEMISTRY METHOD 05/19/2025 6:13 PM EDT [facility] Blood Venous blood specimen / Unknown Venipuncture / Unknown 05/19/2025 5:26 PM EDT 05/19/2025 5:42 PM EDT us Blanca Soriano DO LAB BLOOD ORDERABLES Final Re sult [facility] [address] [place] [address], from Last 3 Months Insurance [employer] Care Teams Glove Sewer Relationship Specialty Start Date End Date Physician, No Pcp PCP - General 05/20/25
--- OUTSIDE RECORDS SUMMARY | 2025-06-15 10:45 | XMS_ITS | Encounter Summary ---
Author Organization [facility] Address [address] [place] [address] Phone Care Team Providers Care Neurourologist Name Role Phone Guero José MD Primary Care Provider Encounter Details Date Type Department Care Team (Late st Contact Info) Description 11/09/2016 Documentation [facility] Family Medicine [address] [place] [address] Family Medicine, Physician [address], [place] [phone] Social History Tobacco Use Types Packs/Day Years [...] on filedocumented in this encounter Care Teams Neurourologist Relationship Specialty Start Date End Date Guero José MD [address] [place], [place] [address] [address] PCP - General 05/17/17 01/30/24 documented as of this encounter
--- OUTSIDE RECORDS SUMMARY | 2025-06-15 10:45 | XMS_ITS | Encounter Summary ---
Author Organization [facility] Address [address] [place] [address] Phone Care Team Providers Care Colorer Machine Name Role Phone Guero José MD Primary Care Provider [phone] Encounter Details Date Type Department Care Team (Late st Contact Info) Description 12/04/2016 Documentation [facility] Family Medicine [address] [place] [address] Family Medicine, Physician [address] [place], [place] [phone] Social History Tobacco Use Types Packs/Day Years [...] on filedocumented in this encounter Care Teams Colorer Machine Relationship Specialty Start Date End Date Guero José MD [address] [place], [place] [address] [address] PCP - General 05/17/17 01/30/24 documented as of this encounter
--- OUTSIDE RECORDS SUMMARY | 2025-06-15 10:45 | XMS_ITS | Encounter Summary ---
Author Organization [facility] Address [address] [place] [address] Phone Care Team Providers Care Results Technician Name Role Phone Guero José MD Primary Care Provider [phone] Encounter Details Date Type Department Care Team (Late st Contact Info) Description 10/18/2016 Documentation [facility] [place] [address] [place] [address] Family Medicine, Physician [address] [place], [place] [phone] Social History Tobacco Use Types Packs/Day Years [...] on filedocumented in this encounter Care Teams Results Technician Relationship Specialty Start Date End Date Guero José MD [address] [place], [place] [address] [address] PCP - General 05/17/17 01/30/24 documented as of this encounter
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
--- OUTSIDE RECORDS SUMMARY | 2025-06-15 10:45 | XMS_ITS | Encounter Summary ---
Author Organization [facility] Address [address] [place] [address] Phone Care Team Providers Care Dispatch Coordinator Name Role Phone Guero José MD Primary Care Provider [phone] Encounter Details Date Type Department Care Team (Late st Contact Info) Description 10/18/2016 Documentation [facility] [place] Medicine [address] [place] [address] Family Medicine, Physician [address] [place], [place] [phone] Social History Tobacco Use Types Packs/Day Years [...] on filedocumented in this encounter Care Teams Dispatch Coordinator Relationship Specialty Start Date End Date Guero José MD [address] [place], [place] [address] [address] PCP - General 05/17/17 01/30/24 documented as of this encounter
== END 2025-06-15 10:20 | disposition home or self-care (01) ==
LOC: HO.HWS 09:19
PROVIDERS: Visit Provider Obstetrics & Gynecology
DX: A74.9 Chlamydial infection, unspecified (principal); N83.299 Other ovarian cyst, unspecified side; N93.9 Abnormal uterine and vaginal bleeding, unspecified
CPT/HCPCS: 99213

== ENCOUNTER 2025-06-15 09:19 | Outpatient (REF) | payer OTHER, SELFPAY ==
--- OUTSIDE RECORDS SUMMARY | 2025-06-15 12:07 | XMS_ITS | Clinical Summary ---
Author Organization [employer] Address [address] [facility] [address] [place] [address] Care Team Providers Care French Translator Name Role Phone Unavailable Primary Care Provider Unavailabl e Encounters Date Type Department Care Team Description 05/14/2025 Telephone [facility] MEDICINE [address] [place] [address] Terry Cook MD from Last 3 Months [...]
--- OUTSIDE RECORDS SUMMARY | 2025-06-15 12:07 | XMS_ITS | Encounter Summary ---
Author Organization [employer] Address [address] [facility] [address] [place] [address] Care Team Providers Care It Help Desk Associate Name Role Phone Unavailable Primary Care Provider Unavailabl e Encounter Details Date Type Department Care Team (Late st Contact Info) Description 05/14/2025 Telephone [facility] MEDICINE [address] [place] [address] Terry Cook MD [address] [place] [address] Social History Tobacco Use Types Packs/Day Years [...]
[2025-06-15 17:03] LABS: Bacterial Vaginosis PCR POSITIVE (Negative); Candida Group PCR NOT DETECTED (Not Detect); Candida glab krusei PCR NOT DETECTED (Not Detect); Trichomonas vaginalis PCR NOT DETECTED (Not Detect)
[2025-06-15 17:20] LABS: CT PCR NOT DETECTED (Not Detect.); NG PCR NOT DETECTED (Not Detect.)
== END 2025-06-15 09:20 | disposition home or self-care (01) ==
LOC: HO.LNP 09:19
PROVIDERS: Visit Provider Obstetrics & Gynecology
DX: A74.9 Chlamydial infection, unspecified (principal); N83.299 Other ovarian cyst, unspecified side; N93.9 Abnormal uterine and vaginal bleeding, unspecified; Z20.2 Contact with and (suspected) exposure to infections with a predominantly sexual mode of transmission
CPT/HCPCS: 81515; 87491; 87591; 99212

== ENCOUNTER 2025-07-02 12:53 | Outpatient (REF) | payer OTHER, SELFPAY ==
--- NOTE | ~2025-07-02 | MR_ITS ---
CLINICAL HISTORY: N83.299 - Other ovarian cyst, unspecified side MR female pelvis with and without contrast Comparison: US/SR - US PELVIS TRANSABDOMINAL AND TRANSVAGINAL - 06/10/25 13:21 EDT Findings: The uterus is anteverted and normal in size, measuring 5.5 x 3.7 x 5.2cm. No masses. The endometrium is normal in thickness, measuring 0.7cm. The junctional zone is normal in thickness, measuring up to 0.5cm. The right ovary is normal in size with multiple small follicles. The left ovary is mildly enlarged , measuring 4.7 x 3.5 x 3.2 cm. There are 2 lesions in the left ovary, which were also seen on the prior study. The larger lesion measures 2.9 x 4.3 x 3.0 cm, previously measuring 3.9 x 2.6 x 2.6 cm. The lesion is hyperintense on T1 weighted images, homogeneously hypointense on T2 weighted images and does not demonstrate enhancement. The smaller lesion measures 1.6 x 1.8 x 1.4 cm, previously measuring 1.7 x 1.3 x 1.5 cm. The lesion is hyperintense on T1 weighted images with T2 shading and a T2 dark spot on T2 weighted images and does not demonstrate enhancement. Trace pelvic free fluid. Tampon in the vagina. Unremarkable urinary bladder and other visualized intrapelvic contents. Impression: There are 2 endometrioma in the left ovary measuring 4.3 cm and 1.8 cm. Yearly follow up pelvic ultrasound is recommended. This document has been electronically signed by: Malaika Bennett MD on 07/05/2025 16:19:07
--- OUTSIDE RECORDS SUMMARY | 2025-07-02 14:18 | XMS_ITS | Encounter Summary ---
Author Organization [facility] Address [address] [place] [address] Phone Care Team Providers Care Skin Fitter Name Role Phone Guero José MD Primary Care Provider [phone] Encounter Details Date Type Department Care Team (Late st Contact Info) Description 10/18/2016 Documentation [facility] [place] [address] [place] [address] Family Medicine, Physician [address], [place] [phone] Social History Tobacco Use Types Packs/Day Years [...] on filedocumented in this encounter Care Teams Skin Fitter Relationship Specialty Start Date End Date Guero José MD [address] [place], [place] [address] [address] PCP - General 05/17/17 01/30/24 documented as of this encounter
--- OUTSIDE RECORDS SUMMARY | 2025-07-02 14:18 | XMS_ITS | Clinical Summary ---
Author Organization [facility] Address [address] [place] [address] Phone Care Team Providers Care Bike Shop Manager Name Role Phone Physician, No Pcp Primary Care Provider Unavaila ble Allergies No known active allergies Medications 21-iron fu-folic acid 14 mg iron- 400 mcg tablet Take 0.4 mg by mouth 1 (one) time each day. 30 each 05/20/2025 Encounters Date Type Department Care Team Description 05/20/2025 12:43 AM EDT - 05/20/2025 1:24 AM EDT Emergency [facility] Emergency [address] [place] [address] Abnormal vaginal bleeding (Primary Dx); [...] of Health Screening 05/20/2025 COVID-19 Vaccine ( - season) 2025 08/01/2023 Influenza Vaccine (#1) 2025 , 10/03/2020, 08/14/2018, Additional history exists DTaP,Tdap,and Td Vaccines (7 - Td or Tdap) 07/29/2025 07/29/2015, 07/05/2007, 03/12/2007, Additional history exists RSV Immunization Adult Patients (1 - 1-dose 75+ series) 2077 Hepatitis B Vaccines Completed 09/06/2003, 02/12/2003, 01/10/2003 [...] and culture (05/19/2025 7:37 PM EDT) Specific [place] Urine 1.033(H) 1.003 - 1.030 LAB URINALYSIS - AUTOMATED METHOD 05/19/2025 8:29 PM EDT [facility] pH, Urine 5.5 5.0 - 8.0 pH LAB URINALYSIS - AUTOMATED METHOD 05/19/2025 8:29 PM EDT [facility] Leukocytes, Urine Small(A) Negative LAB URINALYSIS - AUTOMATED METHOD 05/19/2025 8:29 PM EDT [facility] Nitrite, Urine Negative Negative LAB URINALYSIS - AUTOMATED METHOD 05/19/2025 8:29 PM [facility] Protein, Urine 100(A) <=Trace mg/dL LAB URINALYSIS - AUTOMATED METHOD 05/19/2025 8:29 PM [facility] Glucose, Urine Negative Negative mg/dL LAB URINALYSIS - AUTOMATED METHOD 05/19/2025 8:29 PM [facility] Ketones, Urine Trace(A) Negative mg/dL LAB URINALYSIS - AUTOMATED METHOD 05/19/2025 8:29 PM [facility] Urobilinogen , Urine 1.0 0.2 - 1.0 mg/dL LAB URINALYSIS - AUTOMATED METHOD 05/19/2025 8:29 PM [facility] Bilirubin, Urine Negative Negative LAB URINALYSIS - AUTOMATED METHOD 05/19/2025 8:29 PM [facility] Blood, Urine Large(A) Negative LAB URINALYSIS - AUTOMATED METHOD 05/19/2025 8:29 PM [facility] RBC, Urine >100.0(H) 0 - 4 /HPF LAB URINALYSIS - AUTOMATED METHOD 05/19/2025 8:29 PM [facility] WBC, Urine 16.2(H) 0 - 4 /HPF LAB URINALYSIS - AUTOMATED METHOD 05/19/2025 8:29 PM [facility] Squamous Epithelial, Urine 91(H) 0 - 60 /LPF LAB URINALYSIS - AUTOMATED METHOD 05/19/2025 8:29 PM [facility] Bacteria, Urine Negative Negative /HPF LAB URINALYSIS - AUTOMATED METHOD 05/19/2025 8:29 PM [facility] Hyaline Casts, Urine 10.0(H) 0 - 3 /LPF LAB URINALYSIS - AUTOMATED METHOD 05/19/2025 8:29 PM [facility] Mucus, Urine Trace(A) None /HPF LAB URINALYSIS - AUTOMATED METHOD 05/19/2025 8:29 PM EDT [facility] Urine Urine specimen obtained by clean catch procedure / Unknown Non-blood Collection / Unknown 05/19/2025 7:37 PM EDT 05/19/2025 7:44 PM EDT [facility] LAB URINE ORDERABLES Final Re sult Performing Organization Address [facility]/ZIP Co de Phone Number [facility] [address] [place] [address], [place] [phone] * Thompson urine culture tube (05/19/2025 7:37 PM EDT) Extra Tube Hold for add-ons. 05/19/2025 9:01 PM EDT [facility] Comment:Auto resulted. Urine Urine specimen obtained by clean catch procedure / Unknown Non-blood Collection / Unknown 05/19/2025 7:37 PM EDT 05/19/2025 7:44 PM EDT [facility] URINE ORDERABLES Final Re sult Performing Organization Address [facility] de Phone Number [facility] [address] [place] [address], [place] [phone] * Culture urine (05/19/2025 7:37 PM EDT) Culture, Urine No growth 05/20/2025 2:15 PM EDT [facility] Urine Urine specimen obtained by clean catch procedure / Unknown Non-blood Collection / Unknown 05/19/2025 7:37 PM EDT 05/19/2025 8:29 PM EDT [facility] LAB MICROBIOLOGY - GENERAL OR DERABLES Final Result Performing Organization Address [facility]/ZIP Co de Phone Number [facility] [address] [place] [address], [place] [phone] * 12-Lead ECG (05/19/2025 7:30 PM EDT) Ventricular Rate ECG 76 BPM GEMUSE Atrial Rate 76 BPM GEMUSE P-R Interval 142 ms GEMUSE QRS Duration 90 ms GEMUSE Q-T Interval 366 ms GEMUSE QTc 411 ms GEMUSE P Wave Ovid 67 degrees GEMUSE R Ovid 53 degrees GEMUSE T Ovid 33 degrees GEMUSE ECG Interpretation Normal sinus rhythm with sinus arrhythmia No previous ECGs available Confirmed by CHEO DIETRICH ([id number]) on 05/20/2025 7:41:34 PM GEMUSE 05/19/2025 7:30 PM EDT 05/20/2025 7:41 PM EDT Katt CARDENAS ECG ORDERABLES Final Re sult GEMUSE * (ABNORMAL) CBC auto differential (05/19/2025 5:26 PM EDT) [facility] WBC 8.8 4.8 - 10.8 K/mcL LAB HEMETOLOGY METHOD 05/19/2025 5:57 PM EDT [facility] RBC 4.60 3.80 - 4.80 M/mcL LAB HEMETOLOGY METHOD 05/19/2025 5:57 PM EDT [facility] Hemoglobin 9.7(L) 11.5 - 16.0 g/dL LAB HEMETOLOGY METHOD 05/19/2025 5:57 PM EDT [facility] Hematocrit 30.0(L) 35.0 - 47.0 % LAB HEMETOLOGY METHOD 05/19/2025 5:57 PM EDT [facility] MCV 65.1(L) 79.0 - 98.0 FL LAB HEMETOLOGY METHOD 05/19/2025 5:57 PM EDT [facility] MCH 21.0(L) 27.0 - 32.0 pcg LAB HEMETOLOGY METHOD 05/19/2025 5:57 PM EDT [facility] MCHC 32.3 32.0 - 37.0 g/dL LAB HEMETOLOGY METHOD [facility]25 [facility] RDW 18.9(H) 11.0 - 15.0 % LAB HEMETOLOGY METHOD 05/19/2025 5:57 PM EDT [facility] Platelets 268 130 - 400 K/mcL LAB HEMETOLOGY METHOD 05/19/2025 5:57 PM EDT [facility] MPV 9.9 7.0 - 11.0 FL LAB HEMETOLOGY METHOD 05/19/2025 5:[facility] NRBC 0.3 <1.0 % LAB HEMETOLOGY METHOD 05/19/2025 5:57 [facility] NRBC Absolute 0.03 <0.10 K/mcL LAB HEMETOLOGY METHOD 05/19/2025 5:57 PM EDT [facility] Neutrophils Relative 68.5 % LAB HEMETOLOGY METHOD 05/19/2025 5:[facility] Lymphocytes Relative 24.0 % LAB HEMETOLOGY METHOD 05/19/2025 5:57 [facility] Monocytes Relative 6.2 % LAB HEMETOLOGY METHOD 05/19/2025 5:57 [facility] Eosinophils Relative 0.2 % LAB HEMETOLOGY METHOD 05/19/2025 5:57 [facility] Basophils Relative 0.3 % LAB HEMETOLOGY METHOD 05/19/2025 5:57 [facility] Immature Granulocytes Relative 0.8 % LAB HEMETOLOGY METHOD 05/19/2025 5:57 [facility] Neutrophils Absolute 6.03 1.50 - 7.00 K/mcL LAB HEMETOLOGY METHOD 05/19/2025 5:57 PM EDT [facility] Lymphocytes Absolute 2.12 1.00 - 5.00 K/[facility] LAB HEMETOLOGY METHOD 05/19/2025 5:57 PM EDT [facility] Monocytes Absolute 0.55 0.20 - 1.00 K/[facility] LAB HEMETOLOGY METHOD 05/19/2025 5:57 PM EDT [facility] Eosinophils Absolute 0.02 0.00 - 0.50 K/[facility] LAB HEMETOLOGY METHOD 05/19/2025 5:57 PM EDT [facility] Basophils Absolute 0.03 0.00 - 0.20 K/[facility] LAB HEMETOLOGY METHOD 05/19/2025 5:57 PM EDT [facility] Immature Granulocytes Absolute 0.07(H) 0.00 - 0.03 K/[facility] LAB HEMETOLOGY METHOD 05/19/2025 5:57 PM EDT [facility] Blood Venous blood specimen / Unknown Venipuncture / Unknown 05/19/2025 5:26 PM EDT 05/19/2025 5:42 PM EDT Blanca Soriano LAB BLOOD ORDERABLES Final Re sult [facility] [address] [place] [address], * Type and screen (05/19/2025 5:26 PM EDT) ABO Group A 05/19/2025 7:11 PM EDT [facility] Rh Type Positive 05/19/2025 7:11 PM EDT [facility] Antibody Screen Negative 05/19/2025 7:11 PM EDT [facility] Blood Venous blood specimen / Unknown Venipuncture / Unknown 05/19/2025 5:26 PM EDT 05/19/2025 5:44 PM EDT us Blanca Pandionte LAB BLOOD BANK TEST ORDERABLE S Final Result [facility] [address] [place] [address], [place] [phone] * (ABNORMAL) Basic metabolic panel (05/19/2025 5:26 PM EDT) Pathologist [facility] Sodium 137 133 - 145 mmol/L LAB CHEMISTRY METHOD 05/19/2025 6:13 PM [facility] Potassium 4.1 3.5 - 5.5 mmol/L LAB CHEMISTRY METHOD 05/19/2025 6:13 PM [facility] Chloride 106 96 - 110 mmol/L LAB CHEMISTRY METHOD 05/19/2025 6:13 PM [facility] CO2 29 21 - 32 mmol/L LAB CHEMISTRY METHOD 05/19/2025 6:13 PM [facility] Anion Gap 2(L) 3 - 11 LAB CHEMISTRY METHOD 05/19/2025 6:13 PM [facility] Glucose 90 70 - 100 mg/dL LAB CHEMISTRY METHOD 05/19/2025 6:13 PM [facility] BUN 14 5 - 25 mg/dL LAB CHEMISTRY METHOD 05/19/2025 6:13 PM [facility] Creatinine 0.64 0.50 - 1.10 mg/dL LAB CHEMISTRY METHOD 05/19/2025 6:13 PM [facility] eGFR 128 >=60 mL/min/1. 73m2 LAB CHEMISTRY METHOD 05/19/2025 6:13 PM [facility] Comment:Calculation based on the Chronic Kidney Disease Epidemiology Collaboration (CKD-EPI) equation refit without adjustment for race. BUN/Creatinine Ratio 21.9 LAB CHEMISTRY METHOD 05/19/2025 6:13 PM [facility] Calcium 9.6 8.5 - 10.5 mg/dL LAB CHEMISTRY METHOD 05/19/2025 6:13 PM EDT [facility] Blood Venous blood specimen / Unknown Venipuncture / Unknown 05/19/2025 5:26 PM EDT 05/19/2025 5:42 PM EDT us Blanca Soriano DO LAB BLOOD ORDERABLES Final Re sult [facility] ([facility] [address] [place] [address], [place] [phone] from Last 3 Months Insurance [facility] [employer] Care Teams Bike Shop Manager Relationship Specialty Start Date End Date Physician, No Pcp PCP - General 05/20/25
--- OUTSIDE RECORDS SUMMARY | 2025-07-02 14:18 | XMS_ITS | Encounter Summary ---
Author Organization [facility] Address [address] [place] [address] Phone Care Team Providers Care Weigher Production Name Role Phone Guero José MD Primary Care Provider [phone] Encounter Details Date Type Department Care Team (Late st Contact Info) Description 10/18/2016 Documentation [facility] [place] Family Medicine [address] [place] [address] Family Medicine, Physician [address] [id number] Social History Tobacco Use Types Packs/Day Years [...] on filedocumented in this encounter Care Teams Weigher Production Relationship Specialty Start Date End Date Guero José MD [address] [place], [place] [address] [address] PCP - General 05/17/17 01/30/24 documented as of this encounter
--- OUTSIDE RECORDS SUMMARY | 2025-07-02 14:18 | XMS_ITS | Encounter Summary ---
Author Organization [facility] Address [address] [place] [address] Phone Care Team Providers Care Manager Recruiting Name Role Phone Guero José MD Primary Care Provider [phone] Reason for Visit * Reason Comments Med Refill Encounter Details Date Type Department Care Team ([facility] Contact Info) Description 2019 Refill [facility] [place] [address] [place] [address] Francesco Keenan MD [address] [place] [address] Skin infection Social History Tobacco Use Types [...] tissue documented in this encounter Care Teams Manager Recruiting Relationship Specialty Start Date End Date Guero José MD [address] [place] [address] YAMIL Stroud [address] PCP - General 05/17/17 01/30/24 documented as of this encounter
--- OUTSIDE RECORDS SUMMARY | 2025-07-02 14:18 | XMS_ITS | Encounter Summary ---
Author Organization [facility] Address [address] [place] [address] Phone Care Team Providers Care Cooler Man Name Role Phone Guero José MD Primary Care Provider [phone] Encounter Details Date Type Department Care Team (Late st Contact Info) Description 12/04/2016 Documentation [facility] [place] [address] [place] [address] Family Medicine, Physician [address], [place] [phone] Social History Tobacco Use Types Packs/Day Years [...] on filedocumented in this encounter Care Teams Cooler Man Relationship Specialty Start Date End Date Guero José MD [address] [place], [place] [address] [address] PCP - General 05/17/17 01/30/24 documented as of this encounter
--- OUTSIDE RECORDS SUMMARY | 2025-07-02 14:18 | XMS_ITS | Encounter Summary ---
Author Organization [facility] Address [address] [facility] [address] [place] [address] Care Team Providers Care Supervisor Blueprinting And Photocopy Name Role Phone Unavailable Primary Care Provider Unavailabl e Encounter Details Date Type Department Care Team (Late st Contact Info) Description 05/14/[address] [facility] MEDICINE [address] [place] [address] Terry Cook MD [address] [place] [address] Social History Tobacco Use Types Packs/Day Years [...]
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
--- OUTSIDE RECORDS SUMMARY | 2025-07-02 14:18 | XMS_ITS | Encounter Summary ---
Author Organization [facility] Address [address] [place] [address] Phone Care Team Providers Care Health Informatics Advisor Name Role Phone Guero José MD Primary Care Provider [phone] Encounter Details Date Type Department Care Team (Late st Contact Info) Description 10/18/2016 Documentation [facility] [place] Medicine [address] [place] [address] Family Medicine, Physician [address], [place] [phone] Social History Tobacco Use Types Packs/Day Years [...] on filedocumented in this encounter Care Teams Health Informatics Advisor Relationship Specialty Start Date End Date Guero José MD [address] [place], [place] [address] [address] PCP - General 05/17/17 01/30/24 documented as of this encounter
--- OUTSIDE RECORDS SUMMARY | 2025-07-02 14:18 | XMS_ITS | Encounter Summary ---
Author Organization [facility] Address [address] [place] [address] Phone Care Team Providers Care Belt Molder Name Role Phone Guero José MD Primary Care Provider [phone] Encounter Details Date Type Department Care Team (Late st Contact Info) Description 10/18/2016 Documentation [facility] [place] Family Medicine [address] [place] [address] Family Medicine, Physician [address], [place] [phone] Social History Tobacco Use Types Packs/Day Years [...] on filedocumented in this encounter Care Teams Belt Molder Relationship Specialty Start Date End Date Guero José MD [address] [place], [place] [address] [address] PCP - General 05/17/17 01/30/24 documented as of this encounter
--- OUTSIDE RECORDS SUMMARY | 2025-07-02 14:18 | XMS_ITS | Encounter Summary ---
Author Organization [facility] Address [address] [place] [address] Phone Care Team Providers Care Stock Order Lister Name Role Phone Guero José MD Primary Care Provider [phone] Encounter Details Date Type Department Care Team (Late st Contact Info) Description 11/09/2016 Documentation [facility] [place] Family Medicine [address] [place] [address] Family Medicine, Physician [address] [phone] Social History Tobacco Use Types Packs/Day Years [...] filedocumented in this encounter Care Teams Stock Order Lister Relationship Specialty Start Date End Date Guero José MD [address] [place], [place] [address] [address] PCP - General 05/17/17 01/30/24 documented as of this encounter
--- OUTSIDE RECORDS SUMMARY | 2025-07-02 14:18 | XMS_ITS | Encounter Summary ---
Author Organization [facility] Address [address] [place] [address] Phone Care Team Providers Care Quantitative Analyst Name Role Phone Guero José MD Primary Care Provider [phone] Reason for Visit * Reason Comments Med Refill Encounter Details Date Type Department Care Team ([facility] Contact Info) Description 06/11/2019 Refill [facility] [place] [address] [place] [address] Francesco Keenan MD [address] [place] [address] Skin infection Social History Tobacco Use Types [...] tissue documented in this encounter Care Teams Quantitative Analyst Relationship Specialty Start Date End Date Guero José MD [address] [facility] [place] [address] PCP - General 05/17/17 01/30/24 documented as of this encounter
--- OUTSIDE RECORDS SUMMARY | 2025-07-02 14:18 | XMS_ITS | Encounter Summary ---
Author Organization [facility] Address [address] [place] [address] Phone Care Team Providers Care Contract Sheltered Workshop Supervisor Name Role Phone Guero José MD Primary Care Provider [phone] Encounter Details Date Type Department Care Team (Late st Contact Info) Description 05/23/2017 Conversion Encounter [facility] [place] [address] [place] [address] Social History Tobacco Use Types Packs/Day Years [...] on filedocumented in this encounter Care Teams Contract Sheltered Workshop Supervisor Relationship Specialty Start Date End Date Guero José MD [address] [place] [address] PCP - General 05/17/17 01/30/24 documented as of this encounter
--- OUTSIDE RECORDS SUMMARY | 2025-07-02 14:18 | XMS_ITS | Encounter Summary ---
Author Organization [facility] Address [address] [place] [address] Phone Care Team Providers Care Tan Room Supervisor Name Role Phone Guero José MD Primary Care Provider [phone] Encounter Details Date Type Department Care Team (Late st Contact Info) Description 10/18/2016 Documentation [facility] [place] Family Medicine [address] [place] [address] Family Medicine, Physician [address], [place] [phone] Social History Tobacco Use Types Packs/Day Years [...] on filedocumented in this encounter Care Teams Tan Room Supervisor Relationship Specialty Start Date End Date Guero José MD [address] [place], [place] [address] [address] PCP - General 05/17/17 01/30/24 documented as of this encounter
--- OUTSIDE RECORDS SUMMARY | 2025-07-02 14:18 | XMS_ITS | Clinical Summary ---
Author Organization [employer] Address [address] [facility] [address] [place] [address] Care Team Providers Care Director Foundation Name Role Phone Unavailable Primary Care Provider Unavailabl e Encounters Date Type Department Care Team Description 05/14/2025 Telephone [facility] MEDICINE [address] [place] [address] Terry Cook MD from Last 3 Months [...]
== END 2025-07-02 12:54 | disposition home or self-care (01) ==
LOC: HO.MRI 12:53
PROVIDERS: Visit Provider Obstetrics & Gynecology
DX: N83.299 Other ovarian cyst, unspecified side (principal)
CPT/HCPCS: 72197; A9585

== ENCOUNTER → 2025-07-02 13:04 | Outpatient (BNV) | payer OTHER, SELFPAY | PROVIDERS: Visit Provider Radiology Diagnostic Radiology | DX: N80.122 Deep endometriosis of left ovary (principal) | CPT/HCPCS: 72197 ==

== ENCOUNTER 2025-08-10 11:52 | Outpatient (AMB) | payer OTHER, SELFPAY ==
--- NOTE | 2025-08-10 11:54 | A.OFFVIS_ITS ---
Intake Visit Reasons: MRI Follow up Allergies No Known Allergies Allergy (Verified 06/15/25 09:32) Is last menstrual period known: Yes Last menstrual period: 07/31/25 HPI Comments Details: 07/05/25 PelvicMRI: Impression: There are 2 endometrioma in the left ovary measuring 4.3 cm and 1.8 cm. Yearly follow up pelvic ultrasound is recommended. [facility] Medical History Patient denies medical problems Family History Maternal Grandmother Diabetes Mother Cervical cancer Sister Hypertension Social History Household Members: Significant Other Housing: Apartment Alcohol intake: never Patient Tobacco Use Status: Never used Tobacco Substance Use Type: Marijuana service: No Current occupational status: unemployed Sexual orientation: Straight/Heterosexual Gender identity: Female Female Reproductive History Menstrual Age of Menarche: 15 Date of last menstrual period: 07/31/25 Review of Systems Const All systems reviewed & are unremarkable except as noted in HPI and below Reports as per HPI and Reports no additional complaints GI Reports no additional complaints Reports no additional complaints Assessment & Plan Assessment & Plan (1) Endometrioma of ovary: Code(s): N80.129 - Deep endometriosis of ovary, unspecified ovary Category: Medical Plan: Discussed with the patient the findings on pelvic MRI showing 2 endometriomas. Options of treatment discussed the patient include the following: Either surgical resection which provides a definitive diagnosis, symptom relief, and exclusion of malignancy. The Risks of surgical resection include potential decreased ovarian reserve after resection and standard surgical risks. The 2nd option discussed with the patient is to manage both endometriomas through Observation which preserves ovarian function and avoids surgical risk. The risks of observation include lack of histologic diagnosis, inability to exclude malignancy, and potential for disease progression. The patient decided to proceed with surgical management, will refer to [facility] for surgical management (2) Endometriosis: Code(s): N80.9 - Endometriosis, unspecified Category: Medical Plan: Discussed with the patient the options of treatment for endometriosis: continuous control pills, DMPA or Lupron Depot versus laparoscopic fulguration of endometriosis . The patient is interested in surgical management Will refer to [facility] for further management. Instructed the patient to call our office back in case a referral appointment is not scheduled, missed or canceled so that we will assist on rescheduling another appointment, the patient verbalized understanding agreed with the plan. Medications: Discontinued metronidazole Discontinued Reason: Patient Completed Course 500 mg PO BID 7 days 14 tabs 0RF Coding Level of Care Code Est Pt Level 3 (89561) Diagnoses Endometrioma of ovary N80.129 Endometriosis N80.9
--- OUTSIDE RECORDS SUMMARY | 2025-08-10 14:40 | XMS_ITS | Encounter Summary ---
Author Organization [facility] Address [address] [place] [address] Phone Care Team Providers Care Trailer Park Manager Name Role Phone Guero José MD Primary Care Provider [phone] Encounter Details Date Type Department Care Team (Late st Contact Info) Description 10/18/2016 [place]ation [facility] [place] [address] [place] [address] Family Medicine, Physician [address] [place] [id number] Social History Tobacco Use Types Packs/Day Years [...] on filedocumented in this encounter Care Teams Trailer Park Manager Relationship Specialty Start Date End Date Guero José MD [address] [place], [place] [address] [address] PCP - General 05/17/17 01/30/24 documented as of this encounter
--- OUTSIDE RECORDS SUMMARY | 2025-08-10 14:41 | XMS_ITS | Clinical Summary ---
Author Organization [employer] Address [address] [facility] 7t [place] [address] Care Team Providers Care Anesthesiology Technologist Name Role Phone Unavailable Primary Care Provider Unavailabl e Encounters Date Type Department Care Team Description 05/14/2025 Telephone [facility] [address] [place] [address] Terry Cook MD from Last 3 Months [...]
--- OUTSIDE RECORDS SUMMARY | 2025-08-10 14:41 | XMS_ITS | Encounter Summary ---
Author Organization [facility] Address [address] [place] [address] Phone Care Team Providers Care Transition Lead Name Role Phone Guero José MD Primary Care Provider [phone] Encounter Details Date Type Department Care Team (Late st Contact Info) Description 05/23/2017 Conversion Encounter [facility] [address] [place] [address] Social History Tobacco Use Types Packs/Day Years [...] on filedocumented in this encounter Care Teams Transition Lead Relationship Specialty Start Date End Date Guero José MD [address] [place] [address] PCP - General 05/17/17 01/30/24 documented as of this encounter
--- OUTSIDE RECORDS SUMMARY | 2025-08-10 14:41 | XMS_ITS | Encounter Summary ---
Author Organization [facility] Address [address] [place] [address] Phone Care Team Providers Care Associate Pathologist Name Role Phone Guero José MD Primary Care Provider [phone] Encounter Details Date Type Department Care Team (Late st Contact Info) Description 10/18/2016 [place]ation [facility] [place] [address] [place] [address] Family Medicine, Physician [address] [place] [phone] Social History Tobacco Use Types Packs/Day Years [...] filedocumented in this encounter Care Teams Associate Pathologist Relationship Specialty Start Date End Date Guero José MD [address] [place], [place] [address] [address] PCP - General 05/17/17 01/30/24 documented as of this encounter
--- OUTSIDE RECORDS SUMMARY | 2025-08-10 14:41 | XMS_ITS | Encounter Summary ---
Author Organization [facility] Address [address] [place] [address] Phone Care Team Providers Care Ripsaw Operator Name Role Phone Guero José MD Primary Care Provider [phone] Reason for Visit * Reason Comments Med Refill Encounter Details Date Type Department Care Team ([facility] Contact Info) Description 06/11/2019 Refill [facility] [address] [place] [address] Francesco Keenan MD [address] [place] [address] Skin infection Social History Tobacco Use Types [...] tissue documented in this encounter Care Teams Ripsaw Operator Relationship Specialty Start Date End Date Guero José MD [address] [facility] [place] [address] PCP - General 05/17/17 01/30/24 documented as of this encounter
--- OUTSIDE RECORDS SUMMARY | 2025-08-10 14:41 | XMS_ITS | Encounter Summary ---
Author Organization [facility] Address [address] [place] [address] Phone Care Team Providers Care Staple Cutter Name Role Phone Guero José MD Primary Care Provider [phone] Encounter Details Date Type Department Care Team (Late st Contact Info) Description 10/18/2016 Documentation [facility] [place] [address] [place] [address] Family Medicine, Physician [address] [place], [place] [phone] Social History Tobacco Use Types Packs/Day Years [...] on filedocumented in this encounter Care Teams Staple Cutter Relationship Specialty Start Date End Date Guero José MD [address] [place], [place] [address] [address] PCP - General 05/17/17 01/30/24 documented as of this encounter
--- OUTSIDE RECORDS SUMMARY | 2025-08-10 14:41 | XMS_ITS | Encounter Summary ---
Author Organization [facility] Address [address] [place] [address] Phone Care Team Providers Care Business Objects Report Developer Name Role Phone uGero José MD Primary Care Provider [phone] Encounter Details Date Type Department Care Team (Late st Contact Info) Description 10/18/2016 [place] [facility] [place] [address] [place] [address] Family Medicine, Physician [address] [place], [place] [phone] Social History Tobacco Use Types Packs/Day Years [...] on filedocumented in this encounter Care Teams Business Objects Report Developer Relationship Specialty Start Date End Date Guero José MD [address] [place], [place] [address] [address] PCP - General 05/17/17 01/30/24 documented as of this encounter
--- OUTSIDE RECORDS SUMMARY | 2025-08-10 14:41 | XMS_ITS | Encounter Summary ---
Author Organization [facility] Address [address] [place] [address] Phone Care Team Providers Care Outreach Director Name Role Phone Guero José MD Primary Care Provider Reason for Visit * Reason Comments Med Refill Encounter Details Date Type Department Care Team ([facility] Contact Info) Description 2019 Refill [facility] [address] [place] [address] Francesco Keenan MD [address] [place] [address] Skin infection Social History Tobacco Use Types [...] tissue documented in this encounter Care Teams Outreach Director Relationship Specialty Start Date End Date Guero José MD [address] [place] [address] [place] [address] PCP - General 05/17/17 01/30/24 documented as of this encounter
--- OUTSIDE RECORDS SUMMARY | 2025-08-10 14:41 | XMS_ITS | Encounter Summary ---
Author Organization [facility] Address [address] [place] [address] Phone Care Team Providers Care Metal Ceiling Builder Name Role Phone Guero José MD Primary Care Provider [phone] Encounter Details Date Type Department Care Team (Late st Contact Info) Description 10/18/2016 Documentation [facility] [place] [address] [place] [address] Family Medicine, Physician [address] [place] [phone] Social History Tobacco Use Types Packs/Day Years [...] on filedocumented in this encounter Care Teams Metal Ceiling Builder Relationship Specialty Start Date End Date Guero José MD [address] [place], [place] [address] [address] PCP - General 05/17/17 01/30/24 documented as of this encounter
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
--- OUTSIDE RECORDS SUMMARY | 2025-08-10 14:41 | XMS_ITS | Encounter Summary ---
Author Organization [facility] Address [address] [facility] [address] [place] [address] Care Team Providers Care Grinder Set Up Operator External Name Role Phone Unavailable Primary Care Provider Unavailabl e Encounter Details Date Type Department Care Team (Late st Contact Info) Description 05/14/2025 Telephone [facility] [address] [place] [address] Terry Cook MD [address] [place] [address] Social History Tobacco Use Types Packs/Day Years [...]
--- OUTSIDE RECORDS SUMMARY | 2025-08-10 14:41 | XMS_ITS | Encounter Summary ---
Author Organization [facility] Address [address] [place] [address] Phone Care Team Providers Care Vessel Welder Name Role Phone Guero José MD Primary Care Provider [phone] Encounter Details Date Type Department Care Team (Late st Contact Info) Description 12/04/2016 Documentation [facility] [place] [address] [place] [address] Family Medicine, Physician [address] [place] [phone] Social History Tobacco Use Types Packs/Day Years [...] on filedocumented in this encounter Care Teams Vessel Welder Relationship Specialty Start Date End Date Guero José MD [address] [place], [place] [address] [address] PCP - General 05/17/17 01/30/24 documented as of this encounter
--- OUTSIDE RECORDS SUMMARY | 2025-08-10 14:41 | XMS_ITS | Encounter Summary ---
Author Organization [facility] Address [address] [place] [address] Phone Care Team Providers Care Maintenance Fitter Name Role Phone Guero José MD Primary Care Provider [phone] Encounter Details Date Type Department Care Team (Late st Contact Info) Description 11/09/[address] [facility] [place] [address] [place] [address] Family Medicine, Physician [address] [place], [place] [phone] Social History Tobacco Use Types Packs/Day Years [...] on filedocumented in this encounter Care Teams Maintenance Fitter Relationship Specialty Start Date End Date Guero José MD [address] [place], [place] [address] [address] PCP - General 05/17/17 01/30/24 documented as of this encounter
--- OUTSIDE RECORDS SUMMARY | 2025-08-10 14:41 | XMS_ITS | Clinical Summary ---
Author Organization [facility] Address [address] [place] [address] Phone Care Team Providers Care Sr Community Manager Name Role Phone Physician, No Pcp Primary Care Provider Unavaila ble Allergies No known active allergies Encounters Date Type Department Care Team Description 05/20/2025 12:43 AM EDT - 05/20/2025 1:24 AM EDT Emergency [facility] Emergency [address] [place] [address] Abnormal vaginal bleeding (Primary Dx); [...] to 49 Years) (1 of 2 - PPSV23, PCV20, or PCV21) 01/01/2005 11/06/2004, 08/17/2003, 07/02/2003, Additional history exists Cervical Cancer Screening: Pap Smear 12/22/2023 Depression Screening 10/07/2024 HIV Screening 05/20/2025 Hepatitis C Screening 05/20/2025 Social Influencers of Health Screening 05/20/2025 COVID-19 Vaccine (2 - season) 2025 08/01/2023 Influenza Vaccine (#1) [...] and culture (05/19/2025 7:37 PM EDT) Specific [place] Urine 1.033(H) 1.003 - 1.030 LAB URINALYSIS - AUTOMATED METHOD 05/19/2025 8:29 PM EDT [facility] pH, Urine 5.5 5.0 - 8.0 pH LAB URINALYSIS - AUTOMATED METHOD 05/19/2025 8:29 PM EDT [facility] Leukocytes, Urine Small(A) Negative LAB URINALYSIS - AUTOMATED METHOD 05/19/2025 8:29 PM T [facility] Nitrite, Urine Negative Negative LAB URINALYSIS - AUTOMATED METHOD 05/19/2025 8:29 PM T [facility] Protein, Urine 100(A) <=Trace mg/dL LAB URINALYSIS - AUTOMATED METHOD 05/19/2025 8:29 PM T [facility] Glucose, Urine Negative Negative mg/dL LAB URINALYSIS - AUTOMATED METHOD 05/19/2025 8:29 PM [facility] Ketones, Urine Trace(A) Negative mg/dL LAB URINALYSIS - AUTOMATED METHOD 05/19/2025 8:29 PM [facility] Urobilinogen , Urine 1.0 0.2 - 1.0 mg/dL LAB URINALYSIS - AUTOMATED METHOD 05/19/2025 8:29 PM [facility] Bilirubin, Urine Negative Negative LAB URINALYSIS - AUTOMATED METHOD 05/19/2025 8:29 PM [facility] Blood, Urine Large(A) Negative LAB URINALYSIS - AUTOMATED METHOD 05/19/2025 8:29 PM [facility] RBC, Urine >100.0(H) 0 - 4 /HPF LAB URINALYSIS - AUTOMATED METHOD 05/19/2025 8:29 PM [facility] WBC, Urine 16.2(H) 0 - 4 /HPF LAB URINALYSIS - AUTOMATED METHOD 05/19/2025 8:29 PM [facility] Squamous Epithelial, Urine 91(H) 0 - 60 /LPF LAB URINALYSIS - AUTOMATED METHOD 05/19/2025 8:29 PM [facility] Bacteria, Urine Negative Negative /HPF LAB URINALYSIS - AUTOMATED METHOD 05/19/2025 8:29 PM [facility] Hyaline Casts, Urine 10.0(H) 0 - 3 /LPF LAB URINALYSIS - AUTOMATED METHOD 05/19/2025 8:29 PM [facility] Mucus, Urine Trace(A) None /HPF LAB URINALYSIS - AUTOMATED METHOD 05/19/2025 8:29 PM [facility] Urine Urine specimen obtained by clean catch procedure / Unknown Non-blood Collection / Unknown 05/19/2025 7:37 PM EDT 05/19/2025 7:44 PM EDT [facility] URINE ORDERABLES Final Re sult Performing Organization Address [facility] Co de Phone Number [facility] [address] [place] [address], [place] [phone] * Thompson urine culture tube (05/19/2025 7:37 PM EDT) [facility] Extra Tube Hold for add-ons. 05/19/2025 9:01 PM EDT [facility] Comment:Auto resulted. Urine Urine specimen obtained by clean catch procedure / Unknown Non-blood Collection / Unknown 05/19/2025 7:37 PM EDT 05/19/2025 7:44 PM EDT [facility] URINE ORDERABLES Final Re sult Performing Organization Address [facility] Co de Phone Number [facility] [address] [place] [address], [place] [phone] * Culture urine (05/19/2025 7:37 PM EDT) [facility] Culture, Urine No growth 05/20/2025 2:15 PM EDT [facility] Urine Urine specimen obtained by clean catch procedure / Unknown Non-blood Collection / Unknown 05/19/2025 7:37 PM EDT 05/19/2025 8:29 PM EDT [facility] MICROBIOLOGY - GENERAL OR DERABLES Final Result Performing Organization Address [facility] Co de Phone Number [facility] [address] [place] [address], [place] [phone] * 12-Lead ECG (05/19/2025 7:30 PM EDT) [facility] Ventricular Rate ECG 76 BPM GEMUSE Atrial Rate 76 BPM GEMUSE P-R Interval 142 ms GEMUSE QRS Duration 90 ms GEMUSE Q-T Interval 366 ms GEMUSE QTc 411 ms GEMUSE P Wave [place] 67 degrees GEMUSE R [place] 53 degrees GEMUSE T [place] 33 degrees GEMUSE ECG Interpretation Normal sinus rhythm with sinus arrhythmia No previous ECGs available Confirmed by CHEO DIETRICH ([id number]) on 05/20/2025 7:41:34 PM GEMUSE 05/19/2025 7:30 PM EDT 05/20/2025 7:41 PM EDT us Katt CARDENAS ECG ORDERABLES Final Re sult GEMUSE * (ABNORMAL) CBC auto differential (05/19/2025 5:26 PM EDT) WBC 8.8 4.8 - 10.8 K/mcL LAB HEMETOLOGY METHOD 05/19/2025 5:57 PM EDT [facility] RBC 4.60 3.80 - 4.80 M/mcL LAB HEMETOLOGY METHOD 05/19/2025 5:57 PM EDT [facility] Hemoglobin 9.7(L) 11.5 - 16.0 g/dL LAB HEMETOLOGY METHOD 05/19/2025 5:57 PM EDT [facility] Hematocrit 30.0(L) 35.0 - 47.0 % LAB HEMETOLOGY METHOD 05/19/2025 5:57 PM EDT [facility] MCV 65.1(L) 79.0 - 98.0 FL LAB HEMETOLOGY METHOD 05/19/2025 5:57 PM EDT [facility] MCH 21.0(L) 27.0 - 32.0 pcg LAB HEMETOLOGY METHOD 05/19/2025 5:57 PM EDT [facility] MCHC 32.3 32.0 - 37.0 g/dL LAB HEMETOLOGY METHOD 05/19/2025 5:57 PM [facility] RDW 18.9(H) 11.0 - 15.0 % LAB HEMETOLOGY METHOD 05/19/2025 5:57 PM [facility] Platelets 268 130 - 400 K/[facility] LAB HEMETOLOGY METHOD 05/19/2025 5:57 PM [facility] MPV 9.9 7.0 - 11.0 FL LAB HEMETOLOGY METHOD 05/19/2025 5:57 PM [facility] NRBC 0.3 <1.0 % LAB HEMETOLOGY METHOD 05/19/2025 5:57 PM [facility] NRBC Absolute 0.03 <0.10 K/[facility] LAB HEMETOLOGY METHOD 05/19/2025 5:57 PM [facility] Neutrophils Relative 68.5 % LAB HEMETOLOGY METHOD 05/19/2025 5:57 PM [facility] Lymphocytes Relative 24.0 % LAB HEMETOLOGY METHOD 05/19/2025 5:57 PM [facility] Monocytes Relative 6.2 % LAB HEMETOLOGY METHOD 05/19/2025 5:57 PM [facility] Eosinophils Relative 0.2 % LAB HEMETOLOGY METHOD 05/19/2025 5:57 PM [facility] Basophils Relative 0.3 % LAB HEMETOLOGY METHOD 05/19/2025 5:57 PM [facility] Immature Granulocytes Relative 0.8 % LAB HEMETOLOGY METHOD 05/19/2025 5:57 PM [facility] Neutrophils Absolute 6.03 1.50 - 7.00 K/mcL LAB HEMETOLOGY METHOD 05/19/2025 5:57 PM [facility] Lymphocytes Absolute 2.12 1.00 - 5.00 K/mcL LAB HEMETOLOGY METHOD 05/19/2025 5:57 PM EDT [facility] Monocytes Absolute 0.55 0.20 - 1.00 K/mcL LAB HEMETOLOGY METHOD 05/19/2025 5:57 PM EDT [facility] Eosinophils Absolute 0.02 0.00 - 0.50 K/[facility] LAB HEMETOLOGY METHOD 05/19/2025 5:57 PM EDT [facility] Basophils Absolute 0.03 0.00 - 0.20 K/[facility] LAB HEMETOLOGY METHOD 05/19/2025 5:57 PM EDT [facility] Immature Granulocytes Absolute 0.07(H) 0.00 - 0.03 K/mcL LAB HEMETOLOGY METHOD 05/19/2025 5:57 PM EDT [facility] Blood Venous blood specimen / Unknown Venipuncture / Unknown 05/19/2025 5:26 PM EDT 05/19/2025 5:42 PM EDT Blanca Soriano LAB BLOOD ORDERABLES Final Re sult [facility] [address] [place] [address], * Type and screen (05/19/2025 5:26 PM EDT) ABO Group A 05/19/2025 7:11 PM EDT [facility] Rh Type Positive 05/19/2025 7:11 PM EDT [facility] Antibody Screen Negative 05/19/2025 7:11 PM EDT [facility] Blood Venous blood specimen / Unknown Venipuncture / Unknown 05/19/2025 5:26 PM EDT 05/19/2025 5:44 PM EDT Blanca Soriano LAB BLOOD BANK TEST ORDERABLE S Final Result [facility] [address] [place] [address], * (ABNORMAL) Basic metabolic panel (05/19/2025 5:26 PM EDT) Sodium 137 133 - 145 mmol/L LAB [facility] Potassium 4.1 3.5 - 5.5 mmol/L LAB CHEMISTRY METHOD 05/19/2025 6:13 PM [facility] Chloride 106 96 - 110 mmol/L LAB CHEMISTRY METHOD 05/19/2025 6:13 PM [facility] CO2 29 21 - 32 mmol/L LAB CHEMISTRY METHOD 05/19/2025 6:13 PM [facility] Anion Gap 2(L) 3 - 11 LAB CHEMISTRY METHOD 05/19/2025 6:13 PM [facility] Glucose 90 70 - 100 mg/dL LAB CHEMISTRY METHOD 05/19/2025 6:13 PM [facility] BUN 14 5 - 25 mg/dL LAB CHEMISTRY METHOD 05/19/2025 6:13 PM [facility] Creatinine 0.64 0.50 - 1.10 mg/dL LAB CHEMISTRY METHOD 05/19/2025 6:13 PM [facility] eGFR 128 >=60 mL/min/1. 73m2 LAB CHEMISTRY METHOD 05/19/2025 6:13 PM [facility] Comment:Calculation based on the Chronic Kidney Disease Epidemiology Collaboration (CKD-EPI) equation refit without adjustment for race. BUN/Creatinine Ratio 21.9 LAB CHEMISTRY METHOD 05/19/2025 6:13 PM [facility] Calcium 9.6 8.5 - 10.5 mg/dL LAB CHEMISTRY METHOD 05/19/2025 6:13 PM [facility] Blood Venous blood specimen / Unknown Venipuncture / Unknown 05/19/2025 5:26 PM EDT 05/19/2025 5:42 PM EDT us Blanca Soriano DO LAB BLOOD ORDERABLES Final Re sult [facility] ([facility]) [facility] [address] [place] [address], [place] [phone] from Last 3 Months Insurance [facility] [employer] Care Teams Sr Community Manager Relationship Specialty Start Date End Date Physician, No Pcp PCP - General 05/20/25
== END 2025-08-10 12:52 | disposition home or self-care (01) ==
LOC: HO.HWS 11:52
PROVIDERS: Visit Provider Obstetrics & Gynecology
DX: N80.129 Deep endometriosis of ovary, unspecified ovary (principal); N80.9 Endometriosis, unspecified
CPT/HCPCS: 99213

== ENCOUNTER → 2025-08-10 11:52 | Outpatient (BNVA) | payer OTHER, SELFPAY | PROVIDERS: Visit Provider Obstetrics & Gynecology | DX: Z71.2 Person consulting for explanation of examination or test findings (principal); N80.122 Deep endometriosis of left ovary | CPT/HCPCS: 99212 ==

== ENCOUNTER 2025-09-09 13:33 | Outpatient (REF) | payer OTHER, SELFPAY ==
--- NOTE | ~2025-09-09 | US_ITS ---
CLINICAL HISTORY: N83.299 - Other ovarian cyst, unspecified side Ultrasound of the female pelvis Comparison: MR - MR PELVIS WO/W CON - 07/02/25 13:04 EDT US/SR - US PELVIS TRANSABDOMINAL AND TRANSVAGINAL - 06/10/25 13:21 EDT Technique: Grayscale ultrasound with assistance of color Doppler. Transabdominal scanning performed for overall anatomy. Transvaginal scanning performed for better anatomic delineation. Findings: Anteverted uterus measures 8.3 x 3.5 x 3.8 cm. Unremarkable myometrium, no mass is seen. Normal endometrium, 4 mm in thickness. Unremarkable cervix. Normal right ovary, 3.6 x 2.3 x 2.9 cm. No abnormal vascular flow. Left ovary is mildly enlarged, measures 4.4 x 3.7 x 3.7 cm, 2 complex avascular cysts with homogeneous hypoechogenicity consistent with known endometriomas better seen on prior MRI exam, measuring 4.3 x 2.7 x 3.2 cm and 1.7 x 2.0 x 1.7 cm, previously 3.9 x 2.6 x 2.6 cm and 1.7 x 1.3 x 1.5 cm respectively on ultrasound from 06/10/2025. No abnormal vascular flow. Small free fluid in the posterior cul-de-sac, most likely physiologic. Impression: 1. Mildly enlarged left ovarian endometriomas, recommend wire inserter follow-up. 2. Otherwise unremarkable. This document has been electronically signed by: Henna Long MD on 09/09/2025 16:50:20
== END 2025-09-09 13:34 | disposition home or self-care (01) ==
LOC: HO.US 13:33
PROVIDERS: Visit Provider Obstetrics & Gynecology
DX: N83.292 Other ovarian cyst, left side (principal)
CPT/HCPCS: 76830; 76856

== ENCOUNTER → 2025-09-09 13:36 | Outpatient (BNV) | payer OTHER, SELFPAY | PROVIDERS: Visit Provider Radiology Diagnostic Radiology | DX: N83.292 Other ovarian cyst, left side (principal); N80.122 Deep endometriosis of left ovary | CPT/HCPCS: 76830; 76856 ==